=== PATIENT | male | born 1950 | race Caucasian/White ===

== ENCOUNTER 2017-05-24 14:55 | Inpatient (IN) | payer MEDICARE, OTHER ==
[~2017-05-24] VITALS: Ht 188 cm; Wt 100.4 kg
[2017-05-24] VITALS (10 sets, daily range): BP systolic 92–149; BP diastolic 63–99; PULSE 87–103; RESP 17–35; Ht 188 cm; Wt 100.4 kg
[2017-05-24] MEDS ORDERED: ZOLP5TAB7 PO (15:08)
[2017-05-24] MEDS ORDERED: ACET500C5 PO (15:08)
[2017-05-24] MEDS ORDERED: FURO40TA4 IV (15:08)
[2017-05-24] MEDS ORDERED: CARV3.12 PO (15:08)
[2017-05-24] MEDS ORDERED: LEVEM SC (15:08)
[2017-05-24] MEDS ORDERED: ASPI325T32 PO (15:08)
[2017-05-24] MEDS ORDERED: PANT40TA4 PO (15:08)
[2017-05-24] MEDS ORDERED: ENOX40DI12 SQ (15:08)
[2017-05-24] MEDS ORDERED: ATOR10TA65 PO (15:08)
[2017-05-24] MEDS ORDERED: ONDA4AMP IV (15:08)
[2017-05-24] MEDS ORDERED: FUROSEMIDE 40 MG INJ ONE (15:24)
--- NOTE | 2017-05-24 16:30 | RADRPT ---
PROCEDURE: XR Chest. CLINICAL INDICATION: CHF . TECHNIQUE: Single AP portable chest. COMPARISON: No prior Chest x-ray FINDINGS: The cardiac silhouette is mildly enlarged with small bilateral pleural effusions and vascular conges tion. Patchy left lower lobe airspace opacity which may represent pulmonary edema or airspace diseas e. No pneumothorax. The osseous structures and soft tissues are unremarkable. IMPRESSION: 1. Cardiomegaly, vascular congestion, and bilateral pleural effusions suggestive of mild CHF. Increa sed left lower lobe airspace opacity which may reflect pulmonary edema or early pneumonia . RPTAT:AAJJ Ian Palacio Physician Date Time Electronically viewed and signed by Physician Karal on 05/24/2017 16:30 NACHO/
--- NOTE | 2017-05-24 17:06 | CONS ---
Date/Time of Note Date/Time of Note DATE: 05/24/17 TIME: 17:06 Assessment/Plan Assessment/Plan Chief Complaint/Hosp Course Acute respiratory distress: Likely multifactorial including CHF, COPD, obesity hypoventilation. Will need to be able to lay flat for cardiac cath Acute systolic heart failure: EF 25-30%. New diagnosis. Need to rule out ischemia/CAD. Will continue diuresis for now NSTEMI: Trop up to 0.2. Likely type II in setting of CHF. 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 He was initially on BiPAP and diuresed. His trop was only 0.2. Due to cardiomyopathy, the pt was transferred to [facility] for cardiac cath for evaluation. Of note, he was also diagnosed with DM. Upon transfer to the metallurgical lab technician, the pt was noted to have significant orthopnea and was unable to lay flat for more than 2-3 mins. His O2 sat on room air was 88% and responded appropriately to supplemental oxygen. He will be admitted to the ICU for diuresis and management of his respiratory distress after which he will have a cardiac cath for evaluation of his coronaries. per HPI, otherwise negative Past Medical History per HPI Social History Smoking Status: Former smoker Exam/Review of Systems Vital Signs Vitals Vital Signs Date Time Temp Pulse Resp B/P Pulse Ox O2 Delivery O2 Flow Rate FiO2 05/24/17 15:22 Nasal Cannula 2.0 05/24/17 15:17 98.8 102 35 149/99 89 Exam Constitutional: alert, oriented Psych: no complaints Head: atraumatic, normocephalic Neck: jvd (7-8cm) Respiratory: crackles/rales, diminished breath sounds, No clear to auscultation (mild crackles ) Cardiovascular: edema (1+), regular rate and rhythm, No systolic murmur Gastrointestinal: non-tender, soft Neurological: nl mental status, nl speech TAMMI MORENO May 24, 2017 17:06
[2017-05-24] MEDS ORDERED: Discontinue current oral sulfonylureas (glyburide, glipizide, and/or glimepiride) prior to XX ONE (20:30)
[2017-05-24] MEDS ORDERED: HYPOGLYCEMIA PROTOCOL when Glucose is <70 mg/dL or symptomatic <90 mg/dL. XX ONE (20:30)
[2017-05-24] MEDS: INSULIN ASPART [NOVOLOG] 3 ML PEN SC SCH (21:00)
[2017-05-24] MEDS: HYDROCODONE/APAP (5/325) TAB PO PRN (21:16)
[2017-05-24] MEDS: ATORVASTATIN 40 MG TAB PO SCH (21:16)
[2017-05-24] MEDS: ZOLPIDEM 5 MG TAB PO PRN (21:19)
[2017-05-24] MEDS ORDERED: DEXTROSE 50% 50 ML SYRINGE IV PRN ×2 (21:30)
[2017-05-24] MEDS ORDERED: GLUCOSE GEL 15 GRAM TUBE PO PRN ×2 (21:30)
[2017-05-24] MEDS ORDERED: GLUCAGON 1 MG INJ IM PRN (21:30)
[2017-05-24] MEDS ORDERED: GLUCOSE GEL 15 GRAM TUBE BUCCAL PRN (21:30)
[2017-05-25] VITALS (19 sets, daily range): BP systolic 107–135; BP diastolic 64–101; PULSE 84–105; RESP 13–39
[2017-05-25] MEDS: ACCU-CHEK XX SCH ×2 (01:12)
[2017-05-25 07:17] LABS: BASOPHILS % 0.4 % (0.0-2.0); EOSINOPHILS # 0.1 10^3/ul (0.0-0.5); EOSINOPHILS % 0.7 % (0.0-7.0); HEMATOCRIT 35.8 % (42.0-52.0); HEMOGLOBIN 10.7 g/dl (14.0-18.0); LYMPHOCYTES # 1.2 10^3/ul (0.8-2.9); LYMPHOCYTES % 15.4 % (15.0-51.0); MEAN CORPUSCULAR HGB CONC 29.9 g/dl (32.0-37.0); MEAN CORPUSCULAR VOLUME 83.6 fl (82.0-101.0); MEAN PLATELET VOLUME 10.3 fl (7.4-10.4); MONOCYTE # 1.2 10^3/ul (0.3-0.9); MONOCYTES % 15.6 % (0.0-11.0); NEUTROPHILS % 66.7 % (39.0-77.0); PLATELET COUNT 352 10^3/UL (140-415); RED BLOOD COUNT 4.28 10^6/ul (4.70-6.10); RED CELL DISTRIBUTION WIDTH 13.8 % (11.5-14.5); WHITE BLOOD COUNT 7.5 10^3/ul (4.8-10.8)
[2017-05-25 07:26] LABS: ALBUMIN/GLOBULIN RATIO 0.88; BILIRUBIN,INDIRECT 0.2 mg/dl (0-1.1); BILIRUBIN,TOTAL 0.2 mg/dl (0.2-1.3); CALCIUM 9.3 mg/dl (8.4-10.2); CREATININE 0.94 mg/dl (0.61-1.24); MAGNESIUM 2.2 mg/dl (1.7-2.5); PHOSPHORUS 3.5 mg/dl (2.5-4.9); POTASSIUM 4.1 mmol/L (3.5-5.1); TOTAL PROTEIN 6.4 g/dl (6.1-8.1)
[2017-05-25] MEDS ORDERED: ZOLPIDEM 5 MG TAB PO PRN (07:30)
[2017-05-25] MEDS ORDERED: ONDANSETRON 4 MG INJ IV PRN (07:30)
[2017-05-25] MEDS ORDERED: FUROSEMIDE 40 MG INJ IV SCH (07:30)
[2017-05-25] MEDS: INSULIN ASPART [NOVOLOG] 3 ML PEN SC SCH ×4 (08:07→21:56)
[2017-05-25] MEDS: ASPIRIN 81 MG TAB PO SCH (08:21)
--- NOTE | 2017-05-25 08:28 | HP ---
DATE OF ADMISSION: 05/24/2017 CHIEF COMPLAINT: Shortness of breath and CHF. HISTORY OF PRESENT ILLNESS: The patient is a 66-year-old male with a past medical history of obesity, history of tobacco use, who presented to [facility] with shortness of breath. The patient was found to have acute decompensated heart failure with ejection fraction 25 to 30 percent. The patient was initially placed on BiPAP and diuresed. He had an elevated troponin of 0.2. However, due to his cardiomyopathy, the patient is transferred to [facility] for cardiac cath. The patient was also diagnosed with diabetes at [facility]. Upon transferred to do catheterization. The patient had significant orthopnea was unable to lie flat as a result the cardiac cath was not performed. The patient is admitted to the intensive care unit and was given diuretic therapy. Overnight the patient was stable. No other acute events noted. No hemoptysis, hematemesis, hematochezia. PAST MEDICAL HISTORY: 1. Recently diagnosed diabetes. 2. Recently diagnosed CHF, non-STEMI. FAMILY HISTORY: Noncontributory. SOCIAL HISTORY: History of tobacco use. MEDICATIONS: Reviewed. REVIEW OF SYSTEMS: Fourteen review of systems was conducted. Pertinent positives in HPI, otherwise negative. OBJECTIVE DATA: VITAL SIGNS: Blood pressure is 121/101, respirations 18, pulse 101, temperature 98.6. Is and Os L in, 2.2 L out. HEENT: Head is normocephalic. NECK: Supple. HEART: Regular rate. LUNGS: Diminished breath sounds at the base. ABDOMEN: Soft, nontender to palpation. No rebound or guarding. EXTREMITIES: Negative for clubbing, cyanosis. Positive edema. DERMATOLOGIC: No rashes. MUSCULOSKELETAL: No joint effusion. NEUROLOGIC: No change in exam. LABORATORY DATA: The patient's laboratory data is currently pending. ASSESSMENT AND PLAN: 1. Acute hypoxemic respiratory failure. Etiology secondary to congestive heart failure exacerbation. Plan is to continue current medical management. Continue diuretic therapy. Continue supplemental oxygen. Monitor closely. 2. Acute systolic heart failure. Underlying etiology is unclear. The patient is pending cardiac catheterization to rule out ischemic cardiomyopathy. We will continue current medical management. Follow up with Cardiology. 3. Non-STEMI. Continue current medical management. 4. Diabetes newly diagnosed. Will check hemoglobin A1c. Continue Accu-Cheks and insulin sliding scale. We will start the patient on Lantus. 5. Gastrointestinal and deep venous thrombosis prophylaxis. Continue proton pump inhibitor and Lovenox. 6. Dyslipidemia. Continue statin therapy. Please note, I spent 25 minutes face to face time with the patient. The patient is full code. Dictated By: Giuseppe Boyd DO /angi/dakota /Document#: [id number]
--- NOTE | 2017-05-25 10:45 | CONS ---
Date/Time of Note Date/Time of Note DATE: 05/25/17 TIME: 10:42 Assessment/Plan Assessment/Plan Chief Complaint/Hosp Course Acute respiratory distress: Likely multifactorial including CHF, COPD, obesity hypoventilation. Acute systolic heart failure: EF 25-30%. New diagnosis. Need to rule out ischemia/CAD. Close to euvolemic by exam NSTEMI: Trop up to 0.2. Likely type II in setting of CHF. Cardiomyopathy: EF 25 -30% ?COPD: likely based on h/o smoking DM: new diagnosis Prior tobacco use -ASA, lipitor -coreg 3.125mg BID -hold lasix for now (~euvolemic and had 40mgf IV this am) -cath tentatively tomorrow ~1 pm. Problems: Consultation Date/Type/Reason Admit Date/Time May 24, 2017 at 16:00 Initial Consult Date 05/24/17 Type of Consultation: Cardiology Referring Provider: GIOVANNI KRUGER DO 24 HR Interval Summary Free Text/Dictation No o/n events. Diuresing well. Able to lay almost completely flat Exam/Review of Systems Vital Signs Vitals Vital Signs Date Time Temp Pulse Resp B/P Pulse Ox O2 Delivery O2 Flow Rate FiO2 05/25/17 10:00 99 18 135/96 91 Room Air 05/25/17 08:00 98.3 05/25/17 05:00 2.0 Intake and Output 05/24/17 05/24/17 05/25/17 15:00 23:00 07:00 Intake Total 1440 ml Output Total 1700 ml 1600 ml Balance -260 ml -1600 ml Exam Constitutional: alert, oriented Psych: no complaints Head: atraumatic, normocephalic Neck: No jvd Respiratory: crackles/rales (mild), diminished breath sounds, No clear to auscultation Cardiovascular: edema (1+), regular rate and rhythm Gastrointestinal: non-tender, soft Neurological: nl mental status, nl speech Results Result Diagram: 05/25/1743905/25/17439 Results 24 hrs Laboratory Tests Test 05/24/17 21:26 05/25/17 04:40 05/25/17 07:52 Bedside Glucose 203 190 White Blood Count 7.5 Red Blood Count 4.28 L Hemoglobin 10.7 L Hematocrit 35.8 L Mean Corpuscular Volume 83.6 Mean Corpuscular Hemoglobin 25.0 L Mean Corpuscular Hemoglobin Concent 29.9 L Red Cell Distribution Width 13.8 Platelet Count 352 Mean Platelet Volume 10.3 Neutrophils % 66.7 Lymphocytes % 15.4 Monocytes % 15.6 H Eosinophils % 0.7 Basophils % 0.4 Nucleated Red Blood Cells % 0.0 Neutrophils # (Manual) 5.0 Lymphocytes # 1.2 Monocytes # 1.2 H Eosinophils # 0.1 Basophils # 0.0 Nucleated Red Blood Cells # 0.0 Sodium Level 130 L Potassium Level 4.1 Chloride Level 88 L Carbon Dioxide Level 37 H Anion Gap 9 Blood Urea Nitrogen 12 Creatinine 0.94 Glucose Level 169 Hemoglobin A1c 8.8 H Calcium Level 9.3 Phosphorus Level 3.5 Magnesium Level 2.2 Total Bilirubin 0.2 Direct Bilirubin 0.00 Indirect Bilirubin 0.2 Aspartate Amino Transf (AST/SGOT) 39 Alanine Aminotransferase (ALT/SGPT) 33 Alkaline Phosphatase 164 H Total Protein 6.4 Albumin 3.0 L Globulin 3.40 H Albumin/Globulin Ratio 0.88 Medications Medications Current Medications Aspirin (Aspirin) 81 mg DAILY PO Last administered on 05/25/17 08:21; Admin Dose 81 MG; Start 05/25/17 at 09:00 Atorvastatin Calcium (Lipitor) 40 mg HS PO Last administered on 05/24/17 21:16 ; Admin Dose 40 MG; Start 05/24/17 at 21:00 Carvedilol (Coreg) 3.125 mg BID PO Last administered on 05/25/17 08:21; Admin Dose 3.125 MG; Start 05/24/17 at 21:00 Zolpidem Tartrate (Ambien) 5 mg HS PRN PO INSOMNIA Last administered on 21:19; Admin Dose 5 MG; Start 05/24/17 at 20:30 Acetaminophen/ Hydrocodone Bitart ([place] (5/325)) 1 tab Q6H PRN PO PAIN Last administered on 05/24/17 21:16; Admin Dose 1 TAB; Start 05/24/17 at 20:30 Diagnostic Test (Pha) (Accu-Chek) 1 ea 02 XX Last administered on 05/25/17 01: 12; Admin Dose 1 EA; Start 05/25/17 at 02:00 Diagnostic Test (Pha) (Accu-Chek) 1 ea 02 XX Last administered on 05/25/17t 01: 12; Admin Dose 1 EA; Start 05/25/17 at 02:00 Miscellaneous Information 1 ea NOTE XX ; Start 05/24/17 at 21:30 Glucose (Glutose) 15 gm Q15M PRN PO DECREASED GLUCOSE; Start 05/24/17 at 21:30 Glucose (Glutose) 22.5 gm Q15M PRN PO DECREASED GLUCOSE; Start 05/24/17 at 21:30 Dextrose (D50w Syringe) 25 ml Q15M PRN IV DECREASED GLUCOSE; Start 05/24/17 at 21:30 Dextrose (D50w Syringe) 50 ml Q15M PRN IV DECREASED GLUCOSE; Start 05/24/17 at 21:30 Glucagon (Glucagen) 1 mg Q15M PRN IM DECREASED GLUCOSE; Start 05/24/17 at 21:30 Glucose (Glutose) 15 gm Q15M PRN BUCCAL DECREASED GLUCOSE; Start 05/24/17 at 21: 30 Enoxaparin Sodium (Lovenox) 40 mg 2100 SC ; Start 05/25/17 at 21:00 Ondansetron HCl (Zofran Inj) 4 mg Q6 PRN IV N/V; Start 05/25/17 at 07:30 Zolpidem Tartrate (Ambien) 5 mg QHS PRN PO INSOMNIA; Start 05/25/17 at 07:30 TAMMI MORENO May 25, 2017 10:45
[2017-05-25 13:15] LABS: ADD UMIC YES; UR AMORPHOUS CRYSTAL MODERATE /HPF (NONE SEEN); UR ASCORBIC ACID NEGATIVE (NEGATIVE); UR BILIRUBIN (Dip) NEGATIVE (NEGATIVE); UR BLOOD (Dip) NEGATIVE (NEGATIVE); UR CLARITY CLOUDY (CLEAR); UR COLOR YELLOW (YELLOW); UR GLUCOSE (Dip) 1+ mg/dL (NEGATIVE); UR KETONES (Dip) 1+ mg/dL (NEGATIVE); UR LEUKOCYTE ESTERASE (Dip) NEGATIVE Leu/ul (NEGATIVE); UR NITRITE (Dip) NEGATIVE (NEGATIVE); UR RBC 2 /HPF (0-5); UR TOTAL PROTEIN (Dip) NEGATIVE (NEGATIVE); UR UROBILINOGEN (Dip) 2+ mg/dL (NEGATIVE)
--- NOTE | 2017-05-25 13:17 | RADRPT ---
Echocardiogram Report Patient Name: JACKSON AYALA Gender: Male Date: 1950 Study Date: 25-May-2017 Passenger Solicitor: Daniel Alexander [facility] Location: 115 Ref. Physician: TAMMI MORENO Quality: Adequate Procedures: Transthoracic echocardiogram with complete 2D, M-Mode, and doppler examination. Indications: Congestive Heart Failure, cardiomyopathy. 2D/M Mode Doppler Measurement Value Normal Ranges Measurement Value Normal Ranges LVIDd 2D 5.3 3.5 - 5.6 cm AV Peak Aroldo 1.4 m/sec LVIDs 2D 4.2 2.1 - 4.1 cm AV Peak PG 8.0 mmHg FS 2D 21.5 % LVOT Peak Aroldo 1.1 m/sec LVPWd 2D 1.3 0.6 - 1.1 cm LVOT Peak PG 4.0 mmHg IVSd 2D 1.3 0.6 - 1.1 cm MV E Peak Aroldo 1.3 m/sec IVS/LVPW 2D 1.0 AoR Diam 2D 3.6 2.0 - 3.7 cm LA/Ao 2D 1 0 - 1 EDV 2D 153.0 cm3 ESV 2D 74.1 cm3 LA Dimen 2D 4.7 2.3 - 4.0 cm Findings Left Ventricle: Normal left ventricular cavity size. Mild concentric left ventricular hypertrophy. Mild left ventricular systolic dysfunction. Ejection fraction is visually estimated at 4045 %. Tissue Doppler/Mitral Doppler indices are consistent with impaired relaxation (Stage I diastolic dysfunction). Resting Segmental Wall Motion Analysis: Mild global hypokinesis worse in the inferior and inferolateral uriarte. Right Ventricle: Normal right ventricular size. Normal right ventricular systolic function. Left Atrium: There is moderate enlargement of left atrium. Right Atrium: The right atrium is normal in size. Mitral Valve: Mitral valve leaflets appear mildly thickened. Mild mitral annular calcification. Trace mitral regurgitation. Aortic Valve: Normal appearance of the aortic valve. No significant aortic stenosis or insufficiency. Tricuspid Valve: Normal appearance of the tricuspid valve. Unable to obtain RVSP due to minimal presence of tricuspid regurgitation. There is mild tricuspid regurgitation. Pulmonic Valve: Pulmonic valve not well visualized. There is trace pulmonic regurgitation. Pericardium: Normal pericardium with no significant pericardial effusion. Aorta: Normal aortic root. IVC: Normal size and normal respiratory collapse consistent with normal right atrial pressure. Conclusions 1.Normal left ventricular cavity size. Mild concentric left ventricular hypertrophy. Mild left ventricular systolic dysfunction. Ejection fraction is visually estimated at 40-45 %. Tissue Doppler/Mitral Doppler indices are consistent with impaired relaxation (Stage I diastolic dysfunction). 2.Mild global hypokinesis worse in the inferior and inferolateral uriarte. 3.No significant valvular stenosis or regurgitation seen. 4.Unable to obtain RVSP due to minimal presence of tricuspid regurgitation. Normal size and normal respiratory collapse consistent with normal right atrial pressure. Electronically Signed By: Tammi Moreno 25-May-2017 13:16:40 -0700 Patient Name: JACKSON AYALA Study Date: 25-May-2017 [id number]
[2017-05-25] MEDS: HYDROCODONE/APAP (5/325) TAB PO PRN ×2 (17:30→23:07)
--- NOTE | 2017-05-25 19:18 | RADRPT ---
Vent Rate: 88 bpm RR Interval: 0 msec [place] Interval: 164 msec QRS Duration: 116 msec QT Interval: 418 msec QTC Interval: 505 msec P-R-T [place]: 55 - 17 - 88 degrees Normal sinus rhythm Possible Left atrial enlargement ST amp; T wave abnormality, consider anterior ischemia Prolonged QT Abnormal ECG Electronically Signed By: Trevor Martinez [id number]
[2017-05-25] MEDS ORDERED: ENOXAPARIN 40 MG/0.4 ML SYG SC SCH (21:00)
[2017-05-25] MEDS: ZOLPIDEM 5 MG TAB PO PRN (21:28)
[2017-05-25] MEDS: ATORVASTATIN 40 MG TAB PO SCH (21:28)
[2017-05-25] MEDS: INSULIN GLARGINE [LANtus] 3 ML PEN SC SCH (21:31)
[2017-05-26] VITALS (21 sets, daily range): BP systolic 113–155; BP diastolic 67–96; PULSE 89–111; RESP 16–40
[2017-05-26] MEDS: ACCU-CHEK XX SCH ×2 (02:00)
[2017-05-26] MEDS: PANTOPRAZOLE (EC) 40 MG TAB PO SCH (07:30)
[2017-05-26] MEDS ORDERED: ALBUTEROL/IPRATROPIUM (NEB) 3 ML AMP HHN STA (07:52)
--- NOTE | 2017-05-26 08:12 | CONS ---
Date/Time of Note Date/Time of Note DATE: 05/26/17 TIME: 08:07 Assessment/Plan Assessment/Plan Chief Complaint/Hosp Course Acute respiratory distress: Likely multifactorial including CHF, COPD, obesity hypoventilation. Now euvolemic but still with SOB at times. ?PNA or just COPD exacerbation Acute systolic heart failure: Euvolemic by exam NSTEMI: Trop up to 0.2. Likely type II in setting of CHF. Cardiomyopathy: EF 25 -30% initgially, now closer to 40-45% after diuresis ?COPD: likely based on h/o smoking DM: new diagnosis Prior tobacco use -cath today ~11:30am -ASA, lipitor -coreg 3.125mg BID -hold lasix for now -neb treatment -consideration of antibiotics, COPD treatment or pulm consult per primary team Problems: Consultation Date/Type/Reason Admit Date/Time May 24, 2017 at 16:00 Initial Consult Date 05/24/17 Type of Consultation: Cardiology Referring Provider: GIOVANNI KRUGER DO 24 HR Interval Summary Free Text/Dictation Good diuresis. Still with mild SOB but can lay flat per pt. Exam/Review of Systems Vital Signs Vitals Vital Signs Date Time Temp Pulse Resp B/P Pulse Ox O2 Delivery O2 Flow Rate FiO2 05/26/17 07:43 98.0 102 18 140/72 95 05/25/17 14:00 Room Air 05/25/17 10:46 21 05/25/17 05:00 2.0 Intake and Output 05/25/17 05/25/17 05/26/17 15:00 23:00 07:00 Intake Total 880 ml 120 ml 500 ml Output Total 2300 ml 300 ml 1250 ml Balance -1420 ml -180 ml -750 ml Exam Constitutional: alert, oriented Psych: no complaints Head: atraumatic, normocephalic Neck: No jvd Respiratory: clear to auscultation, diminished breath sounds, No crackles/rales Cardiovascular: regular rate and rhythm, No edema, No systolic murmur Gastrointestinal: non-tender, soft, No distended Neurological: nl mental status, nl speech Results Result Diagram: 05/25/17 0440 05/25/17 0440 Results 24 hrs Laboratory Tests Test 05/25/17 09:10 05/25/17 11:48 05/25/17 13:01 05/25/17 17:20 Urine Color YELLOW Urine Clarity CLOUDY A Urine pH 9.0 Urine Specific [place] 1.010 Urine Ketones 1+ H Urine Nitrite NEGATIVE Urine Bilirubin NEGATIVE Urine Urobilinogen 2+ H Urine Leukocyte Esterase NEGATIVE Urine Microscopic RBC 2 Urine Microscopic WBC 5 Urine Amorphous Crystals MODERATE Urine Hemoglobin NEGATIVE Urine Random Creatinine 51.21 Urine Random Sodium 87 Urine Glucose 1+ H Urine Total Protein 25.0 H Bedside Glucose 238 H 212 213 Test 05/25/17 21:14 05/25/17 21:50 05/26/17 02:25 Bedside Glucose 258 H 202 203 Medications Medications Current Medications Aspirin (Aspirin) 81 mg DAILY PO Last administered on 05/25/17 08:21; Admin Dose 81 MG; Start 05/25/17 at 09:00 Atorvastatin Calcium (Lipitor) 40 mg HS PO Last administered on 05/25/17 21:28 ; Admin Dose 40 MG; Start 05/24/17 at 21:00 Carvedilol (Coreg) 3.125 mg BID PO Last administered on 05/25/17 21:28; Admin Dose 3.125 MG; Start 05/24/17 at 21:00 Zolpidem Tartrate (Ambien) 5 mg HS PRN PO INSOMNIA Last administered on 21:28; Admin Dose 5 MG; Start 05/24/17 at 20:30 Acetaminophen/ Hydrocodone Bitart ([place] (5/325)) 1 tab Q6H PRN PO PAIN Last administered on 05/25/17 23:07; Admin Dose 1 TAB; Start 05/24/17 at 20:30 Diagnostic Test (Pha) (Accu-Chek) 1 ea 02 XX Last administered on 05/25/17 01: 12; Admin Dose 1 EA; Start 05/25/17 at 02:00 Diagnostic Test (Pha) (Accu-Chek) 1 ea 02 XX Last administered on 05/25/17 01: 12; Admin Dose 1 EA; Start 05/25/17 at 02:00 Miscellaneous Information 1 ea NOTE XX ; Start 05/24/17 at 21:30 Glucose (Glutose) 15 gm Q15M PRN PO DECREASED GLUCOSE; Start 05/24/17 at 21:30 Glucose (Glutose) 22.5 gm Q15M PRN PO DECREASED GLUCOSE; Start 05/24/17 at 21:30 Dextrose (D50w Syringe) 25 ml Q15M PRN IV DECREASED GLUCOSE; Start 05/24/17 at 21:30 Dextrose (D50w Syringe) 50 ml Q15M PRN IV DECREASED GLUCOSE; Start 05/24/17 at 21:30 Glucagon (Glucagen) 1 mg Q15M PRN IM DECREASED GLUCOSE; Start 05/24/17 at 21:30 Glucose (Glutose) 15 gm Q15M PRN BUCCAL DECREASED GLUCOSE; Start 05/24/17 at 21: 30 Enoxaparin Sodium (Lovenox) 40 mg 2100 SC Last administered on 05/25/17 21:31; Admin Dose 40 MG; Start 05/25/17 at 21:00 Ondansetron HCl (Zofran Inj) 4 mg Q6 PRN IV N/V; Start 05/25/17 at 07:30 Zolpidem Tartrate (Ambien) 5 mg QHS PRN PO INSOMNIA; Start 05/25/17 at 07:30 Insulin Glargine (Lantus) 10 unit QHS SC Last administered on 05/25/17 21:31; Admin Dose 10 UNIT; Start 05/25/17 at 21:00 TAMMI MORENO May 26, 2017 08:12
[2017-05-26] MEDS: ASPIRIN 81 MG TAB PO SCH (08:27)
[2017-05-26] MEDS: INSULIN ASPART [NOVOLOG] 3 ML PEN SC SCH ×5 (08:32→21:40)
[2017-05-26 08:34] LABS: BASOPHILS % 0.4 % (0.0-2.0); EOSINOPHILS % 0.4 % (0.0-7.0); HEMATOCRIT 39.4 % (42.0-52.0); HEMOGLOBIN 11.7 g/dl (14.0-18.0); LYMPHOCYTES # 1.3 10^3/ul (0.8-2.9); LYMPHOCYTES % 15.1 % (15.0-51.0); MEAN CORPUSCULAR HEMOGLOBIN 24.4 pg (29.0-33.0); MEAN CORPUSCULAR HGB CONC 29.7 g/dl (32.0-37.0); MEAN CORPUSCULAR VOLUME 82.1 fl (82.0-101.0); MEAN PLATELET VOLUME 9.6 fl (7.4-10.4); MONOCYTE # 1.2 10^3/ul (0.3-0.9); NEUTROPHILS % 68.9 % (39.0-77.0); PLATELET COUNT 419 10^3/UL (140-415); RED CELL DISTRIBUTION WIDTH 13.6 % (11.5-14.5); WHITE BLOOD COUNT 8.5 10^3/ul (4.8-10.8)
[2017-05-26] MEDS: LEVOFLOXACIN 500 MG TAB PO SCH (08:35)
[2017-05-26 09:02] LABS: CALCIUM 9.7 mg/dl (8.4-10.2); CREATININE 0.81 mg/dl (0.61-1.24); MAGNESIUM 2.2 mg/dl (1.7-2.5)
--- NOTE | 2017-05-26 11:23 | PN ---
DATE: 05/26/2016 SUBJECTIVE DATA: The patient is stable. The patient is noted to still have some shortness of breath. No other acute events noted overnight. No hemoptysis, hematemesis, hematochezia. OBJECTIVE DATA: VITAL SIGNS: Blood pressure 140/72, respirations 18, pulse 102, temperature 98. HEENT: Head is normocephalic. NECK: Supple. HEART: Regular rate. LUNGS: Diminished breath sounds at the base. ABDOMEN: Soft, nontender to palpation. No rebound or guarding. EXTREMITIES: Negative for clubbing, cyanosis. No edema. DERMATOLOGIC: No rashes. MUSCULOSKELETAL: No joint effusion. NEUROLOGIC: Unchanged exam. MEDICATIONS: Reviewed. LABORATORY AND DIAGNOSTIC DATA: Shows sodium 133, potassium 4.5, BUN 12, creatinine 0.81. White count 5, 9.7, hematocrit 39.4, platelet count 119,000. ASSESSMENT AND PLAN: 1. Acute hypoxic respiratory failure. Etiology appears to be multifactorial from congestive heart failure exacerbation and possible undiagnosed chronic obstructive pulmonary disease exacerbation. Plan is to continue intermittent diuretic therapy. Will continue bronchodilators, supplemental oxygen. Will start the patient on Levaquin. Will consider Prednisone. Will place a pulmonary consult for evaluation. 2. Probable chronic obstructive pulmonary disease with mild exacerbation. The patient is currently on nebulizer's, Levaquin. Consider steroids. Will follow up with Pulmonary for recommendations. 3. Acute systolic heart failure. Etiology is unclear. The patient is pending cardiac cath. Continue medical management. 4. . Continue current treatment plan. 5. Diabetes. Continue Accu-Cheks and sliding scale. Continue Lantus. 6. Dyslipidemia. Continue statin therapy. 7. Gastrointestinal and deep venous thrombosis prophylaxis. Continue proton pump inhibitor and Lovenox. 8. Mild anemia. Monitor hemoglobin and hematocrit levels. 9. Hypernatremia, mild. Continue to monitor. Dictated By: Giuseppe Boyd DO /angi/patience /Document#: [id number]
[2017-05-26] MEDS ORDERED: IODIXANOL LOCM 100 ML BTL ONE ×2 (11:34→12:34)
[2017-05-26] MEDS ORDERED: LIDOCAINE 1% (MDV) 20 ML INJ ONE (11:34)
[2017-05-26] MEDS ORDERED: MIDAZOLAM 1 MG/ML 2 ML INJ ONE (11:35)
[2017-05-26] MEDS ORDERED: HEPARIN 1000 UNITS/ML 10 ML INJ ONE (11:35)
[2017-05-26] MEDS ORDERED: NITROGLYCERIN (IC) 100 MCG/ML INJ ONE (11:35)
[2017-05-26] MEDS ORDERED: VERAPAMIL 5 MG INJ ONE (11:35)
[2017-05-26] MEDS ORDERED: FENTAnyl 50 MCG/ML VIAL ONE (11:36)
[2017-05-26] MEDS ORDERED: SOD CHLORIDE 0.9% 500 ML ONE (12:34)
--- NOTE | 2017-05-26 12:46 | CONS ---
Date/Time of Note Date/Time of Note DATE: 05/26/17 TIME: 12:41 Assessment/Plan Assessment/Plan Additional Assessment/Plan Chest x-ray was reviewed which is showing changes consistent with emphysema. Mild vascular congestion is present. Assessment and recommendations; 1. Patient admitted for shortness of breath transferred over from [facility] for coronary angiogram which is scheduled for today. 2. Likely underlying undiagnosed COPD. Continue current treatment. Further recommendations to be made once angiography is done. On outpatient basis patient will need to have a PFT done. Consultation Date/Type/Reason Admit Date/Time May 24, 2017 at 16:00 Date of Consultation: May 26, 2017 Type of Consultation: Pulmonary Reason for Consultation Pulmonary consultation requested for evaluation of shortness of breath. History of presenting any; patient is a pleasant 66-year-old white male who has been transferred over from [facility] for cardiac catheterization. The patient was admitted there for decompensated CHF. Echocardiogram is showing global hypokinesis with preserved ejection fraction. According to the patient he has been getting progressively more short of breath over a span of several months which is mostly on exertion. However a few days ago the patient became more sick with severe shortness of breath. The patient was admitted to [facility] and then subsequently transferred to [facility] for coronary angiogram. She is feeling much better since admission denies any chest pain, shortness of breath is markedly improved. Denies any wheezing, coughing or sputum production. According to him the symptoms have been building up on him over the last several months. And patient denies any shortness of breath prior to that. Past medical history; 1. Patient with no history of any known coronary artery disease or CHF. Medications; reviewed. Allergies; none. History; patient quit smoking 10 years ago. According to him he was smoking about a pack a day. Family history; patient is he has 3 children. 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 Review of systems; denies any headache, visual changes. Any sinus symptoms. Any chest pain or angina. Any coughing or wheezing. Shortness of breath is improved. Denies any abdominal pain, nausea or vomiting. Denies any edema. Complains of mild orthopnea. Denies any weight change. Denies any GI or urinary symptoms. General exam; elderly male, awake and alert. Currently in no distress. Psychological: no complaints Social History Smoking Status: Former smoker Exam/Review of Systems Vital Signs Vitals Vital Signs Date Time Temp Pulse Resp B/P Pulse Ox O2 Delivery O2 Flow Rate FiO2 05/26/17 12:15 102 05/26/17 11:53 97.8 19 128/81 98 05/25/17 14:00 Room Air 05/25/17 10:46 21 05/25/17 05:00 2.0 Intake and Output 05/25/17 05/25/17 05/26/17 15:00 23:00 07:00 Intake Total 880 ml 120 ml 500 ml Output Total 2300 ml 300 ml 1250 ml Balance -1420 ml -180 ml -750 ml Exam HEENT exam; supple neck, no JVD. No lymphadenopathy. Midline trachea. No thyromegaly. Patient has multiple carious teeth. Chest exam; clear to auscultation. S1-S2 audible, no murmurs. Regular rhythm. Abdomen exam; soft, no organomegaly. Bowel sounds audible. Nontender. Extremity exam; no peripheral edema. No clubbing. Pulses 1+ bilaterally. EXPANDER exam; no focal deficit Results Result Diagram: 05/26/17 0810 05/26/17 0810 Results 24 hrs Laboratory Tests Test 05/25/17 13:01 05/25/17 17:20 05/25/17 21:14 05/25/17 21:50 Bedside Glucose 212 213 258 H 202 Test 05/26/17 02:25 05/26/17 08:10 05/26/17 08:23 Bedside Glucose 203 209 White Blood Count 8.5 Red Blood Count 4.80 Hemoglobin 11.7 L Hematocrit 39.4 L Mean Corpuscular Volume 82.1 Mean Corpuscular Hemoglobin 24.4 L Mean Corpuscular Hemoglobin Concent 29.7 L Red Cell Distribution Width 13.6 Platelet Count 419 H Mean Platelet Volume 9.6 Neutrophils % 68.9 Lymphocytes % 15.1 Monocytes % 14.0 H Eosinophils % 0.4 Basophils % 0.4 Nucleated Red Blood Cells % 0.0 Neutrophils # (Manual) 5.8 Lymphocytes # 1.3 Monocytes # 1.2 H Eosinophils # 0.0 Basophils # 0.0 Nucleated Red Blood Cells # 0.0 Sodium Level 133 L Potassium Level 4.0 Chloride Level 91 L Carbon Dioxide Level 34 H Anion Gap 12 Blood Urea Nitrogen 12 Creatinine 0.81 Glucose Level 216 Calcium Level 9.7 Phosphorus Level 3.0 Magnesium Level 2.2 Medications Medications Current Medications Aspirin (Aspirin) 81 mg DAILY PO Last administered on 05/26/17 08:27; Admin Dose 81 MG; Start 05/25/17 at 09:00 Atorvastatin Calcium (Lipitor) 40 mg HS PO Last administered on 05/25/17 21:28 ; Admin Dose 40 MG; Start 05/24/17 at 21:00 Carvedilol (Coreg) 3.125 mg BID PO Last administered on 05/25/17 21:28; Admin Dose 3.125 MG; Start 05/24/17 at 21:00 Zolpidem Tartrate (Ambien) 5 mg HS PRN PO INSOMNIA Last administered on 21:28; Admin Dose 5 MG; Start 05/24/17 at 20:30 Acetaminophen/ Hydrocodone Bitart ([place] (5/325)) 1 tab Q6H PRN PO PAIN Last administered on 05/25/17 23:07; Admin Dose 1 TAB; Start 05/24/17 at 20:30 Diagnostic Test (Pha) (Accu-Chek) 1 ea 02 XX Last administered on 05/25/17 01: 12; Admin Dose 1 EA; Start 05/25/17 at 02:00 Diagnostic Test (Pha) (Accu-Chek) 1 ea 02 XX Last administered on 05/25/17 01: 12; Admin Dose 1 EA; Start 05/25/17 at 02:00 Miscellaneous Information 1 ea NOTE XX ; Start 05/24/17 at 21:30 Glucose (Glutose) 15 gm Q15M PRN PO DECREASED GLUCOSE; Start 05/24/17 at 21:30 Glucose (Glutose) 22.5 gm Q15M PRN PO DECREASED GLUCOSE; Start 05/24/17 at 21:30 Dextrose (D50w Syringe) 25 ml Q15M PRN IV DECREASED GLUCOSE; Start 05/24/17 at 21:30 Dextrose (D50w Syringe) 50 ml Q15M PRN IV DECREASED GLUCOSE; Start 05/24/17 at 21:30 Glucagon (Glucagen) 1 mg Q15M PRN IM DECREASED GLUCOSE; Start 05/24/17 at 21:30 Glucose (Glutose) 15 gm Q15M PRN BUCCAL DECREASED GLUCOSE; Start 05/24/17 at 21: 30 Enoxaparin Sodium (Lovenox) 40 mg 2100 SC Last administered on 05/25/17 21:31; Admin Dose 40 MG; Start 05/25/17 at 21:00 Ondansetron HCl (Zofran Inj) 4 mg Q6 PRN IV N/V; Start 05/25/17 at 07:30 Zolpidem Tartrate (Ambien) 5 mg QHS PRN PO INSOMNIA; Start 05/25/17 at 07:30 Insulin Glargine (Lantus) 10 unit QHS SC Last administered on 05/25/17 21:31; Admin Dose 10 UNIT; Start 05/25/17 at 21:00 Levofloxacin 500 mg 500 mg DAILY@06 PO Last administered on 05/26/17 08:35; Admin Dose 500 MG; Start 05/26/17 at 09:00 Adenosine/Sodium Chloride (Adenoscan/NS) 90 ml @ mls/hr INTRA-PROCEDURE IV ; Start 05/26/17 at 13:00; Stop 05/26/17 at 13:01 ROC AGRAWAL May 26, 2017 12:46
[2017-05-26] MEDS ORDERED: ADENOSINE 90 MG in SOD CHLORIDE 0.9% 90 ML IV SCH (13:00)
[2017-05-26] MEDS ORDERED: FUROSEMIDE 40 MG INJ ONE (13:04)
--- NOTE | 2017-05-26 13:27 | OPR ---
Date/Time of Note Date/Time of Note DATE: 05/26/17 TIME: 13:25 Operative Report Free Text/Dictation Procedure Date: 05/26/2017 Procedures Performed: 1)Left heart catheterization with selective left and right coronary angiography. 2)iFR and FFR of the mid LAD which were both positive Pre-operative Diagnosis:NSTEMI, cardiomyopathy, CHF Post-operative Diagnosis:same plus 3 vessel CAD Indications:66 yo M with a h/o DM, prior tobacco use, who presented with CHF and was found to have new onset cardiomyopathy with EF 25-30%. With diuresis the EF improved to 40-45% with inferior and inferolateral WMA. Cath to evaluate coronaries Description of Procedure: After informed consent, the patient was brought to the cardiac catheterization lab. The procedure site was prepped and draped in usual manner. The patient was premedicated with versed 1mg and fentanyl 25 mcg. 3mL lidocaine was injected into the right wrist. Next using the posterior wall technique, the 6/ 5 kittitian sheath was inserted into the right radial artery. Next using the JL3.5 and JR4, selective angiography of the left and right coronary arteries were obtained. The pigtail was then advanced into the ventricle and hemodynamics obtained. Left ventricle angiography was not obtained. The decision was made to proceed with iFR of the mid LAD as the pt had otherwise multivessel disease and if the LAD was ischemic would benefit from CABG, otherwise PCI would be appropriate. A 6 kittitian JL4 guide was advanced and engaged into the left coronary artery. ACT was checked and was only 175 so 5000 units of heparin was given. The iFR wire was equalized at the left main ostium and advanced past the lesion. iFR was measured at 0.87 which is considered positive. To confirm, adenosine was given at 180 mcg and the FFR was <0.75 (was continuing to drop but was stopped as the pt was very symptomatic. As low as 0.53 but may have been an error). The wire was removed and final angiography revealed RAMONA 3 flow, no complications. Next all equipment was removed and hemostasis was achieved by TR band. 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 Dr. Mooney will consult -continue ASA, statin -coreg TAMMI MORENO May 26, 2017 13:27
[2017-05-26] MEDS ORDERED: ONDANSETRON 4 MG INJ IV PRN (13:30)
[2017-05-26] MEDS ORDERED: CEFAZOLIN 2 GM/50 ML (PMX) 50 ML IVPB ONE (17:00)
--- NOTE | 2017-05-26 17:01 | CONS ---
Date/Time of Note Date/Time of Note DATE: 05/26/17 TIME: 16:55 Assessment/Plan Assessment/Plan Additional Assessment/Plan 66 year old male with 3V CAD, recently diagnosed DM with ischemic cardiomyopathy who will need to have urgent CABG. I explained to the patient and his the benefits, risks, and alternatives of surgery. The risks are but not limited to bleeding, infection, stroke, renal and respiratory and . He understand and agrees to surgery tomorrow. Consultation Date/Type/Reason Admit Date/Time May 24, 2017 at 16:00 Date of Consultation: May 26, 2017 Reason for Consultation evaluate for CABG Hx of Present Illness 66 year old male admitted with SOB and echo at [facility] showed EF of 25-30%. He underwent diuresis and then transferred here for cardiac cath which shows severe 3V CAD. He does report a several week history of VEGA and orthopnea. Constitutional: requiring O2 Eyes: No discharge, No no complaints, No other, No pain, No redness, No visual change ENT: No bleeding, No congestion, No discharge, No dysphagia, No no complaints, No other, No pain, No sore throat Respiratory: cough, shortness of breath Cardiovascular: orthopenea Gastrointestinal: No blood, No constipation, No decreased appetite, No diarrhea , No flatus, No nausea, No no complaints, No other, No pain, No passing stool, No vomiting Genitourinary: No bleeding, No discharge, No dysuria, No flank pain, No hematuria, No no complaints, No other Musculoskeletal: No back pain, No bone/joint pain, No neck pain, No no complaints, No other, No restricted range of motion, No swelling Skin: No bruising, No erythema, No laceration, No no complaints, No other, No pruritis, No rash, No skin lesions Neurologic: No confusion, No dizziness, No focal-weakness, No headache, No no complaints, No other, No seizure, No syncope Endocrine: No dry skin, No no complaints, No other, No polydypsia, No polyuria , No temp intolerance Lymphatic: No adenopathy, No lymphadema, No no complaints, No other, No tender nodes Psychological: no complaints, No anxiety, No confusion, No depression, No nl mood/affect, No other, No suicidal Immunologic: No immunodeficiency, No no complaints, No other, No pruritis, No rhinitis, No urticaria Past Medical History Medical History: congestive heart failure, coronary artery disease Past Surgical History Past Surgical Hx: no surgical history Family History Significant Family History: no pertinent family hx Social History Alcohol Use: none Smoking Status: Former smoker Drug Use: none 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 , 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, 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 Exam/Review of Systems Vital Signs Vitals Vital Signs Date Time Temp Pulse Resp B/P Pulse Ox O2 Delivery O2 Flow Rate FiO2 05/26/17 14:58 102 32 137/80 94 Room Air 05/26/17 13:25 2.0 05/26/17 11:53 97.8 05/25/17 10:46 21 Intake and Output 05/25/17 05/25/17 05/26/17 15:00 23:00 07:00 Intake Total 880 ml 120 ml 500 ml Output Total 2300 ml 300 ml 1250 ml Balance -1420 ml -180 ml -750 ml Exam Constitutional: alert, oriented, well developed Psych: No anxiety, No confusion, No depression, No nl mood/affect, No no complaints, No other, No suicidal Head: No atraumatic, No hematomas, No lacerations, No normocephalic, No other Eyes: No EOMI, No PERRL, No fundi, disc, No icteric, No nl conjunctiva, No nl lids, No nl sclera, No other ENMT: No intubated, No mucosa pink and moist, No nl external ears & nose, No nl lips & teeth, No nl nasal mucosa & septum, No other, No tympanic membranes Neck: No bruits, No jvd, No masses, No non-tender, No nuchal rigidity, No other , No supple, No thyromegaly Respiratory: crackles/rales, intercostal retraction, labored breathing Cardiovascular: No S3, No S4, No bruits, No diastolic murmur, No edema, No gallop, No irregular rhythm, No jugular venous distention (JVD), No murmurs/ extra sounds, No nl pulses, No other, No regular rate and rhythm, No rub, No systolic murmur Gastrointestinal: No ascites, No bowel sounds, No distended, No firm, No hepatomegaly, No mass, No nl liver, spleen, No non-tender, No other, No rebound or guarding, No soft, No splenomegaly, No surgical scars, No tender Genitourinary - Male: No CVA tenderness, No discharge, No nl penis, No nl scrotum, No other Musculoskeletal: No joint tenderness, No muscle tone, No muscle weakness, No nl extremities to inspection, No nl gait and stance, No other, No range of motion, No spine non-tender, No swelling Extremities: No calf tenderness, No clubbing, No cyanosis, No edema, No normal pulses, No other, No palpable cord, No pitting pedal edema, No tenderness Neurological: 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 intact, No DTR's symmetric, No confused, No focal weakness, No lethargic, No nl mental status, No nl speech, No nl strength, No numbness, No other, No reflexes, No unresponsive Skin: No diaphoresis, No ecchymosis, No laceration, No nl turgor, No other, No puncture, No rash or lesions Lymph: No enlarged, No nl lymph nodes, No nontender, No other Results Result Diagram: 05/26/17 0810 05/26/17 0810 Results 24 hrs Laboratory Tests Test 05/25/17 17:20 05/25/17 21:14 05/25/17 21:50 05/26/17 02:25 Bedside Glucose 213 258 H 202 203 Test 05/26/17 08:10 05/26/17 08:23 05/26/17 14:36 White Blood Count 8.5 Red Blood Count 4.80 Hemoglobin 11.7 L Hematocrit 39.4 L Mean Corpuscular Volume 82.1 Mean Corpuscular Hemoglobin 24.4 L Mean Corpuscular Hemoglobin Concent 29.7 L Red Cell Distribution Width 13.6 Platelet Count 419 H Mean Platelet Volume 9.6 Neutrophils % 68.9 Lymphocytes % 15.1 Monocytes % 14.0 H Eosinophils % 0.4 Basophils % 0.4 Nucleated Red Blood Cells % 0.0 Neutrophils # (Manual) 5.8 Lymphocytes # 1.3 Monocytes # 1.2 H Eosinophils # 0.0 Basophils # 0.0 Nucleated Red Blood Cells # 0.0 Sodium Level 133 L Potassium Level 4.0 Chloride Level 91 L Carbon Dioxide Level 34 H Anion Gap 12 Blood Urea Nitrogen 12 Creatinine 0.81 Glucose Level 216 Calcium Level 9.7 Phosphorus Level 3.0 Magnesium Level 2.2 Bedside Glucose 209 187 Medications Medications Current Medications Aspirin (Aspirin) 81 mg DAILY PO Last administered on 05/26/17 08:27; Admin Dose 81 MG; Start 05/25/17 at 09:00 Atorvastatin Calcium (Lipitor) 40 mg HS PO Last administered on 05/25/17 21:28 ; Admin Dose 40 MG; Start 05/24/17 at 21:00 Carvedilol (Coreg) 3.125 mg BID PO Last administered on 05/25/17 21:28; Admin Dose 3.125 MG; Start 05/24/17 at 21:00 Zolpidem Tartrate (Ambien) 5 mg HS PRN PO INSOMNIA Last administered on 21:28; Admin Dose 5 MG; Start 05/24/17 at 20:30 Acetaminophen/ Hydrocodone Bitart ([place] (5/325)) 1 tab Q6H PRN PO PAIN Last administered on 05/25/17 23:07; Admin Dose 1 TAB; Start 05/24/17 at 20:30 Diagnostic Test (Pha) (Accu-Chek) 1 ea 02 XX Last administered on 05/25/17 01: 12; Admin Dose 1 EA; Start 05/25/17 at 02:00 Diagnostic Test (Pha) (Accu-Chek) 1 ea 02 XX Last administered on 05/25/17 01: 12; Admin Dose 1 EA; Start 05/25/17 at 02:00 Miscellaneous Information 1 ea NOTE XX ; Start 05/24/17 at 21:30 Glucose (Glutose) 15 gm Q15M PRN PO DECREASED GLUCOSE; Start 05/24/17 at 21:30 Glucose (Glutose) 22.5 gm Q15M PRN PO DECREASED GLUCOSE; Start 05/24/17 at 21:30 Dextrose (D50w Syringe) 25 ml Q15M PRN IV DECREASED GLUCOSE; Start 05/24/17 at 21:30 Dextrose (D50w Syringe) 50 ml Q15M PRN IV DECREASED GLUCOSE; Start 05/24/17 at 21:30 Glucagon (Glucagen) 1 mg Q15M PRN IM DECREASED GLUCOSE; Start 05/24/17 at 21:30 Glucose (Glutose) 15 gm Q15M PRN BUCCAL DECREASED GLUCOSE; Start 05/24/17 at 21: 30 Enoxaparin Sodium (Lovenox) 40 mg 2100 SC Last administered on 05/25/17 21:31; Admin Dose 40 MG; Start 05/25/17 at 21:00 Zolpidem Tartrate (Ambien) 5 mg QHS PRN PO INSOMNIA; Start 05/25/17 at 07:30 Insulin Glargine (Lantus) 10 unit QHS SC Last administered on 05/25/17 21:31; Admin Dose 10 UNIT; Start 05/25/17 at 21:00 Levofloxacin (Levaquin) 500 mg DAILY@06 PO Last administered on 05/26/17 08:35 ; Admin Dose 500 MG; Start 05/26/17 at 09:00 Morphine Sulfate (morphine) 2 mg Q2H PRN IV FOR NON CARDIAC PAIN (4-10); Start 05/26/17 at 13:30 Ondansetron HCl 4 mg 4 mg Q4H PRN IV NAUSEA AND/OR VOMITING; Start 05/26/17 at 13:30 Cefazolin Sodium/ Dextrose (Ancef 2 Gm/50 ml (Pmx)) 50 ml @ 100 mls/hr PRE-OP ONCE IVPB ; Start 05/26/17 at 17:00; Stop 05/26/17 at 17:29; Status RAISSA KILPATRICK MD May 26, 2017 17:01
--- NOTE | 2017-05-26 17:37 | RADRPT ---
PROCEDURE: US Carotids. CLINICAL INDICATION: Preop CABG TECHNIQUE: Multiple sonographic of the carotid arteries were obtained utilizing yoon scale imaging . Color and Doppler imaging was performed. The images were reviewed on a PACS workstation. COMPARISON: No prior studies are available for comparison. FINDINGS: Location Right Left CCA 82 cm/sec 77 cm/sec Prox ICA 53 cm/sec 54 cm/sec Mid ICA 58 cm/sec 51 cm/sec Dist ICA 69 cm/sec 77 cm/sec ECA 70 cm/sec 57 cm/sec ICA/CCA 0.8 1.0 Antegrade flow is seen within the vertebral arteries bilaterally. Minimal scattered atherosclerotic plaque is seen within the carotid system bilaterally. No hemodynamically significant stenosis or oc clusion is identified. IMPRESSION: 1. Minimal scattered atherosclerotic plaque without evidence for hemodynamically significant stenosi s - validated velocity measurements with angiographic measurements, velocity criteria are extrapolat ed from diameter data as defined by the Society of Radiologists in Ultrasound Consensus Conference R adiology 2003; 229;340-346. This study does indirectly reference the measurement of the distal ICA diameter as the denominator for stenosis measurement. 2. Antegrade flow seen within the vertebral arteries bilaterally. SRU Consensus Conference Criteria for the Diagnosis of Carotid Artery Stenosis Degree of Stenosis, % ICA PSV, cm/sec Plaque Estimate, % ICA/CCA PSV Ratio Normal <125 None <2.0 <50 <125 <50 <2.0 50 69 125-230 >50 2.0-4.0 >70 but less than near occlusion >230 >50 <4.0 Near occlusion High, low, or undetectable Visible Variable Total occlusion Undetectable Visible, no detectable lumen Not applicable *Cartoid artery stenosis: yoon-scale and Doppler US diagnosis. Society of Radiologists in Ultrasound Consensus Conference. Radiology 2003; 229: 340-346 RPTAT: JJ .Geoffrey Walters MD, MD Date Time Electronically viewed and signed by .Geoffrey Walters MD, MD on 05/26/2017 17:36 .A/
[2017-05-26] MEDS: HYDROCODONE/APAP (5/325) TAB PO PRN (18:39)
[2017-05-26] MEDS: morphine 2 MG INJ IV PRN (20:17)
[2017-05-26] MEDS: ATORVASTATIN 40 MG TAB PO SCH (21:33)
[2017-05-26] MEDS: INSULIN GLARGINE [LANtus] 3 ML PEN SC SCH (21:40)
[2017-05-27] VITALS (43 sets, daily range): BP systolic 75–144; BP diastolic 41–85; PULSE 95–117; RESP 14–30; TEMP 98.8–99.2
[2017-05-27] MEDS: morphine 2 MG INJ IV PRN ×2 (01:53→06:11)
[2017-05-27] MEDS: ACCU-CHEK XX SCH ×11 (02:00→23:30)
[2017-05-27] MEDS ORDERED: CEFAZOLIN 2 GM/50 ML (PMX) 50 ML IVPB SCH (06:00)
[2017-05-27] MEDS: LEVOFLOXACIN 500 MG TAB PO SCH (06:00)
[2017-05-27] MEDS ORDERED: INSULIN REGULAR, HUMAN 100 UNIT/1 ML 3ML VIAL ONE (07:00)
[2017-05-27] MEDS ORDERED: DOPamine-D5W 1.6 MG/ML 250 ML ONE (07:00)
[2017-05-27] MEDS ORDERED: NITROGLYCERIN 50 MG/D5W 250 ML BTL ONE (07:00)
[2017-05-27] MEDS ORDERED: HEPARIN 1000 UNITS/ML 10 ML INJ ONE ×5 (07:12→10:08)
[2017-05-27] MEDS ORDERED: VANCOMYCIN 1 GM INJ ONE (07:12)
[2017-05-27] MEDS ORDERED: INSULIN REGULAR, HUMAN 100 UNIT/1 ML 3ML VIAL SC ONE (07:30)
[2017-05-27] MEDS: PANTOPRAZOLE (EC) 40 MG TAB PO SCH (07:30)
[2017-05-27] MEDS ORDERED: MIDAZOLAM 5 ML ONE ×2 (07:45→09:41)
[2017-05-27] MEDS ORDERED: POTASSIUM CHLORIDE 40 MEQ INJ ONE ×2 (07:46→12:59)
[2017-05-27] MEDS ORDERED: LIDOCAINE 100 MG SYRINGE ONE (07:46)
[2017-05-27] MEDS ORDERED: MAGNESIUM SULFATE (MG) 50% 10 ML INJ ONE ×2 (07:48→13:00)
[2017-05-27] MEDS ORDERED: AMINOCAPROIC ACID 5 GM INJ ONE ×4 (07:48→12:14)
[2017-05-27] MEDS ORDERED: PHENYLephrine 10 MG INJ ONE ×4 (07:49)
[2017-05-27] MEDS ORDERED: PHENYLephrine (100 MCG/ML) 5ML SYG ONE ×4 (07:49→12:34)
[2017-05-27] MEDS ORDERED: NA BICARBONATE 8.4% 50 ML SYG ONE (07:50)
[2017-05-27] MEDS ORDERED: CA CHLORIDE 10% 10 ML SYRINGE ONE (07:51)
[2017-05-27] MEDS ORDERED: MANNITOL 25% 50 ML ONE (07:51)
[2017-05-27] MEDS ORDERED: ASPIRIN 600 MG SUPP PR ONE (08:00)
[2017-05-27] MEDS ORDERED: NORepinephrine 8MG/250 ML (PMX 250 ML IV ONE (08:00)
[2017-05-27] MEDS ORDERED: EPINEPHrine 4 MG in DEXTROSE 5% 246 ML IV ONE (08:00)
[2017-05-27] MEDS ORDERED: HEPARIN (10000 UNITS/ML) 10,000 UNIT, MILRINONE LACTATE 10 MG in SOD CHLORIDE 0.9% 1,00... SC ONE (08:00)
[2017-05-27] MEDS ORDERED: PHENYLephrine 20MG IN 250 ML 250 ML IV ONE (08:00)
[2017-05-27] MEDS ORDERED: INSULIN HUMAN REGULAR 100 UNIT in SOD CHLORIDE 0.9% 99 ML IVPB ONE (08:00)
[2017-05-27] MEDS ORDERED: MILRINONE LACTATE 2 MG in SOD CHLORIDE 0.9% 50 ML IV ONE (08:00)
[2017-05-27 08:02] LABS: BASOPHILS % 0.3 % (0.0-2.0); EOSINOPHILS % 0.2 % (0.0-7.0); HEMATOCRIT 35.4 % (42.0-52.0); HEMOGLOBIN 10.7 g/dl (14.0-18.0); LYMPHOCYTES # 1.2 10^3/ul (0.8-2.9); MEAN CORPUSCULAR HEMOGLOBIN 24.8 pg (29.0-33.0); MEAN CORPUSCULAR HGB CONC 30.2 g/dl (32.0-37.0); MEAN CORPUSCULAR VOLUME 82.1 fl (82.0-101.0); MEAN PLATELET VOLUME 9.7 fl (7.4-10.4); MONOCYTE # 1.4 10^3/ul (0.3-0.9); MONOCYTES % 15.7 % (0.0-11.0); NEUTROPHILS % 69.9 % (39.0-77.0); PLATELET COUNT 369 10^3/UL (140-415); RED BLOOD COUNT 4.31 10^6/ul (4.70-6.10); RED CELL DISTRIBUTION WIDTH 13.7 % (11.5-14.5); WHITE BLOOD COUNT 8.9 10^3/ul (4.8-10.8)
[2017-05-27] MEDS ORDERED: SODIUM CL BACTERIOSTATIC 30 ML INJ ONE (08:04)
[2017-05-27] MEDS ORDERED: PAPAVERINE 60 MG INJ ONE (08:04)
[2017-05-27 08:29] LABS: CALCIUM 9.4 mg/dl (8.4-10.2); CREATININE 0.83 mg/dl (0.61-1.24); MAGNESIUM 2.1 mg/dl (1.7-2.5); PHOSPHORUS 2.8 mg/dl (2.5-4.9); POTASSIUM 4.4 mmol/L (3.5-5.1)
[2017-05-27] MEDS ORDERED: ALBUMIN HUMAN 25% 300 ML ONE (09:17)
[2017-05-27] MEDS ORDERED: HEPARIN 10,000 UNITS/ML 1 ML INJ ONE ×6 (10:15→12:53)
--- NOTE | 2017-05-27 11:04 | PN ---
DATE: 05/27/2017 SUBJECTIVE DATA: The patient yesterday had a cardiac cath which showed multivessel disease. The patient has been seen by CT surgeon, Dr. Mooney and is being taken today for CABG. No other events noted. OBJECTIVE DATA: VITAL SIGNS: Blood pressure 130/70, pulse 95, temperature 98.3. HEENT: Head is normocephalic. NECK: Supple. HEART: Regular rate. LUNGS: Diminished breath sounds at the base. ABDOMEN: Soft, nontender to palpation. No rebound or guarding. EXTREMITIES: Negative for clubbing or cyanosis. Positive edema. DERMATOLOGIC: No rashes. MUSCULOSKELETAL: No joint effusion. NEUROLOGIC: No change in exam. MEDICATIONS: Reviewed. LABORATORY AND DIAGNOSTIC DATA: Shows sodium 131, BUN 11, creatinine 0.83, glucose 241. White count 8.9, hemoglobin 10.7, hematocrit 25.1, platelet count 369,000. ASSESSMENT AND PLAN: 1. Ischemic cardiomyopathy. The patient has 3 vessel disease. The patient is pending cardiac coronary artery bypass graft by Dr. Mooney. Will follow Cardiology and CT surgery recommendations. Continue medical management. 2. Acute hypoxemic respiratory failure. Etiology multifactorial secondary to congestive heart failure, with possible on diagnosis chronic obstructive pulmonary disease. The patient is pending coronary artery bypass graft. Will follow up with Pulmonary for further recommendations. 3. Possible chronic obstructive pulmonary disease. Continue current nebulizer. Continue antibiotics. Consider steroids, per pulmonary. 4. Diabetes. Continue Lantus, Accu-Cheks, insulin sliding scale. We will adjust as necessary. 5. Dyslipidemia. Continue statin therapy. 6. Gastrointestinal and deep venous thrombosis prophylaxis. Continue proton pump inhibitors and Lovenox. 7. Anemia. Monitor hemoglobin and hematocrit levels. 8. Hyponatremia. Continue to monitor. Dictated By: Giuseppe Boyd DO /angi/patience /Document#: [id number]
[2017-05-27] MEDS ORDERED: ROCURONIUM 50 MG INJ ONE (12:13)
[2017-05-27] MEDS ORDERED: LIDOCAINE 2% (SDV) 5 ML INJ ONE ×3 (12:13)
[2017-05-27] MEDS ORDERED: ETOMIDATE 20 MG INJ ONE (12:13)
[2017-05-27] MEDS ORDERED: CEFAZOLIN 1 GM INJ ONE (12:14)
[2017-05-27] MEDS ORDERED: PROTAMINE 250 MG INJ ONE (12:19)
[2017-05-27 14:12] LABS: MICROALBUMIN 0.3 mg/dL
[2017-05-27] MEDS ORDERED: PROPOFOL 100 ML ONE (14:14)
--- NOTE | 2017-05-27 14:27 | RADRPT ---
PROCEDURE: CHEST RADIOGRAPH CLINICAL INDICATION: Status post CABG. TECHNIQUE: Single frontal view of the chest were obtained. COMPARISON: 05/24/2017. FINDINGS: The ET tube is 5 cm above the james. The tip of the Snelling-Shahid catheter is in the region of the briseyda n pulmonary artery. Left-sided chest tube is in place. Post CABG changes are noted. There is interval development of widened mediastinum post-CABG with silhouetting of the descending a elizabeth. There is a an ill-defined nodule in the left lower lobe. There is no pneumothorax. Trace bilateral pleural effusions are present. IMPRESSION: 1. Post CABG mediastinal widening. 2. ET tube in satisfactory position. 3. Snelling Shahid catheter tip in the region of the main pulmonary artery. 4. Ill-defined nodule in the left lower lobe. Findings were discussed with Dr. Mooney at 2:25 PM on 05/27/2017 RPTAT: HMZ .Herrera Quinonez MD, MD Date Time Electronically viewed and signed by .Herrera Quinonez MD, on 05/27/2017 14:26 .Balta/
[2017-05-27] MEDS ORDERED: NITROGLYCERIN 50 MG/D5W (PMX) 250 ML IV SCH (14:30)
[2017-05-27] MEDS ORDERED: HYDROmorphONE 1 MG/ML SYG IV PRN (14:30)
[2017-05-27] MEDS ORDERED: INSULIN HUMAN REGULAR 100 UNIT in SOD CHLORIDE 0.9% 99 ML IV SCH (14:30)
[2017-05-27] MEDS ORDERED: DEXTROSE 50% 50 ML SYRINGE IV PRN ×2 (14:30)
[2017-05-27] MEDS ORDERED: ACETAMINOPHEN 325 MG TAB PO PRN (14:30)
[2017-05-27] MEDS ORDERED: MAGNESIUM SULFATE 1 GM/D5W 100 ML IVPB PRN (14:30)
[2017-05-27] MEDS ORDERED: ONDANSETRON 4 MG INJ IV PRN (14:30)
--- NOTE | 2017-05-27 14:36 | SIPON ---
Date/Time of Note Date/Time of Note DATE: 05/27/17 TIME: 14:27 Operative Report Preoperative Diagnosis CAD, CHF Postoperative Diagnosis same, metastatic lung cancer Operation/Procedure Performed CABGx4 PORTER to LAD, SVG to OM2, SVG to PDA sequenced to LVE Surgeon: RAISSA SILVA MD Co-Surgeon: JACKSON NOEL MD assistant controller: SUSANNAH TURNER Anesthesia Type: general Estimated Blood Loss: other Transfusion Required: no Specimen: none Grafts/Implants: none Complications: no RAISSA SILVA MD May 27, 2017 14:36
[2017-05-27] MEDS ORDERED: MILRINONE LACTATE 100 ML IV SCH (14:45)
[2017-05-27 14:56] LABS: ABNORMAL IP MESSAGE 1; BASOPHILS % 0.3 % (0.0-2.0); EOSINOPHILS % 0.3 % (0.0-7.0); HEMOGLOBIN 8.5 g/dl (14.0-18.0); LYMPHOCYTES # 2.3 10^3/ul (0.8-2.9); LYMPHOCYTES % 14.9 % (15.0-51.0); MEAN CORPUSCULAR HEMOGLOBIN 24.4 pg (29.0-33.0); MEAN CORPUSCULAR HGB CONC 29.3 g/dl (32.0-37.0); MEAN CORPUSCULAR VOLUME 83.1 fl (82.0-101.0); MEAN PLATELET VOLUME 9.6 fl (7.4-10.4); MONOCYTE # 2.6 10^3/ul (0.3-0.9); MONOCYTES % 16.3 % (0.0-11.0); NEUTROPHILS % 66.5 % (39.0-77.0); PLATELET COUNT 363 10^3/UL (140-415); POSITIVE DIFF @See below; RED BLOOD COUNT 3.49 10^6/ul (4.70-6.10); RED CELL DISTRIBUTION WIDTH 14.2 % (11.5-14.5); WHITE BLOOD COUNT 15.7 10^3/ul (4.8-10.8)
[2017-05-27] MEDS: CEFAZOLIN 1 GM/50 ML (PMX) 50 ML IVPB SCH ×2 (15:00→22:35)
[2017-05-27 15:15] LABS: INR 1.42; PARTIAL THROMBOPLASTIN TIME 37.5 Sec (25.0-35.0); PROTIME 17.4 Sec (12.2-14.2); PT RATIO 1.4
[2017-05-27] MEDS ORDERED: PROPOFOL 100 ML IV SCH (15:15)
[2017-05-27 15:20] LABS: CALCIUM 8.9 mg/dl (8.4-10.2); CREATININE 0.81 mg/dl (0.61-1.24); MAGNESIUM 2.6 mg/dl (1.7-2.5); POTASSIUM 3.6 mmol/L (3.5-5.1)
[2017-05-27 15:25] LABS: Arterial Base Excess 3.3 mmol/L (-3.0-3); Arterial COHb 0 % (0.0-3.0); Arterial Fraction of Oxyhgb 98.1 % (93.0-99.0); Arterial HCO3 29.2 mmol/L (22.0-26.0); Arterial MetHb 0.2 % (0.0-1.5); Arterial Total Hemglobin 9.5 g/dl (12.0-18.0); MODE VENT - AC
[2017-05-27 15:29] LABS: MODE VENT - AC; MetHgb Mixed Venous 0.1 %; Mixed Venous COHb 0.3 %; Mixed Venous Fraction OxyHgb 59.8 %; Mixed Venous Total Hemglobin 10.2 g/dl; Sample Type BLMV
[2017-05-27] MEDS: POTASSIUM CHLORIDE 40 MEQ, CALCIUM CHLORIDE 10% 1 GM in DEXTROSE 5%-0.225% NACL 1,000 ML IV SCH (15:48)
[2017-05-27] MEDS ORDERED: ALBUMIN HUMAN 5% 250 ML IV ONE (16:00)
[2017-05-27] MEDS: PHENYLephrine 20MG IN 250 ML 250 ML IV SCH ×2 (16:16→18:05)
--- NOTE | 2017-05-27 16:36 | CONS ---
Date/Time of Note Date/Time of Note DATE: 05/27/17 TIME: 16:33 Consult Date/Type/Reason Admit Date/Time May 24, 2017 at 16:00 Initial Consult Date 05/26/17 Type of Consultation: Pulmonary Ordering Provider: GIOVANNI KRUGER Patient taken to the OR today. Found to have multiple pulmonary nodules biopsy was consistent with adenocarcinoma. Discuss with thoracic surgery. Findings are consistent with metastatic lung cancer. Patient underwent coronary artery bypass graft surgery transferred to intensive care unit where he continues mechanical ventilation. Objective Vital Signs Date Time Temp Pulse Resp B/P Pulse Ox O2 Delivery O2 Flow Rate FiO2 05/27/17 15:00 110 19 94/72 100 05/27/17 14:45 98.8 05/27/17 06:00 Room Air 05/26/17 20:22 2.0 05/25/17 10:46 21 Intake and Output 05/26/17 05/26/17 05/27/17 14:59 22:59 06:59 Intake Total 400 ml Output Total 1100 ml Balance -700 ml Exam PHYSICAL EXAMINATION GENERAL: Elderly gentleman, intubated on mechanical ventilation, opens eyes and appears somewhat agitated. Orally intubated. Agitated. VITAL SIGNS: see below. HEENT: Pupils equal, round, and reactive to light. CARDIAC: S1, S2, 1/6 systolic ejection murmur CHEST: Diminished air entry bilaterally. ABDOMEN: Mildly distended. Bowel sounds present no guarding or rebound EXTREMITIES: No cyanosis, clubbing edema +1 NEUROLOGIC: Generalized weakness Results/Medications Result Diagram: 05/27/17 1435 05/27/17 1435 Results 24 hrs Laboratory Tests Test 05/26/17 17:57 05/26/17 21:37 05/27/17 01:59 05/27/17 06:50 Bedside Glucose 232 H 282 H 240 H 239 H Test 05/27/17 07:37 05/27/17 07:52 05/27/17 14:12 05/27/17 14:18 White Blood Count 8.9 Red Blood Count 4.31 L Hemoglobin 10.7 L Hematocrit 35.4 L Mean Corpuscular Volume 82.1 Mean Corpuscular Hemoglobin 24.8 L Mean Corpuscular Hemoglobin Concent 30.2 L Red Cell Distribution Width 13.7 Platelet Count 369 Mean Platelet Volume 9.7 Neutrophils % 69.9 Lymphocytes % 13.0 L Monocytes % 15.7 H Eosinophils % 0.2 Basophils % 0.3 Nucleated Red Blood Cells % 0.0 Neutrophils # (Manual) 6.2 Lymphocytes # 1.2 Monocytes # 1.4 H Eosinophils # 0.0 Basophils # 0.0 Nucleated Red Blood Cells # 0.0 Sodium Level 131 L Potassium Level 4.4 Chloride Level 92 L Carbon Dioxide Level 35 H Anion Gap 8 Blood Urea Nitrogen 11 Creatinine 0.83 Glucose Level 241 H Calcium Level 9.4 Phosphorus Level 2.8 Magnesium Level 2.1 Bedside Glucose 233 H 84 Blood Gas Specimen Source Blood arterial Arterial Blood Date Drawn 05/27/2017 3:10:01 PM Arterial Blood pH (Temp corrected) 7.372 Arterial Blood pCO2 (Temp correct) 51.5 H Arterial Blood pO2 (Temp corrected) 131.7 H Arterial Blood HCO3 29.2 H Arterial Blood Base Excess 3.3 H Arterial Blood Oxygen Saturation 98.3 H Gerardo Test N/A Arterial Blood Gas Puncture Site A-Line Arterial Blood Carboxyhemoglobin 0 Arterial Blood Methemoglobin 0.2 Blood Gas A-a O2 Differential 312.0 H Oxyhemoglobin Percent 98.1 Total Hemoglobin 9.5 L Blood Gas Temperature 37.0 Blood Gas Respiration Rate 14.0 Blood Gas Actual Respiration Rate 14 Blood Gas Modality VENT - AC FiO2 70.0 Blood Gas Tidal Volume 600.0 Blood Gas Low PEEP Setting 5.0 Blood Gas Notified Whom JLD Blood Gas Notified Time 05/27/2017 3:25:17 PM Test 05/27/17 14:35 05/27/17 15:15 05/27/17 15:32 05/27/17 15:54 White Blood Count 15.7 #H Red Blood Count 3.49 L Hemoglobin 8.5 #L Hematocrit 29.0 L Mean Corpuscular Volume 83.1 Mean Corpuscular Hemoglobin 24.4 L Mean Corpuscular Hemoglobin Concent 29.3 L Red Cell Distribution Width 14.2 Platelet Count 363 Mean Platelet Volume 9.6 Neutrophils % 66.5 Lymphocytes % 14.9 L Monocytes % 16.3 H Eosinophils % 0.3 Basophils % 0.3 Nucleated Red Blood Cells % 0.0 Neutrophils # (Manual) 10.4 H Lymphocytes # 2.3 Monocytes # 2.6 H Eosinophils # 0.0 Basophils # 0.0 Nucleated Red Blood Cells # 0.0 Prothrombin Time 17.4 H Prothrombin Time Ratio 1.4 INR International Normalized Ratio 1.42 Activated Partial Thromboplast Time 37.5 H Sodium Level 138 Potassium Level 3.6 Chloride Level 102 # Carbon Dioxide Level 31 Anion Gap 9 Blood Urea Nitrogen 12 Creatinine 0.81 Glucose Level 43 #*L Calcium Level 8.9 Magnesium Level 2.6 H Blood Gas Specimen Source BLMV Arterial Blood Date Drawn 05/27/2017 3:20:22 PM Arterial Blood Gas Puncture Site PUL ART LINE Gerardo Test N/A Mixed Venous Blood PO2 31.3 Mixed Venous Blood O2 Saturation 60.0 L Mixed Venous Blood Total Hemoglobin 10.2 Mixed Venous Blood Oxyhemoglobin 59.8 Mixed Venous Bld Carboxyhemoglobin 0.3 Mixed Venous Blood Methemoglobin 0.1 Blood Gas Temperature 37.0 Blood Gas Respiration Rate 14.0 Blood Gas Actual Respiration Rate 14 Blood Gas Modality VENT - AC FiO2 70.0 Blood Gas Tidal Volume 600.0 Blood Gas Low PEEP Setting 5.0 Blood Gas Notified Whom JLD Blood Gas Notified Time 05/27/2017 3:29:07 PM Bedside Glucose 45 *L 104 Medications Current Medications Potassium Chloride 40 meq/ Calcium Chloride 1 gm/Dextrose/ Sodium Chloride 1, 030 ml @ 60 mls/hr [id number] IV Last administered on 05/27/17t 15:48; Admin Dose 60 MLS/HR; Start 05/27/17 at 14:18 Cefazolin Sodium (Ancef 1 Gm/50 ml (Pmx)) 50 ml @ 100 mls/hr Q8H IVPB ; Start 05/27/17 at 14:30; Stop 05/28/17 at 06:59 Hydromorphone HCl (Dilaudid) 0.2 mg Q15M PRN IV PAIN LEVEL 1-5; Start 05/27/17 at 14:30 Hydromorphone HCl (Dilaudid) 0.4 mg Q15M PRN IV PAIN LEVEL 6-10; Start 05/27/17 at 14:30 Oxycodone/ Acetaminophen (Percocet (5/ 325)) 1 tab Q3H PRN PO PAIN LEVEL 1-5; Start 05/27/17 at 14:30 Oxycodone/ Acetaminophen (Percocet (5/ 325)) 2 tab Q3H PRN PO PAIN LEVEL 6-10; Start 05/27/17 at 14:30 Ondansetron HCl (Zofran Inj) 4 mg Q6H PRN IV NAUSEA AND/OR VOMITING; Start 05/27 at 14:30 Famotidine (Pepcid Iv) 20 mg BID@08,20 IV ; Start 05/27/17 at 20:00 Famotidine (Pepcid) 20 mg BID PO ; Start 05/27/17 at 21:00; Status Future Hold Insulin Aspart (Novolog Insulin Pen) NOVOLOG *MILD* ALGORI... Q4 SC ; Start 05/27 at 17:00; Status Future Hold Insulin Aspart (Novolog Insulin Pen) NOVOLOG *MODERATE* ALGORI... Q4 SC ; Start 05/27/17 at 17:00; Status Future Hold Acetaminophen 650 mg 650 mg Q3H PRN PO ELEVATED TEMPERATURE; Start 05/27/17 at 14:30 Magnesium Sulfate/ Dextrose (Magnesium Sulfate 1 Gm/D5W) 100 ml @ 100 mls/hr PRN PRN IVPB PENDING LAB VALUE; Start 05/27/17 at 14:30 Diagnostic Test (Pha) (Accu-Chek) 1 ea Q1H XX Last administered on 05/27/17 14: 12; Admin Dose 1 EA; Start 05/27/17 at 14:30 Dextrose (D50w Syringe) 25 ml Q15M PRN IV Till BS 80 mg/dL or above x2; Start 05/27/17 at 14:30 Dextrose 50 ml 50 ml Q15M PRN IV Till BS 80 mg/dL or above x2 Last administered on 05/27/17 15:36; Admin Dose 50 ML; Start 05/27/17 at 14:30 Albumin Human 250 ml @ 250 mls/hr ONCE ONCE IV Last administered on 05/27/17 16:00; Admin Dose 250 MLS/HR; Start 05/27/17 at 16:00; Stop 05/27/17 at 16:59 Phenylephrine HCl ([place]-Syneph) 250 ml @ 75 mls/hr TITRATE IV Last administered on 05/27/17 16:16; Admin Dose 112.5 MLS/HR; Start 05/27/17 at 16:30 Assessment/Plan Chief Complaint/Hosp Course Assessment 1. Multivessel coronary artery disease status post coronary artery bypass postsurgery Postop day 1 2. New finding of metastatic lung cancer. 3. Diabetes mellitus 4. Extensive tobacco history Plan 1. Continue mechanical ventilation. CPAP trial this afternoon however patient has significant agitation and continues vasopressor support. 2. Continue postop vasopressor support. 3. Continue chest tube drainage. 4. Extubation followed by incentive spirometry and bronchodilator therapy. 5. Hematology oncology evaluation and discussion when stable. Case is discussed with family at bedside. Problems: SONJA GIRALDO MD, [facility] May 27, 2017 16:36
[2017-05-27] MEDS ORDERED: INSULIN ASPART [NOVOLOG] 3 ML PEN SC SCH ×2 (17:00)
[2017-05-27] MEDS: POTASSIUM CHLORIDE 50 ML IVPB PRN ×2 (17:27→19:12)
--- NOTE | 2017-05-27 17:53 | OPR ---
DATE OF OPERATION: 05/27/2017 PREOPERATIVE DIAGNOSIS: Congestive heart failure, 3-vessel coronary artery disease. POSTOPERATIVE DIAGNOSIS: 1. Congestive heart failure, 3-vessel coronary artery disease. 2. Metastatic cancer in the left lung. OPERATION PERFORMED: Coronary artery bypass graft x4, left internal mammary artery to left anterior descending coronary artery, saphenous vein graft to PDA sequence to LV extension branch, saphenous vein graft to obtuse marginal artery number 2, left upper lobe lung wedge resection. SURGEON: Collin Mooney MD CORPORATE EXECUTIVE CHEF: 1. Herrera Bansal MD 2. TWAN Underwood ANESTHESIOLOGIST: Guanako Banks MD ANESTHESIA: General endotracheal. COMPLICATIONS: None. OPERATIVE FINDINGS AT SURGERY: LV function improved after revascularization. No atheromas or plaques were noted in the ascending aorta. The flow in the PORTER to LAD was 80 mL/min and the flow in the jump graft in the RCA was 134 mL/min and the flow in the OM was 36 mL/min. The LAD was a 2.25 mm vessel. OM2 was 1.75 mm vessel. The LV extension branch was 1.75 mm vessel and the PDA was 2 mm vessel. Upon taking down the PORTER, the pleural space was entered. I felt a mass in the left upper lobe. This was wedged out and came back adenocarcinoma. Upon further inspection, he had another lesion in the left upper lobe as well as drop metastasis to the lower lobe and also a 2 cm AP window mass consistent with his metastatic lung cancer. He also had nodes along the mammary which were sent for permanent section. CARDIOPULMONARY BYPASS TIME: 78 minutes CROSS CLAMP TIME: 58 minutes. INDICATIONS: Patient is a 66-year-old male who was admitted to [facility] with shortness of breath and CHF. He had an echo done which showed LV function of 30 percent. He was transferred to [facility] where he underwent a coronary angiogram which showed severe 3-vessel coronary artery disease. He was referred for urgent CABG. Benefits, risks, and alternatives were explained. He understood and consented. OPERATIVE PROCEDURE: Patient was brought to the operating room. He was placed in supine position. He was induced, underwent general endotracheal intubation without complication. Lines were placed, antibiotics were given. He was prepped and draped in usual sterile fashion. Median sternotomy was made and simultaneous endoscopic vein harvesting of the greater saphenous vein from right lower extremity. PORTER was taken down using clips and cautery. Pericardial was established. Heparin was given. The ascending aorta was scanned. There was no atheromas or plaques. Upon preparing the PORTER, I felt the left upper lobe and there was a mass in the left upper lobe. We did a wedge resection using Endo-GELA staplers which came back positive for carcinoma. Upon further inspection of the left chest, there are masses in the lower lobe and upper lobe and large AP window node consistent with metastatic cancer. We proceeded with the surgery. We placed a pursestring in the ascending aorta followed by the right atrium. We cannulated the ascending aorta followed by 2 stage venous cannula in the right atrium. We placed an ascending aortic vent. Once our lines were in place and the ACT was adequate, we commenced cardiopulmonary bypass. We arrested the heart used antegrade cardioplegia and topical ice. Once the heart was arrested, we identified the left ventricular extension branch, made arteriotomy, extended with Romero scissors and anastomosed our main graft using 7-0 Prolene in running fashion in end-to-side manner. We then identified the PDA, made arteriotomy and venotomy and performed [id number] anastomosis using 7-0 Prolene in running fashion in end-to-side manner. Cardioplegia was given. The vein graft was cut to length. We then identified the OM2, made arteriotomy, extended with Romero scissors, anastomosed our vein graft using 7-0 Prolene in running fashion in end-to-side manner. Once this was done, we identified the mid LAD, made arteriotomy, extended with Romero scissors, anastomosed our PORTER using 7-0 Prolene in running fashion in end- to-side manner. At this point, we rewarmed the patient, gave warm blood and removed the cross clamp, cardioverted to normal sinus rhythm. We placed a ventricular pacing wire. We placed a partial clamp on the ascending aorta. Made 2 aortotomies and anastomosed our right vein graft to the proximal aortotomy using 5-0 Prolene in running fashion in end-to-side manner. The same was done for the other vein graft. Partial clamp was removed. Vein grafts were de-aired. Distal hemostasis was achieved. We began ventilating the patient and weaned him off cardiopulmonary bypass without difficulty. Once he was off bypass, we gave Protamine. We de-lined the patient. We placed a left pleural tube, an anterior mediastinal tube and an angled pericardial tube. We then closed the chest using interrupted cables, followed by closure of the fascia using 0 Vicryl, followed by closure of the skin using 4-0 Monocryl in subcuticular fashion. Lower extremity incisions were closed using 3-0 Vicryl for the deep layer and 4-0 Monocryl for the skin. Dressing were applied. Patient was taken to the ICU in critical but stable condition. Dictated By: Collin Mooney MD /angi/stephenie /Document#: [id number] CC: Greg Ledezma MD
[2017-05-27] MEDS: HYDROmorphONE 1 MG/ML SYG IV PRN ×3 (18:47→20:03)
[2017-05-27] MEDS ORDERED: FAMOTIDINE 20 MG TAB PO SCH (21:00)
[2017-05-27] MEDS: FAMOTIDINE 20 MG INJ IV SCH (22:35)
[2017-05-27 23:12] LABS: ABNORMAL IP MESSAGE 1; BASOPHILS % 0.2 % (0.0-2.0); EOSINOPHILS % 0.1 % (0.0-7.0); HEMATOCRIT 26.1 % (42.0-52.0); HEMOGLOBIN 7.9 g/dl (14.0-18.0); LYMPHOCYTES # 1.4 10^3/ul (0.8-2.9); LYMPHOCYTES % 12.3 % (15.0-51.0); MEAN CORPUSCULAR HEMOGLOBIN 25.5 pg (29.0-33.0); MEAN CORPUSCULAR HGB CONC 30.3 g/dl (32.0-37.0); MEAN CORPUSCULAR VOLUME 84.2 fl (82.0-101.0); MEAN PLATELET VOLUME 9.9 fl (7.4-10.4); MONOCYTE # 1.7 10^3/ul (0.3-0.9); MONOCYTES % 15.3 % (0.0-11.0); NEUTROPHILS % 70.9 % (39.0-77.0); PLATELET COUNT 275 10^3/UL (140-415); POSITIVE DIFF @See below; RED CELL DISTRIBUTION WIDTH 14.2 % (11.5-14.5); WHITE BLOOD COUNT 11.1 10^3/ul (4.8-10.8)
[2017-05-27 23:13] LABS: AADO2 Arterial 130.1 mmHg (7.0-24.0); Arterial Base Excess -2.9 mmol/L (-3.0-3); Arterial COHb 0.3 % (0.0-3.0); Arterial Fraction of Oxyhgb 94.1 % (93.0-99.0); Arterial HCO3 22.2 mmol/L (22.0-26.0); Arterial MetHb 0 % (0.0-1.5); Arterial Total Hemglobin 9.1 g/dl (12.0-18.0); Blood Gas PS 10; MODE VENT - CPAP
[2017-05-27 23:36] LABS: CALCIUM 9.1 mg/dl (8.4-10.2); CREATININE 0.83 mg/dl (0.61-1.24); POTASSIUM 4.6 mmol/L (3.5-5.1)
[2017-05-28] VITALS (33 sets, daily range): BP systolic 91–140; BP diastolic 51–82; PULSE 96–127; RESP 20–37; TEMP 99–99.9
[2017-05-28] MEDS: ACCU-CHEK XX SCH ×17 (00:30→17:30)
[2017-05-28] MEDS: HYDROmorphONE 1 MG/ML SYG IV PRN ×3 (02:02→08:07)
[2017-05-28 05:05] LABS: INR 1.16; PROTIME 14.9 Sec (12.2-14.2); PT RATIO 1.2
[2017-05-28 05:06] LABS: PARTIAL THROMBOPLASTIN TIME 35.4 Sec (25.0-35.0)
[2017-05-28 05:09] LABS: BASOPHILS % 0.2 % (0.0-2.0); HEMATOCRIT 25.9 % (42.0-52.0); HEMOGLOBIN 7.5 g/dl (14.0-18.0); LYMPHOCYTES # 1.1 10^3/ul (0.8-2.9); LYMPHOCYTES % 11.9 % (15.0-51.0); MEAN PLATELET VOLUME 10.4 fl (7.4-10.4); MONOCYTE # 1.3 10^3/ul (0.3-0.9); MONOCYTES % 14.1 % (0.0-11.0); NEUTROPHILS % 73.3 % (39.0-77.0); PLATELET COUNT 235 10^3/UL (140-415); RED BLOOD COUNT 3.12 10^6/ul (4.70-6.10); RED CELL DISTRIBUTION WIDTH 14.5 % (11.5-14.5); WHITE BLOOD COUNT 9.3 10^3/ul (4.8-10.8)
[2017-05-28 05:13] LABS: CALCIUM 9.2 mg/dl (8.4-10.2); CREATININE 0.8 mg/dl (0.61-1.24); MAGNESIUM 2.2 mg/dl (1.7-2.5); PHOSPHORUS 3.8 mg/dl (2.5-4.9); POTASSIUM 4.7 mmol/L (3.5-5.1)
[2017-05-28 05:45] LABS: AADO2 Arterial 158.3 mmHg (7.0-24.0); Arterial Base Excess 0.8 mmol/L (-3.0-3); Arterial COHb 0.2 % (0.0-3.0); Arterial Fraction of Oxyhgb 95.2 % (93.0-99.0); Arterial MetHb 0.1 % (0.0-1.5); Arterial Total Hemglobin 9.2 g/dl (12.0-18.0); Blood Gas IEPAP 15/5; MODE MASK - BIPAP
[2017-05-28] MEDS ORDERED: ALBUTEROL/IPRATROPIUM (NEB) 3 ML AMP ONE (06:44)
[2017-05-28] MEDS: CEFAZOLIN 1 GM/50 ML (PMX) 50 ML IVPB SCH (07:01)
--- NOTE | 2017-05-28 07:44 | RADRPT ---
PROCEDURE: XR Chest. CLINICAL INDICATION: Shortness of breath. TECHNIQUE: Single frontal view. COMPARISON: 05/27/2017. FINDINGS: The right internal jugular vein [place]-Shahid catheter and left chest tubes remain in satisfactory posit ion. The endotracheal tube has been removed. There is mild left basilar atelectasis. The lungs are o therwise clear. The heart is enlarged. There are sternal wires and mediastinal clips from previous CABG. There is no pleural effusion. There is no pneumothorax. IMPRESSION: 1. Endotracheal tube removed. 2. No other change from 05/27/2017. RPTAT: QQ .Russell Guzman MD, MD Date Time Electronically viewed and signed by .Russell Guzman MD, MD on 05/28/2017 07:44 .R/
[2017-05-28] MEDS: FAMOTIDINE 20 MG INJ IV SCH ×2 (08:07→20:44)
[2017-05-28] MEDS: POTASSIUM CHLORIDE 40 MEQ, CALCIUM CHLORIDE 10% 1 GM in DEXTROSE 5%-0.225% NACL 1,000 ML IV SCH (08:53)
[2017-05-28 08:56] LABS: AADO2 Arterial 97.7 mmHg (7.0-24.0); Allen Test ACCEPTAB; Arterial Base Excess 1.3 mmol/L (-3.0-3); Arterial COHb 0.5 % (0.0-3.0); Arterial Fraction of Oxyhgb 93.5 % (93.0-99.0); Arterial HCO3 25.9 mmol/L (22.0-26.0); Arterial MetHb 0.1 % (0.0-1.5); Arterial Total Hemglobin 9.1 g/dl (12.0-18.0); MODE NASAL CANNULA
[2017-05-28] MEDS: OXYCODONE/ACETAMINOPHEN (5/325) TAB PO PRN ×3 (09:41→20:50)
--- NOTE | 2017-05-28 09:43 | CONS ---
Date/Time of Note Date/Time of Note DATE: 05/28/17 TIME: 09:41 Consult Date/Type/Reason Admit Date/Time May 24, 2017 at 16:00 Initial Consult Date 05/26/17 Type of Consultation: Pulmonary Ordering Provider: GIOVANNI KRUGER DO Subjective Patient extubated overnight. Awake alert and oriented this morning. Hemodynamically stable. Objective Vital Signs Date Time Temp Pulse Resp B/P Pulse Ox O2 Delivery O2 Flow Rate FiO2 05/28/17 07:30 99.7 116 30 129/69 100 05/28/17 05:10 40 05/28/17 00:05 5.0 05/27/17 06:00 Room Air Intake and Output 05/27/17 05/27/17 05/28/17 14:59 22:59 06:59 Intake Total 2980 ml 1515.367 ml 605 ml Output Total 1915 ml 817 ml 565 ml Balance 1065 ml 698.367 ml 40 ml Exam PHYSICAL EXAMINATION GENERAL: Elderly gentleman awake alert and oriented on nasal cannula oxygen.. VITAL SIGNS: see below. HEENT: Pupils equal, round, and reactive to light. CARDIAC: S1, S2, 1/6 systolic ejection murmur CHEST: Diminished air entry bilaterally. ABDOMEN: Mildly distended. Bowel sounds present no guarding or rebound EXTREMITIES: No cyanosis, clubbing edema +1 NEUROLOGIC: Generalized weakness Results/Medications Result Diagram: 05/28/17 0400 05/28/17 0400 Results 24 hrs Laboratory Tests Test 05/27/17 14:12 05/27/17 14:18 05/27/17 14:35 05/27/17 15:15 Bedside Glucose 84 Blood Gas Specimen Source Blood arterial BLMV Arterial Blood Date Drawn 05/27/2017 3:10:01 PM 05/27/2017 3:20:22 PM Arterial Blood pH (Temp corrected) 7.372 Arterial Blood pCO2 (Temp correct) 51.5 H Arterial Blood pO2 (Temp corrected) 131.7 H Arterial Blood HCO3 29.2 H Arterial Blood Base Excess 3.3 H Arterial Blood Oxygen Saturation 98.3 H Gerardo Test N/A N/A Arterial Blood Gas Puncture Site A-Line PUL ART LINE Arterial Blood Carboxyhemoglobin 0 Arterial Blood Methemoglobin 0.2 Blood Gas A-a O2 Differential 312.0 H Oxyhemoglobin Percent 98.1 Total Hemoglobin 9.5 L Blood Gas Temperature 37.0 37.0 Blood Gas Respiration Rate 14.0 14.0 Blood Gas Actual Respiration Rate 14 14 Blood Gas Modality VENT - AC VENT - AC FiO2 70.0 70.0 Blood Gas Tidal Volume 600.0 600.0 Blood Gas Low PEEP Setting 5.0 5.0 Blood Gas Notified Whom RUTH ANND JOE Blood Gas Notified Time 05/27/2017 3:25:17 PM 05/27/2017 3:29:07 PM White Blood Count 15.7 #H Red Blood Count 3.49 L Hemoglobin 8.5 #L Hematocrit 29.0 L Mean Corpuscular Volume 83.1 Mean Corpuscular Hemoglobin 24.4 L Mean Corpuscular Hemoglobin Concent 29.3 L Red Cell Distribution Width 14.2 Platelet Count 363 Mean Platelet Volume 9.6 Neutrophils % 66.5 Lymphocytes % 14.9 L Monocytes % 16.3 H Eosinophils % 0.3 Basophils % 0.3 Nucleated Red Blood Cells % 0.0 Neutrophils # (Manual) 10.4 H Lymphocytes # 2.3 Monocytes # 2.6 H Eosinophils # 0.0 Basophils # 0.0 Nucleated Red Blood Cells # 0.0 Prothrombin Time 17.4 H Prothrombin Time Ratio 1.4 INR International Normalized Ratio 1.42 Activated Partial Thromboplast Time 37.5 H Sodium Level 138 Potassium Level 3.6 Chloride Level 102 # Carbon Dioxide Level 31 Anion Gap 9 Blood Urea Nitrogen 12 Creatinine 0.81 Glucose Level 43 #*L Calcium Level 8.9 Magnesium Level 2.6 H Mixed Venous Blood PO2 31.3 Mixed Venous Blood O2 Saturation 60.0 L Mixed Venous Blood Total Hemoglobin 10.2 Mixed Venous Blood Oxyhemoglobin 59.8 Mixed Venous Bld Carboxyhemoglobin 0.3 Mixed Venous Blood Methemoglobin 0.1 Test 05/27/17 15:32 05/27/17 15:54 05/27/17 16:58 05/27/17 17:44 Bedside Glucose 45 *L 104 93 101 Test 05/27/17 18:31 05/27/17 19:50 05/27/17 22:01 05/27/17 23:00 Bedside Glucose 111 135 170 White Blood Count 11.1 #H Red Blood Count 3.10 L Hemoglobin 7.9 L Hematocrit 26.1 L Mean Corpuscular Volume 84.2 Mean Corpuscular Hemoglobin 25.5 L Mean Corpuscular Hemoglobin Concent 30.3 L Red Cell Distribution Width 14.2 Platelet Count 275 # Mean Platelet Volume 9.9 Neutrophils % 70.9 Lymphocytes % 12.3 L Monocytes % 15.3 H Eosinophils % 0.1 Basophils % 0.2 Nucleated Red Blood Cells % 0.0 Neutrophils # (Manual) 7.9 H Lymphocytes # 1.4 Monocytes # 1.7 H Eosinophils # 0.0 Basophils # 0.0 Nucleated Red Blood Cells # 0.0 Sodium Level 135 Potassium Level 4.6 Chloride Level 104 Carbon Dioxide Level 23 Anion Gap 13 Blood Urea Nitrogen 13 Creatinine 0.83 Glucose Level 172 # Calcium Level 9.1 Magnesium Level 2.3 Test 05/27/17 23:05 05/27/17 23:51 05/28/17 01:25 05/28/17 02:33 Blood Gas Specimen Source Blood arterial Arterial Blood Date Drawn 05/27/2017 11:07:56 PM Arterial Blood pH (Temp corrected) 7.365 Arterial Blood pCO2 (Temp correct) 39.8 Arterial Blood pO2 (Temp corrected) 73.2 L Arterial Blood HCO3 22.2 Arterial Blood Base Excess -2.9 Arterial Blood Oxygen Saturation 94.4 L Gerardo Test N/A Arterial Blood Gas Puncture Site A-Line Arterial Blood Carboxyhemoglobin 0.3 Arterial Blood Methemoglobin 0 Blood Gas A-a O2 Differential 130.1 H Oxyhemoglobin Percent 94.1 Total Hemoglobin 9.1 L Blood Gas Temperature 37.0 Blood Gas Actual Respiration Rate 26 Blood Gas Modality VENT - CPAP FiO2 35.0 Blood Gas Tidal Volume 425.0 Blood Gas Low PEEP Setting 5.0 Blood Gas Inspiratory Pressure 15.0 Blood Gas Pressure Support 10 Blood Gas Notified Whom BR Blood Gas Notified Time 05/27/2017 11:13:36 PM Bedside Glucose 181 178 189 Test 05/28/17 04:00 05/28/17 04:17 05/28/17 05:00 05/28/17 05:35 White Blood Count 9.3 Red Blood Count 3.12 L Hemoglobin 7.5 L Hematocrit 25.9 L Mean Corpuscular Volume 83.0 Mean Corpuscular Hemoglobin 24.0 L Mean Corpuscular Hemoglobin Concent 29.0 L Red Cell Distribution Width 14.5 Platelet Count 235 Mean Platelet Volume 10.4 Neutrophils % 73.3 Lymphocytes % 11.9 L Monocytes % 14.1 H Eosinophils % 0.0 Basophils % 0.2 Nucleated Red Blood Cells % 0.0 Neutrophils # (Manual) 6.8 Lymphocytes # 1.1 Monocytes # 1.3 H Eosinophils # 0.0 Basophils # 0.0 Nucleated Red Blood Cells # 0.0 Prothrombin Time 14.9 H Prothrombin Time Ratio 1.2 INR International Normalized Ratio 1.16 Activated Partial Thromboplast Time 35.4 H Sodium Level 139 Potassium Level 4.7 Chloride Level 105 Carbon Dioxide Level 28 Anion Gap 11 Blood Urea Nitrogen 13 Creatinine 0.80 Glucose Level 180 Calcium Level 9.2 Phosphorus Level 3.8 Magnesium Level 2.2 Bedside Glucose 196 167 Blood Gas Specimen Source Blood arterial Arterial Blood Date Drawn 05/28/2017 5:01:13 AM Arterial Blood pH (Temp corrected) 7.388 Arterial Blood pCO2 (Temp correct) 44.1 Arterial Blood pO2 (Temp corrected) 76.2 L Arterial Blood HCO3 26.0 Arterial Blood Base Excess 0.8 Arterial Blood Oxygen Saturation 95.5 Gerardo Test N/A Arterial Blood Gas Puncture Site A-Line Arterial Blood Carboxyhemoglobin 0.2 Arterial Blood Methemoglobin 0.1 Blood Gas A-a O2 Differential 158.3 H Oxyhemoglobin Percent 95.2 Total Hemoglobin 9.2 L Blood Gas Temperature 37.0 Blood Gas Respiration Rate 15.0 Blood Gas Actual Respiration Rate 27 Blood Gas Modality MASK - BIPAP FiO2 40.0 Blood Gas IPAP/EPAP Ratio 15/5 Blood Gas Notified Whom Av [facility] Blood Gas Notified Time 05/28/2017 5:12:03 AM Test 05/28/17 06:58 05/28/17 07:00 05/28/17 07:30 05/28/17 08:33 Bedside Glucose 120 98 99 Blood Gas Specimen Source Blood arterial Arterial Blood Date Drawn 05/28/2017 8:35:33 AM Arterial Blood pH (Temp corrected) 7.417 Arterial Blood pCO2 (Temp correct) 41.2 Arterial Blood pO2 (Temp corrected) 67.8 L Arterial Blood HCO3 25.9 Arterial Blood Base Excess 1.3 Arterial Blood Oxygen Saturation 94.1 L Gerardo Test ACCEPTAB Arterial Blood Gas Puncture Site A-Line Arterial Blood Carboxyhemoglobin 0.5 Arterial Blood Methemoglobin 0.1 Blood Gas A-a O2 Differential 97.7 H Oxyhemoglobin Percent 93.5 Total Hemoglobin 9.1 L Blood Gas Temperature 37.0 Blood Gas Modality NASAL CANNULA FiO2 30.0 Blood Gas Notified Whom DT Blood Gas Notified Time 05/28/2017 8:55:34 AM Medications Current Medications Potassium Chloride/Calcium Chloride/Dextrose/ Sodium Chloride (KCl/Ca Chloride/ D5-1/4ns) 1,030 ml @ 60 mls/hr [id number] IV Last administered on 05/28/17 08:53 ; Admin Dose 60 MLS/HR; Start 05/27/17 at 14:18 Hydromorphone HCl (Dilaudid) 0.2 mg Q15M PRN IV PAIN LEVEL 1-5 Last administered on 05/27/17 17:20; Admin Dose 0.2 MG; Start 05/27/17 at 14:30 Hydromorphone HCl (Dilaudid) 0.4 mg Q15M PRN IV PAIN LEVEL 6-10 Last administered on 05/28/17 08:07; Admin Dose 0.4 MG; Start 05/27/17 at 14:30 Oxycodone/ Acetaminophen (Percocet (5/ 325)) 1 tab Q3H PRN PO PAIN LEVEL 1-5; Start 05/27/17 at 14:30 Oxycodone/ Acetaminophen (Percocet (5/ 325)) 2 tab Q3H PRN PO PAIN LEVEL 6-10; Start 05/27/17 at 14:30 Ondansetron HCl (Zofran Inj) 4 mg Q6H PRN IV NAUSEA AND/OR VOMITING; Start 05/27 at 14:30 Famotidine (Pepcid Iv) 20 mg BID@08,20 IV Last administered on 05/28/17 08:07; Admin Dose 20 MG; Start 05/27/17 at 20:00 Famotidine (Pepcid) 20 mg BID PO ; Start 05/27/17 at 21:00; Status Future Hold Insulin Aspart (Novolog Insulin Pen) NOVOLOG *MILD* ALGORI... Q4 SC ; Start 05/27 at 17:00; Status Future Hold Insulin Aspart (Novolog Insulin Pen) NOVOLOG *MODERATE* ALGORI... Q4 SC ; Start 05/27/17 at 17:00; Status Future Hold Acetaminophen 650 mg 650 mg Q3H PRN PO ELEVATED TEMPERATURE; Start 05/27/17 at 14:30 Magnesium Sulfate/ Dextrose (Magnesium Sulfate 1 Gm/D5W) 100 ml @ 100 mls/hr PRN PRN IVPB PENDING LAB VALUE; Start 05/27/17 at 14:30 Diagnostic Test (Pha) (Accu-Chek) 1 ea Q1H XX Last administered on 05/28/17 08: 33; Admin Dose 1 EA; Start 05/27/17 at 14:30 Dextrose (D50w Syringe) 25 ml Q15M PRN IV Till BS 80 mg/dL or above x2; Start 05/27/17 at 14:30 Dextrose 50 ml 50 ml Q15M PRN IV Till BS 80 mg/dL or above x2 Last administered on 05/27/17 15:36; Admin Dose 50 ML; Start 05/27/17 at 14:30 Phenylephrine HCl 250 ml @ 75 mls/hr TITRATE IV Last administered on 05/27/17 18:05; Admin Dose 142.5 MLS/HR; Start 05/27/17 at 16:30 Milrinone Lactate 100 ml @ 11.295 mls/ hr TITRATE IV Last administered on 14:45; Admin Dose 11.295 MLS/HR; Start 05/27/17 at 14:45 Propofol (Diprivan) 100 ml @ 3.012 mls/ hr Q12H IV Last administered on 15:15; Admin Dose 3.012 MLS/HR; Start 05/27/17 at 15:15 Assessment/Plan Chief Complaint/Hosp Course Assessment 1. Multivessel coronary artery disease status post coronary artery bypass postsurgery Postop day 2 2. New finding of metastatic lung cancer. 3. Diabetes mellitus 4. Extensive tobacco history 5. Postop anemia Plan 1. Continue incentive spirometry and bronchodilators 2. Continue insulin drip 3. Continue chest tube drainage. 4. Encourage out of bed possible DC [place]-Shahid catheter today 5. Hematology oncology evaluation and discussion when stable. Problems: SONJA GIRALDO MD, [facility] May 28, 2017 09:43
--- NOTE | 2017-05-28 09:59 | CONS ---
Date/Time of Note Date/Time of Note DATE: 05/28/17 TIME: 09:41 Assessment/Plan Assessment/Plan Chief Complaint/Hosp Course CAD: Three vessel disease by cath. s/p CABG with PORTER -LAD, SVG-OM, SVG jump graft PDA and PL. Doing well, extubated and off pressor support NSTEMI: s/p cath and now CABG as above Cardiomyopathy: Initial EF 25-30%, now 40-45% by echo. Acute systolic heart failure: Likely mild fluid overload based on CVP and PA diastolic pressures as well as CXR. If CVP continues to increase, will need some diuresis Lung cancer: noted during surgery and confirmed adenocarcinoma on pathology. Unclear if primary lung or mets from elsewhere. COPD: likely based on h/o smoking DM: new diagnosis Prior tobacco use -ASA, lipitor -restart coreg 3.125mg BID -hold lasix for now, may need some later today -if plan for CT with contrast for cancer staging, consider doing it today to also evaluate for PE Problems: Consultation Date/Type/Reason Admit Date/Time May 24, 2017 at 16:00 Initial Consult Date 05/24/17 Type of Consultation: Cardiology Referring Provider: GIOVANNI KRUGER DO 24 HR Interval Summary Free Text/Dictation S/p CABG. Extubated overnight. Off pressor support. Some incisional pain, otherwise no complaints Exam/Review of Systems Vital Signs Vitals Vital Signs Date Time Temp Pulse Resp B/P Pulse Ox O2 Delivery O2 Flow Rate FiO2 05/28/17 07:30 99.7 116 30 129/69 100 05/28/17 05:10 40 05/28/17 00:05 5.0 05/27/17 06:00 Room Air Intake and Output 05/27/17 05/27/17 05/28/17 15:00 23:00 07:00 Intake Total 2980 ml 1678.367 ml 502 ml Output Total 2098 ml 674 ml 540 ml Balance 882 ml 1004.367 ml -38 ml Exam Constitutional: alert, oriented, No distress Head: atraumatic, normocephalic Neck: No jvd (difficult to examine ) Respiratory: diminished breath sounds, No clear to auscultation Cardiovascular: No edema, No regular rate and rhythm (tachycardic, sinus ), No systolic murmur Gastrointestinal: non-tender, soft Neurological: nl mental status, nl speech Skin: No rash or lesions Results Result Diagram: 05/28/17 0400 05/28/17 0400 Results 24 hrs Laboratory Tests Test 05/27/17 14:12 05/27/17 14:18 05/27/17 14:35 05/27/17 15:15 Bedside Glucose 84 Blood Gas Specimen Source Blood arterial BLMV Arterial Blood Date Drawn 05/27/2017 3:10:01 PM 05/27/2017 3:20:22 PM Arterial Blood pH (Temp corrected) 7.372 Arterial Blood pCO2 (Temp correct) 51.5 H Arterial Blood pO2 (Temp corrected) 131.7 H Arterial Blood HCO3 29.2 H Arterial Blood Base Excess 3.3 H Arterial Blood Oxygen Saturation 98.3 H Gerardo Test N/A N/A Arterial Blood Gas Puncture Site A-Line PUL ART LINE Arterial Blood Carboxyhemoglobin 0 Arterial Blood Methemoglobin 0.2 Blood Gas A-a O2 Differential 312.0 H Oxyhemoglobin Percent 98.1 Total Hemoglobin 9.5 L Blood Gas Temperature 37.0 37.0 Blood Gas Respiration Rate 14.0 14.0 Blood Gas Actual Respiration Rate 14 14 Blood Gas Modality VENT - AC VENT - AC FiO2 70.0 70.0 Blood Gas Tidal Volume 600.0 600.0 Blood Gas Low PEEP Setting 5.0 5.0 Blood Gas Notified Whom JOE DIAZ Blood Gas Notified Time 05/27/2017 3:25:17 PM 05/27/2017 3:29:07 PM White Blood Count 15.7 #H Red Blood Count 3.49 L Hemoglobin 8.5 #L Hematocrit 29.0 L Mean Corpuscular Volume 83.1 Mean Corpuscular Hemoglobin 24.4 L Mean Corpuscular Hemoglobin Concent 29.3 L Red Cell Distribution Width 14.2 Platelet Count 363 Mean Platelet Volume 9.6 Neutrophils % 66.5 Lymphocytes % 14.9 L Monocytes % 16.3 H Eosinophils % 0.3 Basophils % 0.3 Nucleated Red Blood Cells % 0.0 Neutrophils # (Manual) 10.4 H Lymphocytes # 2.3 Monocytes # 2.6 H Eosinophils # 0.0 Basophils # 0.0 Nucleated Red Blood Cells # 0.0 Prothrombin Time 17.4 H Prothrombin Time Ratio 1.4 INR International Normalized Ratio 1.42 Activated Partial Thromboplast Time 37.5 H Sodium Level 138 Potassium Level 3.6 Chloride Level 102 # Carbon Dioxide Level 31 Anion Gap 9 Blood Urea Nitrogen 12 Creatinine 0.81 Glucose Level 43 #*L Calcium Level 8.9 Magnesium Level 2.6 H Mixed Venous Blood PO2 31.3 Mixed Venous Blood O2 Saturation 60.0 L Mixed Venous Blood Total Hemoglobin 10.2 Mixed Venous Blood Oxyhemoglobin 59.8 Mixed Venous Bld Carboxyhemoglobin 0.3 Mixed Venous Blood Methemoglobin 0.1 Test 05/27/17 15:32 05/27/17 15:54 05/27/17 16:58 05/27/17 17:44 Bedside Glucose 45 *L 104 93 101 Test 05/27/17 18:31 05/27/17 19:50 05/27/17 22:01 05/27/17 23:00 Bedside Glucose 111 135 170 White Blood Count 11.1 #H Red Blood Count 3.10 L Hemoglobin 7.9 L Hematocrit 26.1 L Mean Corpuscular Volume 84.2 Mean Corpuscular Hemoglobin 25.5 L Mean Corpuscular Hemoglobin Concent 30.3 L Red Cell Distribution Width 14.2 Platelet Count 275 # Mean Platelet Volume 9.9 Neutrophils % 70.9 Lymphocytes % 12.3 L Monocytes % 15.3 H Eosinophils % 0.1 Basophils % 0.2 Nucleated Red Blood Cells % 0.0 Neutrophils # (Manual) 7.9 H Lymphocytes # 1.4 Monocytes # 1.7 H Eosinophils # 0.0 Basophils # 0.0 Nucleated Red Blood Cells # 0.0 Sodium Level 135 Potassium Level 4.6 Chloride Level 104 Carbon Dioxide Level 23 Anion Gap 13 Blood Urea Nitrogen 13 Creatinine 0.83 Glucose Level 172 # Calcium Level 9.1 Magnesium Level 2.3 Test 05/27/17 23:05 05/27/17 23:51 05/28/17 01:25 05/28/17 02:33 Blood Gas Specimen Source Blood arterial Arterial Blood Date Drawn 05/27/2017 11:07:56 PM Arterial Blood pH (Temp corrected) 7.365 Arterial Blood pCO2 (Temp correct) 39.8 Arterial Blood pO2 (Temp corrected) 73.2 L Arterial Blood HCO3 22.2 Arterial Blood Base Excess -2.9 Arterial Blood Oxygen Saturation 94.4 L Gerardo Test N/A Arterial Blood Gas Puncture Site A-Line Arterial Blood Carboxyhemoglobin 0.3 Arterial Blood Methemoglobin 0 Blood Gas A-a O2 Differential 130.1 H Oxyhemoglobin Percent 94.1 Total Hemoglobin 9.1 L Blood Gas Temperature 37.0 Blood Gas Actual Respiration Rate 26 Blood Gas Modality VENT - CPAP FiO2 35.0 Blood Gas Tidal Volume 425.0 Blood Gas Low PEEP Setting 5.0 Blood Gas Inspiratory Pressure 15.0 Blood Gas Pressure Support 10 Blood Gas Notified Whom BR Blood Gas Notified Time 05/27/2017 11:13:36 PM Bedside Glucose 181 178 189 Test 05/28/17 04:00 05/28/17 04:17 05/28/17 05:00 05/28/17 05:35 White Blood Count 9.3 Red Blood Count 3.12 L Hemoglobin 7.5 L Hematocrit 25.9 L Mean Corpuscular Volume 83.0 Mean Corpuscular Hemoglobin 24.0 L Mean Corpuscular Hemoglobin Concent 29.0 L Red Cell Distribution Width 14.5 Platelet Count 235 Mean Platelet Volume 10.4 Neutrophils % 73.3 Lymphocytes % 11.9 L Monocytes % 14.1 H Eosinophils % 0.0 Basophils % 0.2 Nucleated Red Blood Cells % 0.0 Neutrophils # (Manual) 6.8 Lymphocytes # 1.1 Monocytes # 1.3 H Eosinophils # 0.0 Basophils # 0.0 Nucleated Red Blood Cells # 0.0 Prothrombin Time 14.9 H Prothrombin Time Ratio 1.2 INR International Normalized Ratio 1.16 Activated Partial Thromboplast Time 35.4 H Sodium Level 139 Potassium Level 4.7 Chloride Level 105 Carbon Dioxide Level 28 Anion Gap 11 Blood Urea Nitrogen 13 Creatinine 0.80 Glucose Level 180 Calcium Level 9.2 Phosphorus Level 3.8 Magnesium Level 2.2 Bedside Glucose 196 167 Blood Gas Specimen Source Blood arterial Arterial Blood Date Drawn 05/28/2017 5:01:13 AM Arterial Blood pH (Temp corrected) 7.388 Arterial Blood pCO2 (Temp correct) 44.1 Arterial Blood pO2 (Temp corrected) 76.2 L Arterial Blood HCO3 26.0 Arterial Blood Base Excess 0.8 Arterial Blood Oxygen Saturation 95.5 Gerardo Test N/A Arterial Blood Gas Puncture Site A-Line Arterial Blood Carboxyhemoglobin 0.2 Arterial Blood Methemoglobin 0.1 Blood Gas A-a O2 Differential 158.3 H Oxyhemoglobin Percent 95.2 Total Hemoglobin 9.2 L Blood Gas Temperature 37.0 Blood Gas Respiration Rate 15.0 Blood Gas Actual Respiration Rate 27 Blood Gas Modality MASK - BIPAP FiO2 40.0 Blood Gas IPAP/EPAP Ratio 15/5 Blood Gas Notified Whom D [employer] Blood Gas Notified Time 05/28/2017 5:12:03 AM Test 05/28/17 06:58 05/28/17 07:00 05/28/17 07:30 05/28/17 08:33 Bedside Glucose 120 98 99 Blood Gas Specimen Source Blood arterial Arterial Blood Date Drawn 05/28/2017 8:35:33 AM Arterial Blood pH (Temp corrected) 7.417 Arterial Blood pCO2 (Temp correct) 41.2 Arterial Blood pO2 (Temp corrected) 67.8 L Arterial Blood HCO3 25.9 Arterial Blood Base Excess 1.3 Arterial Blood Oxygen Saturation 94.1 L Gerardo Test ACCEPTAB Arterial Blood Gas Puncture Site A-Line Arterial Blood Carboxyhemoglobin 0.5 Arterial Blood Methemoglobin 0.1 Blood Gas A-a O2 Differential 97.7 H Oxyhemoglobin Percent 93.5 Total Hemoglobin 9.1 L Blood Gas Temperature 37.0 Blood Gas Modality NASAL CANNULA FiO2 30.0 Blood Gas Notified Whom DT Blood Gas Notified Time 05/28/2017 8:55:34 AM Medications Medications Current Medications Potassium Chloride/Calcium Chloride/Dextrose/ Sodium Chloride (KCl/Ca Chloride/ D5-1/4ns) 1,030 ml @ 60 mls/hr [id number] IV Last administered on 05/28/17 08:53 ; Admin Dose 60 MLS/HR; Start 05/27/17 at 14:18 Hydromorphone HCl (Dilaudid) 0.2 mg Q15M PRN IV PAIN LEVEL 1-5 Last administered on 05/27/17 17:20; Admin Dose 0.2 MG; Start 05/27/17 at 14:30 Hydromorphone HCl (Dilaudid) 0.4 mg Q15M PRN IV PAIN LEVEL 6-10 Last administered on 05/28/17 08:07; Admin Dose 0.4 MG; Start 05/27/17 at 14:30 Oxycodone/ Acetaminophen (Percocet (5/ 325)) 1 tab Q3H PRN PO PAIN LEVEL 1-5; Start 05/27/17 at 14:30 Oxycodone/ Acetaminophen (Percocet (5/ 325)) 2 tab Q3H PRN PO PAIN LEVEL 6-10; Start 05/27/17 at 14:30 Ondansetron HCl (Zofran Inj) 4 mg Q6H PRN IV NAUSEA AND/OR VOMITING; Start 05/27 at 14:30 Famotidine (Pepcid Iv) 20 mg BID@08,20 IV Last administered on 05/28/17 08:07; Admin Dose 20 MG; Start 05/27/17 at 20:00 Famotidine (Pepcid) 20 mg BID PO ; Start 05/27/17 at 21:00; Status Future Hold Insulin Aspart (Novolog Insulin Pen) NOVOLOG *MILD* ALGORI... Q4 SC ; Start 05/27 at 17:00; Status Future Hold Insulin Aspart (Novolog Insulin Pen) NOVOLOG *MODERATE* ALGORI... Q4 SC ; Start 05/27/17 at 17:00; Status Future Hold Acetaminophen 650 mg 650 mg Q3H PRN PO ELEVATED TEMPERATURE; Start 05/27/17 at 14:30 Magnesium Sulfate/ Dextrose (Magnesium Sulfate 1 Gm/D5W) 100 ml @ 100 mls/hr PRN PRN IVPB PENDING LAB VALUE; Start 05/27/17 at 14:30 Diagnostic Test (Pha) (Accu-Chek) 1 ea Q1H XX Last administered on 05/28/17 08: 33; Admin Dose 1 EA; Start 05/27/17 at 14:30 Dextrose (D50w Syringe) 25 ml Q15M PRN IV Till BS 80 mg/dL or above x2; Start 05/27/17 at 14:30 Dextrose 50 ml 50 ml Q15M PRN IV Till BS 80 mg/dL or above x2 Last administered on 05/27/17 15:36; Admin Dose 50 ML; Start 05/27/17 at 14:30 Phenylephrine HCl 250 ml @ 75 mls/hr TITRATE IV Last administered on 05/27/17 18:05; Admin Dose 142.5 MLS/HR; Start 05/27/17 at 16:30 Milrinone Lactate 100 ml @ 11.295 mls/ hr TITRATE IV Last administered on 14:45; Admin Dose 11.295 MLS/HR; Start 05/27/17 at 14:45 Propofol (Diprivan) 100 ml @ 3.012 mls/ hr Q12H IV Last administered on t 15:15; Admin Dose 3.012 MLS/HR; Start 05/27/17 at 15:15 TAMMI MORENO May 28, 2017 09:51
[2017-05-28] MEDS: ASPIRIN 325 MG TAB PO SCH (10:00)
--- NOTE | 2017-05-28 11:47 | PN ---
DATE: 05/28/2017 SUBJECTIVE DATA: Yesterday, the patient underwent cardiac CABG, per Dr. Mooney. The patient had 3 vessel bypass. Currently the patient is on BiPAP, alert, and oriented. No other events noted overnight. No hemoptysis, hematemesis or hematochezia. OBJECTIVE DATA: VITAL SIGNS: Blood pressure is 140/74, respirations 37, pulse 126, and temperature 99.9. HEENT: Head is normocephalic. Pupils are reactive to light. NECK: Supple. Chest showed mediastinotomy drains and tubes, noted chest tube. CARDIAC: Heart is tachycardic. LUNGS: Diminished breath sounds at the base. ABDOMEN: Soft, nontender to palpation. No guarding. EXTREMITIES: Negative for clubbing, cyanosis. Trace edema. DERMATOLOGIC: No rashes. MUSCULOSKELETAL: No joint effusion. NEUROLOGIC: No obvious focal deficits. LABORATORY AND DIAGNOSTIC DATA: White count 9.3, hemoglobin 7.5, hematocrit 25.9, platelet count is 235,000. The patient's BMP within normal limits. ASSESSMENT AND PLAN: 1. Status post-3 vessel coronary artery bypass graft. Would continue current medical management. Follow up with CT surgeon, Dr. Mooney. 2. Acute hypoxemic respiratory failure. Etiology secondary to congestive heart failure congestive heart failure. Likely chronic obstructive pulmonary disease. Will continue current medical management. Continue BiPAP. Continue nebulizer therapy. Will follow up with Pulmonary. 3. Tachycardia etiology is multifactorial. Continue to monitor. 4. Diabetes. The patient is on insulin drip, will titrate off. Will continue Lantus and Accu-Chek. 5. Dyslipidemia. Continue statin therapy. 6. Anemia. The patient had a drop in hemoglobin and hematocrit levels. Likely possibly from postoperative blood loss. Will repeat hemoglobin and hematocrit levels, and if it remains low, we will transfuse 2 units of packed red blood cells. 7. Possible metastatic lung cancer. The patient had a mass noted in left upper lobe. This was resected and came back, noted to be adenocarcinoma. Will place an Oncology consult for evaluation. Will discuss with family. 8. Gastrointestinal and deep venous thrombosis prophylaxis. Dictated By: Giuseppe Boyd DO /angi/patience /Document#: [id number]
--- NOTE | 2017-05-28 11:59 | PN ---
Date/Time of Note Date/Time of Note DATE: 05/28/17 TIME: 11:57 Assessment/Plan Lines/Catheters IV Catheter Type (from Nrs): Peripheral IV Sharma in Place (from Nrs): Yes Assessment/Plan Chief Complaint/Hosp Course doing well, HD stable hct 26, hold on transfusion, start IV iron d/c lines and sharma leave in ICU overnight d/c iv insulin and transition. OOB to Chair Discussed with patient and Problems: Exam/Review of Systems Vital Signs Vitals Vital Signs Date Time Temp Pulse Resp B/P Pulse Ox O2 Delivery O2 Flow Rate FiO2 05/28/17 08:00 Nasal Cannula 3.0 05/28/17 08:00 117 05/28/17 07:30 99.7 30 129/69 100 05/28/17 05:10 40 Intake and Output 05/27/17 05/27/17 05/28/17 15:00 23:00 07:00 Intake Total 2980 ml 1678.367 ml 502 ml Output Total 2098 ml 674 ml 540 ml Balance 882 ml 1004.367 ml -38 ml Results Result Diagram: 05/28/17 0400 05/28/17 0400 RAISSA SILVA MD May 28, 2017 11:58
[2017-05-28] MEDS ORDERED: FUROSEMIDE 20 MG INJ IV ONE (12:30)
[2017-05-28] MEDS: SOD FERRIC GLUC COMPLX 125 MG in SOD CHLORIDE 0.9% 100 ML IVPB SCH (12:38)
[2017-05-28] MEDS ORDERED: INSULIN GLARGINE [LANtus] 3 ML PEN SC ONE (14:30)
[2017-05-28] MEDS ORDERED: PHENYLephrine 40 MG in DEXTROSE 5% 496 ML IV SCH (16:30)
[2017-05-28] MEDS: ALBUTEROL/IPRATROPIUM (NEB) 3 ML AMP HHN SCH ×2 (16:30→20:27)
[2017-05-28] MEDS: INSULIN ASPART [NOVOLOG] 3 ML PEN SC SCH ×2 (17:35→21:00)
[2017-05-28] MEDS: ATORVASTATIN 40 MG TAB PO SCH (21:05)
[2017-05-28] MEDS: ZOLPIDEM 5 MG TAB PO PRN (23:33)
[2017-05-29] VITALS (21 sets, daily range): BP systolic 90–127; BP diastolic 59–96; PULSE 85–113; RESP 19–29
[2017-05-29] MEDS: ALBUTEROL/IPRATROPIUM (NEB) 3 ML AMP HHN PRN (01:46)
[2017-05-29] MEDS: OXYCODONE/ACETAMINOPHEN (5/325) TAB PO PRN ×4 (02:07→19:48)
[2017-05-29 04:35] LABS: ABNORMAL IP MESSAGE 1; BASOPHILS % 0.2 % (0.0-2.0); EOSINOPHILS # 0.1 10^3/ul (0.0-0.5); EOSINOPHILS % 0.4 % (0.0-7.0); HEMOGLOBIN 7.4 g/dl (14.0-18.0); LYMPHOCYTES # 1.5 10^3/ul (0.8-2.9); LYMPHOCYTES % 11.5 % (15.0-51.0); MEAN CORPUSCULAR HEMOGLOBIN 24.7 pg (29.0-33.0); MEAN CORPUSCULAR HGB CONC 29.6 g/dl (32.0-37.0); MEAN CORPUSCULAR VOLUME 83.6 fl (82.0-101.0); MEAN PLATELET VOLUME 10.5 fl (7.4-10.4); MONOCYTE # 1.7 10^3/ul (0.3-0.9); MONOCYTES % 12.6 % (0.0-11.0); NEUTROPHILS % 74.5 % (39.0-77.0); PLATELET COUNT 287 10^3/UL (140-415); POSITIVE DIFF @See below; RED BLOOD COUNT 2.99 10^6/ul (4.70-6.10); RED CELL DISTRIBUTION WIDTH 14.3 % (11.5-14.5); WHITE BLOOD COUNT 13.4 10^3/ul (4.8-10.8)
[2017-05-29 05:04] LABS: CALCIUM 9.4 mg/dl (8.4-10.2); CREATININE 1.05 mg/dl (0.61-1.24); POTASSIUM 4.9 mmol/L (3.5-5.1)
[2017-05-29 05:05] LABS: PHOSPHORUS 4.5 mg/dl (2.5-4.9)
--- NOTE | 2017-05-29 08:17 | PN ---
DATE: 05/29/2017 SUBJECTIVE DATA: The patient is currently stable. No acute events overnight. No hemoptysis, hematemesis, hematochezia. The patient is on nasal cannula. The patient's pain is adequately controlled. OBJECTIVE DATA: VITAL SIGNS: Blood pressure 101/59, respirations 25, pulse 100, temperature 99.0. HEENT: Head is normocephalic. NECK: Supple. CHEST: There is noted mediastinotomy tubes. HEART: Regular rate. LUNGS: Show diminished breath sounds at the base. ABDOMEN: Soft, nontender to palpation. No rebound or guarding. EXTREMITIES: Negative for clubbing, cyanosis. Trace edema. DERMATOLOGIC: Clean. No rashes. MUSCULOSKELETAL: No joint effusion. NEUROLOGIC: No change in exam. MEDICATIONS: Reviewed. LABORATORY AND DIAGNOSTIC DATA: Shows sodium 129, potassium 4.9, chloride 97. BUN 20, creatinine 1.0, white count 13.4, hemoglobin 7.4, hematocrit 25.0. Platelet count is 287. The patient's ABG was reviewed. Chest x-ray was reviewed. ASSESSMENT AND PLAN: 1. Status post 3 vessel coronary artery disease coronary artery bypass graft. The patient is clinically improving. Continue medical management. Follow up with CT surgery. 2. Acute hypoxemic respiratory failure. Etiology secondary to congestive heart failure, possible chronic obstructive pulmonary disease, continue intermittent diuretic therapy, being managed by Cardiology. Continue nebulizers. 3. Sinus tachycardia, improved. 4. Diabetes. Continue current insulin regimen. The patient is off insulin drip. 5. Continue statin therapy. 6. Anemia. Continue to monitor H and H levels closely, possibly due to postoperative blood loss. Transfuse as needed. 7. Hyponatremia, likely from a transient syndrome of inappropriate antidiuretic hormone secretion. Will check urine electrolytes. Will check urine osmolarity. 8. Adenocarcinoma of the lungs. Unclear if this is primary or metastatic. We will have oncology hematology evaluation once the patient is clinically stable. 9. Gastrointestinal and deep venous thrombosis prophylaxis. Dictated By: Giuseppe Boyd DO /angi/dakota /Document#: [id number]
[2017-05-29] MEDS: FAMOTIDINE 20 MG INJ IV SCH ×2 (08:30→19:47)
[2017-05-29] MEDS: INSULIN GLARGINE [LANtus] 3 ML PEN SC SCH (08:30)
[2017-05-29] MEDS: INSULIN ASPART [NOVOLOG] 3 ML PEN SC SCH ×7 (08:30→21:00)
[2017-05-29] MEDS: ALBUTEROL/IPRATROPIUM (NEB) 3 ML AMP HHN SCH ×3 (08:43→20:26)
--- NOTE | 2017-05-29 08:44 | PN ---
Date/Time of Note Date/Time of Note DATE: 05/29/17 TIME: 08:38 Assessment/Plan Lines/Catheters IV [facility] Type (from [facility]): Peripheral IV Vizcarra in Place (from Nrs): No Assessment/Plan Assessment/Plan s/p cabg lung cancer d/c mediastinal tube ct chest am dr lyman to see patient in am Exam/Review of Systems Vital Signs Vitals Vital Signs Date Time Temp Pulse Resp B/P Pulse Ox O2 Delivery O2 Flow Rate FiO2 05/29/17 05:00 99.0 100 25 101/59 99 Nasal Cannula 05/29/17 01:43 2.0 05/28/17 05:10 40 Intake and Output 05/28/17 05/28/17 05/29/17 15:00 23:00 07:00 Intake Total 1326.0 ml 308 ml 200 ml Output Total 520 ml 45 ml 415 ml Balance 806.0 ml 263 ml -215 ml Exam Constitutional: alert Head: normocephalic Neck: supple Respiratory: other (pleural 455/24 mediastinal 140 cc/24) Cardiovascular: regular rate and rhythm Gastrointestinal: soft Results Result Diagram: 05/29/17 0400 05/29/170 NIELS DESAI MD May 29, 2017 08:44
[2017-05-29 08:58] LABS: AADO2 Arterial 63.7 mmHg (7.0-24.0); Allen Test ACCEPTAB; Arterial Base Excess -0.2 mmol/L (-3.0-3); Arterial COHb 0.8 % (0.0-3.0); Arterial Fraction of Oxyhgb 95.3 % (93.0-99.0); Arterial HCO3 24.6 mmol/L (22.0-26.0); Arterial MetHb 0.2 % (0.0-1.5); Arterial Total Hemglobin 7.7 g/dl (12.0-18.0); MODE NASAL CANNULA
[2017-05-29] MEDS ORDERED: morphine 2 MG INJ IV ONE (09:00)
[2017-05-29] MEDS: ASPIRIN 325 MG TAB PO SCH (09:44)
--- NOTE | 2017-05-29 11:55 | CONS ---
Date/Time of Note Date/Time of Note DATE: 05/29/17 TIME: 11:53 Assessment/Plan Assessment/Plan Chief Complaint/Hosp Course CAD: Three vessel disease by cath. s/p CABG with PORTER -LAD, SVG-OM, SVG jump graft PDA and PL. Doing well post-op NSTEMI: s/p cath and now CABG as above Cardiomyopathy: Initial EF 25-30%, now 40-45% by echo. Acute systolic heart failure: Still with mild CHF by exam Lung cancer: noted during surgery and confirmed adenocarcinoma on pathology. Unclear if primary lung or mets from elsewhere. COPD: likely based on h/o smoking DM: new diagnosis Prior tobacco use -ASA, lipitor -coreg 3.125mg BID -lasix 20mg IV x 1, assess need daily -possible chest CTA tomorrow Problems: Consultation Date/Type/Reason Admit Date/Time May 24, 2017 at 16:00 Initial Consult Date 05/24/17 Type of Consultation: Cardiology Referring Provider: GIOVANNI KRUGER DO 24 HR Interval Summary Free Text/Dictation gerry Vizcarra removed. Sitting in chair. HR 90s now. Feels weak but otherwise no complaints. Very appreciate of care. Exam/Review of Systems Vital Signs Vitals Vital Signs Date Time Temp Pulse Resp B/P Pulse Ox O2 Delivery O2 Flow Rate FiO2 05/29/17 08:43 103 24 95 Nasal Cannula 2.0 05/29/17 05:00 99.0 101/59 05/28/17 05:10 40 Intake and Output 05/28/17 05/28/17 05/29/17 15:00 23:00 07:00 Intake Total 1326.0 ml 308 ml 200 ml Output Total 520 ml 45 ml 415 ml Balance 806.0 ml 263 ml -215 ml Exam Constitutional: alert, oriented, well developed Psych: nl mood/affect, no complaints Head: atraumatic, normocephalic Neck: jvd (8cm) Respiratory: crackles/rales, diminished breath sounds, No clear to auscultation Cardiovascular: edema (1+), regular rate and rhythm, systolic murmur (2/6 NICO) Gastrointestinal: non-tender, soft Neurological: nl mental status, nl speech Results Result Diagram: 05/29/17 0400 05/29/17 0400 Results 24 hrs Laboratory Tests Test 05/28/17 12:19 05/28/17 12:50 05/28/17 13:54 05/28/17 14:55 Bedside Glucose 161 158 127 Hematocrit 23.7 L Test 05/28/17 15:03 05/28/17 15:53 05/28/17 17:33 05/28/17 21:09 Bedside Glucose 126 130 147 146 Test 05/29/17 04:00 05/29/17 07:00 05/29/17 08:28 White Blood Count 13.4 #H Red Blood Count 2.99 L Hemoglobin 7.4 L Hematocrit 25.0 L Mean Corpuscular Volume 83.6 Mean Corpuscular Hemoglobin 24.7 L Mean Corpuscular Hemoglobin Concent 29.6 L Red Cell Distribution Width 14.3 Platelet Count 287 # Mean Platelet Volume 10.5 H Neutrophils % 74.5 Lymphocytes % 11.5 L Monocytes % 12.6 H Eosinophils % 0.4 Basophils % 0.2 Nucleated Red Blood Cells % 0.0 Neutrophils # (Manual) 9.9 H Lymphocytes # 1.5 Monocytes # 1.7 H Eosinophils # 0.1 Basophils # 0.0 Nucleated Red Blood Cells # 0.0 Sodium Level 129 L Potassium Level 4.9 Chloride Level 97 Carbon Dioxide Level 29 Anion Gap 8 Blood Urea Nitrogen 20 Creatinine 1.05 Glucose Level 154 Calcium Level 9.4 Phosphorus Level 4.5 Magnesium Level 2.0 Blood Gas Specimen Source Blood arterial Arterial Blood Date Drawn 05/29/2017 8:20:28 AM Arterial Blood pH (Temp corrected) 7.402 Arterial Blood pCO2 (Temp correct) 40.4 Arterial Blood pO2 (Temp corrected) 81.0 Arterial Blood HCO3 24.6 Arterial Blood Base Excess -0.2 Arterial Blood Oxygen Saturation 96.3 Gerardo Test ACCEPTAB Arterial Blood Gas Puncture Site Left Radial Arterial Blood Carboxyhemoglobin 0.8 Arterial Blood Methemoglobin 0.2 Blood Gas A-a O2 Differential 63.7 H Oxyhemoglobin Percent 95.3 Total Hemoglobin 7.7 L Blood Gas Temperature 37.0 Blood Gas Modality NASAL CANNULA FiO2 27.0 Blood Gas Notified Whom DT Blood Gas Notified Time 05/29/2017 8:47:00 AM Bedside Glucose 165 Medications Medications Current Medications Oxycodone/ Acetaminophen (Percocet (5/ 325)) 1 tab Q3H PRN PO PAIN LEVEL 1-5; Start 05/27/17 at 14:30 Oxycodone/ Acetaminophen (Percocet (5/ 325)) 2 tab Q3H PRN PO PAIN LEVEL 6-10 Last administered on 05/29/17 06:58; Admin Dose 2 TAB; Start 05/27/17 at 14:30 Ondansetron HCl (Zofran Inj) 4 mg Q6H PRN IV NAUSEA AND/OR VOMITING; Start 05/27 at 14:30 Famotidine (Pepcid Iv) 20 mg BID@08,20 IV Last administered on 05/29/17 08:30 ; Admin Dose 20 MG; Start 05/27/17 at 20:00 Famotidine (Pepcid) 20 mg BID PO ; Start 05/27/17 at 21:00; Status Future Hold Acetaminophen 650 mg 650 mg Q3H PRN PO ELEVATED TEMPERATURE; Start 05/27/17 at 14:30 Magnesium Sulfate/ Dextrose (Magnesium Sulfate 1 Gm/D5W) 100 ml @ 100 mls/hr PRN PRN IVPB PENDING LAB VALUE; Start 05/27/17 at 14:30 Dextrose (D50w Syringe) 25 ml Q15M PRN IV Till BS 80 mg/dL or above x2; Start 05/27/17 at 14:30 Dextrose 50 ml 50 ml Q15M PRN IV Till BS 80 mg/dL or above x2 Last administered on 05/27/17 15:36; Admin Dose 50 ML; Start 05/27/17 at 14:30 Milrinone Lactate (Primacor) 100 ml @ 11.295 mls/ hr TITRATE IV Last administered on 05/27/17 14:45; Admin Dose 11.295 MLS/HR; Start 05/27/17 at 14:45 Carvedilol (Coreg) 3.125 mg BID PO Last administered on 05/29/17 09:44; Admin Dose 3.125 MG; Start 05/28/17 at 10:00 Aspirin (Aspirin) 325 mg DAILY PO Last administered on 05/29/17 09:44; Admin Dose 325 MG; Start 05/28/17 at 10:00 Atorvastatin Calcium 40 mg 40 mg HS PO Last administered on 05/28/17 21:05; Admin Dose 40 MG; Start 05/28/17 at 21:00 Ferric Sodium Gluconate Complex/ Sodium Chloride (Ferrlecit/NS) 110 ml @ 100 mls/hr Q24H IVPB Last administered on 05/28/17 12:38; Admin Dose 100 MLS/HR; Start 05/28/17 at 12:00; Stop 05/30/17 at 13:05 Insulin Glargine 10 unit 10 unit DAILY@08 SC Last administered on 05/29/17 08: 30; Admin Dose 10 UNIT; Start 05/29/17 at 08:00 Phenylephrine HCl/ Dextrose ([place]-Syneph/D5W) 500 ml @ 75 mls/hr TITRATE IV ; Start 05/28/17 at 16:30 TAMMI MORENO May 29, 2017 11:55
[2017-05-29] MEDS ORDERED: FUROSEMIDE 20 MG INJ IV ONE (12:00)
[2017-05-29] MEDS: SOD FERRIC GLUC COMPLX 125 MG in SOD CHLORIDE 0.9% 100 ML IVPB SCH (12:45)
--- NOTE | 2017-05-29 13:04 | CONS ---
Date/Time of Note Date/Time of Note DATE: 05/29/17 TIME: 13:03 Consult Date/Type/Reason Admit Date/Time May 24, 2017 at 16:00 Initial Consult Date 05/26/17 Type of Consultation: Pulmonary Ordering Provider: GIOVANNI KRUGER DO Subjective Patient comfortable this morning. Awake alert oriented on nasal cannula O2. Objective Vital Signs Date Time Temp Pulse Resp B/P Pulse Ox O2 Delivery O2 Flow Rate FiO2 05/29/17 08:43 103 24 95 Nasal Cannula 2.0 05/29/17 05:00 99.0 101/59 05/28/17 05:10 40 Intake and Output 05/28/17 05/28/17 05/29/17 15:00 23:00 07:00 Intake Total 1326.0 ml 308 ml 200 ml Output Total 520 ml 45 ml 415 ml Balance 806.0 ml 263 ml -215 ml Exam PHYSICAL EXAMINATION GENERAL: Elderly gentleman awake alert and oriented on nasal cannula oxygen.. VITAL SIGNS: see below. HEENT: Pupils equal, round, and reactive to light. CARDIAC: S1, S2, 1/6 systolic ejection murmur CHEST: Diminished air entry bilaterally. ABDOMEN: Mildly distended. Bowel sounds present no guarding or rebound EXTREMITIES: No cyanosis, clubbing edema +1 NEUROLOGIC: Generalized weakness Results/Medications Result Diagram: 05/29/17 0400 05/29/17 0400 Results 24 hrs Laboratory Tests Test 05/28/17 13:54 05/28/17 14:55 05/28/17 15:03 05/28/17 15:53 Bedside Glucose 127 126 130 Hematocrit 23.7 L Test 05/28/17 17:33 05/28/17 21:09 05/29/17 04:00 05/29/17 07:00 Bedside Glucose 147 146 White Blood Count 13.4 #H Red Blood Count 2.99 L Hemoglobin 7.4 L Hematocrit 25.0 L Mean Corpuscular Volume 83.6 Mean Corpuscular Hemoglobin 24.7 L Mean Corpuscular Hemoglobin Concent 29.6 L Red Cell Distribution Width 14.3 Platelet Count 287 # Mean Platelet Volume 10.5 H Neutrophils % 74.5 Lymphocytes % 11.5 L Monocytes % 12.6 H Eosinophils % 0.4 Basophils % 0.2 Nucleated Red Blood Cells % 0.0 Neutrophils # (Manual) 9.9 H Lymphocytes # 1.5 Monocytes # 1.7 H Eosinophils # 0.1 Basophils # 0.0 Nucleated Red Blood Cells # 0.0 Sodium Level 129 L Potassium Level 4.9 Chloride Level 97 Carbon Dioxide Level 29 Anion Gap 8 Blood Urea Nitrogen 20 Creatinine 1.05 Glucose Level 154 Calcium Level 9.4 Phosphorus Level 4.5 Magnesium Level 2.0 Blood Gas Specimen Source Blood arterial Arterial Blood Date Drawn 05/29/2017 8:20:28 AM Arterial Blood pH (Temp corrected) 7.402 Arterial Blood pCO2 (Temp correct) 40.4 Arterial Blood pO2 (Temp corrected) 81.0 Arterial Blood HCO3 24.6 Arterial Blood Base Excess -0.2 Arterial Blood Oxygen Saturation 96.3 Gerardo Test ACCEPTAB Arterial Blood Gas Puncture Site Left Radial Arterial Blood Carboxyhemoglobin 0.8 Arterial Blood Methemoglobin 0.2 Blood Gas A-a O2 Differential 63.7 H Oxyhemoglobin Percent 95.3 Total Hemoglobin 7.7 L Blood Gas Temperature 37.0 Blood Gas Modality NASAL CANNULA FiO2 27.0 Blood Gas Notified Whom DT Blood Gas Notified Time 05/29/2017 8:47:00 AM Test 05/29/17 08:28 05/29/17 12:11 Bedside Glucose 165 176 Medications Current Medications Oxycodone/ Acetaminophen (Percocet (5/ 325)) 1 tab Q3H PRN PO PAIN LEVEL 1-5; Start 05/27/17 at 14:30 Oxycodone/ Acetaminophen (Percocet (5/ 325)) 2 tab Q3H PRN PO PAIN LEVEL 6-10 Last administered on 05/29/17 06:58; Admin Dose 2 TAB; Start 05/27/17 at 14:30 Ondansetron HCl (Zofran Inj) 4 mg Q6H PRN IV NAUSEA AND/OR VOMITING; Start 05/27 at 14:30 Famotidine (Pepcid Iv) 20 mg BID@08,20 IV Last administered on 05/29/17 08:30 ; Admin Dose 20 MG; Start 05/27/17 at 20:00 Famotidine (Pepcid) 20 mg BID PO ; Start 05/27/17 at 21:00; Status Future Hold Acetaminophen 650 mg 650 mg Q3H PRN PO ELEVATED TEMPERATURE; Start 05/27/17 at 14:30 Magnesium Sulfate/ Dextrose (Magnesium Sulfate 1 Gm/D5W) 100 ml @ 100 mls/hr PRN PRN IVPB PENDING LAB VALUE; Start 05/27/17 at 14:30 Dextrose (D50w Syringe) 25 ml Q15M PRN IV Till BS 80 mg/dL or above x2; Start 05/27/17 at 14:30 Dextrose 50 ml 50 ml Q15M PRN IV Till BS 80 mg/dL or above x2 Last administered on 05/27/17 15:36; Admin Dose 50 ML; Start 05/27/17 at 14:30 Milrinone Lactate (Primacor) 100 ml @ 11.295 mls/ hr TITRATE IV Last administered on 05/27/17 14:45; Admin Dose 11.295 MLS/HR; Start 05/27/17 at 14:45 Carvedilol (Coreg) 3.125 mg BID PO Last administered on 05/29/17 09:44; Admin Dose 3.125 MG; Start 05/28/17 at 10:00 Aspirin (Aspirin) 325 mg DAILY PO Last administered on 05/29/17 09:44; Admin Dose 325 MG; Start 05/28/17 at 10:00 Atorvastatin Calcium 40 mg 40 mg HS PO Last administered on 05/28/17 21:05; Admin Dose 40 MG; Start 05/28/17 at 21:00 Ferric Sodium Gluconate Complex/ Sodium Chloride (Ferrlecit/NS) 110 ml @ 100 mls/hr Q24H IVPB Last administered on 05/28/17 12:38; Admin Dose 100 MLS/HR; Start 05/28/17 at 12:00; Stop 05/30/17 at 13:05 Insulin Glargine 10 unit 10 unit DAILY@08 SC Last administered on 05/29/17 08: 30; Admin Dose 10 UNIT; Start 05/29/17 at 08:00 Phenylephrine HCl/ Dextrose ([place]mar-Syneph/D5W) 500 ml @ 75 mls/hr TITRATE IV ; Start 05/28/17 at 16:30 Neomycin/ Polymyxin/ Bacitracin (Neosporin Topical Oint) 1 applic TID PRN TOP as needed for hand wound ; Start 05/29/17 at 12:00 Assessment/Plan Chief Complaint/Hosp Course Assessment 1. Multivessel coronary artery disease status post coronary artery bypass postsurgery Postop day 3 2. New finding of metastatic lung cancer. 3. Diabetes mellitus 4. Extensive tobacco history 5. Postop anemia Plan 1. Continue incentive spirometry and bronchodilators 2. Continue glycemic management. 3. Continue chest tube drainage. 4. Encourage out of bed possible DC [place]-Shahid catheter today 5. Hematology oncology evaluation and discussion when stable. Problems: SONJA GIRALDO MD, [facility] May 29, 2017 13:04
--- NOTE | 2017-05-29 20:47 | RADRPT ---
PROCEDURE: XR Chest. CLINICAL INDICATION: Dyspnea, cough TECHNIQUE: Anterior chest x-ray. COMPARISON: 05/29/2017 1150 hours FINDINGS: Exam is limited by rotated positioning. Right-sided internal jugular approach vascular sheath demonstrates stable and satisfactory position. Chest tube in left lung base demonstrates stable and satisfactory position. Median sternotomy wires are again noted. Patchy airspace opacity in the left lung base is unchanged from previous exam. Blunting of costophrenic angles suggest small bilateral pleural effusions, unchanged. The heart size is large. Mediastinal contour is widened. The soft tissues are normal. Osseous structures are unremarkable. IMPRESSION: 1. Recent CABG with widened mediastinal contour which may represent hematoma, inflammatory change o r heart failure. 2. Stable and satisfactory position of left-sided chest tube without evidence pneumothorax. 3. Patchy infiltrate in left lung base, unchanged. 4. Blunting of costophrenic angles suggesting small pleural effusions, unchanged. RPTAT: HLDM .Pérez Woods MD, MD Date Time Electronically viewed and signed by .Pérez Woods MD, on 05/29/2017 20:47 .M/
[2017-05-29] MEDS: ATORVASTATIN 40 MG TAB PO SCH (21:00)
[2017-05-29] MEDS: ZOLPIDEM 5 MG TAB PO PRN (21:00)
[2017-05-30] VITALS (24 sets, daily range): BP systolic 88–160; BP diastolic 55–89; PULSE 91–110; RESP 16–31
[2017-05-30] MEDS: ALBUTEROL/IPRATROPIUM (NEB) 3 ML AMP HHN PRN (01:19)
[2017-05-30] MEDS: OXYCODONE/ACETAMINOPHEN (5/325) TAB PO PRN ×4 (03:48→22:15)
[2017-05-30 04:46] LABS: ABNORMAL IP MESSAGE 1; BASOPHILS % 0.3 % (0.0-2.0); EOSINOPHILS # 0.1 10^3/ul (0.0-0.5); EOSINOPHILS % 0.5 % (0.0-7.0); HEMATOCRIT 26.4 % (42.0-52.0); HEMOGLOBIN 7.6 g/dl (14.0-18.0); LYMPHOCYTES # 1.1 10^3/ul (0.8-2.9); LYMPHOCYTES % 9.4 % (15.0-51.0); MEAN CORPUSCULAR HGB CONC 28.8 g/dl (32.0-37.0); MEAN CORPUSCULAR VOLUME 83.3 fl (82.0-101.0); MEAN PLATELET VOLUME 10.8 fl (7.4-10.4); MONOCYTE # 1.4 10^3/ul (0.3-0.9); MONOCYTES % 11.9 % (0.0-11.0); NEUTROPHILS % 76.1 % (39.0-77.0); NUCLEATED RED BLOOD CELLS% 0.2 /100WBC (0.0-0.0); PLATELET COUNT 289 10^3/UL (140-415); POSITIVE DIFF @See below; RED BLOOD COUNT 3.17 10^6/ul (4.70-6.10); RED CELL DISTRIBUTION WIDTH 14.6 % (11.5-14.5); WHITE BLOOD COUNT 11.8 10^3/ul (4.8-10.8)
[2017-05-30 05:05] LABS: CALCIUM 9.3 mg/dl (8.4-10.2); CREATININE 1.1 mg/dl (0.61-1.24); MAGNESIUM 2.2 mg/dl (1.7-2.5); PHOSPHORUS 3.9 mg/dl (2.5-4.9); POTASSIUM 5.1 mmol/L (3.5-5.1)
--- NOTE | 2017-05-30 07:58 | PN ---
Date/Time of Note Date/Time of Note DATE: 05/30/17 TIME: 07:57 Assessment/Plan Lines/Catheters IV Catheter Type (from [facility]): Peripheral IV Vizcarra in Place (from [facility]): No Assessment/Plan Chief Complaint/Hosp Course doing well, sitting in chair NSR remove chest tube and wires CTA today to rule out PE and assess extent of lung cancer MRI brain tomorrow to rule out mets add lovenox for DVT prophylaxis transfer to tele Problems: Exam/Review of Systems Vital Signs Vitals Vital Signs Date Time Temp Pulse Resp B/P Pulse Ox O2 Delivery O2 Flow Rate FiO2 05/30/17 07:00 97 21 115/71 100 Nasal Cannula 05/30/17 04:00 98.5 05/30/17 01:19 3.0 05/29/17 20:26 21 Intake and Output 05/29/17 05/29/17 05/30/17 15:00 23:00 07:00 Intake Total 220 ml 250 ml Output Total 360 ml 750 ml Balance -140 ml -500 ml Results Result Diagram: 05/30/17 0415 05/30/17 0415 RAISSA SILVA MD May 30, 2017 07:58
[2017-05-30] MEDS: ALBUTEROL/IPRATROPIUM (NEB) 3 ML AMP HHN SCH ×3 (08:05→20:12)
[2017-05-30] MEDS: ASPIRIN 325 MG TAB PO SCH (08:41)
[2017-05-30] MEDS: INSULIN ASPART [NOVOLOG] 3 ML PEN SC SCH ×7 (08:47→21:00)
[2017-05-30] MEDS: ENOXAPARIN 40 MG/0.4 ML SYG SC SCH (08:49)
[2017-05-30] MEDS: INSULIN GLARGINE [LANtus] 3 ML PEN SC SCH (08:49)
[2017-05-30] MEDS ORDERED: IODIXANOL LOCM 50 ML BTL ONE (09:16)
[2017-05-30] MEDS ORDERED: SOD CHLORIDE 0.9% 100 ML ONE (09:16)
[2017-05-30] MEDS ORDERED: IODIXANOL LOCM 100 ML BTL ONE (09:16)
--- NOTE | 2017-05-30 10:06 | CONS ---
Date/Time of Note Date/Time of Note DATE: 05/30/17 TIME: 10:05 Consult Date/Type/Reason Admit Date/Time May 24, 2017 at 16:00 Initial Consult Date 05/26/17 Type of Consultation: Pulmonary Ordering Provider: GIOVANNI KRUGER DO Subjective Patient comfortable this morning. Central lines removed. Awake alert and oriented no respiratory distress. Objective Vital Signs Date Time Temp Pulse Resp B/P Pulse Ox O2 Delivery O2 Flow Rate FiO2 05/30/17 08:07 95 28 98 Nasal Cannula 3.0 05/30/17 07:00 115/71 05/30/17 04:00 98.5 05/29/17 20:26 21 Intake and Output 05/29/17 05/29/17 05/30/17 15:00 23:00 07:00 Intake Total 220 ml 250 ml Output Total 360 ml 750 ml Balance -140 ml -500 ml Exam PHYSICAL EXAMINATION GENERAL: Elderly gentleman awake alert and oriented on nasal cannula oxygen.. VITAL SIGNS: see below. HEENT: Pupils equal, round, and reactive to light. CARDIAC: S1, S2, 1/6 systolic ejection murmur CHEST: Diminished air entry bilaterally. ABDOMEN: Mildly distended. Bowel sounds present no guarding or rebound EXTREMITIES: No cyanosis, clubbing edema +1 NEUROLOGIC: Generalized weakness Results/Medications Result Diagram: 05/30/17 0415 05/30/17 0415 Results 24 hrs Laboratory Tests Test 05/29/17 12:11 05/29/17 18:11 05/29/17 21:02 05/30/17 01:00 Bedside Glucose 176 160 175 Urine Random Creatinine 108.67 Urine Random Sodium < 5 L Urine Total Protein 16.0 H Test 05/30/17 04:15 05/30/17 08:31 White Blood Count 11.8 H Red Blood Count 3.17 L Hemoglobin 7.6 L Hematocrit 26.4 L Mean Corpuscular Volume 83.3 Mean Corpuscular Hemoglobin 24.0 L Mean Corpuscular Hemoglobin Concent 28.8 L Red Cell Distribution Width 14.6 H Platelet Count 289 Mean Platelet Volume 10.8 H Neutrophils % 76.1 Lymphocytes % 9.4 L Monocytes % 11.9 H Eosinophils % 0.5 Basophils % 0.3 Nucleated Red Blood Cells % 0.2 H Neutrophils # (Manual) 9.0 H Lymphocytes # 1.1 Monocytes # 1.4 H Eosinophils # 0.1 Basophils # 0.0 Nucleated Red Blood Cells # 0.0 Sodium Level 128 L Potassium Level 5.1 Chloride Level 93 L Carbon Dioxide Level 28 Anion Gap 12 Blood Urea Nitrogen 24 H Creatinine 1.10 Glucose Level 152 Calcium Level 9.3 Phosphorus Level 3.9 Magnesium Level 2.2 Bedside Glucose 153 Medications Current Medications Oxycodone/ Acetaminophen (Percocet (5/ 325)) 1 tab Q3H PRN PO PAIN LEVEL 1-5; Start 05/27/17 at 14:30 Oxycodone/ Acetaminophen (Percocet (5/ 325)) 2 tab Q3H PRN PO PAIN LEVEL 6-10 Last administered on 05/30/17 09:51; Admin Dose 2 TAB; Start 05/27/17 at 14:30 Ondansetron HCl (Zofran Inj) 4 mg Q6H PRN IV NAUSEA AND/OR VOMITING; Start 05/27 at 14:30 Famotidine (Pepcid) 20 mg BID PO ; Start 05/27/17 at 21:00; Status Future Hold Acetaminophen (Tylenol Tab) 650 mg Q3H PRN PO ELEVATED TEMPERATURE; Start at 14:30 Carvedilol (Coreg) 3.125 mg BID PO Last administered on 05/30/17 08:42; Admin Dose 3.125 MG; Start 05/28/17 at 10:00 Aspirin (Aspirin) 325 mg DAILY PO Last administered on 05/30/17 08:41; Admin Dose 325 MG; Start 05/28/17 at 10:00 Atorvastatin Calcium 40 mg 40 mg HS PO Last administered on 05/29/17 21:00; Admin Dose 40 MG; Start 05/28/17 at 21:00 Ferric Sodium Gluconate Complex/ Sodium Chloride (Ferrlecit/NS) 110 ml @ 100 mls/hr Q24H IVPB Last administered on 05/29/17 12:45; Admin Dose 100 MLS/HR; Start 05/28/17 at 12:00; Stop 05/30/17 at 13:05 Insulin Glargine (Lantus) 10 unit DAILY@08 SC Last administered on 05/30/17 08 :49; Admin Dose 10 UNIT; Start 05/29/17 at 08:00 Neomycin/ Polymyxin/ Bacitracin (Neosporin Topical Oint) 1 applic TID PRN TOP as needed for hand wound ; Start 05/29/17 at 12:00 Enoxaparin Sodium (Lovenox) 40 mg DAILY SC Last administered on 05/30/17t 08:49 ; Admin Dose 40 MG; Start 05/30/17 at 09:00 Assessment/Plan Chief Complaint/Hosp Course Assessment 1. Multivessel coronary artery disease status post coronary artery bypass postsurgery Postop day 4 2. New finding of metastatic lung cancer. 3. Diabetes mellitus 4. Extensive tobacco history 5. Postop anemia Plan 1. Continue incentive spirometry and bronchodilators 2. Continue glycemic management. 3. Continue chest tube drainage. 4. Encourage out of bed 5. Hematology oncology evaluation and discussion when stable. stable for transfer to telemetry from pulmonary standpoint. Problems: SONJA GIRALDO MD, [facility] May 30, 2017 10:06
--- NOTE | 2017-05-30 10:17 | RADRPT ---
PROCEDURE: Chest 1 views. CLINICAL INDICATION: Shortness of breath TECHNIQUE: AP views of the chest was obtained. COMPARISON: Yesterday FINDINGS: The heart is large. Median sternotomy wires overlie the heart. Right-sided vascular access sheath hoffmann s been removed. Central pulmonary vascular congestion and interstitial prominence in both lungs is u nchanged. Left-sided chest tube is stable. No pneumothorax as visualized. Elevated right hemidiaphra gm with associated right middle and lower lobe infiltrates, combined small pleural effusion are stab le. Scattered atelectasis versus minimal infiltrates in the left lower lobe are stable. Osseous str uctures are unchanged. IMPRESSION: Cardiomegaly . Stable left chest tube. No visualized pneumothorax. Stable central pulmonary vascular congestion and mild interstitial prominence in both lungs. Elevated right hemidiaphragm with stable associated atelectasis/consolidation of the right middle an d lower lobes and small right pleural effusion. Stable patchy atelectasis versus infiltrates in the left mid and lower lung. RPTAT: AA .Efrain Fox MD, MD Date Time Electronically viewed and signed by .Efrain Fox MD, on 05/30/2017 10:16 .P/
--- NOTE | 2017-05-30 11:17 | CONS ---
Date/Time of Note Date/Time of Note DATE: 05/30/17 TIME: 11:14 Assessment/Plan Assessment/Plan Chief Complaint/Hosp Course CAD: Three vessel disease by cath. s/p CABG with PORTER -LAD, SVG-OM, SVG jump graft PDA and PL. Doing well post-op NSTEMI: s/p cath and now CABG as above Cardiomyopathy: Initial EF 25-30%, now 40-45% by echo. Acute systolic heart failure: Euvolemic to mild fluid overload by exam. Lung cancer: noted during surgery and confirmed lung adenocarcinoma on pathology. COPD: likely based on h/o smoking DM: new diagnosis Prior tobacco use -ASA, lipitor -coreg 3.125mg BID -hold lasix today, assess need daily -f/u chest CTA Problems: Consultation Date/Type/Reason Admit Date/Time May 24, 2017 at 16:00 Initial Consult Date 05/24/17 Type of Consultation: Cardiology Referring Provider: GIOVANNI KRUGER DO 24 HR Interval Summary Free Text/Dictation S/p CTA today to evaluate for PE and lung masses. Sitting in chair. Overall doing well. Chest tube removed. Exam/Review of Systems Vital Signs Vitals Vital Signs Date Time Temp Pulse Resp B/P Pulse Ox O2 Delivery O2 Flow Rate FiO2 05/30/17 08:07 95 28 98 Nasal Cannula 3.0 05/30/17 07:00 115/71 05/30/17 04:00 98.5 05/29/17 20:26 21 Intake and Output 05/29/17 05/29/17 05/30/17 15:00 23:00 07:00 Intake Total 220 ml 250 ml Output Total 360 ml 750 ml Balance -140 ml -500 ml Exam Constitutional: alert, oriented Psych: no complaints Head: atraumatic, normocephalic Neck: No jvd Respiratory: No clear to auscultation (mild crackles ) Cardiovascular: edema (1+), regular rate and rhythm, No systolic murmur Gastrointestinal: non-tender, soft Neurological: nl mental status, nl speech Results Result Diagram: 05/30/17 0415 05/30/17 0415 Results 24 hrs Laboratory Tests Test 05/29/17 12:11 05/29/17 18:11 05/29/17 21:02 05/30/17 01:00 Bedside Glucose 176 160 175 Urine Random Creatinine 108.67 Urine Random Sodium < 5 L Urine Total Protein 16.0 H Test 05/30/17 04:15 05/30/17 08:31 White Blood Count 11.8 H Red Blood Count 3.17 L Hemoglobin 7.6 L Hematocrit 26.4 L Mean Corpuscular Volume 83.3 Mean Corpuscular Hemoglobin 24.0 L Mean Corpuscular Hemoglobin Concent 28.8 L Red Cell Distribution Width 14.6 H Platelet Count 289 Mean Platelet Volume 10.8 H Neutrophils % 76.1 Lymphocytes % 9.4 L Monocytes % 11.9 H Eosinophils % 0.5 Basophils % 0.3 Nucleated Red Blood Cells % 0.2 H Neutrophils # (Manual) 9.0 H Lymphocytes # 1.1 Monocytes # 1.4 H Eosinophils # 0.1 Basophils # 0.0 Nucleated Red Blood Cells # 0.0 Sodium Level 128 L Potassium Level 5.1 Chloride Level 93 L Carbon Dioxide Level 28 Anion Gap 12 Blood Urea Nitrogen 24 H Creatinine 1.10 Glucose Level 152 Calcium Level 9.3 Phosphorus Level 3.9 Magnesium Level 2.2 Bedside Glucose 153 Medications Medications Current Medications Oxycodone/ Acetaminophen (Percocet (5/ 325)) 1 tab Q3H PRN PO PAIN LEVEL 1-5; Start 05/27/17 at 14:30 Oxycodone/ Acetaminophen (Percocet (5/ 325)) 2 tab Q3H PRN PO PAIN LEVEL 6-10 Last administered on 05/30/17 09:51; Admin Dose 2 TAB; Start 05/27/17 at 14:30 Ondansetron HCl (Zofran Inj) 4 mg Q6H PRN IV NAUSEA AND/OR VOMITING; Start 05/27 at 14:30 Famotidine (Pepcid) 20 mg BID PO ; Start 05/27/17 at 21:00; Status Future Hold Acetaminophen (Tylenol Tab) 650 mg Q3H PRN PO ELEVATED TEMPERATURE; Start at 14:30 Carvedilol (Coreg) 3.125 mg BID PO Last administered on 05/30/17 08:42; Admin Dose 3.125 MG; Start 05/28/17 at 10:00 Aspirin (Aspirin) 325 mg DAILY PO Last administered on 05/30/17 08:41; Admin Dose 325 MG; Start 05/28/17 at 10:00 Atorvastatin Calcium 40 mg 40 mg HS PO Last administered on 05/29/17 21:00; Admin Dose 40 MG; Start 05/28/17 at 21:00 Ferric Sodium Gluconate Complex/ Sodium Chloride (Ferrlecit/NS) 110 ml @ 100 mls/hr Q24H IVPB Last administered on 05/29/17 12:45; Admin Dose 100 MLS/HR; Start 05/28/17 at 12:00; Stop 05/30/17 at 13:05 Insulin Glargine (Lantus) 10 unit DAILY@08 SC Last administered on 05/30/17 08 :49; Admin Dose 10 UNIT; Start 05/29/17 at 08:00 Neomycin/ Polymyxin/ Bacitracin (Neosporin Topical Oint) 1 applic TID PRN TOP as needed for hand wound ; Start 05/29/17 at 12:00 Enoxaparin Sodium (Lovenox) 40 mg DAILY SC Last administered on 05/30/17 08:49 ; Admin Dose 40 MG; Start 05/30/17 at 09:00 TAMMI MORENO May 30, 2017 11:17
[2017-05-30] MEDS: SOD FERRIC GLUC COMPLX 125 MG in SOD CHLORIDE 0.9% 100 ML IVPB SCH (12:14)
--- NOTE | 2017-05-30 15:20 | RADRPT ---
PROCEDURE: CT Pulmonary Angiogram. CLINICAL INDICATION: Chest pain and shortness of breath. History of lung cancer. TECHNIQUE: CT pulmonary angiogram and a CT scan of the chest with contrast was performed. The pat ient was scanned following the uncomplicated intravenous administration of 110 ml of Visipaque 320 i ntravenous contrast. 2-D coronal reformatted images were obtained from the axial source images. In addition, 3-D post processing was performed. Total exam DLP is 918.50 mGy-cm. CTDIvol is 91.55 mG y. One or more of the following dose reduction techniques were used: Automated exposure control, ad justment of the mA and/or kV according to patient size, use of iterative reconstruction technique. COMPARISON: Chest x-ray done earlier the same day. FINDINGS: The pulmonary arteries are normal with no filling defect or lack of enhancement to suggest pulmonary artery embolism. There is mild atelectasis at both lung bases posteriorly. There is no other pulmonary airspace or in terstitial disease. There are bilateral pulmonary nodules with a 0.9 cm nodule in the left lung apex, a 0.8 cm nodule in the lingula, a 1.3 cm nodule in the lingula, a 1.3 cm nodule in the left lower lobe, a 1.2 cm nodul e in the lingula, a 1.0 cm nodule in the left lower lobe, a 0.7 cm nodule in the right upper lobe, a 1.0 cm nodule in the right lower lobe, a 1.6 cm nodule in the right lower lobe, and several other s maller nodules bilaterally. There is no pneumothorax. There are multiple right paratracheal enlarged lymph nodes with the largest measuring 2.4 cm. An aor tic old pulmonary window lymph node measures 2.0 cm. There is extensive right hilar lymphadenopathy measuring up to 3.5 cm and left hilar lymphadenopathy measuring up to 2.4 cm. Subcarinal lymphadenop athy measures up to 2.2 cm. There are small bilateral pleural effusions with right larger than left. There is a small to moderat e pericardial effusion. There has been recent CABG with sternal wires and mediastinal clips. A small amount of gas is present adjacent to the sternum related to the recent surgery. The heart is mildly enlarged. There is calcification in the aorta consistent with atherosclerosis. The thoracic aorta is otherwise normal with no aneurysm or dissection. Images through the upper abdomen demonstrate normal visualized portions of the spleen and adrenals. Imaging of the liver is suboptimal due to overlying upper extremities. There is a possible mass in t he caudate lobe.. There are benign bilateral renal cysts. There are mild degenerative changes of the spine. There is no fracture or lytic lesion. Median hare otomy is noted. IMPRESSION: 1. Normal CT pulmonary angiogram with no evidence of pulmonary artery embolism. 2. Mild atelectasis at the lung bases posteriorly. 3. Multiple bilateral pulmonary nodules consistent with neoplasm. 4. Extensive mediastinal and hilar lymphadenopathy consistent with neoplasm. 5. Small bilateral pleural effusions with right larger than left. 6. Small to moderate pericardial effusion. 7. Recent CABG. 8. Mild cardiomegaly. 9. Atherosclerosis. 10. Possible mass in the liver. Follow-up imaging advised. 11. Benign bilateral renal cysts. 12. Mild degenerative changes of the spine. RPTAT: QQ .Russell Guzman MD, MD Date Time Electronically viewed and signed by .Russell Guzman MD, on 05/30/2017 15:20 .R/
--- NOTE | 2017-05-30 15:20 | PN ---
Date/Time of Note Date/Time of Note DATE: 05/30/17 TIME: 15:18 Assessment/Plan Lines/Catheters IV C[facility]ter Type (from [facility] Peripheral IV Vizcarra in Place (from [facility]): No Assessment/Plan Chief Complaint/Hosp Course ct chest reviewed, he has extensive mediastinal and hilar adenopathy with multiple nodules bilaterally consistent with metastatic cancer. Discussed with patient and his family. Problems: Exam/Review of Systems Vital Signs Vitals Vital Signs Date Time Temp Pulse Resp B/P Pulse Ox O2 Delivery O2 Flow Rate FiO2 05/30/17 12:00 91 05/30/17 08:07 28 98 Nasal Cannula 3.0 05/30/17 07:00 115/71 05/30/17 04:00 98.5 05/29/17 20:26 21 Intake and Output 05/29/17 05/29/17 05/30/17 15:00 23:00 07:00 Intake Total 220 ml 250 ml Output Total 360 ml 750 ml Balance -140 ml -500 ml Results Result Diagram: 05/30/17 0415 05/30/17 0415 RAISSA SILVA MD May 30, 2017 15:20
--- NOTE | 2017-05-30 16:47 | PN ---
DATE: 05/30/2017 SUBJECTIVE DATA: Patient yesterday had an apparent reaction to Ambien, and he became altered, confused, aggressive. Symptoms eventually resolved. Overnight no other events noted. No hemoptysis, hematemesis, hematochezia. OBJECTIVE DATA: VITAL SIGNS: Blood pressure is 115/71, pulse 95, respirations 28. HEENT: Head is normocephalic. NECK: Supple. HEART: Regular rate. RESPIRATORY: Show diminished breath sounds at the base. ABDOMEN: Soft, nontender to palpation. No rebound or guarding. EXTREMITIES: Negative for clubbing, cyanosis. No edema. DERMATOLOGIC: No rashes. MUSCULOSKELETAL: No joint effusion. NEUROLOGIC: No change in exam. MEDICATIONS: Reviewed. LABORATORY AND DIAGNOSTIC DATA: White count 9.8, hemoglobin 7.6, hematocrit 26.4, platelet count 289. Sodium 128, potassium 5.1, chloride 93, BUN 24, creatinine 1.10. Patient's urine sodium level is 86. Urine osmolality is pending. ASSESSMENT AND PLAN: 1. Status post 3-vessel coronary artery bypass graft. Patient is clinically improving. Continue medical management. Follow up with CT surgery. 2. Acute hypoxemic respiratory failure secondary to congestive heart failure, chronic obstructive pulmonary disease. Continue intermittent diuretic therapy, being managed by Cardiology. Continue nebulizers. 3. Diabetes. Continue current insulin regimen. 4. Newly-diagnosed adenocarcinoma of the lung. Patient will require full evaluations. A CT angio and imaging studies are pending. Will continue to monitor. Patient will require Oncology evaluation. 5. Hyponatremia, likely secondary to transient syndrome of inappropriate antidiuretic hormone secretion. We will place the patient on free water restriction and monitor. Urine osmolality is pending. 6. Anemia. Monitor H and H levels. Transfuse as needed. 7. Dyslipidemia. Continue statin therapy. 8. Gastrointestinal and deep venous thrombosis prophylaxis. Dictated By: Giuseppe Boyd DO /angi/huma /Document#: [id number]
[2017-05-30] MEDS: ATORVASTATIN 40 MG TAB PO SCH (22:10)
[2017-05-31] VITALS (21 sets, daily range): BP systolic 91–141; BP diastolic 60–95; PULSE 86–98; RESP 18–29
[2017-05-31] MEDS: ALBUTEROL/IPRATROPIUM (NEB) 3 ML AMP HHN PRN (03:18)
[2017-05-31] MEDS: OXYCODONE/ACETAMINOPHEN (5/325) TAB PO PRN ×3 (03:37→19:43)
[2017-05-31 06:56] LABS: ABNORMAL IP MESSAGE 1; BASOPHILS % 0.3 % (0.0-2.0); EOSINOPHILS # 0.1 10^3/ul (0.0-0.5); EOSINOPHILS % 1.1 % (0.0-7.0); HEMATOCRIT 27.8 % (42.0-52.0); HEMOGLOBIN 8.3 g/dl (14.0-18.0); LYMPHOCYTES % 15.5 % (15.0-51.0); MEAN CORPUSCULAR HEMOGLOBIN 25.1 pg (29.0-33.0); MEAN CORPUSCULAR HGB CONC 29.9 g/dl (32.0-37.0); MONOCYTE # 1.8 10^3/ul (0.3-0.9); MONOCYTES % 13.9 % (0.0-11.0); NEUTROPHILS % 67.1 % (39.0-77.0); NUCLEATED RED BLOOD CELLS% 0.2 /100WBC (0.0-0.0); PLATELET COUNT 371 10^3/UL (140-415); POSITIVE DIFF @See below; RED BLOOD COUNT 3.31 10^6/ul (4.70-6.10); RED CELL DISTRIBUTION WIDTH 14.6 % (11.5-14.5); WHITE BLOOD COUNT 12.9 10^3/ul (4.8-10.8)
[2017-05-31] MEDS: INSULIN ASPART [NOVOLOG] 3 ML PEN SC SCH ×7 (07:35→21:00)
[2017-05-31] MEDS: ALBUTEROL/IPRATROPIUM (NEB) 3 ML AMP HHN SCH ×3 (08:15→20:36)
[2017-05-31] MEDS: ASPIRIN 325 MG TAB PO SCH (08:29)
[2017-05-31] MEDS: INSULIN GLARGINE [LANtus] 3 ML PEN SC SCH (08:37)
[2017-05-31] MEDS: ENOXAPARIN 40 MG/0.4 ML SYG SC SCH (08:38)
[2017-05-31 08:54] LABS: CALCIUM 9.2 mg/dl (8.4-10.2); CREATININE 0.87 mg/dl (0.61-1.24); MAGNESIUM 2.2 mg/dl (1.7-2.5); PHOSPHORUS 3.8 mg/dl (2.5-4.9); POTASSIUM 5.4 mmol/L (3.5-5.1)
--- NOTE | 2017-05-31 09:39 | PN ---
DATE: 05/31/2017 SUBJECTIVE: The patient yesterday was informed that he had adenocarcinoma of lung pathology with metastasis. I spoke with the patient's yesterday and I spoke with the patient with his daughter present this morning. The patient wishes to have evaluation at [facility] and Oncology consult will be placed. Overnight, the patient otherwise was stable. There is no hemoptysis, hematemesis, hematochezia. OBJECTIVE DATA: VITAL SIGNS: Blood pressure 119/72, respirations 20, pulse 88, temperature 97.8. HEENT: Head is normocephalic. NECK: Supple. HEART: Regular rate. CHEST: Diminished breath sounds at the bases. Chest shows a dressing over sternotomy wound clean, dry, intact. Chest tubes removed. ABDOMEN: Soft, nontender to palpation. No rebound or guarding. EXTREMITIES: Negative for clubbing, cyanosis. Trace edema. DERMATOLOGIC: Clean. No rashes. MUSCULOSKELETAL: No joint effusion. NEUROLOGIC: No focal deficits. LABORATORY AND DIAGNOSTIC DATA: Data from 05/31/2017 is pending. The patient's urinalysis shows a urine osmolarity 400, urine sodium less than 5. ASSESSMENT AND PLAN: 1. Status post 3-vessel coronary artery bypass graft. The patient is clinically improving. Continue to monitor. Follow up recommendations from cardiothoracic surgery. 2. Newly diagnosed adenocarcinoma of the lung. The patient's CT angio shows no evidence of pulmonary embolism, but there was metastasis and questionable liver mass. Will place an Oncology consult Dr. Simmons for further evaluation. 3. Acute hypoxemic respiratory failure secondary to congestive heart failure and chronic obstructive pulmonary disease. Patient clinically improving. Continue to monitor. 4. Hyponatremia. Etiology may be secondary to volume depletion. The patient's urine studies did show urine sodium less than 5, consistent with volume depleted state. The patient was encouraged to increase p.o. intake. Limit free water intake and monitor. Would differ diuretic therapy at this time. 5. Diabetes. Continue current insulin regimen. 6. Anemia. Monitor hemoglobin and hematocrit levels. 7. Dyslipidemia. Continue statin therapy. 8. Gastrointestinal and deep venous thrombosis prophylaxis. Dictated By: Giuseppe Boyd DO /angi/arnie /Document#: [id number]
--- NOTE | 2017-05-31 09:56 | CONS ---
Date/Time of Note Date/Time of Note DATE: 05/31/17 TIME: 09:55 Consult Date/Type/Reason Admit Date/Time May 24, 2017 at 16:00 Initial Consult Date 05/26/17 Type of Consultation: Pulmonary Ordering Provider: GIOVANNI KRUGER DO Subjective Patient awake alert oriented comfortable at rest sitting up in chair. Objective Vital Signs Date Time Temp Pulse Resp B/P Pulse Ox O2 Delivery O2 Flow Rate FiO2 05/31/17 08:16 92 22 98 21 05/31/17 06:00 119/72 Room Air 05/31/17 04:00 97.8 05/31/17 00:35 2.0 Intake and Output 05/30/17 05/30/17 05/31/17 15:00 23:00 07:00 Intake Total 200 ml 150 ml Output Total 350 ml 900 ml Balance -150 ml -750 ml Exam GENERAL: Elderly gentleman awake alert and oriented on room air. VITAL SIGNS: see below. HEENT: Pupils equal, round, and reactive to light. CARDIAC: S1, S2, 1/6 systolic ejection murmur CHEST: Diminished air entry bilaterally. ABDOMEN: Mildly distended. Bowel sounds present no guarding or rebound EXTREMITIES: No cyanosis, clubbing edema +1 NEUROLOGIC: Generalized weakness Results/Medications Result Diagram: 05/31/17 0630 05/31/17 0829 Results 24 hrs Laboratory Tests Test 05/30/17 12:14 05/30/17 17:34 05/30/17 22:08 05/31/17 06:30 Bedside Glucose 154 112 159 White Blood Count 12.9 H Red Blood Count 3.31 L Hemoglobin 8.3 L Hematocrit 27.8 L Mean Corpuscular Volume 84.0 Mean Corpuscular Hemoglobin 25.1 L Mean Corpuscular Hemoglobin Concent 29.9 L Red Cell Distribution Width 14.6 H Platelet Count 371 # Mean Platelet Volume 11.0 H Neutrophils % 67.1 Lymphocytes % 15.5 Monocytes % 13.9 H Eosinophils % 1.1 Basophils % 0.3 Nucleated Red Blood Cells % 0.2 H Neutrophils # (Manual) 8.7 H Lymphocytes # 2.0 Monocytes # 1.8 H Eosinophils # 0.1 Basophils # 0.0 Nucleated Red Blood Cells # 0.0 Test 05/31/17 08:10 05/31/17 08:29 Bedside Glucose 128 Sodium Level 127 L Potassium Level 5.4 H Chloride Level 93 L Carbon Dioxide Level 29 Anion Gap 10 Blood Urea Nitrogen 19 Creatinine 0.87 Glucose Level 137 Calcium Level 9.2 Phosphorus Level 3.8 Magnesium Level 2.2 Medications Current Medications Oxycodone/ Acetaminophen (Percocet (5/ 325)) 1 tab Q3H PRN PO PAIN LEVEL 1-5; Start 05/27/17 at 14:30 Oxycodone/ Acetaminophen (Percocet (5/ 325)) 2 tab Q3H PRN PO PAIN LEVEL 6-10 Last administered on 05/31/17 03:37; Admin Dose 2 TAB; Start 05/27/17 at 14:30 Ondansetron HCl (Zofran Inj) 4 mg Q6H PRN IV NAUSEA AND/OR VOMITING; Start 05/27 at 14:30 Famotidine (Pepcid) 20 mg BID PO ; Start 05/27/17 at 21:00; Status Future Hold Acetaminophen (Tylenol Tab) 650 mg Q3H PRN PO ELEVATED TEMPERATURE; Start at 14:30 Carvedilol (Coreg) 3.125 mg BID PO Last administered on 05/31/17 09:44; Admin Dose 3.125 MG; Start 05/28/17 at 10:00 Aspirin (Aspirin) 325 mg DAILY PO Last administered on 05/31/17 08:29; Admin Dose 325 MG; Start 05/28/17 at 10:00 Atorvastatin Calcium (Lipitor) 40 mg HS PO Last administered on 05/30/17 22:10 ; Admin Dose 40 MG; Start 05/28/17 at 21:00 Insulin Glargine (Lantus) 10 unit DAILY@08 SC Last administered on 05/31/17 08 :37; Admin Dose 10 UNIT; Start 05/29/17 at 08:00 Neomycin/ Polymyxin/ Bacitracin (Neosporin Topical Oint) 1 applic TID PRN TOP as needed for hand wound ; Start 05/29/17 at 12:00 Enoxaparin Sodium (Lovenox) 40 mg DAILY SC Last administered on 05/31/17 08:38 ; Admin Dose 40 MG; Start 05/30/17 at 09:00 Assessment/Plan Chief Complaint/Hosp Course Assessment 1. Multivessel coronary artery disease status post coronary artery bypass postsurgery Postop day 4 2. New finding of metastatic lung cancer. 3. Diabetes mellitus 4. Extensive tobacco history 5. Postop anemia Plan 1. Continue incentive spirometry and bronchodilators 2. Continue glycemic management. 3. Hematology oncology recommendations. Patient aware of his diagnosis. CT chest noted. 4. Encourage out of bed stable for transfer to telemetry from pulmonary standpoint. Problems: SONJA GIRALDO MD, [facility] May 31, 2017 09:56
--- NOTE | 2017-05-31 13:40 | RADRPT ---
PROCEDURE: MRI Brain without and with contrast. CLINICAL INDICATION: Lung cancer, metastatic evaluation TECHNIQUE: Multiplanar MRI of the brain without and with contrast was performed on a 3.0 T scanner with the following sequences obtained: T1-weighted, T2-weighted/FLAIR, diffusion weighted (with ADC map), GRE, postcontrast T1-weighted. 10 ml Magnevist intravenous contrast was administered. COMPARISON: None available FINDINGS: There are patient motion related artifacts on some of the sequences, including the post contrast seq uences somewhat limiting evaluation. There are a few punctate foci of restricted diffusion , most co mpatible with acute/recent infarcts involving the left cerebellar hemisphere, left occipital lobe, a nd left centrum semiovale at the posterior frontal region. No intracranial hemorrhage - blood degrad ation products are identified. No intracranial mass lesion is identified. There is no mass effect. No midline shift is identified. The ventricles and sulci are mildly enlarged, compatible with generalized volume loss. No abnormal parenchymal, leptomeningeal or dural enhancement is identified. Flow voids are identified in the proximal intracranial arteries and dural sinuses suggesting patency . The mastoid air cells and paranasal sinuses are grossly clear. IMPRESSION: 1. Somewhat suboptimal evaluation due to patient motion, without intracranial metastatic disease id entified. 2. Punctate acute/recent left cerebellar, left occipital, and left centrum semiovale infarcts. 3. Mild generalized volume loss. RPTAT: VV .Claudio Tejeda MD, MD Date Time Electronically viewed and signed by .Claudio Tejeda MD, MD on 05/31/2017 13:40 .O/
[2017-05-31 14:32] LABS: MICROALBUMIN 1.7 mg/dL
--- NOTE | 2017-05-31 16:30 | PN ---
Date/Time of Note Date/Time of Note DATE: 05/31/17 TIME: 16:29 Assessment/Plan Lines/Catheters IV Catheter Type (from [facility]): Peripheral IV Vizcarra in Place (from [facility]): No Assessment/Plan Chief Complaint/Hosp Course mri head reviewed. no metastatic lesions, very small punctate infarcts in posterior circulation, of no consequence clinically. Discussed with patients and no need for neurology consult. Continue ASA to be transferred to tele soon. increase activity Problems: Exam/Review of Systems Vital Signs Vitals Vital Signs Date Time Temp Pulse Resp B/P Pulse Ox O2 Delivery O2 Flow Rate FiO2 05/31/17 16:00 98.3 91 22 119/72 98 Room Air 05/31/17 14:30 21 05/31/17 00:35 2.0 Intake and Output 05/30/17 05/30/17 05/31/17 15:00 23:00 07:00 Intake Total 200 ml 150 ml Output Total 350 ml 900 ml Balance -150 ml -750 ml Results Result Diagram: 05/31/17 0630 05/31/17 0829 RAISSA SILVA MD May 31, 2017 16:30
[2017-05-31] MEDS ORDERED: DEXTROSE 50% 50 ML SYRINGE IV PRN ×2 (18:30)
[2017-05-31] MEDS ORDERED: GLUCOSE GEL 15 GRAM TUBE BUCCAL PRN (18:30)
[2017-05-31] MEDS ORDERED: GLUCOSE GEL 15 GRAM TUBE PO PRN ×2 (18:30)
[2017-05-31] MEDS ORDERED: GLUCAGON 1 MG INJ IM PRN (18:30)
[2017-05-31] MEDS: ATORVASTATIN 40 MG TAB PO SCH (21:30)
--- NOTE | 2017-05-31 21:31 | CONS ---
Date/Time of Note Date/Time of Note DATE: 05/31/17 TIME: 21:29 Assessment/Plan Assessment/Plan Chief Complaint/Hosp Course CAD: Three vessel disease by cath. s/p CABG with PORTER -LAD, SVG-OM, SVG jump graft PDA and PL. Doing well post-op NSTEMI: s/p cath and now CABG as above Cardiomyopathy: Initial EF 25-30%, now 40-45% by echo. Acute systolic heart failure: Improved Metastatic lung cancer: new diagnosis, per oncology and pulmonology COPD: likely based on h/o smoking DM: new diagnosis Prior tobacco use -ASA, lipitor -coreg 3.125mg BID Problems: Consultation Date/Type/Reason Admit Date/Time May 24, 2017 at 16:00 Initial Consult Date 05/26/17 Type of Consultation: Cardiology 24 HR Interval Summary Free Text/Dictation No acute events. Has been working with physical therapy. Detailed Summary Additional Comments 14 point review of systems without changes. Exam/Review of Systems Vital Signs Vitals Vital Signs Date Time Temp Pulse Resp B/P Pulse Ox O2 Delivery O2 Flow Rate FiO2 05/31/17 20:36 90 20 97 21 05/31/17 20:30 3.0 05/31/17 20:00 97.8 128/79 05/31/17 17:00 Room Air Intake and Output 05/30/17 05/30/17 05/31/17 15:00 23:00 07:00 Intake Total 200 ml 150 ml Output Total 350 ml 900 ml Balance -150 ml -750 ml Exam Constitutional: alert, oriented Psych: no complaints Head: atraumatic, normocephalic Neck: No jvd Respiratory: No clear to auscultation (mild crackles ) Cardiovascular: edema (1+), regular rate and rhythm, No systolic murmur Gastrointestinal: non-tender, soft Neurological: nl mental status, nl speech Results Result Diagram: 05/31/17 0630 05/31/17 0829 Results 24 hrs Laboratory Tests Test 05/30/17 22:08 05/31/17 06:30 05/31/17 08:10 05/31/17 08:29 Bedside Glucose 159 128 White Blood Count 12.9 H Red Blood Count 3.31 L Hemoglobin 8.3 L Hematocrit 27.8 L Mean Corpuscular Volume 84.0 Mean Corpuscular Hemoglobin 25.1 L Mean Corpuscular Hemoglobin Concent 29.9 L Red Cell Distribution Width 14.6 H Platelet Count 371 # Mean Platelet Volume 11.0 H Neutrophils % 67.1 Lymphocytes % 15.5 Monocytes % 13.9 H Eosinophils % 1.1 Basophils % 0.3 Nucleated Red Blood Cells % 0.2 H Neutrophils # (Manual) 8.7 H Lymphocytes # 2.0 Monocytes # 1.8 H Eosinophils # 0.1 Basophils # 0.0 Nucleated Red Blood Cells # 0.0 Sodium Level 127 L Potassium Level 5.4 H Chloride Level 93 L Carbon Dioxide Level 29 Anion Gap 10 Blood Urea Nitrogen 19 Creatinine 0.87 Glucose Level 137 Calcium Level 9.2 Phosphorus Level 3.8 Magnesium Level 2.2 Test 05/31/17 13:32 05/31/17 17:30 Bedside Glucose 144 130 Medications Medications Current Medications Oxycodone/ Acetaminophen (Percocet (5/ 325)) 1 tab Q3H PRN PO PAIN LEVEL 1-5; Start 05/27/17 at 14:30 Oxycodone/ Acetaminophen (Percocet (5/ 325)) 2 tab Q3H PRN PO PAIN LEVEL 6-10 Last administered on 05/31/17 19:43; Admin Dose 2 TAB; Start 05/27/17 at 14:30 Ondansetron HCl (Zofran Inj) 4 mg Q6H PRN IV NAUSEA AND/OR VOMITING; Start 05/27 at 14:30 Famotidine (Pepcid) 20 mg BID PO ; Start 05/27/17 at 21:00; Status Future Hold Acetaminophen (Tylenol Tab) 650 mg Q3H PRN PO ELEVATED TEMPERATURE; Start at 14:30 Carvedilol (Coreg) 3.125 mg BID PO Last administered on 05/31/17 09:44; Admin Dose 3.125 MG; Start 05/28/17 at 10:00 Aspirin (Aspirin) 325 mg DAILY PO Last administered on 05/31/17 08:29; Admin Dose 325 MG; Start 05/28/17 at 10:00 Atorvastatin Calcium (Lipitor) 40 mg HS PO Last administered on 05/30/17 22:10 ; Admin Dose 40 MG; Start 05/28/17 at 21:00 Insulin Glargine (Lantus) 10 unit DAILY@08 SC Last administered on 05/31/17 08 :37; Admin Dose 10 UNIT; Start 05/29/17 at 08:00 Neomycin/ Polymyxin/ Bacitracin (Neosporin Topical Oint) 1 applic TID PRN TOP as needed for hand wound ; Start 05/29/17 at 12:00 Enoxaparin Sodium (Lovenox) 40 mg DAILY SC Last administered on 05/31/17 08:38 ; Admin Dose 40 MG; Start 05/30/17 at 09:00 Miscellaneous Information 1 ea NOTE XX ; Start 05/31/17 at 18:30 Glucose (Glutose) 15 gm Q15M PRN PO DECREASED GLUCOSE; Start 05/31/17 at 18:30 Glucose (Glutose) 22.5 gm Q15M PRN PO DECREASED GLUCOSE; Start 05/31/17 at 18: 30 Dextrose (D50w Syringe) 25 ml Q15M PRN IV DECREASED GLUCOSE; Start 05/31/17 at 18:30 Dextrose (D50w Syringe) 50 ml Q15M PRN IV DECREASED GLUCOSE; Start 05/31/17 at 18:30 Glucagon (Glucagen) 1 mg Q15M PRN IM DECREASED GLUCOSE; Start 05/31/17 at 18:30 Glucose (Glutose) 15 gm Q15M PRN BUCCAL DECREASED GLUCOSE; Start 05/31/17 at 18 :30 LILA DE OLIVEIRA MD May 31, 2017 21:31
--- NOTE | 2017-05-31 23:54 | CONS ---
Date/Time of Note Date/Time of Note DATE: 05/31/17 TIME: 23:29 Assessment/Plan Assessment/Plan Chief Complaint/Hosp Course 66 yo with #Metastatic Adenocarcinoma of the lung. -CT Chest reveals multiple bilateral pulmonary nodules, extensive mediastinal and hilar lymphadenopathy, small bilateral pleural effusions with right larger than left, as well as a probably liver lesion -pt will need an out patient PET CT -BRAIN MRI negative for disease -send pathology for EGFR, ALK, ROS-1 and PDL-1 mutation analysis to see if patient will be a candidate for targeted therapy or immunotherapy -spoke with Dr. Mooney and will plan to start chemotherapy 4- 6 post op to give patient time to heal from the surgery #CAD s/p 3 vessel CABG -continue management per cardiothoracic surgery -continue ASA, lipitor and coreg #COPD - 2/2 to years of smoking -pt currently breathing better -continue inhaled spirometry and inhalers per pulmonary #Anemia -this is likely post op also with a component of anemia of chronic disease from underlying malignancy -will check iron studies, vit b12, folate, epo level, haptoglobin and ldh #DM -Blood sugars are currently controlled, continue current insulin regimen Approximately 1 hour was spent at patient's bedside and in coordination of his care Problems: Consultation Date/Type/Reason Admit Date/Time May 24, 2017 at 16:00 Date of Consultation: May 31, 2017 Type of Consultation: Oncology Reason for Consultation metastatic lung cancer Referring Provider: GIOVANNI KRUGER DO Hx of Present Illness 66-year-old white male who first presented to [facility] with acute on chronic shortness of breath and swollen lower extremities. Patient has been short of breath for the last several months but acutely worsened prior to presentation to [facility]. Pt was initially treated for decompensated CHF with an EF of 25-30%. Pt underwent coronary angiogram on which revealed 3 vessel CAD. On 05/27 pt underwent CABG x 4. Intraoperatively pt was noted to have metastatic disease with bilateral lung nodules and mediastinal lymphadenopathy. Pt thus underwent a left upper lobe wedge resection which frozen section revealed adenocarcinoma. We have been consulted for further workup. Pt currently c/o post surgical pain and fatigue. MRI brain was done which did not reveal evidence of metastatic disease Constitutional: requiring O2 Eyes: No discharge, No no complaints, No other, No pain, No redness, No visual change ENT: No bleeding, No congestion, No discharge, No dysphagia, No no complaints, No other, No pain, No sore throat Respiratory: cough, shortness of breath Cardiovascular: orthopenea Gastrointestinal: No blood, No constipation, No decreased appetite, No diarrhea , No flatus, No nausea, No no complaints, No other, No pain, No passing stool, No vomiting Genitourinary: No bleeding, No discharge, No dysuria, No flank pain, No hematuria, No no complaints, No other Musculoskeletal: No back pain, No bone/joint pain, No neck pain, No no complaints, No other, No restricted range of motion, No swelling Skin: No bruising, No erythema, No laceration, No no complaints, No other, No pruritis, No rash, No skin lesions Neurologic: No confusion, No dizziness, No focal-weakness, No headache, No no complaints, No other, No seizure, No syncope Endocrine: No dry skin, No no complaints, No other, No polydypsia, No polyuria , No temp intolerance Lymphatic: No adenopathy, No lymphadema, No no complaints, No other, No tender nodes Psychological: no complaints Immunologic: No immunodeficiency, No no complaints, No other, No pruritis, No rhinitis, No urticaria Past Medical History 1. Recently diagnosed diabetes. 2. Recently diagnosed CHF, non-STEMI. Medical History: congestive heart failure, coronary artery disease Past Surgical History Past Surgical Hx: no surgical history Family History Significant Family History: no pertinent family hx, other (mother and brother had cancer, unkown types) Social History Alcohol Use: none Smoking Status: Former smoker (40 pack year smoking history, quit 15 years ago) Drug Use: none Exam/Review of Systems Vital Signs Vitals Vital Signs Date Time Temp Pulse Resp B/P Pulse Ox O2 Delivery O2 Flow Rate FiO2 05/31/17 20:36 90 20 97 21 05/31/17 20:30 3.0 05/31/17 20:00 97.8 128/79 05/31/17 17:00 Room Air Intake and Output 05/30/17 05/30/17 05/31/17 15:00 23:00 07:00 Intake Total 200 ml 150 ml Output Total 350 ml 900 ml Balance -150 ml -750 ml Exam Constitutional: alert, frail, oriented Psych: no complaints Head: normocephalic Eyes: nl conjunctiva ENMT: nl external ears & nose Neck: non-tender, supple Respiratory: clear to auscultation, other (pain over surgical site) Cardiovascular: regular rate and rhythm Gastrointestinal: soft Musculoskeletal: nl extremities to inspection Results Result Diagram: 05/31/17 0630 05/31/17 0829 Results 24 hrs Laboratory Tests Test 05/31/17 06:30 05/31/17 08:10 05/31/17 08:29 05/31/17 13:32 White Blood Count 12.9 H Red Blood Count 3.31 L Hemoglobin 8.3 L Hematocrit 27.8 L Mean Corpuscular Volume 84.0 Mean Corpuscular Hemoglobin 25.1 L Mean Corpuscular Hemoglobin Concent 29.9 L Red Cell Distribution Width 14.6 H Platelet Count 371 # Mean Platelet Volume 11.0 H Neutrophils % 67.1 Lymphocytes % 15.5 Monocytes % 13.9 H Eosinophils % 1.1 Basophils % 0.3 Nucleated Red Blood Cells % 0.2 H Neutrophils # (Manual) 8.7 H Lymphocytes # 2.0 Monocytes # 1.8 H Eosinophils # 0.1 Basophils # 0.0 Nucleated Red Blood Cells # 0.0 Bedside Glucose 128 144 Sodium Level 127 L Potassium Level 5.4 H Chloride Level 93 L Carbon Dioxide Level 29 Anion Gap 10 Blood Urea Nitrogen 19 Creatinine 0.87 Glucose Level 137 Calcium Level 9.2 Phosphorus Level 3.8 Magnesium Level 2.2 Test 05/31/17 17:30 05/31/17 21:27 Bedside Glucose 130 172 Medications Medications Current Medications Oxycodone/ Acetaminophen (Percocet (5/ 325)) 1 tab Q3H PRN PO PAIN LEVEL 1-5; Start 05/27/17 at 14:30 Oxycodone/ Acetaminophen (Percocet (5/ 325)) 2 tab Q3H PRN PO PAIN LEVEL 6-10 Last administered on 05/31/17t 19:43; Admin Dose 2 TAB; Start 05/27/17 at 14:30 Ondansetron HCl (Zofran Inj) 4 mg Q6H PRN IV NAUSEA AND/OR VOMITING; Start 05/27 at 14:30 Famotidine (Pepcid) 20 mg BID PO ; Start 05/27/17 at 21:00; Status Future Hold Acetaminophen (Tylenol Tab) 650 mg Q3H PRN PO ELEVATED TEMPERATURE; Start at 14:30 Carvedilol (Coreg) 3.125 mg BID PO Last administered on 05/31/17 21:31; Admin Dose 3.125 MG; Start 05/28/17 at 10:00 Aspirin (Aspirin) 325 mg DAILY PO Last administered on 05/31/17 08:29; Admin Dose 325 MG; Start 05/28/17 at 10:00 Atorvastatin Calcium (Lipitor) 40 mg HS PO Last administered on 05/31/17 21:30 ; Admin Dose 40 MG; Start 05/28/17 at 21:00 Insulin Glargine (Lantus) 10 unit DAILY@08 SC Last administered on 05/31/17 08 :37; Admin Dose 10 UNIT; Start 05/29/17 at 08:00 Neomycin/ Polymyxin/ Bacitracin (Neosporin Topical Oint) 1 applic TID PRN TOP as needed for hand wound ; Start 05/29/17 at 12:00 Enoxaparin Sodium (Lovenox) 40 mg DAILY SC Last administered on 05/31/17 08:38 ; Admin Dose 40 MG; Start 05/30/17 at 09:00 Miscellaneous Information 1 ea NOTE XX ; Start 05/31/17 at 18:30 Glucose (Glutose) 15 gm Q15M PRN PO DECREASED GLUCOSE; Start 05/31/17 at 18:30 Glucose (Glutose) 22.5 gm Q15M PRN PO DECREASED GLUCOSE; Start 05/31/17 at 18: 30 Dextrose (D50w Syringe) 25 ml Q15M PRN IV DECREASED GLUCOSE; Start 05/31/17 at 18:30 Dextrose (D50w Syringe) 50 ml Q15M PRN IV DECREASED GLUCOSE; Start 05/31/17 at 18:30 Glucagon (Glucagen) 1 mg Q15M PRN IM DECREASED GLUCOSE; Start 05/31/17 at 18:30 Glucose (Glutose) 15 gm Q15M PRN BUCCAL DECREASED GLUCOSE; Start 05/31/17 at 18 :30 BETSY FINN M.D. May 31, 2017 23:41
[2017-06-01] VITALS (12 sets, daily range): BP systolic 104–119; BP diastolic 60–71; PULSE 84–92; RESP 19–20
[2017-06-01] MEDS: OXYCODONE/ACETAMINOPHEN (5/325) TAB PO PRN ×5 (01:37→23:46)
[2017-06-01 07:36] LABS: ABNORMAL IP MESSAGE 1; BASOPHILS % 0.3 % (0.0-2.0); EOSINOPHILS # 0.1 10^3/ul (0.0-0.5); HEMATOCRIT 27.9 % (42.0-52.0); LYMPHOCYTES # 1.6 10^3/ul (0.8-2.9); LYMPHOCYTES % 14.2 % (15.0-51.0); MEAN CORPUSCULAR HEMOGLOBIN 24.2 pg (29.0-33.0); MEAN CORPUSCULAR HGB CONC 28.7 g/dl (32.0-37.0); MEAN CORPUSCULAR VOLUME 84.5 fl (82.0-101.0); MEAN PLATELET VOLUME 10.1 fl (7.4-10.4); MONOCYTE # 1.6 10^3/ul (0.3-0.9); MONOCYTES % 14.4 % (0.0-11.0); NEUTROPHILS % 65.7 % (39.0-77.0); NUCLEATED RED BLOOD CELLS% 0.2 /100WBC (0.0-0.0); PLATELET COUNT 401 10^3/UL (140-415); POSITIVE DIFF @See below; RED CELL DISTRIBUTION WIDTH 15.3 % (11.5-14.5); WHITE BLOOD COUNT 11.3 10^3/ul (4.8-10.8)
[2017-06-01 07:56] LABS: IRON 22 ug/dl (35-150)
[2017-06-01 08:01] LABS: CALCIUM 9.2 mg/dl (8.4-10.2); CREATININE 0.9 mg/dl (0.61-1.24); MAGNESIUM 2.3 mg/dl (1.7-2.5); PHOSPHORUS 3.8 mg/dl (2.5-4.9); POTASSIUM 5.3 mmol/L (3.5-5.1)
[2017-06-01 08:05] LABS: TOTAL IRON BINDING CAPACITY 198 ug/dl (241-421)
[2017-06-01] MEDS: ALBUTEROL/IPRATROPIUM (NEB) 3 ML AMP HHN SCH ×3 (08:37→21:18)
[2017-06-01] MEDS: ASPIRIN 325 MG TAB PO SCH (08:38)
[2017-06-01] MEDS: ENOXAPARIN 40 MG/0.4 ML SYG SC SCH (08:41)
[2017-06-01] MEDS: INSULIN ASPART [NOVOLOG] 3 ML PEN SC SCH ×7 (10:06→21:00)
[2017-06-01] MEDS: INSULIN GLARGINE [LANtus] 3 ML PEN SC SCH (10:09)
--- NOTE | 2017-06-01 10:25 | PN ---
DATE: 06/01/2017 SUBJECTIVE DATA: The patient is stable. No events overnight. No fevers, chills, nausea, vomiting. The patient is complaining about generalized pain, but improving. No other events noted. OBJECTIVE DATA: VITAL SIGNS: Blood pressure 119/71, respirations 20, pulse 87, temperature 97.9. HEENT: Head is normocephalic. NECK: Supple. HEART: Regular rate. LUNGS: Showed diminished breath sounds at the base. ABDOMEN: Soft, nontender to palpation. No rebound or guarding. EXTREMITIES: Negative for clubbing, cyanosis. No edema. DERMATOLOGIC: Clean. No rashes. MUSCULOSKELETAL: No joint effusion. NEUROLOGIC: No change in exam. MEDICATIONS: Reviewed. LABORATORY AND DIAGNOSTIC DATA: Shows white count 11.3, hemoglobin 8.0, crit of 27.9, platelet count is 401. Sodium 129, potassium 5.3, chloride 94, BUN 14, creatinine 0.90. ASSESSMENT AND PLAN: 1. Status post 3-vessel coronary artery bypass graft. Patient is clinically improving. Continue current medical management. Follow up with Cardiothoracic Surgery. 2. Metastatic adenocarcinoma of the lung. The patient is being seen by Dr. Simmons. Greatly appreciate help. The patient will eventually have a PET scan in outpatient setting. Tumor markers have been sent. No plans for chemotherapy for 4-6 weeks due to recent CT surgery. We will follow up recommendations of Dr. Simmons. 3. Hypoxemic respiratory failure secondary to congestive heart failure, chronic obstructive pulmonary disease. The patient is clinically improving. Continue nebulizers. Continue current treatment plan. 4. Hyponatremia. Etiology may be secondary to volume depletion. The patient's urine sodium levels were low, FENa less than 1 percent. We will continue to hold diuretic therapy. Sodium levels have improved. We will continue to increase oral intake. 5. Mild hyperkalemia. Continue to monitor. 6. Diabetes. Continue current insulin regimen. 7. Anemia. Monitor H and H levels. 8. Dyslipidemia. Continue statin therapy. 9. Gastrointestinal and deep venous thrombosis prophylaxis. Dictated By: Giuseppe Boyd DO /angi/leif /Document#: [id number]
--- NOTE | 2017-06-01 11:20 | CONS ---
Date/Time of Note Date/Time of Note DATE: 06/01/17 TIME: 11:19 Assessment/Plan Assessment/Plan Additional Assessment/Plan Assessment recommendations; 1. Patient status post CABG surgery doing very well. 2. History of diabetes. 3. Anemia. 4. Mild hyponatremia. Continue current treatment. Consider discharge planning. Consultation Date/Type/Reason Admit Date/Time May 24, 2017 at 16:00 Initial Consult Date 05/31/17 Type of Consultation: Pulmonary Referring Provider: GIOVANNI KRUGER DO 24 HR Interval Summary Free Text/Dictation Patient condition stable. Denies any chest pain, some breath, cough. Patient has been ambulating. General exam; elderly male, awake and alert. Currently in no distress. Exam/Review of Systems Vital Signs Vitals Vital Signs Date Time Temp Pulse Resp B/P Pulse Ox O2 Delivery O2 Flow Rate FiO2 06/01/17 08:21 86 06/01/17 08:00 97.9 20 119/71 94 05/31/17 20:36 21 05/31/17 20:30 3.0 05/31/17 17:00 Room Air Intake and Output 05/31/17 05/31/17 06/01/17 15:00 23:00 07:00 Intake Total 300 ml Output Total 350 ml 350 ml 1900 ml Balance -350 ml -350 ml -1600 ml Exam HEENT exam; supple neck, no JVD. No lymphadenopathy. Midline trachea. No thyromegaly. Patient has fair dentition. Chest exam; clear to auscultation. S1-S2 audible, no murmurs. Regular rhythm. There is a dressing applied over the sternum. Abdomen exam; soft, nontender. No organomegaly. Bowel sounds audible. Extremity exam; no peripheral edema. Pulses 1+ bilaterally. CAKE WINDER exam; no focal deficit. Results Result Diagram: 06/01/17 0655 06/01/17 0655 Results 24 hrs Laboratory Tests Test 05/31/17 13:32 05/31/17 17:30 05/31/17 21:27 06/01/17 06:55 Bedside Glucose 144 130 172 White Blood Count 11.3 H Red Blood Count 3.30 L Hemoglobin 8.0 L Hematocrit 27.9 L Mean Corpuscular Volume 84.5 Mean Corpuscular Hemoglobin 24.2 L Mean Corpuscular Hemoglobin Concent 28.7 L Red Cell Distribution Width 15.3 H Platelet Count 401 Mean Platelet Volume 10.1 Neutrophils % 65.7 Lymphocytes % 14.2 L Monocytes % 14.4 H Eosinophils % 1.0 Basophils % 0.3 Nucleated Red Blood Cells % 0.2 H Neutrophils # (Manual) 7.5 Lymphocytes # 1.6 Monocytes # 1.6 H Eosinophils # 0.1 Basophils # 0.0 Nucleated Red Blood Cells # 0.0 Sodium Level 129 L Potassium Level 5.3 H Chloride Level 94 L Carbon Dioxide Level 31 Anion Gap 9 Blood Urea Nitrogen 14 Creatinine 0.90 Glucose Level 137 Calcium Level 9.2 Phosphorus Level 3.8 Magnesium Level 2.3 Iron Level 22 L Total Iron Binding Capacity 198 L Percent Iron Saturation 11 L Ferritin 917.0 H Lactate Dehydrogenase 1775 H Vitamin B12 Level 924 Folate Pending Test 06/01/17 08:25 Bedside Glucose 158 Medications Medications Current Medications Oxycodone/ Acetaminophen (Percocet (5/ 325)) 1 tab Q3H PRN PO PAIN LEVEL 1-5; Start 05/27/17 at 14:30 Oxycodone/ Acetaminophen (Percocet (5/ 325)) 2 tab Q3H PRN PO PAIN LEVEL 6-10 Last administered on 06/01/17 05:41; Admin Dose 2 TAB; Start 05/27/17 at 14:30 Ondansetron HCl (Zofran Inj) 4 mg Q6H PRN IV NAUSEA AND/OR VOMITING; Start 05/27 at 14:30 Famotidine (Pepcid) 20 mg BID PO ; Start 05/27/17 at 21:00; Status Future Hold Acetaminophen (Tylenol Tab) 650 mg Q3H PRN PO ELEVATED TEMPERATURE; Start at 14:30 Carvedilol (Coreg) 3.125 mg BID PO Last administered on 06/01/17 08:35; Admin Dose 3.125 MG; Start 05/28/17 at 10:00 Aspirin (Aspirin) 325 mg DAILY PO Last administered on 06/01/17 08:38; Admin Dose 325 MG; Start 05/28/17 at 10:00 Atorvastatin Calcium (Lipitor) 40 mg HS PO Last administered on 05/31/17 21:30 ; Admin Dose 40 MG; Start 05/28/17 at 21:00 Insulin Glargine (Lantus) 10 unit DAILY@08 SC Last administered on 06/01/17 10 :09; Admin Dose 10 UNIT; Start 05/29/17 at 08:00 Neomycin/ Polymyxin/ Bacitracin (Neosporin Topical Oint) 1 applic TID PRN TOP as needed for hand wound ; Start 05/29/17 at 12:00 Enoxaparin Sodium (Lovenox) 40 mg DAILY SC Last administered on 06/01/17 08:41 ; Admin Dose 40 MG; Start 05/30/17 at 09:00 Miscellaneous Information 1 ea NOTE XX ; Start 05/31/17 at 18:30 Glucose (Glutose) 15 gm Q15M PRN PO DECREASED GLUCOSE; Start 05/31/17 at 18:30 Glucose (Glutose) 22.5 gm Q15M PRN PO DECREASED GLUCOSE; Start 05/31/17 at 18: 30 Dextrose (D50w Syringe) 25 ml Q15M PRN IV DECREASED GLUCOSE; Start 05/31/17 at 18:30 Dextrose (D50w Syringe) 50 ml Q15M PRN IV DECREASED GLUCOSE; Start 05/31/17 at 18:30 Glucagon (Glucagen) 1 mg Q15M PRN IM DECREASED GLUCOSE; Start 05/31/17 at 18:30 Glucose (Glutose) 15 gm Q15M PRN BUCCAL DECREASED GLUCOSE; Start 05/31/17 at 18 :30 ROC AGRAWAL Jun 01, 2017 11:20
--- NOTE | 2017-06-01 14:43 | CONS ---
Date/Time of Note Date/Time of Note DATE: 06/01/17 TIME: 14:41 Assessment/Plan Assessment/Plan Chief Complaint/Hosp Course CAD: Three vessel disease by cath. s/p CABG with PORTER -LAD, SVG-OM, SVG jump graft PDA and PL. Doing well post-op NSTEMI: s/p cath and now CABG as above Cardiomyopathy: Initial EF 25-30%, now 40-45% by echo. Acute systolic heart failure: Improved Metastatic lung cancer: new diagnosis, per oncology and pulmonology COPD: likely based on h/o smoking DM: new diagnosis Prior tobacco use -ASA, lipitor -coreg 3.125mg BID Problems: Consultation Date/Type/Reason Admit Date/Time May 24, 2017 at 16:00 Initial Consult Date 05/26/17 Type of Consultation: Cardiology 24 HR Interval Summary Free Text/Dictation No acute events. No chest pain. Detailed Summary Additional Comments 14 point review of systems without changes. Exam/Review of Systems Vital Signs Vitals Vital Signs Date Time Temp Pulse Resp B/P Pulse Ox O2 Delivery O2 Flow Rate FiO2 06/01/17 14:13 98 22 97 21 06/01/17 11:55 98.2 115/71 05/31/17 20:30 3.0 05/31/17 17:00 Room Air Intake and Output 05/31/17 05/31/17 06/01/17 15:00 23:00 07:00 Intake Total 300 ml Output Total 350 ml 350 ml 1900 ml Balance -350 ml -350 ml -1600 ml Results Result Diagram: 06/01/17 0655 06/01/17 0655 Results 24 hrs Laboratory Tests Test 05/31/17 17:30 05/31/17 21:27 06/01/17 06:55 06/01/17 08:25 Bedside Glucose 130 172 158 White Blood Count 11.3 H Red Blood Count 3.30 L Hemoglobin 8.0 L Hematocrit 27.9 L Mean Corpuscular Volume 84.5 Mean Corpuscular Hemoglobin 24.2 L Mean Corpuscular Hemoglobin Concent 28.7 L Red Cell Distribution Width 15.3 H Platelet Count 401 Mean Platelet Volume 10.1 Neutrophils % 65.7 Lymphocytes % 14.2 L Monocytes % 14.4 H Eosinophils % 1.0 Basophils % 0.3 Nucleated Red Blood Cells % 0.2 H Neutrophils # (Manual) 7.5 Lymphocytes # 1.6 Monocytes # 1.6 H Eosinophils # 0.1 Basophils # 0.0 Nucleated Red Blood Cells # 0.0 Sodium Level 129 L Potassium Level 5.3 H Chloride Level 94 L Carbon Dioxide Level 31 Anion Gap 9 Blood Urea Nitrogen 14 Creatinine 0.90 Glucose Level 137 Calcium Level 9.2 Phosphorus Level 3.8 Magnesium Level 2.3 Iron Level 22 L Total Iron Binding Capacity 198 L Percent Iron Saturation 11 L Ferritin 917.0 H Lactate Dehydrogenase 1775 H Vitamin B12 Level 924 Folate Pending Test 06/01/17 12:10 Bedside Glucose 157 Medications Medications Current Medications Oxycodone/ Acetaminophen (Percocet (5/ 325)) 1 tab Q3H PRN PO PAIN LEVEL 1-5; Start 05/27/17 at 14:30 Oxycodone/ Acetaminophen (Percocet (5/ 325)) 2 tab Q3H PRN PO PAIN LEVEL 6-10 Last administered on 06/01/17 05:41; Admin Dose 2 TAB; Start 05/27/17 at 14:30 Ondansetron HCl (Zofran Inj) 4 mg Q6H PRN IV NAUSEA AND/OR VOMITING; Start 05/27 at 14:30 Famotidine (Pepcid) 20 mg BID PO ; Start 05/27/17 at 21:00; Status Future Hold Acetaminophen (Tylenol Tab) 650 mg Q3H PRN PO ELEVATED TEMPERATURE; Start at 14:30 Carvedilol (Coreg) 3.125 mg BID PO Last administered on 06/01/17 08:35; Admin Dose 3.125 MG; Start 05/28/17 at 10:00 Aspirin (Aspirin) 325 mg DAILY PO Last administered on 06/01/17 08:38; Admin Dose 325 MG; Start 05/28/17 at 10:00 Atorvastatin Calcium (Lipitor) 40 mg HS PO Last administered on 05/31/17 21:30 ; Admin Dose 40 MG; Start 05/28/17 at 21:00 Insulin Glargine (Lantus) 10 unit DAILY@08 SC Last administered on 06/01/17 10 :09; Admin Dose 10 UNIT; Start 05/29/17 at 08:00 Neomycin/ Polymyxin/ Bacitracin (Neosporin Topical Oint) 1 applic TID PRN TOP as needed for hand wound ; Start 05/29/17 at 12:00 Enoxaparin Sodium (Lovenox) 40 mg DAILY SC Last administered on 06/01/17t 08:41 ; Admin Dose 40 MG; Start 05/30/17 at 09:00 Miscellaneous Information 1 ea NOTE XX ; Start 05/31/17 at 18:30 Glucose (Glutose) 15 gm Q15M PRN PO DECREASED GLUCOSE; Start 05/31/17 at 18:30 Glucose (Glutose) 22.5 gm Q15M PRN PO DECREASED GLUCOSE; Start 05/31/17 at 18: 30 Dextrose (D50w Syringe) 25 ml Q15M PRN IV DECREASED GLUCOSE; Start 05/31/17 at 18:30 Dextrose (D50w Syringe) 50 ml Q15M PRN IV DECREASED GLUCOSE; Start 05/31/17 at 18:30 Glucagon (Glucagen) 1 mg Q15M PRN IM DECREASED GLUCOSE; Start 05/31/17 at 18:30 Glucose (Glutose) 15 gm Q15M PRN BUCCAL DECREASED GLUCOSE; Start 05/31/17 at 18 :30 LILA DE OLIVEIRA MD Jun 01, 2017 14:43
--- NOTE | 2017-06-01 15:14 | PN ---
Date/Time of Note Date/Time of Note DATE: 06/01/17 TIME: 15:13 Assessment/Plan Lines/Catheters IV Catheter Type (from Nrs): Peripheral IV Vizcarra in Place (from Nrs): No Assessment/Plan Chief Complaint/Hosp Course doing better 2+ LE edema K 5.3 and Na 129 give dose of lasix 40mg po may need fluid restriction if Na keeps dropping ok to discharge and follow up with me in office Problems: Exam/Review of Systems Vital Signs Vitals Vital Signs Date Time Temp Pulse Resp B/P Pulse Ox O2 Delivery O2 Flow Rate FiO2 06/01/17 14:13 98 22 97 21 06/01/17 11:55 98.2 115/71 05/31/17 20:30 3.0 05/31/17 17:00 Room Air Intake and Output 05/31/17 05/31/17 06/01/17 15:00 23:00 07:00 Intake Total 300 ml Output Total 350 ml 350 ml 1900 ml Balance -350 ml -350 ml -1600 ml Results Result Diagram: 06/01/17 0655 06/01/17 0655 RAISSA SILVA MD Jun 01, 2017 15:14
[2017-06-01] MEDS ORDERED: FUROSEMIDE 20 MG TAB PO ONE (15:30)
[2017-06-01] MEDS: ATORVASTATIN 40 MG TAB PO SCH (21:34)
--- NOTE | 2017-06-01 22:45 | CONS ---
Date/Time of Note Date/Time of Note DATE: 06/01/17 TIME: 22:43 Assessment/Plan Assessment/Plan Chief Complaint/Hosp Course 66 yo with #Metastatic Adenocarcinoma of the lung. -CT Chest reveals multiple bilateral pulmonary nodules, extensive mediastinal and hilar lymphadenopathy, small bilateral pleural effusions with right larger than left, as well as a probably liver lesion -pt will need an out patient PET CT -BRAIN MRI negative for disease -send pathology for EGFR, ALK, ROS-1 and PDL-1 mutation analysis to see if patient will be a candidate for targeted therapy or immunotherapy -spoke with Dr. Mooney and will plan to start chemotherapy 4- 6 post op to give patient time to heal from the surgery #CAD s/p 3 vessel CABG -continue management per cardiothoracic surgery -continue ASA, lipitor and coreg #COPD - 2/2 to years of smoking -pt currently breathing better -continue inhaled spirometry and inhalers per pulmonary #Anemia -this is likely post op also with a component of anemia of chronic disease from underlying malignancy -will check iron studies, vit b12, folate, epo level, haptoglobin and ldh #DM -Blood sugars are currently controlled, continue current insulin regimen Approximately 1 hour was spent at patient's bedside and in coordination of his care Problems: Consultation Date/Type/Reason Admit Date/Time May 24, 2017 at 16:00 Initial Consult Date 05/31/17 Type of Consultation: Hematology Reason for Consultation adenocarcinoma of the lung Referring Provider: GIOVANNI KRUGER DO 24 HR Interval Summary Free Text/Dictation no acute overnight events. pt is recovering well from surgery Exam/Review of Systems Vital Signs Vitals Vital Signs Date Time Temp Pulse Resp B/P Pulse Ox O2 Delivery O2 Flow Rate FiO2 06/01/17 20:36 91 06/01/17 20:00 98.2 19 104/63 93 06/01/17 14:13 21 05/31/17 20:30 3.0 05/31/17 17:00 Room Air Intake and Output 05/31/17 05/31/17 06/01/17 15:00 23:00 07:00 Intake Total 300 ml Output Total 350 ml 350 ml 1900 ml Balance -350 ml -350 ml -1600 ml Exam Constitutional: alert, oriented Psych: no complaints Head: normocephalic Eyes: nl conjunctiva ENMT: nl external ears & nose, nl lips & teeth Neck: non-tender, supple Respiratory: clear to auscultation Cardiovascular: regular rate and rhythm Gastrointestinal: soft Musculoskeletal: nl extremities to inspection Extremities: normal pulses Results Result Diagram: 06/01/17 0655 06/01/17 0655 Results 24 hrs Laboratory Tests Test 06/01/17 06:55 06/01/17 08:25 06/01/17 12:10 06/01/17 18:03 White Blood Count 11.3 H Red Blood Count 3.30 L Hemoglobin 8.0 L Hematocrit 27.9 L Mean Corpuscular Volume 84.5 Mean Corpuscular Hemoglobin 24.2 L Mean Corpuscular Hemoglobin Concent 28.7 L Red Cell Distribution Width 15.3 H Platelet Count 401 Mean Platelet Volume 10.1 Neutrophils % 65.7 Lymphocytes % 14.2 L Monocytes % 14.4 H Eosinophils % 1.0 Basophils % 0.3 Nucleated Red Blood Cells % 0.2 H Neutrophils # (Manual) 7.5 Lymphocytes # 1.6 Monocytes # 1.6 H Eosinophils # 0.1 Basophils # 0.0 Nucleated Red Blood Cells # 0.0 Sodium Level 129 L Potassium Level 5.3 H Chloride Level 94 L Carbon Dioxide Level 31 Anion Gap 9 Blood Urea Nitrogen 14 Creatinine 0.90 Glucose Level 137 Calcium Level 9.2 Phosphorus Level 3.8 Magnesium Level 2.3 Iron Level 22 L Total Iron Binding Capacity 198 L Percent Iron Saturation 11 L Ferritin 917.0 H Lactate Dehydrogenase 1775 H Vitamin B12 Level 924 Folate Pending Bedside Glucose 158 157 151 Medications Medications Current Medications Oxycodone/ Acetaminophen (Percocet (5/ 325)) 1 tab Q3H PRN PO PAIN LEVEL 1-5; Start 05/27/17 at 14:30 Oxycodone/ Acetaminophen (Percocet (5/ 325)) 2 tab Q3H PRN PO PAIN LEVEL 6-10 Last administered on 06/01/17t 20:41; Admin Dose 2 TAB; Start 05/27/17 at 14:30 Ondansetron HCl (Zofran Inj) 4 mg Q6H PRN IV NAUSEA AND/OR VOMITING; Start 05/27 at 14:30 Famotidine (Pepcid) 20 mg BID PO ; Start 05/27/17 at 21:00; Status Future Hold Acetaminophen (Tylenol Tab) 650 mg Q3H PRN PO ELEVATED TEMPERATURE; Start at 14:30 Carvedilol (Coreg) 3.125 mg BID PO Last administered on 06/01/17 21:34; Admin Dose 3.125 MG; Start 05/28/17 at 10:00 Aspirin (Aspirin) 325 mg DAILY PO Last administered on 06/01/17 08:38; Admin Dose 325 MG; Start 05/28/17 at 10:00 Atorvastatin Calcium (Lipitor) 40 mg HS PO Last administered on 06/01/17 21:34 ; Admin Dose 40 MG; Start 05/28/17 at 21:00 Insulin Glargine (Lantus) 10 unit DAILY@08 SC Last administered on 06/01/17 10 :09; Admin Dose 10 UNIT; Start 05/29/17 at 08:00 Neomycin/ Polymyxin/ Bacitracin (Neosporin Topical Oint) 1 applic TID PRN TOP as needed for hand wound ; Start 05/29/17 at 12:00 Enoxaparin Sodium (Lovenox) 40 mg DAILY SC Last administered on 06/01/17 08:41 ; Admin Dose 40 MG; Start 05/30/17 at 09:00 Miscellaneous Information 1 ea NOTE XX ; Start 05/31/17 at 18:30 Glucose (Glutose) 15 gm Q15M PRN PO DECREASED GLUCOSE; Start 05/31/17 at 18:30 Glucose (Glutose) 22.5 gm Q15M PRN PO DECREASED GLUCOSE; Start 05/31/17 at 18: 30 Dextrose (D50w Syringe) 25 ml Q15M PRN IV DECREASED GLUCOSE; Start 05/31/17 at 18:30 Dextrose (D50w Syringe) 50 ml Q15M PRN IV DECREASED GLUCOSE; Start 05/31/17 at 18:30 Glucagon (Glucagen) 1 mg Q15M PRN IM DECREASED GLUCOSE; Start 05/31/17 at 18:30 Glucose (Glutose) 15 gm Q15M PRN BUCCAL DECREASED GLUCOSE; Start 05/31/17 at 18 :30 BETSY FINN M.D. Jun 01, 2017 22:45
[2017-06-02] VITALS (11 sets, daily range): BP systolic 115–128; BP diastolic 67–74; PULSE 83–95; RESP 18–20
[2017-06-02] MEDS: OXYCODONE/ACETAMINOPHEN (5/325) TAB PO PRN ×4 (04:46→21:21)
[2017-06-02 07:25] LABS: ABNORMAL IP MESSAGE 1; HEMATOCRIT 26.7 % (42.0-52.0); HEMOGLOBIN 7.7 g/dl (14.0-18.0); MEAN CORPUSCULAR HEMOGLOBIN 24.6 pg (29.0-33.0); MEAN CORPUSCULAR HGB CONC 28.8 g/dl (32.0-37.0); MEAN CORPUSCULAR VOLUME 85.3 fl (82.0-101.0); MEAN PLATELET VOLUME 10.2 fl (7.4-10.4); NUCLEATED RED BLOOD CELLS% 0.3 /100WBC (0.0-0.0); PLATELET COUNT 394 10^3/UL (140-415); POSITIVE DIFF @See below; RED BLOOD COUNT 3.13 10^6/ul (4.70-6.10); RED CELL DISTRIBUTION WIDTH 15.9 % (11.5-14.5); WHITE BLOOD COUNT 12.1 10^3/ul (4.8-10.8)
[2017-06-02] MEDS: ALBUTEROL/IPRATROPIUM (NEB) 3 ML AMP HHN SCH ×3 (07:35→19:37)
[2017-06-02 07:52] LABS: CALCIUM 8.8 mg/dl (8.4-10.2); CREATININE 0.87 mg/dl (0.61-1.24); MAGNESIUM 2.2 mg/dl (1.7-2.5); PHOSPHORUS 3.6 mg/dl (2.5-4.9)
[2017-06-02] MEDS: INSULIN ASPART [NOVOLOG] 3 ML PEN SC SCH ×7 (07:55→20:57)
[2017-06-02 08:17] LABS: ANISOCYTOSIS 2+ (0-0); EOSINOPHILS % (M) 1 % (0-7); HYPOCHROMASIA 2+ (0-0); METAMYELOCYTES %M 2 % (0-0); MICROCYTOSIS 2+ (0-0); MONOCYTES % (M) 9 % (0-11); PLATELET ESTIMATE INCREASED; POLYCHROMASIA 1+ (0-0)
[2017-06-02] MEDS: INSULIN GLARGINE [LANtus] 3 ML PEN SC SCH (08:20)
[2017-06-02] MEDS: ASPIRIN 325 MG TAB PO SCH (08:59)
[2017-06-02] MEDS: ENOXAPARIN 40 MG/0.4 ML SYG SC SCH (09:00)
--- NOTE | 2017-06-02 09:25 | PN ---
DATE: 06/02/2017 SUBJECTIVE DATA: The patient is stable. Working with physical therapy. Discussed the possible DC planning next 24 hours with the patient. He would like to go home. No other events noted. OBJECTIVE DATA: VITAL SIGNS: Blood pressure is 120/74, respirations 18, pulse 83, temperature 98.0 HEENT: Head is normocephalic. NECK: Supple. Chest shows dressing over sternotomy wires. ABDOMEN: Soft, nontender to palpation. EXTREMITIES: Negative for clubbing, cyanosis. Trace edema. DERMATOLOGIC: Clean. No rashes. MUSCULOSKELETAL: No joint effusion. NEUROLOGIC: No change in exam. MEDICATIONS: Reviewed. LABORATORY AND DIAGNOSTIC DATA: White count 12.1, hemoglobin 10.7, hematocrit 26.7, platelet count 394. Sodium 136, potassium 5.0, chloride 93, BUN 11, creatinine 0.87. ASSESSMENT AND PLAN: 1. Status post 3-vessel coronary artery bypass grafting. The patient is clinically improving. Continue current treatment plan. Follow up with CT surgery. 2. Metastatic adenocarcinoma of the lung. The patient is pending PET scan outpatient setting. Tumor markers have been sent. No plans for chemotherapy for four to six weeks due to recent CT surgery. Follow up with Dr. Simmons. 3. Hypoxemic respiratory failure secondary to congestive heart failure, chronic obstructive pulmonary disease, clinically improving. Continue nebulizers. Intermittent diuretic therapy. 4. Hyponatremia. Etiology is unclear. Possibly due to syndrome of inappropriate antidiuretic hormone. However urinary lytes suggest a pre- renal state. The patient will continue free water restriction. Would hold diuretic therapy at this time. 5. Hypokalemia, resolved. 6. Diabetes. Continue Accu-Cheks. Continue current insulin regimen. 7. Anemia. Monitor hemoglobin and hematocrit levels. 8. Continue statin therapy. 9. Gastrointestinal and deep venous thrombosis prophylaxis. Dictated By: Giuseppe Boyd DO /anig/flavia /Document#: [id number]
--- NOTE | 2017-06-02 11:06 | RADRPT ---
Vent Rate: 105 bpm RR Interval: 0 msec [place] Interval: 150 msec QRS Duration: 96 msec QT Interval: 320 msec QTC Interval: 422 msec P-R-T [place]: 56 - 9 - 64 degrees Sinus tachycardia Cannot rule out Inferior infarct , age undetermined T wave abnormality, consider anterior ischemia Abnormal ECG Electronically Signed By: Parth Garcia [id number]
--- NOTE | 2017-06-02 11:08 | RADRPT ---
Vent Rate: 118 bpm RR Interval: 0 msec [place] Interval: 152 msec QRS Duration: 96 msec QT Interval: 318 msec QTC Interval: 445 msec P-R-T [place]: 45 - -7 - 89 degrees Sinus tachycardia Possible Inferior infarct , age undetermined T wave abnormality, consider lateral ischemia Abnormal ECG Electronically Signed By: Parth Garcia [id number]
--- NOTE | 2017-06-02 11:08 | RADRPT ---
Vent Rate: 104 bpm RR Interval: 0 msec [place] Interval: 158 msec QRS Duration: 98 msec QT Interval: 340 msec QTC Interval: 447 msec P-R-T [place]: 58 - 12 - 101 degrees Sinus tachycardia Cannot rule out Inferior infarct , age undetermined T wave abnormality, consider lateral ischemia Abnormal ECG Electronically Signed By: Parth Garcia [id number]
--- NOTE | 2017-06-02 11:09 | RADRPT ---
Vent Rate: 102 bpm RR Interval: [address] Interval: 154 msec QRS Duration: 100 msec QT Interval: 364 msec QTC Interval: 474 msec P-R-T [place]: 47 - -9 - 46 degrees Sinus tachycardia Nonspecific ST and T wave abnormality Abnormal ECG Electronically Signed By: Parth Garcia [id number]
[2017-06-02] MEDS: BACITRACIN/POLYMYXIN 28.35 GM OINT TOP SCH ×2 (11:15→20:57)
--- NOTE | 2017-06-02 16:04 | CONS ---
Date/Time of Note Date/Time of Note DATE: 06/02/17 TIME: 16:01 Assessment/Plan Assessment/Plan Chief Complaint/Hosp Course CAD: Three vessel disease by cath. s/p CABG with PORTER -LAD, SVG-OM, SVG jump graft PDA and PL. Doing well post-op NSTEMI: s/p cath and now CABG as above Cardiomyopathy: Initial EF 25-30%, now 40-45% by echo. Acute systolic heart failure: Improved Metastatic lung cancer: new diagnosis, per oncology and pulmonology COPD: likely based on h/o smoking DM: new diagnosis Prior tobacco use -continue aspirin 325mg daily -continue atorvastatin 40mg daily -continue carvedilol 3.125mg BID -add lisinopril 2.5mg daily Problems: Consultation Date/Type/Reason Admit Date/Time May 24, 2017 at 16:00 Initial Consult Date 05/26/17 Type of Consultation: Cardiology 24 HR Interval Summary Free Text/Dictation No acute events. Detailed Summary Additional Comments 14 point review of systems without changes. Exam/Review of Systems Vital Signs Vitals Vital Signs Date Time Temp Pulse Resp B/P Pulse Ox O2 Delivery O2 Flow Rate FiO2 06/02/17 15:54 98.0 98 18 119/67 98 06/02/17 13:44 21 05/31/17 20:30 3.0 05/31/17 17:00 Room Air Exam Constitutional: alert, oriented Psych: no complaints Head: atraumatic, normocephalic Neck: No jvd Respiratory: No clear to auscultation (mild crackles ) Cardiovascular: edema (1+), regular rate and rhythm, No systolic murmur Gastrointestinal: non-tender, soft Neurological: nl mental status, nl speech Results Result Diagram: 06/02/17 0551 06/02/17 0551 Results 24 hrs Laboratory Tests Test 06/01/17 18:03 06/01/17 21:32 06/02/17 05:51 06/02/17 08:11 Bedside Glucose 151 153 130 White Blood Count 12.1 H Red Blood Count 3.13 L Hemoglobin 7.7 L Hematocrit 26.7 L Mean Corpuscular Volume 85.3 Mean Corpuscular Hemoglobin 24.6 L Mean Corpuscular Hemoglobin Concent 28.8 L Red Cell Distribution Width 15.9 H Platelet Count 394 Mean Platelet Volume 10.2 Neutrophils % Segmented Neutrophils % (Manual) 75 Lymphocytes % Lymphocytes % (Manual) 13 L Monocytes % Monocytes % (Manual) 9 Eosinophils % Eosinophils % (Manual) 1 Basophils % Metamyelocytes % (manual) 2 H Nucleated Red Blood Cells % 0.3 H Neutrophils # Absolute Lymphocytes (Manual) 1.5 Lymphocytes # Monocytes # Absolute Monocytes (Manual) 1.0 H Eosinophils # Basophils # Metamyelocytes # 0.2 H Nucleated Red Blood Cells # Platelet Estimate INCREASED Polychromasia 1+ Hypochromasia 2+ Anisocytosis 2+ Microcytosis 2+ Sodium Level 126 L Potassium Level 5.0 Chloride Level 93 L Carbon Dioxide Level 30 Anion Gap 8 Blood Urea Nitrogen 11 Creatinine 0.87 Glucose Level 125 Calcium Level 8.8 Phosphorus Level 3.6 Magnesium Level 2.2 Test 06/02/17 12:48 Bedside Glucose 148 Medications Medications Current Medications Oxycodone/ Acetaminophen (Percocet (5/ 325)) 1 tab Q3H PRN PO PAIN LEVEL 1-5 Last administered on 06/02/17 04:46; Admin Dose 1 TAB; Start 05/27/17 at 14:30 Oxycodone/ Acetaminophen (Percocet (5/ 325)) 2 tab Q3H PRN PO PAIN LEVEL 6-10 Last administered on 06/02/17 15:58; Admin Dose 2 TAB; Start 05/27/17 at 14:30 Ondansetron HCl (Zofran Inj) 4 mg Q6H PRN IV NAUSEA AND/OR VOMITING; Start 05/27 at 14:30 Famotidine (Pepcid) 20 mg BID PO ; Start 05/27/17 at 21:00; Status Future Hold Acetaminophen (Tylenol Tab) 650 mg Q3H PRN PO ELEVATED TEMPERATURE; Start at 14:30 Carvedilol (Coreg) 3.125 mg BID PO Last administered on 06/02/17 08:57; Admin Dose 3.125 MG; Start 05/28/17 at 10:00 Aspirin (Aspirin) 325 mg DAILY PO Last administered on 06/02/17 08:59; Admin Dose 325 MG; Start 05/28/17 at 10:00 Atorvastatin Calcium (Lipitor) 40 mg HS PO Last administered on 06/01/17 21:34 ; Admin Dose 40 MG; Start 05/28/17 at 21:00 Insulin Glargine (Lantus) 10 unit DAILY@08 SC Last administered on 06/02/17 08 :20; Admin Dose 10 UNIT; Start 05/29/17 at 08:00 Neomycin/ Polymyxin/ Bacitracin (Neosporin Topical Oint) 1 applic TID PRN TOP as needed for hand wound ; Start 05/29/17 at 12:00 Enoxaparin Sodium (Lovenox) 40 mg DAILY SC Last administered on 06/02/17 09:00 ; Admin Dose 40 MG; Start 05/30/17 at 09:00 Miscellaneous Information 1 ea NOTE XX ; Start 05/31/17 at 18:30 Glucose (Glutose) 15 gm Q15M PRN PO DECREASED GLUCOSE; Start 05/31/17 at 18:30 Glucose (Glutose) 22.5 gm Q15M PRN PO DECREASED GLUCOSE; Start 05/31/17 at 18: 30 Dextrose (D50w Syringe) 25 ml Q15M PRN IV DECREASED GLUCOSE; Start 05/31/17 at 18:30 Dextrose (D50w Syringe) 50 ml Q15M PRN IV DECREASED GLUCOSE; Start 05/31/17 at 18:30 Glucagon (Glucagen) 1 mg Q15M PRN IM DECREASED GLUCOSE; Start 05/31/17 at 18:30 Glucose (Glutose) 15 gm Q15M PRN BUCCAL DECREASED GLUCOSE; Start 05/31/17 at 18 :30 Bacitracin/ Polymyxin B Sulfate (Polysporin Oint) 1 applic BID TOP Last administered on 06/02/17 11:15; Admin Dose 1 APPLIC; Start 06/02/17 at 11:00 LILA DE OLIVEIRA MD Jun 02, 2017 16:04
[2017-06-02] MEDS: LISINOPRIL 5 MG TAB PO SCH (16:36)
[2017-06-02 19:31] LABS: FOLATE 3.9 ng/ml (2.8-20.0)
[2017-06-02] MEDS: ATORVASTATIN 40 MG TAB PO SCH (20:56)
[2017-06-03] VITALS (13 sets, daily range): BP systolic 105–121; BP diastolic 55–72; PULSE 82–100; RESP 17–22
[2017-06-03] MEDS: OXYCODONE/ACETAMINOPHEN (5/325) TAB PO PRN ×2 (01:31→19:39)
[2017-06-03] MEDS: ALBUTEROL/IPRATROPIUM (NEB) 3 ML AMP HHN SCH ×3 (07:45→20:40)
[2017-06-03 07:53] LABS: ABNORMAL IP MESSAGE 1; BASOPHIL # 0.1 10^3/ul (0.0-0.1); BASOPHILS % 0.5 % (0.0-2.0); EOSINOPHILS # 0.2 10^3/ul (0.0-0.5); EOSINOPHILS % 1.4 % (0.0-7.0); HEMATOCRIT 28.4 % (42.0-52.0); HEMOGLOBIN 8.4 g/dl (14.0-18.0); LYMPHOCYTES # 2.1 10^3/ul (0.8-2.9); LYMPHOCYTES % 15.5 % (15.0-51.0); MEAN CORPUSCULAR HEMOGLOBIN 25.4 pg (29.0-33.0); MEAN CORPUSCULAR HGB CONC 29.6 g/dl (32.0-37.0); MEAN CORPUSCULAR VOLUME 85.8 fl (82.0-101.0); MONOCYTE # 1.9 10^3/ul (0.3-0.9); MONOCYTES % 14.2 % (0.0-11.0); NEUTROPHIL # 8.2 10^3/ul (1.6-7.5); NUCLEATED RED BLOOD CELLS% 0.2 /100WBC (0.0-0.0); PLATELET COUNT 442 10^3/UL (140-415); POSITIVE DIFF @See below; RED BLOOD COUNT 3.31 10^6/ul (4.70-6.10); RED CELL DISTRIBUTION WIDTH 15.7 % (11.5-14.5); WHITE BLOOD COUNT 13.2 10^3/ul (4.8-10.8)
[2017-06-03] MEDS: INSULIN ASPART [NOVOLOG] 3 ML PEN SC SCH ×7 (07:55→19:39)
[2017-06-03 08:22] LABS: CALCIUM 9.2 mg/dl (8.4-10.2); CREATININE 0.81 mg/dl (0.61-1.24); MAGNESIUM 2.3 mg/dl (1.7-2.5); PHOSPHORUS 3.7 mg/dl (2.5-4.9); POTASSIUM 5.2 mmol/L (3.5-5.1)
[2017-06-03] MEDS: LISINOPRIL 5 MG TAB PO SCH (09:15)
[2017-06-03] MEDS: BACITRACIN/POLYMYXIN 28.35 GM OINT TOP SCH ×2 (09:16→19:40)
[2017-06-03] MEDS: ASPIRIN 325 MG TAB PO SCH (09:16)
[2017-06-03] MEDS: INSULIN GLARGINE [LANtus] 3 ML PEN SC SCH (09:22)
[2017-06-03] MEDS: ENOXAPARIN 40 MG/0.4 ML SYG SC SCH (09:22)
[2017-06-03] MEDS ORDERED: BARIUM SULF 2% 450 ML BTL (BERRY SMOOTHIE) PO ONE (12:00)
[2017-06-03] MEDS: metFORMIN 500 MG TAB PO SCH (17:31)
[2017-06-03] MEDS: ATORVASTATIN 40 MG TAB PO SCH (19:36)
--- NOTE | 2017-06-03 20:17 | CONS ---
Date/Time of Note Date/Time of Note DATE: 06/03/17 TIME: 20:16 Assessment/Plan Assessment/Plan Chief Complaint/Hosp Course CAD: Three vessel disease by cath. s/p CABG with PORTER -LAD, SVG-OM, SVG jump graft PDA and PL. Doing well post-op NSTEMI: s/p cath and now CABG as above Cardiomyopathy: Initial EF 25-30%, now 40-45% by echo. Acute systolic heart failure: Improved Metastatic lung cancer: new diagnosis, per oncology and pulmonology COPD: likely based on h/o smoking DM: new diagnosis Prior tobacco use -continue aspirin 325mg daily -continue atorvastatin 40mg daily -continue carvedilol 3.125mg BID and lisinopril 2.5mg daily, up titrate as tolerated Problems: Consultation Date/Type/Reason Admit Date/Time May 24, 2017 at 16:00 Initial Consult Date 05/26/17 Type of Consultation: Cardiology 24 HR Interval Summary Free Text/Dictation No acute events. Detailed Summary Additional Comments 14 point review of systems without changes. Exam/Review of Systems Vital Signs Vitals Vital Signs Date Time Temp Pulse Resp B/P Pulse Ox O2 Delivery O2 Flow Rate FiO2 06/03/17 19:50 98.9 99 18 121/69 93 06/03/17 14:56 21 05/31/17 20:30 3.0 05/31/17 17:00 Room Air Intake and Output 06/02/17 06/02/17 06/03/17 15:00 23:00 07:00 Intake Total 800 ml Output Total 1500 ml Balance -700 ml Exam Constitutional: alert, oriented Psych: no complaints Head: atraumatic, normocephalic Neck: No jvd Respiratory: Clear to auscultation Cardiovascular: edema (1+), regular rate and rhythm, No systolic murmur Gastrointestinal: non-tender, soft Neurological: nl mental status, nl speech Results Result Diagram: 06/03/17 0641 06/03/17 0641 Results 24 hrs Laboratory Tests Test 06/02/17 20:22 06/03/17 06:41 06/03/17 08:09 06/03/17 11:47 Bedside Glucose 156 126 143 White Blood Count 13.2 H Red Blood Count 3.31 L Hemoglobin 8.4 L Hematocrit 28.4 L Mean Corpuscular Volume 85.8 Mean Corpuscular Hemoglobin 25.4 L Mean Corpuscular Hemoglobin Concent 29.6 L Red Cell Distribution Width 15.7 H Platelet Count 442 H Mean Platelet Volume 10.0 Neutrophils % 62.0 Lymphocytes % 15.5 Monocytes % 14.2 H Eosinophils % 1.4 Basophils % 0.5 Nucleated Red Blood Cells % 0.2 H Neutrophils # 8.2 H Lymphocytes # 2.1 Monocytes # 1.9 H Eosinophils # 0.2 Basophils # 0.1 Nucleated Red Blood Cells # 0.0 Sodium Level 131 L Potassium Level 5.2 H Chloride Level 93 L Carbon Dioxide Level 32 H Anion Gap 11 Blood Urea Nitrogen 8 Creatinine 0.81 Glucose Level 133 Calcium Level 9.2 Phosphorus Level 3.7 Magnesium Level 2.3 Test 06/03/17 17:13 06/03/17 19:35 Bedside Glucose 109 118 Medications Medications Current Medications Oxycodone/ Acetaminophen (Percocet (5/ 325)) 1 tab Q3H PRN PO PAIN LEVEL 1-5 Last administered on 06/02/17 04:46; Admin Dose 1 TAB; Start 05/27/17 at 14:30 Oxycodone/ Acetaminophen (Percocet (5/ 325)) 2 tab Q3H PRN PO PAIN LEVEL 6-10 Last administered on 06/03/17 19:39; Admin Dose 2 TAB; Start 05/27/17 at 14:30 Ondansetron HCl (Zofran Inj) 4 mg Q6H PRN IV NAUSEA AND/OR VOMITING; Start 05/27 at 14:30 Famotidine (Pepcid) 20 mg BID PO ; Start 05/27/17 at 21:00; Status Future Hold Acetaminophen (Tylenol Tab) 650 mg Q3H PRN PO ELEVATED TEMPERATURE; Start at 14:30 Carvedilol (Coreg) 3.125 mg BID PO Last administered on 06/03/17 19:38; Admin Dose 3.125 MG; Start 05/28/17 at 10:00 Aspirin (Aspirin) 325 mg DAILY PO Last administered on 06/03/17 09:16; Admin Dose 325 MG; Start 05/28/17 at 10:00 Atorvastatin Calcium (Lipitor) 40 mg HS PO Last administered on 06/03/17 19:36 ; Admin Dose 40 MG; Start 05/28/17 at 21:00 Insulin Glargine (Lantus) 10 unit DAILY@08 SC Last administered on 06/03/17 09 :22; Admin Dose 10 UNIT; Start 05/29/17 at 08:00 Neomycin/ Polymyxin/ Bacitracin (Neosporin Topical Oint) 1 applic TID PRN TOP as needed for hand wound ; Start 05/29/17 at 12:00 Enoxaparin Sodium (Lovenox) 40 mg DAILY SC Last administered on 06/03/17 09:22 ; Admin Dose 40 MG; Start 05/30/17 at 09:00 Miscellaneous Information 1 ea NOTE XX ; Start 05/31/17 at 18:30 Glucose (Glutose) 15 gm Q15M PRN PO DECREASED GLUCOSE; Start 05/31/17 at 18:30 Glucose (Glutose) 22.5 gm Q15M PRN PO DECREASED GLUCOSE; Start 05/31/17 at 18: 30 Dextrose (D50w Syringe) 25 ml Q15M PRN IV DECREASED GLUCOSE; Start 05/31/17 at 18:30 Dextrose (D50w Syringe) 50 ml Q15M PRN IV DECREASED GLUCOSE; Start 05/31/17 at 18:30 Glucagon (Glucagen) 1 mg Q15M PRN IM DECREASED GLUCOSE; Start 05/31/17 at 18:30 Glucose (Glutose) 15 gm Q15M PRN BUCCAL DECREASED GLUCOSE; Start 05/31/17 at 18 :30 Bacitracin/ Polymyxin B Sulfate (Polysporin Oint) 1 applic BID TOP Last administered on 06/03/17 19:40; Admin Dose 1 APPLIC; Start 06/02/17 at 11:00 Lisinopril (Zestril) 2.5 mg DAILY PO Last administered on 06/03/17 09:15; Admin Dose 2.5 MG; Start 06/02/17 at 16:30 LILA DE OLIVEIRA MD Jun 03, 2017 20:17
--- NOTE | 2017-06-03 20:32 | CONS ---
Date/Time of Note Date/Time of Note DATE: 06/03/17 TIME: 20:24 Assessment/Plan Assessment/Plan Chief Complaint/Hosp Course 66 yo with #Metastatic carcinoma that appears to be of renal origin -CT Chest reveals multiple bilateral pulmonary nodules, extensive mediastinal and hilar lymphadenopathy, small bilateral pleural effusions with right larger than left, as well as a probably liver lesion -pt will need an out patient PET CT -BRAIN MRI negative for disease -send CT A/P to evaluate for kidney masses -if no kidney masses and we are still unsure of the primary will send pathology for second opinion -if confirmed kidney cancer, pt will need to start TKI, , Sutent. will need to clear cardiac function however prior to starting this therapy #CAD s/p 3 vessel CABG -continue management per cardiothoracic surgery -continue ASA, lipitor and coreg #COPD - 2/2 to years of smoking -pt currently breathing better -continue inhaled spirometry and inhalers per pulmonary #Anemia -this is likely post op also with a component of anemia of chronic disease from underlying malignancy -will check iron studies, vit b12, folate, epo level, haptoglobin and ldh #DM -Blood sugars are currently controlled, continue current insulin regimen Approximately 1 hour was spent at patient's bedside and in coordination of his care Problems: Consultation Date/Type/Reason Admit Date/Time May 24, 2017 at 16:00 Initial Consult Date 05/31/17 Type of Consultation: Hematology Reason for Consultation metastatic cancer Referring Provider: GIOVANNI KRUGER DO 24 HR Interval Summary Free Text/Dictation final path returned and is more consistent with renal cell carcinoma Exam/Review of Systems Vital Signs Vitals Vital Signs Date Time Temp Pulse Resp B/P Pulse Ox O2 Delivery O2 Flow Rate FiO2 06/03/17 19:50 98.9 99 18 121/69 93 06/03/17 14:56 21 05/31/17 20:30 3.0 05/31/17 17:00 Room Air Intake and Output 06/02/17 06/02/17 06/03/17 15:00 23:00 07:00 Intake Total 800 ml Output Total 1500 ml Balance -700 ml Exam Constitutional: alert, frail, oriented Psych: no complaints Head: normocephalic Eyes: nl conjunctiva ENMT: nl external ears & nose Neck: non-tender, supple Respiratory: clear to auscultation Cardiovascular: regular rate and rhythm Gastrointestinal: soft Musculoskeletal: nl extremities to inspection Results Result Diagram: 06/03/17 0641 06/03/17 0641 Results 24 hrs Laboratory Tests Test 06/03/17 06:41 06/03/17 08:09 06/03/17 11:47 06/03/17 17:13 White Blood Count 13.2 H Red Blood Count 3.31 L Hemoglobin 8.4 L Hematocrit 28.4 L Mean Corpuscular Volume 85.8 Mean Corpuscular Hemoglobin 25.4 L Mean Corpuscular Hemoglobin Concent 29.6 L Red Cell Distribution Width 15.7 H Platelet Count 442 H Mean Platelet Volume 10.0 Neutrophils % 62.0 Lymphocytes % 15.5 Monocytes % 14.2 H Eosinophils % 1.4 Basophils % 0.5 Nucleated Red Blood Cells % 0.2 H Neutrophils # 8.2 H Lymphocytes # 2.1 Monocytes # 1.9 H Eosinophils # 0.2 Basophils # 0.1 Nucleated Red Blood Cells # 0.0 Sodium Level 131 L Potassium Level 5.2 H Chloride Level 93 L Carbon Dioxide Level 32 H Anion Gap 11 Blood Urea Nitrogen 8 Creatinine 0.81 Glucose Level 133 Calcium Level 9.2 Phosphorus Level 3.7 Magnesium Level 2.3 Bedside Glucose 126 143 109 Test 06/03/17 19:35 Bedside Glucose 118 Medications Medications Current Medications Oxycodone/ Acetaminophen (Percocet (5/ 325)) 1 tab Q3H PRN PO PAIN LEVEL 1-5 Last administered on 06/02/17 04:46; Admin Dose 1 TAB; Start 05/27/17 at 14:30 Oxycodone/ Acetaminophen (Percocet (5/ 325)) 2 tab Q3H PRN PO PAIN LEVEL 6-10 Last administered on 06/03/17 19:39; Admin Dose 2 TAB; Start 05/27/17 at 14:30 Ondansetron HCl (Zofran Inj) 4 mg Q6H PRN IV NAUSEA AND/OR VOMITING; Start 05/27 at 14:30 Famotidine (Pepcid) 20 mg BID PO ; Start 05/27/17 at 21:00; Status Future Hold Acetaminophen (Tylenol Tab) 650 mg Q3H PRN PO ELEVATED TEMPERATURE; Start at 14:30 Carvedilol (Coreg) 3.125 mg BID PO Last administered on 06/03/17 19:38; Admin Dose 3.125 MG; Start 05/28/17 at 10:00 Aspirin (Aspirin) 325 mg DAILY PO Last administered on 06/03/17 09:16; Admin Dose 325 MG; Start 05/28/17 at 10:00 Atorvastatin Calcium (Lipitor) 40 mg HS PO Last administered on 06/03/17 19:36 ; Admin Dose 40 MG; Start 05/28/17 at 21:00 Insulin Glargine (Lantus) 10 unit DAILY@08 SC Last administered on 06/03/17 09 :22; Admin Dose 10 UNIT; Start 05/29/17 at 08:00 Neomycin/ Polymyxin/ Bacitracin (Neosporin Topical Oint) 1 applic TID PRN TOP as needed for hand wound ; Start 05/29/17 at 12:00 Enoxaparin Sodium (Lovenox) 40 mg DAILY SC Last administered on 06/03/17 09:22 ; Admin Dose 40 MG; Start 05/30/17 at 09:00 Miscellaneous Information 1 ea NOTE XX ; Start 05/31/17 at 18:30 Glucose (Glutose) 15 gm Q15M PRN PO DECREASED GLUCOSE; Start 05/31/17 at 18:30 Glucose (Glutose) 22.5 gm Q15M PRN PO DECREASED GLUCOSE; Start 05/31/17 at 18: 30 Dextrose (D50w Syringe) 25 ml Q15M PRN IV DECREASED GLUCOSE; Start 05/31/17 at 18:30 Dextrose (D50w Syringe) 50 ml Q15M PRN IV DECREASED GLUCOSE; Start 05/31/17 at 18:30 Glucagon (Glucagen) 1 mg Q15M PRN IM DECREASED GLUCOSE; Start 05/31/17 at 18:30 Glucose (Glutose) 15 gm Q15M PRN BUCCAL DECREASED GLUCOSE; Start 05/31/17 at 18 :30 Bacitracin/ Polymyxin B Sulfate (Polysporin Oint) 1 applic BID TOP Last administered on 06/03/17 19:40; Admin Dose 1 APPLIC; Start 06/02/17 at 11:00 Lisinopril (Zestril) 2.5 mg DAILY PO Last administered on 06/03/17 09:15; Admin Dose 2.5 MG; Start 06/02/17 at 16:30 BETSY FINN M.D. Jun 03, 2017 20:31
[2017-06-04] VITALS (11 sets, daily range): BP systolic 103–122; BP diastolic 58–72; PULSE 80–93; RESP 18–20
--- NOTE | 2017-06-04 03:29 | PN ---
DATE: 06/03/2017 SUBJECTIVE DATA: The patient was stable overnight. No acute events. Please note, I spoke with oncologist, Dr. Simmons, who had spoken with pathology whose preliminary reports showed the patient's adenocarcinoma of the lung appears to be metastatic in origin, possibly renal. After speaking with Dr. Simmons, a CT of the abdomen pelvis with IV and p.o. contrast was ordered. No other events were noted. OBJECTIVE DATA: VITAL SIGNS: Blood pressure 111/58, respirations 19, pulse 79, temperature 98.0 HEENT: Head is normocephalic. NECK: Supple. HEART: Regular rate. LUNGS: Diminished breath sounds at the bases. ABDOMEN: Soft and nontender to palpation. No rebound or guarding. Chest exam shows dressing over mediastinotomy scar that is clean, dry, and intact. ABDOMEN: Soft and nontender to palpation. EXTREMITIES: Negative for clubbing and cyanosis. No edema. DERMATOLOGIC: Clean. No rashes. MUSCULOSKELETAL: No joint effusion. NEUROLOGIC: No focal deficits. MEDICATIONS: Reviewed. LABORATORY AND DIAGNOSTIC DATA: Shows sodium 131, potassium 5.2, chloride 93, bicarb 32. White count 13.2, hemoglobin 8.4, hematocrit 28.4, platelet count 442. The patient's pathology of malignancy shows adenocarcinoma, possibly of renal origin. ASSESSMENT AND PLAN: 1. Status post coronary artery bypass graft, 3 vessels. The patient is currently stable. 2. Metastatic adenocarcinoma, possibly of renal origin. A CT scan of the abdomen and pelvis with p.o. and IV contrast was ordered. The patient is likely to have a PET scan in outpatient setting. I discussed the case with Dr. Simmons. No plans for chemotherapy for 4-6 weeks [address] to recent CT surgery. 3. Hypoxemic respiratory failure secondary to congestive heart failure and chronic obstructive pulmonary disease, clinically improving. Continue nebulizers. 4. Hyponatremia. Etiology is likely secondary to an underlying syndrome of inappropriate antidiuretic hormone secretion given patient's underlying malignancy and recent surgery. The patient's initial urine studies, however, were suggestive more of a prerenal state. The patient's sodium levels have been improving with free water restriction. At this point, continue current treatment plan and monitor. 5. Hyperkalemia. Continue to monitor. 6. Diabetes. Continue Accu-Cheks and sliding scale. 7. Anemia. Monitor hemoglobin and hematocrit levels. 8. Dyslipidemia. Continue statin therapy. 9. Gastrointestinal and deep venous thrombosis prophylaxis. DISPOSITION: The patient is okay to be discharged home after CT abdomen and pelvis is obtained. The patient is to follow up with myself in [address] Simmons, as well as Dr. Noel in 1 week's time. Dictated By: Giuseppe Boyd DO /angi/jud /Document#: [id number]
[2017-06-04] MEDS: OXYCODONE/ACETAMINOPHEN (5/325) TAB PO PRN ×3 (04:50→21:33)
[2017-06-04] MEDS: INSULIN ASPART [NOVOLOG] 3 ML PEN SC SCH ×7 (07:55→21:00)
[2017-06-04] MEDS ORDERED: BARIUM SULF 2% 450 ML BTL (BERRY SMOOTHIE) PO SCH (08:00)
[2017-06-04] MEDS: ASPIRIN 325 MG TAB PO SCH (08:35)
[2017-06-04] MEDS: metFORMIN 500 MG TAB PO SCH ×2 (08:36→18:21)
[2017-06-04] MEDS: LISINOPRIL 5 MG TAB PO SCH (08:37)
[2017-06-04 08:38] LABS: ABNORMAL IP MESSAGE 1; BASOPHIL # 0.1 10^3/ul (0.0-0.1); BASOPHILS % 0.4 % (0.0-2.0); EOSINOPHILS # 0.1 10^3/ul (0.0-0.5); EOSINOPHILS % 0.8 % (0.0-7.0); HEMOGLOBIN 8.3 g/dl (14.0-18.0); LYMPHOCYTES % 14.5 % (15.0-51.0); MEAN CORPUSCULAR HEMOGLOBIN 25.2 pg (29.0-33.0); MEAN CORPUSCULAR HGB CONC 29.6 g/dl (32.0-37.0); MEAN CORPUSCULAR VOLUME 85.1 fl (82.0-101.0); MEAN PLATELET VOLUME 9.6 fl (7.4-10.4); MONOCYTE # 1.7 10^3/ul (0.3-0.9); MONOCYTES % 12.6 % (0.0-11.0); NEUTROPHILS % 66.3 % (39.0-77.0); PLATELET COUNT 413 10^3/UL (140-415); POSITIVE DIFF @See below; RED BLOOD COUNT 3.29 10^6/ul (4.70-6.10); RED CELL DISTRIBUTION WIDTH 16.3 % (11.5-14.5); WHITE BLOOD COUNT 13.6 10^3/ul (4.8-10.8)
[2017-06-04] MEDS: INSULIN GLARGINE [LANtus] 3 ML PEN SC SCH (08:41)
[2017-06-04] MEDS: ENOXAPARIN 40 MG/0.4 ML SYG SC SCH (08:42)
[2017-06-04] MEDS: BACITRACIN/POLYMYXIN 28.35 GM OINT TOP SCH ×2 (08:42→21:34)
[2017-06-04 09:04] LABS: CALCIUM 8.9 mg/dl (8.4-10.2); CREATININE 0.8 mg/dl (0.61-1.24); MAGNESIUM 2.2 mg/dl (1.7-2.5); PHOSPHORUS 3.9 mg/dl (2.5-4.9); POTASSIUM 4.8 mmol/L (3.5-5.1)
[2017-06-04] MEDS: ALBUTEROL/IPRATROPIUM (NEB) 3 ML AMP HHN SCH ×3 (09:49→20:52)
--- NOTE | 2017-06-04 10:30 | PN ---
Date/Time of Note Date/Time of Note DATE: 06/04/17 TIME: 10:28 Assessment/Plan VTE Prophylaxis VTE Prophylaxis Intervention: other Lines/Catheters IV C[facility]ter Type (from [facility]): Peripheral IV Urinary Cath still in place: No Assessment/Plan Chief Complaint/Hosp Course SUBJECTIVE DATA: The patient is stable. Working with physical therapy. awaiting ct of abdomen and pelvis. d/w Dr Boyd. No other events noted. no nausea, vomiting, new rash, hematuria, melena, fever, chills OBJECTIVE DATA: HEENT: Head is normocephalic. NECK: Supple. Chest shows dressing over sternotomy wires. ABDOMEN: Soft, nontender to palpation. EXTREMITIES: Negative for clubbing, cyanosis. Trace edema. DERMATOLOGIC: Clean. No rashes. MUSCULOSKELETAL: No joint effusion. NEUROLOGIC: No change in exam. MEDICATIONS: Reviewed. ASSESSMENT AND PLAN: 1. Status post 3-vessel coronary artery bypass grafting. The patient is clinically improving. Continue current treatment plan. Follow up with CT surgery. 2. Metastatic adenocarcinoma of the lung. The patient is pending PET scan outpatient setting. Tumor markers have been sent. No plans for chemotherapy for four to six weeks due to recent CT surgery. Follow up with Dr. Simmons. 3. Hypoxemic respiratory failure secondary to congestive heart failure, chronic obstructive pulmonary disease, clinically improving. Continue nebulizers. Intermittent diuretic therapy. 4. Hyponatremia. Possibly due to syndrome of inappropriate antidiuretic hormone. However urinary lytes suggest a pre- renal state. The patient will continue free water restriction. Would hold diuretic therapy at this time. 5. Hypokalemia, resolved. 6. Diabetes. Continue Accu-Cheks. Continue current insulin regimen. 7. Anemia. Monitor hemoglobin and hematocrit levels. 8. Continue statin therapy. 9. Gastrointestinal and deep venous thrombosis prophylaxis. Problems: Exam/Review of Systems Vital Signs Vitals Vital Signs Date Time Temp Pulse Resp B/P Pulse Ox O2 Delivery O2 Flow Rate FiO2 06/04/17 09:49 91 20 94 21 06/04/17 07:16 98.0 119/72 05/31/17 20:30 3.0 05/31/17 17:00 Room Air Intake and Output 06/03/17 06/03/17 06/04/17 15:00 23:00 07:00 Intake Total 250 ml 600 ml 240 ml Output Total 550 ml Balance -300 ml 600 ml 240 ml Results Result Diagram: 06/04/17 0804 06/04/17 0804 Results 24 hrs Laboratory Tests Test 06/03/17 11:47 06/03/17 17:13 06/03/17 19:35 06/04/17 08:04 Bedside Glucose 143 109 118 White Blood Count 13.6 H Red Blood Count 3.29 L Hemoglobin 8.3 L Hematocrit 28.0 L Mean Corpuscular Volume 85.1 Mean Corpuscular Hemoglobin 25.2 L Mean Corpuscular Hemoglobin Concent 29.6 L Red Cell Distribution Width 16.3 H Platelet Count 413 Mean Platelet Volume 9.6 Neutrophils % 66.3 Lymphocytes % 14.5 L Monocytes % 12.6 H Eosinophils % 0.8 Basophils % 0.4 Nucleated Red Blood Cells % 0.0 Neutrophils # 9.0 H Lymphocytes # 2.0 Monocytes # 1.7 H Eosinophils # 0.1 Basophils # 0.1 Nucleated Red Blood Cells # 0.0 Sodium Level 130 L Potassium Level 4.8 Chloride Level 93 L Carbon Dioxide Level 32 H Anion Gap 10 Blood Urea Nitrogen 8 Creatinine 0.80 Glucose Level 128 Calcium Level 8.9 Phosphorus Level 3.9 Magnesium Level 2.2 Test 06/04/17 08:33 Bedside Glucose 119 Medications Medications Current Medications Oxycodone/ Acetaminophen (Percocet (5/ 325)) 1 tab Q3H PRN PO PAIN LEVEL 1-5 Last administered on 06/02/17 04:46; Admin Dose 1 TAB; Start 05/27/17 at 14:30 Oxycodone/ Acetaminophen (Percocet (5/ 325)) 2 tab Q3H PRN PO PAIN LEVEL 6-10 Last administered on 06/04/17 04:50; Admin Dose 2 TAB; Start 05/27/17 at 14:30 Ondansetron HCl (Zofran Inj) 4 mg Q6H PRN IV NAUSEA AND/OR VOMITING; Start 05/27 at 14:30 Famotidine (Pepcid) 20 mg BID PO ; Start 05/27/17 at 21:00; Status Future Hold Acetaminophen (Tylenol Tab) 650 mg Q3H PRN PO ELEVATED TEMPERATURE; Start at 14:30 Carvedilol (Coreg) 3.125 mg BID PO Last administered on 06/04/17 08:37; Admin Dose 3.125 MG; Start 05/28/17 at 10:00 Aspirin (Aspirin) 325 mg DAILY PO Last administered on 06/04/17 08:35; Admin Dose 325 MG; Start 05/28/17 at 10:00 Atorvastatin Calcium (Lipitor) 40 mg HS PO Last administered on 06/03/17 19:36 ; Admin Dose 40 MG; Start 05/28/17 at 21:00 Insulin Glargine (Lantus) 10 unit DAILY@08 SC Last administered on 06/04/17 08 :41; Admin Dose 10 UNIT; Start 05/29/17 at 08:00 Neomycin/ Polymyxin/ Bacitracin (Neosporin Topical Oint) 1 applic TID PRN TOP as needed for hand wound ; Start 05/29/17 at 12:00 Enoxaparin Sodium (Lovenox) 40 mg DAILY SC Last administered on 06/04/17 08:42 ; Admin Dose 40 MG; Start 05/30/17 at 09:00 Miscellaneous Information 1 ea NOTE XX ; Start 05/31/17 at 18:30 Glucose (Glutose) 15 gm Q15M PRN PO DECREASED GLUCOSE; Start 05/31/17 at 18:30 Glucose (Glutose) 22.5 gm Q15M PRN PO DECREASED GLUCOSE; Start 05/31/17 at 18: 30 Dextrose (D50w Syringe) 25 ml Q15M PRN IV DECREASED GLUCOSE; Start 05/31/17 at 18:30 Dextrose (D50w Syringe) 50 ml Q15M PRN IV DECREASED GLUCOSE; Start 05/31/17 at 18:30 Glucagon (Glucagen) 1 mg Q15M PRN IM DECREASED GLUCOSE; Start 05/31/17 at 18:30 Glucose (Glutose) 15 gm Q15M PRN BUCCAL DECREASED GLUCOSE; Start 05/31/17 at 18 :30 Bacitracin/ Polymyxin B Sulfate (Polysporin Oint) 1 applic BID TOP Last administered on 06/04/17 08:42; Admin Dose 1 APPLIC; Start 06/02/17 at 11:00 Lisinopril (Zestril) 2.5 mg DAILY PO Last administered on 06/04/17 08:37; Admin Dose 2.5 MG; Start 06/02/17 at 16:30 SANDRA PYLE DO Jun 04, 2017 10:30
[2017-06-04] MEDS: ATORVASTATIN 40 MG TAB PO SCH (21:30)
[2017-06-05] VITALS (11 sets, daily range): BP systolic 97–124; BP diastolic 55–67; PULSE 81–94; RESP 17–20
[2017-06-05] MEDS: OXYCODONE/ACETAMINOPHEN (5/325) TAB PO PRN ×6 (00:43→23:53)
[2017-06-05] MEDS: INSULIN ASPART [NOVOLOG] 3 ML PEN SC SCH ×7 (07:55→21:00)
[2017-06-05] MEDS: ALBUTEROL/IPRATROPIUM (NEB) 3 ML AMP HHN SCH ×3 (08:00→19:40)
[2017-06-05] MEDS: INSULIN GLARGINE [LANtus] 3 ML PEN SC SCH (08:10)
[2017-06-05] MEDS: ASPIRIN 325 MG TAB PO SCH (08:16)
[2017-06-05] MEDS: metFORMIN 500 MG TAB PO SCH ×2 (08:17→17:50)
[2017-06-05] MEDS: LISINOPRIL 5 MG TAB PO SCH (08:17)
[2017-06-05] MEDS: BACITRACIN/POLYMYXIN 28.35 GM OINT TOP SCH ×2 (08:17→21:00)
[2017-06-05] MEDS: ENOXAPARIN 40 MG/0.4 ML SYG SC SCH (08:24)
--- NOTE | 2017-06-05 09:42 | PN ---
Date/Time of Note Date/Time of Note DATE: 06/05/17 TIME: 09:34 Assessment/Plan VTE Prophylaxis VTE Prophylaxis Intervention: other Lines/Catheters [facility] Type [facility] [place] Urinary Cath still in place: No Assessment/Plan Chief Complaint/Hosp Course SUBJECTIVE DATA: The patient is stable. Working with physical therapy. ct of abdomen and pelvis are pending. d/w Dr Boyd. No other events noted. no nausea, vomiting, new rash, hematuria, melena, fever, chills OBJECTIVE DATA: HEENT: Head is normocephalic. NECK: Supple. Chest shows dressing over sternotomy wires. ABDOMEN: Soft, nontender to palpation. EXTREMITIES: Negative for clubbing, cyanosis. Trace edema. DERMATOLOGIC: Clean. No rashes. MUSCULOSKELETAL: No joint effusion. NEUROLOGIC: No change in exam. MEDICATIONS: Reviewed. ASSESSMENT AND PLAN: 1. Status post 3-vessel coronary artery bypass grafting. The patient is clinically improving. Continue current treatment plan. Follow up with CT surgery. 2. Metastatic adenocarcinoma of the lung. The patient is pending PET scan outpatient setting. Tumor markers have been sent. No plans for chemotherapy for four to six weeks due to recent CT surgery. Follow up with Dr. Simmons. 3. Hypoxemic respiratory failure secondary to congestive heart failure, chronic obstructive pulmonary disease, clinically improving. Continue nebulizers. Intermittent diuretic therapy. 4. Hyponatremia. Possibly due to syndrome of inappropriate antidiuretic hormone. However urinary lytes suggest a pre- renal state. The patient will continue free water restriction. Would hold diuretic therapy at this time. 5. Hypokalemia, resolved. 6. Diabetes. Continue Accu-Cheks. Continue current insulin regimen. 7. Anemia. Monitor hemoglobin and hematocrit levels. 8. Continue statin therapy. 9. Gastrointestinal and deep venous thrombosis prophylaxis. Problems: Exam/Review of Systems Vital Signs Vitals Vital Signs Date Time Temp Pulse Resp B/P Pulse Ox O2 Delivery O2 Flow Rate FiO2 06/05/17 08:29 93 06/05/17 07:55 97.9 18 124/67 94 06/04/17 20:52 21 Results Result Diagram: 06/04/17 0804 06/04/17 0804 Results 24 hrs Laboratory Tests Test 06/04/17 12:26 06/04/17 18:03 06/04/17 20:18 06/05/17 08:03 Bedside Glucose 162 136 180 120 Medications Medications Current Medications Oxycodone/ Acetaminophen (Percocet (5/ 325)) 1 tab Q3H PRN PO PAIN LEVEL 1-5 Last administered on 06/02/17 04:46; Admin Dose 1 TAB; Start 05/27/17 at 14:30 Oxycodone/ Acetaminophen (Percocet (5/ 325)) 2 tab Q3H PRN PO PAIN LEVEL 6-10 Last administered on 06/05/17 06:48; Admin Dose 2 TAB; Start 05/27/17 at 14:30 Ondansetron HCl (Zofran Inj) 4 mg Q6H PRN IV NAUSEA AND/OR VOMITING; Start 05/27 at 14:30 Famotidine (Pepcid) 20 mg BID PO ; Start 05/27/17 at 21:00; Status Future Hold Acetaminophen (Tylenol Tab) 650 mg Q3H PRN PO ELEVATED TEMPERATURE; Start at 14:30 Carvedilol (Coreg) 3.125 mg BID PO Last administered on 06/05/17 08:16; Admin Dose 3.125 MG; Start 05/28/17 at 10:00 Aspirin (Aspirin) 325 mg DAILY PO Last administered on 06/05/17 08:16; Admin Dose 325 MG; Start 05/28/17 at 10:00 Atorvastatin Calcium (Lipitor) 40 mg HS PO Last administered on 06/04/17 21:30 ; Admin Dose 40 MG; Start 05/28/17 at 21:00 Insulin Glargine (Lantus) 10 unit DAILY@08 SC Last administered on 06/05/17 08 :10; Admin Dose 10 UNIT; Start 05/29/17 at 08:00 Neomycin/ Polymyxin/ Bacitracin (Neosporin Topical Oint) 1 applic TID PRN TOP as needed for hand wound ; Start 05/29/17 at 12:00 Enoxaparin Sodium (Lovenox) 40 mg DAILY SC Last administered on 06/05/17 08:24 ; Admin Dose 40 MG; Start 05/30/17 at 09:00 Miscellaneous Information 1 ea NOTE XX ; Start 05/31/17 at 18:30 Glucose (Glutose) 15 gm Q15M PRN PO DECREASED GLUCOSE; Start 05/31/17 at 18:30 Glucose (Glutose) 22.5 gm Q15M PRN PO DECREASED GLUCOSE; Start 05/31/17 at 18: 30 Dextrose (D50w Syringe) 25 ml Q15M PRN IV DECREASED GLUCOSE; Start 05/31/17 at 18:30 Dextrose (D50w Syringe) 50 ml Q15M PRN IV DECREASED GLUCOSE; Start 05/31/17 at 18:30 Glucagon (Glucagen) 1 mg Q15M PRN IM DECREASED GLUCOSE; Start 05/31/17 at 18:30 Glucose (Glutose) 15 gm Q15M PRN BUCCAL DECREASED GLUCOSE; Start 05/31/17 at 18 :30 Bacitracin/ Polymyxin B Sulfate (Polysporin Oint) 1 applic BID TOP Last administered on 06/05/17 08:17; Admin Dose 1 APPLIC; Start 06/02/17 at 11:00 Lisinopril (Zestril) 2.5 mg DAILY PO Last administered on 06/05/17 08:17; Admin Dose 2.5 MG; Start 06/02/17 at 16:30 SANDRA PYLE DO Jun 05, 2017 09:42
--- NOTE | 2017-06-05 15:11 | RADRPT ---
PROCEDURE: CT Abdomen and Pelvis without contrast. CLINICAL INDICATION: Abdominal and pelvic pain. History of neoplasm. Renal mass. TECHNIQUE: CT scan of the abdomen and pelvis without contrast was performed. Coronal and sagittal reformatted images were obtained from the axial source images. Images were reviewed on a [employer] PACS workstation. Total exam DLP is 1573.15 mGy-cm. CTDIvol is 26.55 mGy. One or more of the following dose reduction techniques were used: Automated exposure control, adjustment of the mA and/ or kV according to patient size, use of iterative reconstruction technique. COMPARISON: CT scan of the chest dated 05/30/2017. FINDINGS: Multiple nodules are present at both lung bases consistent with neoplasm as seen on the prior CT sca n of the chest. There are small bilateral pleural effusions with right larger than left. There is a small pericardial effusion. There are sternal wires and mediastinal clips from recent CABG. There is coronary artery calcification. The heart is mildly enlarged. The liver is normal in size and attenuation. There is no focal hepatic lesion. However, this is a l imited study due to lack of intravenous contrast. The gallbladder and bile ducts are normal. The spleen is normal in size. There is no focal splenic lesion. Both adrenals are normal with no enlargement or mass. The pancreas is unremarkable with no mass or evidence of pancreatitis. There are benign bilateral renal cysts measuring up to 3.5 cm on the right and 5.2 cm on the left. T here is no solid renal mass or hydronephrosis. There is a 0.1 cm calculus in the mid to upper right kidney. There is no other renal calculus or ureteral calculus on either side. The abdominal aorta is not dilated. There is calcification in the aorta consistent with atherosclero sis. There is no retroperitoneal lymphadenopathy or mass. There is no pelvic lymphadenopathy or mass. The bladder and distal ureters are normal. The periappendiceal region is unremarkable with no evidence of appendicitis. The bowel and mesentery are normal. There is no free fluid or free gas. There are mild degenerative changes of the spine. There is a recent compression fracture of superior endplate of L4. There is no other fracture or lytic lesion. IMPRESSION: 1. Multiple nodules at the lung bases consistent with neoplasm as seen previously. 2. Small bilateral pleural effusions with right larger than left. 3. Small pericardial effusion. 4. Previous median sternotomy. 5. Coronary artery calcification. 6. Mild cardiomegaly. 7. No focal hepatic lesion. However this is a limited study due to lack of intravenous contrast. 8. Benign bilateral renal cysts. 9. Nonobstructing 0.1 cm calculus in the mid to upper right kidney. 10. Atherosclerosis. 11. Mild degenerative changes of the spine. 12. Recent compression fracture of the superior endplate of L4. RPTAT: QQ .Russell Guzman MD, MD Date Time Electronically viewed and signed by .Russell Guzman MD, MD on 06/05/2017 15:11 .R/
--- NOTE | 2017-06-05 18:15 | CONS ---
Date/Time of Note Date/Time of Note DATE: 06/05/17 TIME: 18:14 Assessment/Plan Assessment/Plan Chief Complaint/Hosp Course CAD: Three vessel disease by cath. s/p CABG with PORTER -LAD, SVG-OM, SVG jump graft PDA and PL. Doing well post-op NSTEMI: s/p cath and now CABG as above Cardiomyopathy: Initial EF 25-30%, now 40-45% by echo. Acute systolic heart failure: Improved Metastatic lung cancer: new diagnosis, per oncology and pulmonology COPD: likely based on h/o smoking DM: new diagnosis Prior tobacco use -continue aspirin 325mg daily -continue atorvastatin 40mg daily -continue carvedilol 3.125mg BID and lisinopril 2.5mg daily, up titrate as tolerated Problems: Consultation Date/Type/Reason Admit Date/Time May 24, 2017 at 16:00 Initial Consult Date 05/26/17 Type of Consultation: Cardiology 24 HR Interval Summary Free Text/Dictation No acute events. Detailed Summary Additional Comments 14 point review of systems without changes. Exam/Review of Systems Vital Signs Vitals Vital Signs Date Time Temp Pulse Resp B/P Pulse Ox O2 Delivery O2 Flow Rate FiO2 06/05/17 16:50 82 06/05/17 15:38 97.7 17 107/62 97 06/05/17 12:52 21 Exam Constitutional: alert, oriented Psych: no complaints Head: atraumatic, normocephalic Neck: No jvd Respiratory: Clear to auscultation Cardiovascular: edema (1+), regular rate and rhythm, No systolic murmur Gastrointestinal: non-tender, soft Neurological: nl mental status, nl speech Results Result Diagram: 06/04/17 0804 06/04/17 0804 Results 24 hrs Laboratory Tests Test 06/04/17 20:18 06/05/17 08:03 06/05/17 11:51 06/05/17 17:49 Bedside Glucose 180 120 156 97 Medications Medications Current Medications Oxycodone/ Acetaminophen (Percocet (5/ 325)) 1 tab Q3H PRN PO PAIN LEVEL 1-5 Last administered on 06/02/17t 04:46; Admin Dose 1 TAB; Start 05/27/17 at 14:30 Oxycodone/ Acetaminophen (Percocet (5/ 325)) 2 tab Q3H PRN PO PAIN LEVEL 6-10 Last administered on 06/05/17 13:52; Admin Dose 2 TAB; Start 05/27/17 at 14:30 Ondansetron HCl (Zofran Inj) 4 mg Q6H PRN IV NAUSEA AND/OR VOMITING; Start 05/27 at 14:30 Famotidine (Pepcid) 20 mg BID PO ; Start 05/27/17 at 21:00; Status Future Hold Acetaminophen (Tylenol Tab) 650 mg Q3H PRN PO ELEVATED TEMPERATURE; Start at 14:30 Carvedilol (Coreg) 3.125 mg BID PO Last administered on 06/05/17 08:16; Admin Dose 3.125 MG; Start 05/28/17 at 10:00 Aspirin (Aspirin) 325 mg DAILY PO Last administered on 06/05/17 08:16; Admin Dose 325 MG; Start 05/28/17 at 10:00 Atorvastatin Calcium (Lipitor) 40 mg HS PO Last administered on 06/04/17 21:30 ; Admin Dose 40 MG; Start 05/28/17 at 21:00 Insulin Glargine (Lantus) 10 unit DAILY@08 SC Last administered on 06/05/17 08 :10; Admin Dose 10 UNIT; Start 05/29/17 at 08:00 Neomycin/ Polymyxin/ Bacitracin (Neosporin Topical Oint) 1 applic TID PRN TOP as needed for hand wound ; Start 05/29/17 at 12:00 Enoxaparin Sodium (Lovenox) 40 mg DAILY SC Last administered on 06/05/17 08:24 ; Admin Dose 40 MG; Start 05/30/17 at 09:00 Miscellaneous Information 1 ea NOTE XX ; Start 05/31/17 at 18:30 Glucose (Glutose) 15 gm Q15M PRN PO DECREASED GLUCOSE; Start 05/31/17 at 18:30 Glucose (Glutose) 22.5 gm Q15M PRN PO DECREASED GLUCOSE; Start 05/31/17 at 18: 30 Dextrose (D50w Syringe) 25 ml Q15M PRN IV DECREASED GLUCOSE; Start 05/31/17 at 18:30 Dextrose (D50w Syringe) 50 ml Q15M PRN IV DECREASED GLUCOSE; Start 05/31/17 at 18:30 Glucagon (Glucagen) 1 mg Q15M PRN IM DECREASED GLUCOSE; Start 05/31/17 at 18:30 Glucose (Glutose) 15 gm Q15M PRN BUCCAL DECREASED GLUCOSE; Start 05/31/17 at 18 :30 Bacitracin/ Polymyxin B Sulfate (Polysporin Oint) 1 applic BID TOP Last administered on 06/05/17 08:17; Admin Dose 1 APPLIC; Start 06/02/17 at 11:00 Lisinopril (Zestril) 2.5 mg DAILY PO Last administered on 06/05/17 08:17; Admin Dose 2.5 MG; Start 06/02/17 at 16:30 LILA DE OLIVEIRA MD Jun 05, 2017 18:15
[2017-06-05] MEDS: ATORVASTATIN 40 MG TAB PO SCH (20:42)
[2017-06-06] VITALS (12 sets, daily range): BP systolic 103–128; BP diastolic 56–73; PULSE 83–97; RESP 18–19
[2017-06-06] MEDS: OXYCODONE/ACETAMINOPHEN (5/325) TAB PO PRN ×4 (03:15→23:19)
[2017-06-06] MEDS: ALBUTEROL/IPRATROPIUM (NEB) 3 ML AMP HHN SCH ×3 (07:52→22:45)
[2017-06-06] MEDS: INSULIN ASPART [NOVOLOG] 3 ML PEN SC SCH ×7 (07:55→21:00)
[2017-06-06] MEDS: metFORMIN 500 MG TAB PO SCH ×2 (08:32→17:20)
[2017-06-06] MEDS: ASPIRIN 325 MG TAB PO SCH (08:32)
[2017-06-06] MEDS: LISINOPRIL 5 MG TAB PO SCH (08:32)
[2017-06-06] MEDS: BACITRACIN/POLYMYXIN 28.35 GM OINT TOP SCH ×2 (08:33→21:38)
[2017-06-06] MEDS: INSULIN GLARGINE [LANtus] 3 ML PEN SC SCH (08:42)
[2017-06-06] MEDS: ENOXAPARIN 40 MG/0.4 ML SYG SC SCH (08:43)
[2017-06-06] MEDS: NEOMYC/POLYMYX/BACIT 30 GM OINT TOP SCH ×2 (13:30→21:38)
--- NOTE | 2017-06-06 14:44 | PN ---
DATE: 06/06/2017 SUBJECTIVE DATA: The patient is stable. No acute events overnight. No fevers, chills, nausea, or vomiting. No other events noted. OBJECTIVE DATA: VITAL SIGNS: Blood pressure is 125/63, respirations 18, pulse 96, and temperature 98.9. HEENT: Head is normocephalic. NECK: Supple. HEART: Regular rate. LUNGS: Diminished breath sounds at the base. ABDOMEN: Soft, nontender to palpation. No guarding. CHEST: The patient has a well-healing sternotomy scar. DERMATOLOGIC: No rashes. MUSCULOSKELETAL: No joint effusion. NEUROLOGIC: No change in exam. MEDICATIONS: Reviewed. LABORATORY AND DIAGNOSTIC DATA: Shows a white count 13.6, hemoglobin 8.3, hematocrit 28.0, and platelet count 413. ASSESSMENT AND PLAN: 1. Status post coronary artery bypass graft (CABG), 3 vessel bypass. The patient is currently stable. Continue current medical management. Continue current treatment plan. Follow up with Cardiology Surgery. 2. Metastatic adenocarcinoma of lung. Patient pathology suggestive possible renal origin. A CT scan of the abdomen and pelvis was performed, which showed no definitive renal mass. Nonobstructing 0.1 cm calculus in the mid right kidney. Multiple nodules at the lung base consistent with neoplasm. At this point will follow up with Dr. Simmons for further recommendations. 3. Hypoxemic respiratory failure. 4. Congestive heart failure (CHF). 5. Chronic obstructive pulmonary disease (COPD), clinically improving. Continue to monitor. 6. Hyponatremia. Etiology is likely secondary to underlying syndrome of inappropriate antidiuretic hormone secretion (SIADH) given malignancy and recent surgery, however, urine studies are not consistent and suggestive possible prerenal etiology. We will continue to monitor sodium levels. The patient has been on free water restriction. Monitor closely. 7. Hypokalemia, improved. 8. Diabetes. Continue current insulin regimen of Lantus and metformin. 9. Anemia. Monitor hemoglobin and hematocrit levels. 10. Continue statin therapy. 11. Gastrointestinal (GI) and deep venous thrombosis (DVT) prophylaxis. Dictated By: Giuseppe Boyd DO /angi/arvin /Document#: [id number]
--- NOTE | 2017-06-06 20:20 | CONS ---
Date/Time of Note Date/Time of Note DATE: 06/06/17 TIME: 20:14 Assessment/Plan Assessment/Plan Chief Complaint/Hosp Course 66 yo with #Metastatic carcinoma that appears to be of renal origin -CT Chest reveals multiple bilateral pulmonary nodules, extensive mediastinal and hilar lymphadenopathy, small bilateral pleural effusions with right larger than left, as well as a probably liver lesion -CT A/P demonstrates benign kidney cysts but no obvious primary kidney lesion -pt will need an out patient PET CT -BRAIN MRI negative for disease -given the unclear origin of disease, will send for cancer type ID -if confirmed kidney cancer, pt will need to start TKI, , Sutent. will need to clear cardiac function however prior to starting this therapy #CAD s/p 3 vessel CABG -continue management per cardiothoracic surgery -continue ASA, lipitor and coreg #COPD - 2/2 to years of smoking -pt currently breathing better -continue inhaled spirometry and inhalers per pulmonary #Anemia -this is likely post op also with a component of anemia of chronic disease from underlying malignancy -will check iron studies, vit b12, folate, epo level, haptoglobin and ldh #DM -Blood sugars are currently controlled, continue current insulin regimen Approximately 1 hour was spent at patient's bedside and in coordination of his care Problems: Consultation Date/Type/Reason Admit Date/Time May 24, 2017 at 16:00 Initial Consult Date 05/31/17 Type of Consultation: Oncology Reason for Consultation renal cell carcinoma Referring Provider: GIOVANNI KRUGER DO 24 HR Interval Summary Free Text/Dictation pt continues to heal from his surgery Exam/Review of Systems Vital Signs Vitals Vital Signs Date Time Temp Pulse Resp B/P Pulse Ox O2 Delivery O2 Flow Rate FiO2 06/06/17 20:03 97.7 93 19 111/66 91 06/06/17 14:25 21 06/06/17 07:56 Nasal Cannula Intake and Output 06/05/17 06/05/17 06/06/17 15:00 23:00 07:00 Intake Total 350 ml Output Total 700 ml Balance -350 ml Exam Constitutional: alert, oriented Psych: no complaints Eyes: nl conjunctiva ENMT: nl external ears & nose Neck: supple Respiratory: clear to auscultation, normal air movement Cardiovascular: other (healing chest wall incision from CABG), regular rate and rhythm Gastrointestinal: soft Musculoskeletal: nl extremities to inspection Results Result Diagram: 06/04/17 0804 06/04/17 0804 Results 24 hrs Laboratory Tests Test 06/05/17 20:37 06/06/17 08:12 06/06/17 12:01 06/06/17 17:15 Bedside Glucose 161 124 149 106 Medications Medications Current Medications Oxycodone/ Acetaminophen (Percocet (5/ 325)) 1 tab Q3H PRN PO PAIN LEVEL 1-5 Last administered on 06/02/17 04:46; Admin Dose 1 TAB; Start 05/27/17 at 14:30 Oxycodone/ Acetaminophen (Percocet (5/ 325)) 2 tab Q3H PRN PO PAIN LEVEL 6-10 Last administered on 06/06/17 18:41; Admin Dose 2 TAB; Start 05/27/17 at 14:30 Ondansetron HCl (Zofran Inj) 4 mg Q6H PRN IV NAUSEA AND/OR VOMITING; Start 05/27 at 14:30 Famotidine (Pepcid) 20 mg BID PO ; Start 05/27/17 at 21:00; Status Future Hold Acetaminophen (Tylenol Tab) 650 mg Q3H PRN PO ELEVATED TEMPERATURE; Start at 14:30 Carvedilol (Coreg) 3.125 mg BID PO Last administered on 06/06/17 08:33; Admin Dose 3.125 MG; Start 05/28/17 at 10:00 Aspirin (Aspirin) 325 mg DAILY PO Last administered on 06/06/17 08:32; Admin Dose 325 MG; Start 05/28/17 at 10:00 Atorvastatin Calcium (Lipitor) 40 mg HS PO Last administered on 06/05/17 20:42 ; Admin Dose 40 MG; Start 05/28/17 at 21:00 Insulin Glargine (Lantus) 10 unit DAILY@08 SC Last administered on 06/06/17 08 :42; Admin Dose 10 UNIT; Start 05/29/17 at 08:00 Neomycin/ Polymyxin/ Bacitracin (Neosporin Topical Oint) 1 applic TID PRN TOP as needed for hand wound ; Start 05/29/17 at 12:00 Enoxaparin Sodium (Lovenox) 40 mg DAILY SC Last administered on 06/06/17 08:43 ; Admin Dose 40 MG; Start 05/30/17 at 09:00 Miscellaneous Information 1 ea NOTE XX ; Start 05/31/17 at 18:30 Glucose (Glutose) 15 gm Q15M PRN PO DECREASED GLUCOSE; Start 05/31/17 at 18:30 Glucose (Glutose) 22.5 gm Q15M PRN PO DECREASED GLUCOSE; Start 05/31/17 at 18: 30 Dextrose (D50w Syringe) 25 ml Q15M PRN IV DECREASED GLUCOSE; Start 05/31/17 at 18:30 Dextrose (D50w Syringe) 50 ml Q15M PRN IV DECREASED GLUCOSE; Start 05/31/17 at 18:30 Glucagon (Glucagen) 1 mg Q15M PRN IM DECREASED GLUCOSE; Start 05/31/17 at 18:30 Glucose (Glutose) 15 gm Q15M PRN BUCCAL DECREASED GLUCOSE; Start 05/31/17 at 18 :30 Bacitracin/ Polymyxin B Sulfate (Polysporin Oint) 1 applic BID TOP Last administered on 06/06/17 08:33; Admin Dose 1 APPLIC; Start 06/02/17 at 11:00 Lisinopril (Zestril) 2.5 mg DAILY PO Last administered on 06/06/17 08:32; Admin Dose 2.5 MG; Start 06/02/17 at 16:30 Neomycin/ Polymyxin/ Bacitracin (Neosporin Topical Oint) 1 applic BID TOP Last administered on 06/06/17 13:30; Admin Dose 1 APPLIC; Start 06/06/17 at 13:30 BETSY FINN M.D. Jun 06, 2017 20:20
[2017-06-06] MEDS: ATORVASTATIN 40 MG TAB PO SCH (21:28)
[2017-06-06] MEDS: NEOMYC/POLYMYX/BACIT 30 GM OINT TOP PRN (21:37)
[2017-06-07] VITALS: BP 118/77; RESP 19
[2017-06-07 00:04] VITALS: PULSE 87
[2017-06-07] MEDS: OXYCODONE/ACETAMINOPHEN (5/325) TAB PO PRN (03:36)
[2017-06-07 03:57] VITALS: BP 109/69; RESP 18
[2017-06-07 04:04] VITALS: PULSE 82
[2017-06-07 07:31] VITALS: BP 111/70; RESP 18
[2017-06-07] MEDS: ALBUTEROL/IPRATROPIUM (NEB) 3 ML AMP HHN SCH (07:54)
[2017-06-07 08:00] VITALS: PULSE 92
[2017-06-07] MEDS: BACITRACIN/POLYMYXIN 28.35 GM OINT TOP SCH (08:20)
[2017-06-07] MEDS: NEOMYC/POLYMYX/BACIT 30 GM OINT TOP PRN (08:20)
[2017-06-07] MEDS: metFORMIN 500 MG TAB PO SCH (08:21)
[2017-06-07] MEDS: NEOMYC/POLYMYX/BACIT 30 GM OINT TOP SCH (08:21)
[2017-06-07] MEDS: LISINOPRIL 5 MG TAB PO SCH (08:21)
[2017-06-07] MEDS: INSULIN ASPART [NOVOLOG] 3 ML PEN SC SCH ×2 (08:24→08:25)
[2017-06-07] MEDS: ASPIRIN 325 MG TAB PO SCH (08:25)
[2017-06-07] MEDS: INSULIN GLARGINE [LANtus] 3 ML PEN SC SCH (08:25)
[2017-06-07] MEDS: ENOXAPARIN 40 MG/0.4 ML SYG SC SCH (08:26)
--- NOTE | 2017-06-07 19:15 | DS ---
DATE OF ADMISSION: 05/24/2017 DATE OF DISCHARGE: 06/07/2017 HOSPITAL COURSE: This is a 66-year-old male with a past medical history of tobacco abuse who presented to [facility] with shortness of breath. The patient that time was found to have decompensated heart failure with ejection fraction 25 to 30 percent. The patient was initially placed on BiPAP, diuresed, had and elevated troponin and was transferred to [facility] to undergo cardiac catheterization. At [facility], the patient underwent cardiac catheterization, which showed evidence of 3 vessel disease. He underwent an evaluation by Dr. Mooney, cardiothoracic surgeon and patient was underwent three-vessel CABG. Unfortunately intraoperatively, noted the patient had a malignancy in his lungs. A resection of the mass was performed, but initial pathology showed adenocarcinoma. Following the procedure and the surgery, the patient was initially in the intensive care unit before he was transferred to telemetry. On telemetry the patient has been clinically improving and stable. His CHF symptoms have improved as patient on repeat echo shows an ejection fraction 45 percent. The patient also noted to have episodes of hyponatremia which was felt to be secondary to a transient SIADH. Sodium levels; however, have been improving during the hospital course. The patient was also a newly diagnosed diabetic and has been stable on a course of metformin and Lantus. The patient was also seen by Dr. Zelda Simmons, oncologist for evaluation of the adenocarcinoma. Pathology however came back suggesting possible renal origin. A CT scan of the abdomen and pelvis was performed, which showed evidence of renal cyst, but no definitive renal mass. Per Dr. Simmons, she is going to have the pathology be reviewed by a 2nd pathologist for another opinion. The patient will also be scheduled for an outpatient PET scan, which to be able to determine if there is a renal origin on PET CT. The patient otherwise is stable and at this point, will be discharged home. He will follow up with myself in 1 week's time as well as Dr. Zelda Simmons, , ob gyn and to follow up with Dr. Mooney CT surgeon. Please note, during the hospital course a brain MRI was also performed, which showed no evidence of metastasis. A CT angio was also performed which showed no evidence of PE. Currently at the time of discharge, the patient is stable. No acute distress. FINAL DIAGNOSES: 1. Coronary artery disease status post coronary artery bypass graft. 2. Metastatic adenocarcinoma. Underlying etiology is unclear. Possible lung versus renal origin. Further workup including a secondary opinion with pathology as well as a PET scan will be performed. The patient also to be followed by Dr. Simmons in the outpatient setting. No chemotherapy can be formed at this time until 4-[address] surgery. 3. Hypoxemic respiratory, improved. 4. Congestive heart failure, clinically improving. 5. Chronic obstructive pulmonary disease. 6. Hyponatremia, likely due to syndrome of inappropriate antidiuretic hormone secretion. We will continue to monitor sodium levels. The patient has been placed on a free water restriction. 7. Diabetes. We will continue current insulin regimen with Lantus and metformin. The patient will have an outpatient endocrinology follow up. 8. Anemia. 9. Dyslipidemia. FINAL MEDICATIONS: Please note that the patient will be discharged on: 1. Lantus 10 units subcu daily,. 2. Metformin 500 mg p.o. b.i.d. 3. DuoNeb. 4. Aspirin 325 mg daily. 5. Lipitor 40 mg p.o. at bedtime. 6. Coreg 3.125 p.o. b.i.d. 7. Lisinopril 2.5 mg p.o. daily. 8. Percocet 5/325 q.6 hours p.r.n. The patient will also be given a glucometer, lancets and test strips. Please note, I spent over 40 minutes time preparing patient's discharge. The patient will be discharged with home health. Dictated By: Giuseppe Boyd DO /angi/dakota /Document#: [id number]
== END 2017-06-07 12:20 | disposition home or self-care (01) | DRG 233 ==
LOC: CCL 14:55 → ICU 16:00 → CCL 16:05 → MS4 05-25 16:00 → ICU 05-27 10:21 → TEL 05-31 18:15
PROVIDERS: ADMIT Internal Medicine Interventional Cardiology; ATTEND Internal Medicine Interventional Cardiology
PROC: 4A023N7 Measurement of Cardiac Sampling and Pressure, Left Heart, Percutaneous Approach (ICD-10-PCS; 2017-05-26)
PROC: B211YZZ Fluoroscopy of Multiple Coronary Arteries using Other Contrast (ICD-10-PCS; 2017-05-26)
PROC: 4A033BC Measurement of Arterial Pressure, Coronary, Percutaneous Approach (ICD-10-PCS; 2017-05-26)
PROC: 02100Z9 Bypass Coronary Artery, One Artery from Left Internal Mammary, Open Approach (ICD-10-PCS; 2017-05-27)
PROC: 06BP4ZZ Excision of Right Saphenous Vein, Percutaneous Endoscopic Approach (ICD-10-PCS; 2017-05-27)
PROC: 0BBG0ZX Excision of Left Upper Lung Lobe, Open Approach, Diagnostic (ICD-10-PCS; 2017-05-27)
PROC: 5A1221Z Performance of Cardiac Output, Continuous (ICD-10-PCS; 2017-05-27)
PROC: 021209W Bypass Coronary Artery, Three Arteries from Aorta with Autologous Venous Tissue, Open Approach (ICD-10-PCS; principal; 2017-05-27 08:00)
DX: I11.0 Hypertensive heart disease with heart failure (principal); J96.01 Acute respiratory failure with hypoxia; I21.4 Non-ST elevation (NSTEMI) myocardial infarction; E87.0 Hyperosmolality and hypernatremia; J44.9 Chronic obstructive pulmonary disease, unspecified; C79.9 Secondary malignant neoplasm of unspecified site; C80.1 Malignant (primary) neoplasm, unspecified; D62 Acute posthemorrhagic anemia; E22.2 Syndrome of inappropriate secretion of antidiuretic hormone; I50.23 Acute on chronic systolic (congestive) heart failure; R06.89 Other abnormalities of breathing; E66.9 Obesity, unspecified; Z68.28 Body mass index [BMI] 28.0-28.9, adult; E11.9 Type 2 diabetes mellitus without complications; Z87.891 Personal history of nicotine dependence; E78.5 Hyperlipidemia, unspecified; I25.5 Ischemic cardiomyopathy; I25.10 Atherosclerotic heart disease of native coronary artery without angina pectoris; R59.1 Generalized enlarged lymph nodes
CPT/HCPCS: 36592; 36600; 70553; 71010; 71275; 74176; 80048; 80053; 81001; 81003; 82043; 82607; 82668; 82728; 82746; 82803; 82962; 83010; 83036; 83540; 83615; 83735; 83935; 84100; 84155; 84300; 85014; 85025; 85610; 85730; 86850; 86900; 86901; 86920; 87081; 88307; 88331; 93005; 93306; 93312; 93325; 93458; 93880; 94002; 94640; 94660; 94664; 97116; 97162; 97530; J1940; C1887; J0153; J0171; J0690; J1170; J1265; J1644; J1650; J1815; J2001; J2150; J2250; J2260; J2270; J2370; J2440; J2720; J2916; J3010; J3370; J3475; J3480; J7030; J7040; J7070; P9045; P9047; Q9967

== ENCOUNTER 2017-06-21 15:03 | Inpatient (IN) | payer MEDICARE, OTHER ==
[~2017-06-21] VITALS: Ht 185.4 cm; Wt 102.6 kg
[~2017-06-21 15:03] MED LIST: ACET500C5 PO; ASPI325T32 PO; ATOR10TA65 PO; CARV3.12 PO; LEVEM SC
[2017-06-21 15:32] VITALS: PULSE 107
[2017-06-21 15:55] VITALS: Ht 185.4 cm; Wt 102.6 kg
[2017-06-21 16:00] VITALS: PULSE 105
[2017-06-21] MEDS ORDERED: INSU100I33 SC (16:44)
[2017-06-21] MEDS ORDERED: ALBU18HF INHALATION (16:44)
[2017-06-21] MEDS ORDERED: BUME1TAB18 PO (16:44)
[2017-06-21] MEDS ORDERED: IPRA3AMP INHALATION (16:44)
[2017-06-21] MEDS ORDERED: POTA10TA97 PO (16:44)
[2017-06-21] MEDS ORDERED: OXYC-438 PO (16:44)
[2017-06-21] MEDS ORDERED: METF500T PO (16:44)
[2017-06-21] MEDS ORDERED: LISI2.5T59 PO (16:44)
[2017-06-21] MEDS ORDERED: ATOR40TA68 PO (16:45)
[2017-06-21] MEDS ORDERED: HYPOGLYCEMIA PROTOCOL when Glucose is <70 mg/dL or symptomatic <90 mg/dL. XX ONE (17:30)
[2017-06-21] MEDS ORDERED: Discontinue current oral sulfonylureas (glyburide, glipizide, and/or glimepiride) prior to XX ONE (17:30)
[2017-06-21] MEDS ORDERED: ALBUTEROL/IPRATROPIUM (NEB) 3 ML AMP INH PRN (18:00)
[2017-06-21] MEDS ORDERED: OXYCODONE/ACETAMINOPHEN (5/325) TAB PO PRN (18:00)
[2017-06-21] MEDS: INSULIN ASPART [NOVOLOG] 3 ML PEN SC SCH ×2 (18:05→21:00)
[2017-06-21 18:17] LABS: ABNORMAL IP MESSAGE 1; BASOPHILS % 0.5 % (0.0-2.0); EOSINOPHILS # 0.2 10^3/ul (0.0-0.5); EOSINOPHILS % 1.8 % (0.0-7.0); HEMATOCRIT 30.3 % (42.0-52.0); HEMOGLOBIN 8.5 g/dl (14.0-18.0); LYMPHOCYTES # 1.6 10^3/ul (0.8-2.9); LYMPHOCYTES % 19.3 % (15.0-51.0); MEAN CORPUSCULAR HEMOGLOBIN 23.8 pg (29.0-33.0); MEAN CORPUSCULAR HGB CONC 28.1 g/dl (32.0-37.0); MEAN CORPUSCULAR VOLUME 84.9 fl (82.0-101.0); MEAN PLATELET VOLUME 9.4 fl (7.4-10.4); MONOCYTE # 1.3 10^3/ul (0.3-0.9); MONOCYTES % 15.4 % (0.0-11.0); NEUTROPHIL # 5.2 10^3/ul (1.6-7.5); NEUTROPHILS % 62.2 % (39.0-77.0); PLATELET COUNT 395 10^3/UL (140-415); POSITIVE DIFF @See below; RED BLOOD COUNT 3.57 10^6/ul (4.70-6.10); RED CELL DISTRIBUTION WIDTH 16.3 % (11.5-14.5); WHITE BLOOD COUNT 8.3 10^3/ul (4.8-10.8)
[2017-06-21] MEDS ORDERED: GLUCOSE GEL 15 GRAM TUBE PO PRN ×2 (18:30)
[2017-06-21] MEDS ORDERED: GLUCOSE GEL 15 GRAM TUBE BUCCAL PRN (18:30)
[2017-06-21] MEDS ORDERED: GLUCAGON 1 MG INJ IM PRN (18:30)
[2017-06-21] MEDS ORDERED: DEXTROSE 50% 50 ML SYRINGE IV PRN ×2 (18:30)
[2017-06-21] MEDS: metFORMIN 500 MG TAB PO SCH (18:42)
[2017-06-21 18:43] LABS: ALBUMIN 3.1 g/dl (3.3-4.9); BILIRUBIN,INDIRECT 0.2 mg/dl (0-1.1); BILIRUBIN,TOTAL 0.2 mg/dl (0.2-1.3); CALCIUM 8.8 mg/dl (8.4-10.2); CREATININE 0.64 mg/dl (0.61-1.24); MAGNESIUM 1.9 mg/dl (1.7-2.5); PHOSPHORUS 3.6 mg/dl (2.5-4.9); POTASSIUM 4.1 mmol/L (3.5-5.1); TOTAL PROTEIN 6.7 g/dl (6.1-8.1)
[2017-06-21 18:44] LABS: ALBUMIN/GLOBULIN RATIO 0.86
[2017-06-21] MEDS ORDERED: OXYC-279 PO (18:44)
[2017-06-21] MEDS ORDERED: OXYCODONE/ACETAMINOPHEN (5/325) TAB PO ONE (19:30)
--- NOTE | 2017-06-21 19:55 | RADRPT ---
PROCEDURE: Portable chest x-ray. CLINICAL INDICATION: CHF. TECHNIQUE: Portable AP view of the chest. COMPARISON: 05/30/2017 FINDINGS: There is vascular congestion and minimal interstitial edema, not significantly changed. The patient is status post median sternotomy. The cardiac silhouette is enlarged. Small bilateral pleural effus ions are unchanged. There is no pneumothorax. IMPRESSION: 1. Vascular congestion and minimal interstitial edema, not significantly changed. 2. Enlarged cardiac silhouette. 3. Small bilateral pleural effusions, unchanged. 4. Median sternotomy. RPTAT: HTAR .Los Causey MD, MD Date Time Electronically viewed and signed by .Los Causey MD, MD on 06/21/2017 19:54 .R/
[2017-06-21 19:59] VITALS: BP 150/81; RESP 20
[2017-06-21 20:11] VITALS: PULSE 113
[2017-06-21] MEDS ORDERED: ALBUTEROL 18 GM INHALER INH SCH (21:00)
[2017-06-21] MEDS: BUMETANIDE 2 MG in DEXTROSE 5% 17 ML IVPB SCH (21:16)
[2017-06-21] MEDS: ATORVASTATIN 40 MG TAB PO SCH (21:17)
[2017-06-21 22:15] VITALS: PULSE 100
[2017-06-21 23:56] LABS: ADD UMIC NO; UR ASCORBIC ACID NEGATIVE (NEGATIVE); UR BILIRUBIN (Dip) NEGATIVE (NEGATIVE); UR BLOOD (Dip) NEGATIVE (NEGATIVE); UR CLARITY CLEAR (CLEAR); UR COLOR STRAW (YELLOW); UR GLUCOSE (Dip) NEGATIVE (NEGATIVE); UR KETONES (Dip) NEGATIVE (NEGATIVE); UR LEUKOCYTE ESTERASE (Dip) NEGATIVE Leu/ul (NEGATIVE); UR NITRITE (Dip) NEGATIVE (NEGATIVE); UR SPECIFIC GRAVITY (Dip) 1.004 (1.003-1.030); UR TOTAL PROTEIN (Dip) NEGATIVE (NEGATIVE); UR UROBILINOGEN (Dip) NEGATIVE (NEGATIVE)
[2017-06-22] VITALS (13 sets, daily range): BP systolic 109–141; BP diastolic 65–87; PULSE 91–116; RESP 17–20
[2017-06-22] MEDS: OXYCODONE/ACETAMINOPHEN (5/325) TAB PO PRN ×5 (00:49→21:27)
[2017-06-22] MEDS: ACCU-CHEK XX SCH ×2 (01:37)
[2017-06-22] MEDS: BUMETANIDE 2 MG in DEXTROSE 5% 17 ML IVPB SCH ×2 (06:02→18:04)
[2017-06-22] MEDS ORDERED: OXYCODONE/ACETAMINOPHEN (5/325) TAB PO PRN (07:00)
[2017-06-22 07:23] LABS: ABNORMAL IP MESSAGE 1; BASOPHILS % 0.5 % (0.0-2.0); EOSINOPHILS # 0.2 10^3/ul (0.0-0.5); EOSINOPHILS % 2.2 % (0.0-7.0); HEMATOCRIT 30.3 % (42.0-52.0); HEMOGLOBIN 8.5 g/dl (14.0-18.0); LYMPHOCYTES # 1.7 10^3/ul (0.8-2.9); MEAN CORPUSCULAR HEMOGLOBIN 24.4 pg (29.0-33.0); MEAN CORPUSCULAR HGB CONC 28.1 g/dl (32.0-37.0); MEAN CORPUSCULAR VOLUME 86.8 fl (82.0-101.0); MEAN PLATELET VOLUME 9.2 fl (7.4-10.4); MONOCYTE # 1.3 10^3/ul (0.3-0.9); MONOCYTES % 15.8 % (0.0-11.0); NEUTROPHIL # 4.9 10^3/ul (1.6-7.5); NEUTROPHILS % 59.1 % (39.0-77.0); PLATELET COUNT 407 10^3/UL (140-415); POSITIVE DIFF @See below; RED BLOOD COUNT 3.49 10^6/ul (4.70-6.10); RED CELL DISTRIBUTION WIDTH 16.1 % (11.5-14.5); WHITE BLOOD COUNT 8.3 10^3/ul (4.8-10.8)
[2017-06-22 08:00] LABS: CALCIUM 8.8 mg/dl (8.4-10.2); CREATININE 0.81 mg/dl (0.61-1.24); MAGNESIUM 1.9 mg/dl (1.7-2.5); PHOSPHORUS 3.8 mg/dl (2.5-4.9); POTASSIUM 4.3 mmol/L (3.5-5.1)
[2017-06-22] MEDS: ALBUTEROL 0.083% (NEB) 2.5 MG/3 ML AMP HHN SCH (08:27)
[2017-06-22] MEDS: metFORMIN 500 MG TAB PO SCH ×2 (08:40→18:04)
[2017-06-22] MEDS: INSULIN ASPART [NOVOLOG] 3 ML PEN SC SCH ×4 (09:36→20:40)
[2017-06-22] MEDS: POTASSIUM CHLORIDE (SR) 10 MEQ TAB PO SCH (09:57)
[2017-06-22] MEDS: ASPIRIN (EC) 325 MG TAB PO SCH (09:58)
[2017-06-22] MEDS: LISINOPRIL 5 MG TAB PO SCH (09:58)
--- NOTE | 2017-06-22 10:48 | HP ---
DATE OF ADMISSION: 06/21/2017 CHIEF COMPLAINT: Shortness of breath, CHF exacerbation. HISTORY OF PRESENT ILLNESS: A 66-year-old male with a past medical history of coronary artery disea se status post CABG, history of CHF, a recently diagnosed history of renal cell carcinoma stage IV, who presents to [facility] for worsening shortness of breath and lower extremity e arnie. The patient was seen in my clinic yesterday where the patient was noted to be tachypneic, yamilet rt of breath, with increased lower extremity edema and weight gain. The patient was on Bumex, but h ad no significant improvement. The decision was made to bring the patient into [facility] to undergo IV diuretic therapy. The patient also describes symptoms of PND, dyspnea on exe rtion. In terms of the patient's lower extremity edema, the patient had a recent 2D echo by electro plater, Av Ledezma, which had apparent ejection fraction of 45% and a collapsible IVC, which is suggestiv e of normal intravascular volume. However, the patient continues to have worsening lower extremity edema. There have been no reports of hemoptysis, hematemesis or hematochezia. Currently, at this time, the patient is stable, in no acute distress. The patient has ongoing pain control. No other events noted. PAST MEDICAL HISTORY: History of diabetes, CHF, coronary artery disease, renal cell carcinoma stage IV, lower extremity edema. PAST SURGICAL HISTORY: Status post CABG. FAMILY HISTORY: Noncontributory. SOCIAL HISTORY: Distant history of tobacco use. MEDICATIONS: The patient's medications have been reviewed. REVIEW OF SYSTEMS: A 14-point review of systems was conducted. Pertinent positives as stated in HP I, otherwise negative. PHYSICAL EXAMINATION: VITAL SIGNS: Blood pressure is 131/81, temperature 97.4, pulse 100, respirations 20. HEENT: Head is normocephalic. His pupils are reactive to light. NECK: Supple. CHEST: Shows healing sternotomy scar. LUNGS: Show diminished breath sounds at base. ABDOMEN: Soft, nontender to palpation. No rebound, guarding. EXTREMITIES: Show +4 edema. DERMATOLOGIC: No rashes. MUSCULOSKELETAL: No joint effusions. NEUROLOGIC: No focal deficits. LABORATORY DATA: Shows a white count 8.3, hemoglobin is 8.5, platelet count is 407. Sodium 133, BU N 12, creatinine 0.81. IMAGING STUDIES: Chest x-ray shows vascular congestion and minimal interstitial edema with large ca rdiac silhouette. ASSESSMENT AND PLAN: This is a 66-year-old male who presents with: 1. Volume overload with possible acute congestive heart failure exacerbation. The patient is clini archana volume overloaded with a +4 lower extremity edema. However, per 2D echo, the patient's IVC hoffmann d normal collapsibility, which is not consistent with a congestive heart failure exacerbation. The other possibilities including a possible DVT or lower extremity obstruction would be considered. Pl an at this point is to continue aggressive diuretic therapy. We will follow up with Cardiology for recommendations and monitor strict I's and O's. We will also consider a lower extremity venogram to rule out any possible deep venous thrombosis. 2. Acute respiratory failure. Etiology is likely multifactorial secondary to possible congestive h eart failure, history of chronic obstructive pulmonary disease. Will continue nebulizer therapy. W ill consider pulmonary evaluation. Otherwise, continue current treatment plan. 3. Coronary artery disease, status post coronary artery bypass graft. Continue medical management. 4. Renal cell carcinoma stage IV. Patient pending possible chemotherapy in 4 to 6 weeks, once clin ically stable. 5. Hyponatremia, likely multifactorial secondary to possible underlying malignancy causing transien t SIADH. possible congestive heart failure. Plan is to check urine electrolytes. We will monitor c losely. 6. Diabetes. Continue current insulin regimen. 7. Dyslipidemia. Continue statin therapy. 8. Gastrointestinal and deep venous thrombosis prophylaxis. Continue sequential leg squeezers and proton pump inhibitors and heparin. 9. Deb[address] physical therapy consult. 10. Chronic pain syndrome. Continue current pain regimen. Dictated By: GIOVANNI WINTER/GUERO Conf#: [id number] DID#: [id number]
--- NOTE | 2017-06-22 14:21 | CONS ---
Date/Time of Note Date/Time of Note DATE: 06/22/17 TIME: 14:11 Assessment/Plan Assessment/Plan Chief Complaint/Hosp Course Leg edema: Possibly just from CHF but unclear exact etiology as JVP is normal by exam and lungs are not very remarkable (though some edema by CXR). No DVT by outpt ultrasound but with RCC concern for obstruction higher up. May need CT venogram to evaluate for thrombus higher up in IVC. Dyspnea: Likely multifactorial as well including heart failure but also from lung mets Acute on chronic systolic heart failure: EF 45% most recently Pericardial thrombus: Post-op echos have shown a layer of thrombus in the anterior portion of the pericardium. Appears to be compressing the RV but IVC normal in size and collapse so unlikely to be causing a hemodynamic consequence. 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 DM HTN -agree with bumex 2mg IV BID -consider CT venogram -ASA, lipitor -coreg 3.125mg BID -lisinopril 2.5mg, uptitrate as tolerated Problems: Consultation Date/Type/Reason Admit Date/Time Jun 21, 2017 at 15:03 Date of Consultation: Jun 22, 2017 Type of Consultation: Cardiology Reason for Consultation CHF Referring Provider: BARBRA BOYD Hx of Present Illness 66 yo M well known to me from recent admission, with a h/o CAD s/p CABG (PORTER- LAD, SVG-RCA 05/20/2017), ischemic cardiomyopathy with chronic heart failure (EF 45%), newly diagnosed stage 4 RCC with mets to lungs, DM, HTN, who was admitted for management of heart failure. The pt was seen by myself and Dr. Boyd separately in the clinic yesterday for similar complaints. He has been having worsening leg edema (4+) with orthopnea. No chest pain. He feels slightly better after diuresis overnight. per HPI Past Medical History per HPI Past Surgical History Past Surgical Hx: no surgical history Social History Smoking Status: Former smoker Exam/Review of Systems Vital Signs Vitals Vital Signs Date Time Temp Pulse Resp B/P Pulse Ox O2 Delivery O2 Flow Rate FiO2 06/22/17 12:00 101 06/22/17 11:03 97.9 18 141/70 97 06/22/17 08:27 22 06/22/17 08:00 Nasal Cannula 4.0 Intake and Output 06/21/17 06/21/17 06/22/17 15:00 23:00 07:00 Intake Total 275 ml 350 ml Output Total 1200 ml Balance 275 ml -850 ml Exam Constitutional: alert, distress (mild respiratory ), oriented Psych: no complaints Head: atraumatic, normocephalic Neck: No jvd Respiratory: diminished breath sounds, No clear to auscultation (faint crackles ) Cardiovascular: edema (4+), regular rate and rhythm, No systolic murmur Gastrointestinal: non-tender, soft Musculoskeletal: No nl extremities to inspection Neurological: nl mental status, nl speech Results Result Diagram: 06/22/1712 06/22/17 0612 Results 24 hrs Laboratory Tests Test 06/21/17 17:43 06/21/17 17:55 06/21/17 20:53 06/21/17 23:00 Bedside Glucose 97 131 White Blood Count 8.3 # Red Blood Count 3.57 L Hemoglobin 8.5 L Hematocrit 30.3 L Mean Corpuscular Volume 84.9 Mean Corpuscular Hemoglobin 23.8 L Mean Corpuscular Hemoglobin Concent 28.1 L Red Cell Distribution Width 16.3 H Platelet Count 395 Mean Platelet Volume 9.4 Neutrophils % 62.2 Lymphocytes % 19.3 Monocytes % 15.4 H Eosinophils % 1.8 Basophils % 0.5 Nucleated Red Blood Cells % 0.0 Neutrophils # 5.2 Lymphocytes # 1.6 Monocytes # 1.3 H Eosinophils # 0.2 Basophils # 0.0 Nucleated Red Blood Cells # 0.0 Sodium Level 132 L Potassium Level 4.1 Chloride Level 93 L Carbon Dioxide Level 35 H Anion Gap 8 Blood Urea Nitrogen 8 Creatinine 0.64 Glucose Level 95 Calcium Level 8.8 Phosphorus Level 3.6 Magnesium Level 1.9 Total Bilirubin 0.2 Direct Bilirubin 0.00 Indirect Bilirubin 0.2 Aspartate Amino Transf (AST/SGOT) 30 Alanine Aminotransferase (ALT/SGPT) 28 Alkaline Phosphatase 214 H B-Type Natriuretic Peptide 4300 H Total Protein 6.7 Albumin 3.1 L Globulin 3.60 H Albumin/Globulin Ratio 0.86 Urine Color STRAW Urine Clarity CLEAR Urine pH 8.0 Urine Specific Dudley 1.004 Urine Ketones NEGATIVE Urine Nitrite NEGATIVE Urine Bilirubin NEGATIVE Urine Urobilinogen NEGATIVE Urine Leukocyte Esterase NEGATIVE Urine Hemoglobin NEGATIVE Urine Glucose NEGATIVE Urine Total Protein NEGATIVE Test 06/22/17 06:12 06/22/17 08:41 06/22/17 12:22 White Blood Count 8.3 Red Blood Count 3.49 L Hemoglobin 8.5 L Hematocrit 30.3 L Mean Corpuscular Volume 86.8 Mean Corpuscular Hemoglobin 24.4 L Mean Corpuscular Hemoglobin Concent 28.1 L Red Cell Distribution Width 16.1 H Platelet Count 407 Mean Platelet Volume 9.2 Neutrophils % 59.1 Lymphocytes % 21.0 Monocytes % 15.8 H Eosinophils % 2.2 Basophils % 0.5 Nucleated Red Blood Cells % 0.0 Neutrophils # 4.9 Lymphocytes # 1.7 Monocytes # 1.3 H Eosinophils # 0.2 Basophils # 0.0 Nucleated Red Blood Cells # 0.0 Sodium Level 133 L Potassium Level 4.3 Chloride Level 93 L Carbon Dioxide Level 33 H Anion Gap 11 Blood Urea Nitrogen 12 Creatinine 0.81 Glucose Level 141 # Calcium Level 8.8 Phosphorus Level 3.8 Magnesium Level 1.9 Bedside Glucose 149 158 Medications Medications Current Medications Diagnostic Test (Pha) (Accu-Chek) 1 ea 02 XX ; Start 06/22/17 at 02:00 Diagnostic Test (Pha) (Accu-Chek) 1 ea 02 XX ; Start 06/22/17 at 02:00 Aspirin (Ecotrin) 325 mg DAILY PO Last administered on 06/22/17 09:58; Admin Dose 325 MG; Start 06/22/17 at 09:00 Atorvastatin Calcium (Lipitor) 40 mg QHS PO Last administered on 06/21/17 21: 17; Admin Dose 40 MG; Start 06/21/17 at 21:00 Carvedilol (Coreg) 3.125 mg BID PO Last administered on 06/22/17 09:57; Admin Dose 3.125 MG; Start 06/21/17 at 21:00 Lisinopril (Zestril) 2.5 mg DAILY PO Last administered on 06/22/17 09:58; Admin Dose 2.5 MG; Start 06/22/17 at 09:00 Potassium Chloride (Klor-Con 10) 10 meq DAILY PO Last administered on 09:57; Admin Dose 10 MEQ; Start 06/22/17 at 09:00 Miscellaneous Information 1 ea NOTE XX ; Start 06/21/17 at 18:30 Glucose (Glutose) 15 gm Q15M PRN PO DECREASED GLUCOSE; Start 06/21/17 at 18:30 Glucose (Glutose) 22.5 gm Q15M PRN PO DECREASED GLUCOSE; Start 06/21/17 at 18: 30 Dextrose (D50w Syringe) 25 ml Q15M PRN IV DECREASED GLUCOSE; Start 06/21/17 at 18:30 Dextrose (D50w Syringe) 50 ml Q15M PRN IV DECREASED GLUCOSE; Start 06/21/17 at 18:30 Glucagon (Glucagen) 1 mg Q15M PRN IM DECREASED GLUCOSE; Start 06/21/17 at 18:30 Glucose (Glutose) 15 gm Q15M PRN BUCCAL DECREASED GLUCOSE; Start 06/21/17 at 18 :30 Oxycodone/ Acetaminophen (Percocet (5/ 325)) 1 tab Q4H PRN PO PAIN; Start 06/22 at 07:00 Oxycodone/ Acetaminophen (Percocet (5/ 325)) 2 tab Q4H PRN PO PAIN LEVEL 7-10 Last administered on 06/22/17 10:29; Admin Dose 2 TAB; Start 06/22/17 at 07:00 Enoxaparin Sodium (Lovenox) 40 mg DAILY SC ; Start 06/23/17 at 09:00 TAMMI MORENO Jun 22, 2017 14:21
--- NOTE | 2017-06-22 16:38 | RADRPT ---
PROCEDURE: US bilateral lower extremity veins. CLINICAL INDICATION: Shortness of breath. TECHNIQUE: Multiple longitudinal and transverse images of the bilateral lower extremity veins were obtained with yoon scale and color Doppler imaging. The common femoral vein, femoral vein, and popl iteal vein were evaluated. 2D grayscale measurements with compression sonography, color Doppler, and pulsed Doppler with augmentation. COMPARISON: No prior studies are available for comparison. FINDINGS: The bilateral common femoral, femoral and popliteal veins are normally compressible throughout. Col or flow demonstrates normal filling of the vessels. Normal waveforms are visualized and there is no rmal response to augmentation. IMPRESSION: 1. No evidence of deep vein thrombosis involving either lower extremity. RPTAT: QQ .Russell Guzman MD, MD Date Time Electronically viewed and signed by .Russell Guzman MD, MD on 06/22/2017 16:38 .R/
[2017-06-22] MEDS: ATORVASTATIN 40 MG TAB PO SCH (20:20)
[2017-06-22] MEDS: ALBUTEROL 0.083% (NEB) 2.5 MG/3 ML AMP HHN PRN (20:28)
[2017-06-23] VITALS (12 sets, daily range): BP systolic 114–135; BP diastolic 67–78; PULSE 96–108; RESP 18–22
[2017-06-23] MEDS: ALBUTEROL 0.083% (NEB) 2.5 MG/3 ML AMP HHN PRN (01:53)
[2017-06-23] MEDS: ACCU-CHEK XX SCH ×2 (02:00→02:24)
[2017-06-23] MEDS: OXYCODONE/ACETAMINOPHEN (5/325) TAB PO PRN ×5 (02:16→21:19)
[2017-06-23] MEDS: BUMETANIDE 2 MG in DEXTROSE 5% 17 ML IVPB SCH ×2 (06:37→18:19)
--- NOTE | 2017-06-23 07:56 | CONS ---
Date/Time of Note Date/Time of Note DATE: 06/23/17 TIME: 07:54 Assessment/Plan Assessment/Plan Chief Complaint/Hosp Course Leg edema: Possibly just from CHF but unclear exact etiology as JVP is normal by exam and lungs are not very remarkable (though some edema by CXR). No DVT by outpt ultrasound but with RCC concern for obstruction higher up. May need CT/ MRI venogram to evaluate for thrombus higher up in IVC. Dyspnea: Likely multifactorial as well including heart failure but also from lung mets Acute on chronic systolic heart failure: EF 45% most recently Pericardial thrombus: Post-op echos have shown a layer of thrombus in the anterior portion of the pericardium. Appears to be compressing the RV but IVC normal in size and collapse so unlikely to be causing a hemodynamic consequence. 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 Urinating in toilet at times so I/O inaccurate Exam/Review of Systems Vital Signs Vitals Vital Signs Date Time Temp Pulse Resp B/P Pulse Ox O2 Delivery O2 Flow Rate FiO2 06/23/17 07:43 97.2 98 20 135/78 95 06/23/17 01:56 21 06/22/17 08:00 Nasal Cannula 4.0 Intake and Output 06/22/17 06/22/17 06/23/17 15:00 23:00 07:00 Intake Total 1300 ml 385 ml Output Total 1025 ml Balance 1300 ml -640 ml Exam Constitutional: alert, oriented, No distress Neck: jvd (7-8cm) Respiratory: clear to auscultation, No crackles/rales Cardiovascular: edema (3+), regular rate and rhythm Gastrointestinal: non-tender, soft Neurological: nl mental status, nl speech Skin: No rash or lesions Results Result Diagram: 06/22/17 0612 06/22/17 0612 Results 24 hrs Laboratory Tests Test 06/22/17 08:41 06/22/17 12:22 06/22/17 17:58 06/22/17 20:25 Bedside Glucose 149 158 146 214 Test 06/23/17 02:22 Bedside Glucose 124 Medications Medications Current Medications Diagnostic Test (Pha) (Accu-Chek) 1 ea 02 XX Last administered on 06/23/17 02: 24; Admin Dose 1 EA; Start 06/22/17 at 02:00 Diagnostic Test (Pha) (Accu-Chek) 1 ea 02 XX ; Start 06/22/17 at 02:00 Aspirin (Ecotrin) 325 mg DAILY PO Last administered on 06/22/17 09:58; Admin Dose 325 MG; Start 06/22/17 at 09:00 Atorvastatin Calcium (Lipitor) 40 mg QHS PO Last administered on 06/22/17 20: 20; Admin Dose 40 MG; Start 06/21/17 at 21:00 Carvedilol (Coreg) 3.125 mg BID PO Last administered on 06/22/17 20:21; Admin Dose 3.125 MG; Start 06/21/17 at 21:00 Lisinopril (Zestril) 2.5 mg DAILY PO Last administered on 06/22/17 09:58; Admin Dose 2.5 MG; Start 06/22/17 at 09:00 Potassium Chloride (Klor-Con 10) 10 meq DAILY PO Last administered on 09:57; Admin Dose 10 MEQ; Start 06/22/17 at 09:00 Miscellaneous Information 1 ea NOTE XX ; Start 06/21/17 at 18:30 Glucose (Glutose) 15 gm Q15M PRN PO DECREASED GLUCOSE; Start 06/21/17 at 18:30 Glucose (Glutose) 22.5 gm Q15M PRN PO DECREASED GLUCOSE; Start 06/21/17 at 18: 30 Dextrose (D50w Syringe) 25 ml Q15M PRN IV DECREASED GLUCOSE; Start 06/21/17 at 18:30 Dextrose (D50w Syringe) 50 ml Q15M PRN IV DECREASED GLUCOSE; Start 06/21/17 at 18:30 Glucagon (Glucagen) 1 mg Q15M PRN IM DECREASED GLUCOSE; Start 06/21/17 at 18:30 Glucose (Glutose) 15 gm Q15M PRN BUCCAL DECREASED GLUCOSE; Start 06/21/17 at 18 :30 Oxycodone/ Acetaminophen (Percocet (5/ 325)) 1 tab Q4H PRN PO PAIN; Start 06/22 at 07:00 Oxycodone/ Acetaminophen (Percocet (5/ 325)) 2 tab Q4H PRN PO PAIN LEVEL 7-10 Last administered on 06/23/17 06:53; Admin Dose 2 TAB; Start 06/22/17 at 07:00 Enoxaparin Sodium (Lovenox) 40 mg DAILY SC ; Start 06/23/17 at 09:00 TAMMI MORENO Jun 23, 2017 07:56
[2017-06-23] MEDS: metFORMIN 500 MG TAB PO SCH ×2 (08:09→18:19)
[2017-06-23] MEDS: INSULIN ASPART [NOVOLOG] 3 ML PEN SC SCH ×4 (08:18→21:00)
[2017-06-23 09:03] LABS: ABNORMAL IP MESSAGE 1; BASOPHILS % 0.4 % (0.0-2.0); EOSINOPHILS # 0.2 10^3/ul (0.0-0.5); HEMATOCRIT 30.1 % (42.0-52.0); HEMOGLOBIN 8.4 g/dl (14.0-18.0); LYMPHOCYTES # 1.2 10^3/ul (0.8-2.9); MEAN CORPUSCULAR HEMOGLOBIN 23.9 pg (29.0-33.0); MEAN CORPUSCULAR HGB CONC 27.9 g/dl (32.0-37.0); MEAN CORPUSCULAR VOLUME 85.5 fl (82.0-101.0); MEAN PLATELET VOLUME 9.1 fl (7.4-10.4); MONOCYTE # 1.2 10^3/ul (0.3-0.9); MONOCYTES % 14.4 % (0.0-11.0); NEUTROPHIL # 5.4 10^3/ul (1.6-7.5); NEUTROPHILS % 66.6 % (39.0-77.0); PLATELET COUNT 380 10^3/UL (140-415); POSITIVE DIFF @See below; RED BLOOD COUNT 3.52 10^6/ul (4.70-6.10); RED CELL DISTRIBUTION WIDTH 16.1 % (11.5-14.5); WHITE BLOOD COUNT 8.1 10^3/ul (4.8-10.8)
[2017-06-23 09:32] LABS: CALCIUM 9.2 mg/dl (8.4-10.2); CREATININE 0.74 mg/dl (0.61-1.24); MAGNESIUM 1.8 mg/dl (1.7-2.5); PHOSPHORUS 4.1 mg/dl (2.5-4.9); POTASSIUM 4.5 mmol/L (3.5-5.1)
[2017-06-23] MEDS: LISINOPRIL 5 MG TAB PO SCH (09:53)
[2017-06-23] MEDS: ASPIRIN (EC) 325 MG TAB PO SCH (09:53)
[2017-06-23] MEDS: POTASSIUM CHLORIDE (SR) 10 MEQ TAB PO SCH (09:54)
[2017-06-23] MEDS: ALBUTEROL 0.083% (NEB) 2.5 MG/3 ML AMP HHN SCH ×2 (09:59→19:25)
[2017-06-23] MEDS ORDERED: METOLAZONE 5 MG TAB PO ONE (10:00)
[2017-06-23] MEDS: ENOXAPARIN 40 MG/0.4 ML SYG SC SCH (10:39)
--- NOTE | 2017-06-23 13:39 | PN ---
DATE: 06/23/2017 SUBJECTIVE: The patient states he is clinically feeling better, less short of breath; however, the patient still has dyspnea on exertion and PND. No other events noted. OBJECTIVE: VITAL SIGNS: Blood pressure 135/78, respirations 20, pulse 98, temperature 97.2. I's and O's: Not adequately recorded as the patient had multiple voids in the toilet. HEENT: Head is normocephalic. Pupils are reactive to light. NECK: Supple. HEART: Regular rate. LUNGS: Show diminished breath sounds at base. ABDOMEN: Soft, nontender to palpation. No rebound or guarding. EXTREMITIES: Negative for clubbing, cyanosis. Positive edema, +4 lower extremity. DERMATOLOGIC: No rashes. MUSCULOSKELETAL: No joint effusions. NEUROLOGIC: No change in exam. MEDICATIONS: The patient's medications have been reviewed. LABORATORY DATA: From 06/23/2017, currently pending. IMAGING STUDIES: Lower extremity Doppler was negative for DVT. ASSESSMENT AND PLAN: 1. Volume overload, lower extremity edema. Etiology may be multifactorial. The patient appears to have appropriate intravascular volume as he has no significant JVP, and recent 2D echo showed appro priate collapse of IVC, consistent with normal intravascular pressures and/or euvolemia. The possib ility of excluding DVT is a consideration. A lower extremity Doppler ultrasound was negative for DV T. I will discuss the case with radiology to consider an MR or CT venogram to rule out a possible D VT, IVC. Would otherwise continue current treatment plan with diuretic, Bumex. Will add metolazone to augment diuresis. Case was discussed with pathology tech. 2. Congestive heart failure exacerbation. As stated above, we will continue workup. Continue diur etic therapy. We will add metolazone. 3. Acute respiratory failure, etiology is multifactorial secondary to congestive heart failure, pos sible metastatic renal cell carcinoma and chronic obstructive pulmonary disease. Will continue curr ent medical management. Patient was ruled out for PE previously. Will consider a pulmonary evaluat ion. 4. Coronary artery disease, status post coronary artery bypass graft. Continue medical management. 5. Renal cell carcinoma stage IV. The patient chemotherapy 4 to 6 weeks. Will follow up francis Simmons. 6. Hyponatremia, possibly due to underlying SIADH. Continue to monitor. Will follow up electrolyt es. Limit free water intake. 7. Diabetes. Continue current insulin regimen. 8. Dyslipidemia. Continue statin therapy. 9. Debility. Continue physical therapy. 10. Chronic pain syndrome. Continue current pain regimen. 11. Gastrointestinal and deep venous thrombosis prophylaxis. Continue proton pump inhibitor and Lo venox. Dictated By: GIOVANNI WINTER/GUERO Conf#: [id number] DID#: [id number]
[2017-06-23] MEDS: ATORVASTATIN 40 MG TAB PO SCH (21:18)
--- NOTE | 2017-06-23 22:33 | CONS ---
Date/Time of Note Date/Time of Note DATE: 06/23/17 TIME: 22:33 Assessment/Plan Assessment/Plan Chief Complaint/Hosp Course 66 yo with #Metastatic Adenocarcinoma of the Kidney -despite the abdominal CT that did not reveal a discrete kidney mass, this has now been confirmed with cancer type ID -CT Chest reveals multiple bilateral pulmonary nodules, extensive mediastinal and hilar lymphadenopathy, small bilateral pleural effusions with right larger than left, as well as a probably liver lesion -BRAIN MRI negative for disease -once patient is stable from a cardiofascular standpoint we would begin first line therapy with Sutent , Tyrosine Kinase inhibitor. Sutent is known to cause cardiovascular compromise and LE edema. therefore if we are not able to optimize him from a cardiology standpoint I may have to start with immunotherapy which is approved 2nd line for RCC -spoke with Dr. Mooney and will plan to start chemotherapy 4- 6 post op to give patient time to heal from the surgery #CAD s/p 3 vessel CABG -continue management per cardiothoracic surgery -continue ASA, lipitor and coreg #CHF exacerbation -diuresis per cardiology and nephrology Problems: Consultation Date/Type/Reason Admit Date/Time Jun 21, 2017 at 15:03 Date of Consultation: Jun 23, 2017 Type of Consultation: Oncology Reason for Consultation renal cell ca Referring Provider: GIOVANNI KRUGER DO Hx of Present Illness 66-year-old white male who first presented to [facility] with acute on chronic shortness of breath and swollen lower extremities. Patient has been short of breath for the last several months but acutely worsened prior to presentation to [facility]. Pt was initially treated for decompensated CHF with an EF of 25-30%. Pt underwent coronary angiogram on which revealed 3 vessel CAD. On 05/27 pt underwent CABG x 4. Intraoperatively pt was noted to have metastatic disease with bilateral lung nodules and mediastinal lymphadenopathy. Pt thus underwent a left upper lobe wedge resection which frozen section revealed adenocarcinoma. We have been consulted for further workup. Pt currently c/o post surgical pain and fatigue. MRI brain was done which did not reveal evidence of metastatic disease Pt now re-presents to [facility] with LE edema and shortness of breath . HE is currently being treated for CHR exacerbation. Constitutional: other (weakness and fatigue) Eyes: no complaints ENT: no complaints Respiratory: shortness of breath Cardiovascular: chest pain, lightheadedness, orthopenea Gastrointestinal: no complaints Genitourinary: no complaints Musculoskeletal: back pain, bone/joint pain Skin: no complaints Psychological: no complaints Past Medical History 1. Recently diagnosed diabetes. 2. Recently diagnosed CHF, non-STEMI. Past Surgical History Past Surgical Hx: no surgical history Social History Smoking Status: Former smoker Exam/Review of Systems Vital Signs Vitals Vital Signs Date Time Temp Pulse Resp B/P Pulse Ox O2 Delivery O2 Flow Rate FiO2 06/23/17 20:03 107 06/23/17 19:50 98.0 19 116/70 96 06/23/17 19:26 21 06/22/17 08:00 Nasal Cannula 4.0 Intake and Output 06/22/17 06/22/17 06/23/17 15:00 23:00 07:00 Intake Total 1300 ml 385 ml Output Total 1025 ml Balance 1300 ml -640 ml Exam Constitutional: alert, oriented Psych: no complaints Head: atraumatic, normocephalic Eyes: nl conjunctiva ENMT: nl external ears & nose Neck: non-tender, supple Respiratory: diminished breath sounds Cardiovascular: other (sternotomy scar), regular rate and rhythm Gastrointestinal: soft Extremities: pitting pedal edema Results Result Diagram: 06/23/17 0626 06/23/17 0826 Results 24 hrs Laboratory Tests Test 06/23/17 02:22 06/23/17 06:26 06/23/17 08:09 06/23/17 08:26 Bedside Glucose 124 153 White Blood Count 8.1 Red Blood Count 3.52 L Hemoglobin 8.4 L Hematocrit 30.1 L Mean Corpuscular Volume 85.5 Mean Corpuscular Hemoglobin 23.9 L Mean Corpuscular Hemoglobin Concent 27.9 L Red Cell Distribution Width 16.1 H Platelet Count 380 Mean Platelet Volume 9.1 Neutrophils % 66.6 Lymphocytes % 15.0 Monocytes % 14.4 H Eosinophils % 2.0 Basophils % 0.4 Nucleated Red Blood Cells % 0.0 Neutrophils # 5.4 Lymphocytes # 1.2 Monocytes # 1.2 H Eosinophils # 0.2 Basophils # 0.0 Nucleated Red Blood Cells # 0.0 Sodium Level 130 L Potassium Level 4.5 Chloride Level 90 L Carbon Dioxide Level 36 H Anion Gap 9 Blood Urea Nitrogen 10 Creatinine 0.74 Glucose Level 152 Calcium Level 9.2 Phosphorus Level 4.1 Magnesium Level 1.8 Test 06/23/17 12:09 06/23/17 17:34 06/23/17 21:21 Bedside Glucose 170 140 160 Medications Medications Current Medications Diagnostic Test (Pha) (Accu-Chek) 1 ea 02 XX Last administered on 06/23/17 02: 24; Admin Dose 1 EA; Start 06/22/17 at 02:00 Diagnostic Test (Pha) (Accu-Chek) 1 ea XX ; Start 06/22/17 at 02:00 Aspirin (Ecotrin) 325 mg DAILY PO Last administered on 06/23/17 09:53; Admin Dose 325 MG; Start 06/22/17 at 09:00 Atorvastatin Calcium (Lipitor) 40 mg QHS PO Last administered on 06/23/17 21: 18; Admin Dose 40 MG; Start 06/21/17 at 21:00 Carvedilol (Coreg) 3.125 mg BID PO Last administered on 06/23/17 21:18; Admin Dose 3.125 MG; Start 06/21/17 at 21:00 Lisinopril (Zestril) 2.5 mg DAILY PO Last administered on 06/23/17 09:53; Admin Dose 2.5 MG; Start 06/22/17 at 09:00 Potassium Chloride (Klor-Con 10) 10 meq DAILY PO Last administered on 09:54; Admin Dose 10 MEQ; Start 06/22/17 at 09:00 Miscellaneous Information 1 ea NOTE XX ; Start 06/21/17 at 18:30 Glucose (Glutose) 15 gm Q15M PRN PO DECREASED GLUCOSE; Start 06/21/17 at 18:30 Glucose (Glutose) 22.5 gm Q15M PRN PO DECREASED GLUCOSE; Start 06/21/17 at 18: 30 Dextrose (D50w Syringe) 25 ml Q15M PRN IV DECREASED GLUCOSE; Start 06/21/17 at 18:30 Dextrose (D50w Syringe) 50 ml Q15M PRN IV DECREASED GLUCOSE; Start 06/21/17 at 18:30 Glucagon (Glucagen) 1 mg Q15M PRN IM DECREASED GLUCOSE; Start 06/21/17 at 18:30 Glucose (Glutose) 15 gm Q15M PRN BUCCAL DECREASED GLUCOSE; Start 06/21/17 at 18 :30 Oxycodone/ Acetaminophen (Percocet (5/ 325)) 1 tab Q4H PRN PO PAIN; Start 06/22 at 07:00 Oxycodone/ Acetaminophen (Percocet (5/ 325)) 2 tab Q4H PRN PO PAIN LEVEL 7-10 Last administered on 06/23/17 21:19; Admin Dose 2 TAB; Start 06/22/17 at 07:00 Enoxaparin Sodium (Lovenox) 40 mg DAILY SC Last administered on 06/23/17 10:39 ; Admin Dose 40 MG; Start 06/23/17 at 09:00 BETSY FINN M.D. Jun 23, 2017 22:33
[2017-06-24] VITALS (11 sets, daily range): BP systolic 111–135; BP diastolic 63–78; PULSE 91–109; RESP 18–20
[2017-06-24] MEDS: ACCU-CHEK XX SCH ×2 (02:00)
[2017-06-24] MEDS: OXYCODONE/ACETAMINOPHEN (5/325) TAB PO PRN ×5 (03:49→23:01)
[2017-06-24] MEDS: ALBUTEROL 0.083% (NEB) 2.5 MG/3 ML AMP HHN PRN (04:26)
[2017-06-24] MEDS: BUMETANIDE 2 MG in DEXTROSE 5% 17 ML IVPB SCH ×2 (06:23→18:01)
[2017-06-24] MEDS: metFORMIN 500 MG TAB PO SCH ×2 (08:10→17:56)
[2017-06-24] MEDS: POTASSIUM CHLORIDE (SR) 10 MEQ TAB PO SCH (08:11)
[2017-06-24] MEDS: LISINOPRIL 5 MG TAB PO SCH (08:12)
[2017-06-24] MEDS: ASPIRIN (EC) 325 MG TAB PO SCH (08:12)
[2017-06-24] MEDS: ENOXAPARIN 40 MG/0.4 ML SYG SC SCH (08:16)
[2017-06-24] MEDS: INSULIN ASPART [NOVOLOG] 3 ML PEN SC SCH ×4 (08:17→20:51)
[2017-06-24 08:27] LABS: ABNORMAL IP MESSAGE 1; BASOPHILS % 0.4 % (0.0-2.0); EOSINOPHILS # 0.1 10^3/ul (0.0-0.5); EOSINOPHILS % 1.3 % (0.0-7.0); HEMATOCRIT 31.2 % (42.0-52.0); HEMOGLOBIN 8.8 g/dl (14.0-18.0); LYMPHOCYTES # 1.6 10^3/ul (0.8-2.9); MEAN CORPUSCULAR HEMOGLOBIN 23.8 pg (29.0-33.0); MEAN CORPUSCULAR HGB CONC 28.2 g/dl (32.0-37.0); MEAN CORPUSCULAR VOLUME 84.6 fl (82.0-101.0); MEAN PLATELET VOLUME 9.4 fl (7.4-10.4); MONOCYTE # 1.2 10^3/ul (0.3-0.9); MONOCYTES % 14.1 % (0.0-11.0); NEUTROPHIL # 5.2 10^3/ul (1.6-7.5); NEUTROPHILS % 63.7 % (39.0-77.0); PLATELET COUNT 428 10^3/UL (140-415); POSITIVE DIFF @See below; RED BLOOD COUNT 3.69 10^6/ul (4.70-6.10); WHITE BLOOD COUNT 8.2 10^3/ul (4.8-10.8)
[2017-06-24 08:58] LABS: CALCIUM 9.7 mg/dl (8.4-10.2); CREATININE 0.78 mg/dl (0.61-1.24); MAGNESIUM 1.8 mg/dl (1.7-2.5); PHOSPHORUS 4.1 mg/dl (2.5-4.9); POTASSIUM 4.5 mmol/L (3.5-5.1)
[2017-06-24] MEDS ORDERED: METOLAZONE 2.5 MG TAB PO ONE (09:00)
[2017-06-24] MEDS: ALBUTEROL 0.083% (NEB) 2.5 MG/3 ML AMP HHN SCH ×2 (10:40→20:00)
--- NOTE | 2017-06-24 13:13 | CONS ---
Date/Time of Note Date/Time of Note DATE: 06/24/17 TIME: 13:11 Assessment/Plan Assessment/Plan Chief Complaint/Hosp Course Leg edema: Possibly just from CHF but unclear exact etiology as JVP is normal by exam and lungs are not very remarkable (though some edema by CXR). No DVT by outpt ultrasound but with RCC concern for obstruction higher up. May need CT/ MRI venogram to evaluate for thrombus higher up in IVC. Improving Dyspnea: Likely multifactorial as well including heart failure but also from lung mets Acute on chronic systolic heart failure: EF 45% most recently Pericardial thrombus: Post-op echos have shown a layer of thrombus in the anterior portion of the pericardium. Appears to be compressing the RV but IVC normal in size and collapse so unlikely to be causing a hemodynamic consequence. 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 DM HTN -continue bumex 2mg IV BID -consider CT/MR venogram -ASA, lipitor -coreg 3.125mg BID -lisinopril 2.5mg Problems: Consultation Date/Type/Reason Admit Date/Time Jun 21, 2017 at 15:03 Initial Consult Date 06/22/17 Type of Consultation: Cardiology Referring Provider: BARBRA KRUGER 24 HR Interval Summary Free Text/Dictation No o/n events. Diuresing well. No SOB/CP Exam/Review of Systems Vital Signs Vitals Vital Signs Date Time Temp Pulse Resp B/P Pulse Ox O2 Delivery O2 Flow Rate FiO2 06/24/17 12:17 91 06/24/17 11:20 98.0 19 111/63 96 06/24/17 04:26 21 06/22/17 08:00 Nasal Cannula 4.0 Intake and Output 06/23/17 06/23/17 06/24/17 15:00 23:00 07:00 Intake Total 1720 ml Output Total 3800 ml Balance -2080 ml Exam Constitutional: alert, oriented Psych: no complaints Head: atraumatic, normocephalic Neck: No jvd Respiratory: clear to auscultation, No crackles/rales Cardiovascular: edema (3+), regular rate and rhythm, No systolic murmur Gastrointestinal: non-tender, soft, No distended Neurological: nl mental status, nl speech Results Result Diagram: 06/24/17 0743 06/24/17 0743 Results 24 hrs Laboratory Tests Test 06/23/17 17:34 06/23/17 21:21 06/24/17 07:43 06/24/17 08:08 Bedside Glucose 140 160 161 White Blood Count 8.2 Red Blood Count 3.69 L Hemoglobin 8.8 L Hematocrit 31.2 L Mean Corpuscular Volume 84.6 Mean Corpuscular Hemoglobin 23.8 L Mean Corpuscular Hemoglobin Concent 28.2 L Red Cell Distribution Width 16.0 H Platelet Count 428 H Mean Platelet Volume 9.4 Neutrophils % 63.7 Lymphocytes % 19.0 Monocytes % 14.1 H Eosinophils % 1.3 Basophils % 0.4 Nucleated Red Blood Cells % 0.0 Neutrophils # 5.2 Lymphocytes # 1.6 Monocytes # 1.2 H Eosinophils # 0.1 Basophils # 0.0 Nucleated Red Blood Cells # 0.0 Sodium Level 130 L Potassium Level 4.5 Chloride Level 87 L Carbon Dioxide Level 36 H Anion Gap 12 Blood Urea Nitrogen 12 Creatinine 0.78 Glucose Level 168 Calcium Level 9.7 Phosphorus Level 4.1 Magnesium Level 1.8 Test 06/24/17 12:01 Bedside Glucose 178 Medications Medications Current Medications Diagnostic Test (Pha) (Accu-Chek) 1 ea 02 XX Last administered on 06/23/17 02: 24; Admin Dose 1 EA; Start 06/22/17 at 02:00 Diagnostic Test (Pha) (Accu-Chek) ea XX ; Start 06/22/17 at 02:00 Aspirin (Ecotrin) 325 mg DAILY PO Last administered on 06/24/17 08:12; Admin Dose 325 MG; Start 06/22/17 at 09:00 Atorvastatin Calcium (Lipitor) 40 mg QHS PO Last administered on 06/23/17 21: 18; Admin Dose 40 MG; Start 06/21/17 at 21:00 Carvedilol (Coreg) 3.125 mg BID PO Last administered on 06/24/17 08:12; Admin Dose 3.125 MG; Start 06/21/17 at 21:00 Lisinopril (Zestril) 2.5 mg DAILY PO Last administered on 06/24/17 08:12; Admin Dose 2.5 MG; Start 06/22/17 at 09:00 Potassium Chloride (Klor-Con 10) 10 meq DAILY PO Last administered on 08:11; Admin Dose 10 MEQ; Start 06/22/17 at 09:00 Miscellaneous Information 1 ea NOTE XX ; Start 06/21/17 at 18:30 Glucose (Glutose) 15 gm Q15M PRN PO DECREASED GLUCOSE; Start 06/21/17 at 18:30 Glucose (Glutose) 22.5 gm Q15M PRN PO DECREASED GLUCOSE; Start 06/21/17 at 18: 30 Dextrose (D50w Syringe) 25 ml Q15M PRN IV DECREASED GLUCOSE; Start 06/21/17 at 18:30 Dextrose (D50w Syringe) 50 ml Q15M PRN IV DECREASED GLUCOSE; Start 06/21/17 at 18:30 Glucagon (Glucagen) 1 mg Q15M PRN IM DECREASED GLUCOSE; Start 06/21/17 at 18:30 Glucose (Glutose) 15 gm Q15M PRN BUCCAL DECREASED GLUCOSE; Start 06/21/17 at 18 :30 Oxycodone/ Acetaminophen (Percocet (5/ 325)) 1 tab Q4H PRN PO PAIN; Start 06/22 at 07:00 Oxycodone/ Acetaminophen (Percocet (5/ 325)) 2 tab Q4H PRN PO PAIN LEVEL 7-10 Last administered on 06/24/17 08:06; Admin Dose 2 TAB; Start 06/22/17 at 07:00 Enoxaparin Sodium (Lovenox) 40 mg DAILY SC Last administered on 06/24/17 08:16 ; Admin Dose 40 MG; Start 06/23/17 at 09:00 TAMMI MORENO Jun 24, 2017 13:13
--- NOTE | 2017-06-24 14:30 | PN ---
DATE: 06/24/2017 SUBJECTIVE: The patient is stable. No events overnight. The patient had excellent urinary output over 3 liters. No other events noted. OBJECTIVE: VITAL SIGNS: Blood pressure is 142/72, respirations 20, pulse 97, temperature 98.2. HEENT: Head is normocephalic. NECK: Supple. HEART: Regular rate. LUNGS: Show diminished breath sounds at base. ABDOMEN: Soft, nontender to palpation without rebound or guarding. EXTREMITIES: Negative for clubbing, cyanosis. Positive edema +3. DERMATOLOGIC: No rashes. MUSCULOSKELETAL: No joint effusions. NEUROLOGIC: No change in exam. MEDICATIONS: The patient's medications are reviewed. LABORATORY DATA: Currently pending. ASSESSMENT AND PLAN: 1. Volume overload, lower extremity edema. Etiology may be multifactorial secondary to congestive heart failure. However, we will rule out the possibility of deep venous thrombosis in the inferior vena cava. A Doppler lower extremity ultrasound was negative for deep venous thrombosis. The patie nt is pending MRI venogram to evaluate inferior vena cava. Would continue current medical management . Continue Bumex. Continue metolazone. Follow up electrolytes and renal function closely. Follow up with cardiology. 2. Congestive heart failure exacerbation. Continue workup as stated above. Continue diuretic jennifer men. 3. Acute respiratory failure. Etiology is multifactorial, history of congestive heart failure with possible metastatic renal cell carcinoma, chronic obstructive pulmonary disease. Continue current treatment plan. The patient was ruled out for PE previously. 4. Coronary artery disease, status post coronary artery bypass graft. Continue medical management. 5. Renal cell carcinoma stage IV. The patient will likely have chemotherapy in 4 to 6 weeks once c linically stable. We will follow up with ____. 6. 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 Continue to monitor . 7. Diabetes. Continue Accu-Cheks, insulin sliding scale. 8. Dyslipidemia. Continue statin therapy. 9. Debility. Continue physical therapy. 10. Chronic pain syndrome. 11. Gastrointestinal and deep venous thrombosis prophylaxis. Continue proton pump inhibitor and Lo venox. DISPOSITION: Anticipate discharge home in the next 2 to 3 days as patient clinically improves. Dictated By: GIOVANNI WINTER/GUERO Conf#: [id number] DID#: [id number]
[2017-06-24] MEDS: INSULIN GLARGINE [LANtus] 3 ML PEN SC SCH (20:50)
[2017-06-24] MEDS: ATORVASTATIN 40 MG TAB PO SCH (21:16)
[2017-06-24] MEDS: FAMOTIDINE 20 MG TAB PO SCH (21:18)
[2017-06-25] VITALS (11 sets, daily range): BP systolic 101–140; BP diastolic 63–82; PULSE 94–104; RESP 18–20
[2017-06-25] MEDS: ACCU-CHEK XX SCH ×2 (02:54→02:55)
[2017-06-25] MEDS: OXYCODONE/ACETAMINOPHEN (5/325) TAB PO PRN ×4 (03:04→20:28)
[2017-06-25] MEDS: PANTOPRAZOLE (EC) 40 MG TAB PO SCH (06:32)
[2017-06-25] MEDS: BUMETANIDE 2 MG in DEXTROSE 5% 17 ML IVPB SCH ×2 (06:32→17:54)
[2017-06-25 07:05] LABS: ABNORMAL IP MESSAGE 1; BASOPHILS % 0.4 % (0.0-2.0); EOSINOPHILS # 0.2 10^3/ul (0.0-0.5); EOSINOPHILS % 1.8 % (0.0-7.0); HEMATOCRIT 29.6 % (42.0-52.0); HEMOGLOBIN 8.4 g/dl (14.0-18.0); LYMPHOCYTES # 1.8 10^3/ul (0.8-2.9); MEAN CORPUSCULAR HEMOGLOBIN 24.1 pg (29.0-33.0); MEAN CORPUSCULAR HGB CONC 28.4 g/dl (32.0-37.0); MEAN CORPUSCULAR VOLUME 85.1 fl (82.0-101.0); MEAN PLATELET VOLUME 9.3 fl (7.4-10.4); MONOCYTE # 1.6 10^3/ul (0.3-0.9); MONOCYTES % 15.7 % (0.0-11.0); NEUTROPHIL # 6.3 10^3/ul (1.6-7.5); NEUTROPHILS % 62.6 % (39.0-77.0); PLATELET COUNT 436 10^3/UL (140-415); POSITIVE DIFF @See below; RED BLOOD COUNT 3.48 10^6/ul (4.70-6.10); RED CELL DISTRIBUTION WIDTH 15.9 % (11.5-14.5); WHITE BLOOD COUNT 10.1 10^3/ul (4.8-10.8)
[2017-06-25 07:12] LABS: CREATININE 0.82 mg/dl (0.61-1.24); MAGNESIUM 1.8 mg/dl (1.7-2.5); PHOSPHORUS 3.8 mg/dl (2.5-4.9)
[2017-06-25] MEDS: ALBUTEROL 0.083% (NEB) 2.5 MG/3 ML AMP HHN SCH ×2 (08:47→19:42)
[2017-06-25] MEDS: INSULIN ASPART [NOVOLOG] 3 ML PEN SC SCH ×4 (08:57→21:21)
[2017-06-25] MEDS: metFORMIN 500 MG TAB PO SCH ×2 (09:04→17:54)
[2017-06-25] MEDS: POTASSIUM CHLORIDE (SR) 10 MEQ TAB PO SCH (09:05)
[2017-06-25] MEDS: ASPIRIN (EC) 325 MG TAB PO SCH (09:05)
[2017-06-25] MEDS: FAMOTIDINE 20 MG TAB PO SCH ×2 (09:05→21:23)
[2017-06-25] MEDS: ENOXAPARIN 40 MG/0.4 ML SYG SC SCH (09:10)
[2017-06-25] MEDS: LISINOPRIL 5 MG TAB PO SCH (09:13)
[2017-06-25] MEDS ORDERED: ACETAZOLAMIDE 250 MG TAB PO ONE (09:30)
[2017-06-25] MEDS ORDERED: MAGNESIUM SULFATE 2 GM/50 ML 50 ML IVPB ONE (09:30)
--- NOTE | 2017-06-25 09:58 | CONS ---
Date/Time of Note Date/Time of Note DATE: 06/25/17 TIME: 09:54 Assessment/Plan Assessment/Plan Chief Complaint/Hosp Course Leg edema: Possibly just from CHF but unclear exact etiology as JVP is normal by exam and lungs are not very remarkable (though some edema by CXR). No DVT by outpt ultrasound but with RCC concern for obstruction higher up. May need CT/ MRI venogram to evaluate for thrombus higher up in IVC. Improving Dyspnea: Likely multifactorial as well including heart failure but also from lung mets Acute on chronic systolic heart failure: EF 45% most recently Pericardial thrombus: Post-op echos have shown a layer of thrombus in the anterior portion of the pericardium. Appears to be compressing the RV but IVC normal in size and collapse so unlikely to be causing a hemodynamic consequence. 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 Diuresing well. Exam/Review of Systems Vital Signs Vitals Vital Signs Date Time Temp Pulse Resp B/P Pulse Ox O2 Delivery O2 Flow Rate FiO2 06/25/17 08:48 20 21 06/25/17 08:00 98 06/25/17 03:47 98.0 118/63 99 06/22/17 08:00 Nasal Cannula 4.0 Intake and Output 06/24/17 06/24/17 06/25/17 15:00 23:00 07:00 Intake Total 300 ml 950 ml Output Total 3000 ml 1500 ml 600 ml Balance -2700 ml -550 ml -600 ml Exam Constitutional: alert, oriented Psych: no complaints Head: atraumatic, normocephalic Neck: jvd (8cm) Respiratory: clear to auscultation, No crackles/rales Cardiovascular: edema (2-3+), regular rate and rhythm, No systolic murmur Gastrointestinal: non-tender, soft Neurological: nl mental status, nl speech Results Result Diagram: 06/25/1761506/25/17615 Results 24 hrs Laboratory Tests Test 06/24/17 12:01 06/24/17 17:51 06/24/17 20:44 06/25/17 02:09 Bedside Glucose 178 150 188 177 Test 06/25/17 06:16 06/25/17 08:51 White Blood Count 10.1 # Red Blood Count 3.48 L Hemoglobin 8.4 L Hematocrit 29.6 L Mean Corpuscular Volume 85.1 Mean Corpuscular Hemoglobin 24.1 L Mean Corpuscular Hemoglobin Concent 28.4 L Red Cell Distribution Width 15.9 H Platelet Count 436 H Mean Platelet Volume 9.3 Neutrophils % 62.6 Lymphocytes % 18.0 Monocytes % 15.7 H Eosinophils % 1.8 Basophils % 0.4 Nucleated Red Blood Cells % 0.0 Neutrophils # 6.3 Lymphocytes # 1.8 Monocytes # 1.6 H Eosinophils # 0.2 Basophils # 0.0 Nucleated Red Blood Cells # 0.0 Sodium Level 129 L Potassium Level 4.0 Chloride Level 85 L Carbon Dioxide Level 39 H Anion Gap 9 Blood Urea Nitrogen 14 Creatinine 0.82 Glucose Level 135 Calcium Level 9.0 Phosphorus Level 3.8 Magnesium Level 1.8 Bedside Glucose 144 Medications Medications Current Medications Diagnostic Test (Pha) (Accu-Chek) 1 ea 02 XX Last administered on 06/25/17 02: 54; Admin Dose 1 EA; Start 06/22/17 at 02:00 Diagnostic Test (Pha) (Accu-Chek) ea 02 XX Last administered on 06/25/17 02: 55; Admin Dose 1 EA; Start 06/22/17 at 02:00 Aspirin (Ecotrin) 325 mg DAILY PO Last administered on 06/25/17 09:05; Admin Dose 325 MG; Start 06/22/17 at 09:00 Atorvastatin Calcium (Lipitor) 40 mg QHS PO Last administered on 06/24/17 21: 16; Admin Dose 40 MG; Start 06/21/17 at 21:00 Carvedilol (Coreg) 3.125 mg BID PO Last administered on 06/25/17 09:06; Admin Dose 3.125 MG; Start 06/21/17 at 21:00 Lisinopril (Zestril) 2.5 mg DAILY PO Last administered on 06/25/17 09:13; Admin Dose 2.5 MG; Start 06/22/17 at 09:00 Potassium Chloride (Klor-Con 10) 10 meq DAILY PO Last administered on 09:05; Admin Dose 10 MEQ; Start 06/22/17 at 09:00 Miscellaneous Information 1 ea NOTE XX ; Start 06/21/17 at 18:30 Glucose (Glutose) 15 gm Q15M PRN PO DECREASED GLUCOSE; Start 06/21/17 at 18:30 Glucose (Glutose) 22.5 gm Q15M PRN PO DECREASED GLUCOSE; Start 06/21/17 at 18: 30 Dextrose (D50w Syringe) 25 ml Q15M PRN IV DECREASED GLUCOSE; Start 06/21/17 at 18:30 Dextrose (D50w Syringe) 50 ml Q15M PRN IV DECREASED GLUCOSE; Start 06/21/17 at 18:30 Glucagon (Glucagen) 1 mg Q15M PRN IM DECREASED GLUCOSE; Start 06/21/17 at 18:30 Glucose (Glutose) 15 gm Q15M PRN BUCCAL DECREASED GLUCOSE; Start 06/21/17 at 18 :30 Oxycodone/ Acetaminophen (Percocet (5/ 325)) 1 tab Q4H PRN PO PAIN; Start 06/22 at 07:00 Oxycodone/ Acetaminophen (Percocet (5/ 325)) 2 tab Q4H PRN PO PAIN LEVEL 7-10 Last administered on 06/25/17 09:04; Admin Dose 2 TAB; Start 06/22/17 at 07:00 Enoxaparin Sodium (Lovenox) 40 mg DAILY SC Last administered on 06/25/17 09:10 ; Admin Dose 40 MG; Start 06/23/17 at 09:00 Pantoprazole (Protonix Tab) 40 mg DAILY@06 PO Last administered on 06/25/17 06 :32; Admin Dose 40 MG; Start 06/25/17 at 06:00 Famotidine (Pepcid) 20 mg BID PO Last administered on 06/25/17 09:05; Admin Dose 20 MG; Start 06/24/17 at 21:00 Insulin Glargine 10 unit 10 unit DAILY@20 SC Last administered on 06/24/17t 20: 50; Admin Dose 10 UNIT; Start 06/24/17 at 20:00 Magnesium Sulfate (Magnesium Sulfate 2 Gm/50 ml) 50 ml @ 25 mls/hr ONCE ONCE IVPB ; Start 06/25/17 at 09:30; Stop 06/25/17 at 11:29 TAMMI MORENO Jun 25, 2017 09:58
--- NOTE | 2017-06-25 10:17 | PN ---
Date/Time of Note Date/Time of Note DATE: 06/25/17 TIME: 10:15 Assessment/Plan VTE Prophylaxis VTE Prophylaxis Intervention: other Lines/Catheters IV Catheter Type (from Rust): Peripheral IV Urinary Cath still in place: No Assessment/Plan Chief Complaint/Hosp Course SUBJECTIVE: The patient is stable. No events overnight. The patient had excellent urinary output over 3 liters. No other events noted. d/w cardiology no nausea, vomiting, chest pain, dyspnea, melena, hematuria, new rash, fever or chills. no headache OBJECTIVE: HEENT: Head is normocephalic. NECK: Supple. HEART: Regular rate. LUNGS: Show diminished breath sounds at base. ABDOMEN: Soft, nontender to palpation without rebound or guarding. EXTREMITIES: Negative for clubbing, cyanosis. Positive edema +3. DERMATOLOGIC: No rashes. MUSCULOSKELETAL: No joint effusions. NEUROLOGIC: No change in exam. MEDICATIONS: The patient's medications are reviewed. LABORATORY DATA: Currently pending. ASSESSMENT AND PLAN: 1. Volume overload, lower extremity edema. Etiology may be multifactorial secondary to congestive heart failure. A Doppler lower extremity ultrasound was negative for deep venous thrombosis. The patient is pending MRI venogram to evaluate inferior vena cava. Would continue current medical management. Continue Bumex. Continue metolazone. Follow up electrolytes and renal function closely. Follow up with cardiology. 2. Congestive heart failure exacerbation. Continue workup as stated above. Continue diuretic regimen. 3. Acute respiratory failure. Etiology is multifactorial, history of congestive heart failure with possible metastatic renal cell carcinoma, chronic obstructive pulmonary disease. Continue current treatment plan. The patient was ruled out for PE previously. 4. Coronary artery disease, status post coronary artery bypass graft. Continue medical management. 5. Renal cell carcinoma stage IV. The patient will likely have chemotherapy in 4 to 6 weeks once clinically stable. 6. 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 Continue to monitor. 7. Diabetes. Continue Accu-Cheks, insulin sliding scale. 8. Dyslipidemia. Continue statin therapy. 9. Debility. Continue physical therapy. 10. Chronic pain syndrome. 11. Gastrointestinal and deep venous thrombosis prophylaxis. Continue proton pump inhibitor and Lovenox. DISPOSITION: Anticipate discharge home in the next 2 to 3 days as patient clinically improves. Problems: Exam/Review of Systems Vital Signs Vitals Vital Signs Date Time Temp Pulse Resp B/P Pulse Ox O2 Delivery O2 Flow Rate FiO2 06/25/17 08:48 20 21 06/25/17 08:00 98 06/25/17 03:47 98.0 118/63 99 06/22/17 08:00 Nasal Cannula 4.0 Intake and Output 06/24/17 06/24/17 06/25/17 15:00 23:00 07:00 Intake Total 300 ml 950 ml Output Total 3000 ml 1500 ml 600 ml Balance -2700 ml -550 ml -600 ml Results Result Diagram: 06/25/17 0616 06/25/17 0616 Results 24 hrs Laboratory Tests Test 06/24/17 12:01 06/24/17 17:51 06/24/17 20:44 06/25/17 02:09 Bedside Glucose 178 150 188 177 Test 06/25/17 06:16 06/25/17 08:51 White Blood Count 10.1 # Red Blood Count 3.48 L Hemoglobin 8.4 L Hematocrit 29.6 L Mean Corpuscular Volume 85.1 Mean Corpuscular Hemoglobin 24.1 L Mean Corpuscular Hemoglobin Concent 28.4 L Red Cell Distribution Width 15.9 H Platelet Count 436 H Mean Platelet Volume 9.3 Neutrophils % 62.6 Lymphocytes % 18.0 Monocytes % 15.7 H Eosinophils % 1.8 Basophils % 0.4 Nucleated Red Blood Cells % 0.0 Neutrophils # 6.3 Lymphocytes # 1.8 Monocytes # 1.6 H Eosinophils # 0.2 Basophils # 0.0 Nucleated Red Blood Cells # 0.0 Sodium Level 129 L Potassium Level 4.0 Chloride Level 85 L Carbon Dioxide Level 39 H Anion Gap 9 Blood Urea Nitrogen 14 Creatinine 0.82 Glucose Level 135 Calcium Level 9.0 Phosphorus Level 3.8 Magnesium Level 1.8 Bedside Glucose 144 Medications Medications Current Medications Diagnostic Test (Pha) (Accu-Chek) XX Last administered on 06/25/17 02: 54; Admin Dose 1 EA; Start 06/22/17 at 02:00 Diagnostic Test (Pha) (Accu-Chek) XX Last administered on 06/25/17 02: 55; Admin Dose 1 EA; Start 06/22/17 at 02:00 Aspirin (Ecotrin) 325 mg DAILY PO Last administered on 06/25/17 09:05; Admin Dose 325 MG; Start 06/22/17 at 09:00 Atorvastatin Calcium (Lipitor) 40 mg QHS PO Last administered on 06/24/17 21: 16; Admin Dose 40 MG; Start 06/21/17 at 21:00 Carvedilol (Coreg) 3.125 mg BID PO Last administered on 06/25/17 09:06; Admin Dose 3.125 MG; Start 06/21/17 at 21:00 Lisinopril (Zestril) 2.5 mg DAILY PO Last administered on 06/25/17 09:13; Admin Dose 2.5 MG; Start 06/22/17 at 09:00 Potassium Chloride (Klor-Con 10) 10 meq DAILY PO Last administered on 09:05; Admin Dose 10 MEQ; Start 06/22/17 at 09:00 Miscellaneous Information 1 ea NOTE XX ; Start 06/21/17 at 18:30 Glucose (Glutose) 15 gm Q15M PRN PO DECREASED GLUCOSE; Start 06/21/17 at 18:30 Glucose (Glutose) 22.5 gm Q15M PRN PO DECREASED GLUCOSE; Start 06/21/17 at 18: 30 Dextrose (D50w Syringe) 25 ml Q15M PRN IV DECREASED GLUCOSE; Start 06/21/17 at 18:30 Dextrose (D50w Syringe) 50 ml Q15M PRN IV DECREASED GLUCOSE; Start 06/21/17 at 18:30 Glucagon (Glucagen) 1 mg Q15M PRN IM DECREASED GLUCOSE; Start 06/21/17 at 18:30 Glucose (Glutose) 15 gm Q15M PRN BUCCAL DECREASED GLUCOSE; Start 06/21/17 at 18 :30 Oxycodone/ Acetaminophen (Percocet (5/ 325)) 1 tab Q4H PRN PO PAIN; Start 06/22 at 07:00 Oxycodone/ Acetaminophen (Percocet (5/ 325)) 2 tab Q4H PRN PO PAIN LEVEL 7-10 Last administered on 06/25/17 09:04; Admin Dose 2 TAB; Start 06/22/17 at 07:00 Enoxaparin Sodium (Lovenox) 40 mg DAILY SC Last administered on 06/25/17 09:10 ; Admin Dose 40 MG; Start 06/23/17 at 09:00 Pantoprazole (Protonix Tab) 40 mg DAILY@06 PO Last administered on 06/25/17 06 :32; Admin Dose 40 MG; Start 06/25/17 at 06:00 Famotidine (Pepcid) 20 mg BID PO Last administered on 06/25/17 09:05; Admin Dose 20 MG; Start 06/24/17 at 21:00 Insulin Glargine 10 unit 10 unit DAILY@20 SC Last administered on 06/24/17 20: 50; Admin Dose 10 UNIT; Start 06/24/17 at 20:00 Magnesium Sulfate (Magnesium Sulfate 2 Gm/50 ml) 50 ml @ 25 mls/hr ONCE ONCE IVPB ; Start 06/25/17 at 09:30; Stop 06/25/17 at 11:29 Metolazone (Zaroxolyn) 10 mg ONCE ONCE PO ; Start 06/25/17 at 10:30; Stop 06/25 at 10:31 SANDRA PYLE DO Jun 25, 2017 10:17
[2017-06-25] MEDS ORDERED: METOLAZONE 10 MG TAB PO ONE (10:30)
[2017-06-25] MEDS ORDERED: METOLAZONE 5 MG TAB PO ONE (11:30)
[2017-06-25] MEDS: METOLAZONE 5 MG TAB PO SCH (12:46)
[2017-06-25] MEDS: INSULIN GLARGINE [LANtus] 3 ML PEN SC SCH (21:15)
[2017-06-25] MEDS: ATORVASTATIN 40 MG TAB PO SCH (21:24)
[2017-06-26] VITALS (13 sets, daily range): BP systolic 89–120; BP diastolic 52–70; PULSE 88–105; RESP 18–20
[2017-06-26] MEDS: OXYCODONE/ACETAMINOPHEN (5/325) TAB PO PRN ×5 (01:00→21:36)
[2017-06-26] MEDS: ACCU-CHEK XX SCH ×2 (02:52→02:54)
[2017-06-26] MEDS: PANTOPRAZOLE (EC) 40 MG TAB PO SCH (06:16)
[2017-06-26] MEDS: BUMETANIDE 2 MG in DEXTROSE 5% 17 ML IVPB SCH (06:17)
[2017-06-26] MEDS: ENOXAPARIN 40 MG/0.4 ML SYG SC SCH (08:26)
[2017-06-26] MEDS: INSULIN ASPART [NOVOLOG] 3 ML PEN SC SCH ×4 (08:26→21:16)
[2017-06-26] MEDS: POTASSIUM CHLORIDE (SR) 10 MEQ TAB PO SCH (08:30)
[2017-06-26] MEDS: FAMOTIDINE 20 MG TAB PO SCH ×2 (08:30→20:55)
[2017-06-26] MEDS: metFORMIN 500 MG TAB PO SCH ×2 (08:31→17:29)
[2017-06-26] MEDS: ASPIRIN (EC) 325 MG TAB PO SCH (08:31)
[2017-06-26] MEDS: ALBUTEROL 0.083% (NEB) 2.5 MG/3 ML AMP HHN SCH ×2 (09:00→21:33)
[2017-06-26] MEDS ORDERED: METOLAZONE 5 MG TAB PO SCH (09:00)
--- NOTE | 2017-06-26 09:44 | RADRPT ---
PROCEDURE: MRA angiography/venography of the abdomen and pelvis with and without contrast. CLINICAL INDICATION: Renal cell carcinoma, evaluate for venous tumor thrombus TECHNIQUE: MR angiography/venography of the abdomen and pelvis was performed prior to and during t he intravenous administration of contrast. Multiplanar reconstructions, three-dimensional reconstruc tions, as well as maximal intensity projection images are produced and reviewed. CONTRAST: 20 ml Magnevist administered without adverse event. COMPARISON: CT abdomen pelvis 06/04/2017 FINDINGS: Abdominal Aorta: Mild atherosclerotic irregularities without focal stenosis, aneurysm, or dissectio n. Celiac axis: Extrinsic compression by the median arcuate ligament at the origin with mild post compr ession dilatation. SMA: patent, without irregularity or stenosis EZRA: patent, without irregularity or stenosis Right Renal artery: single, patent, without irregularity or stenosis Left Renal artery: single, patent, without irregularity or stenosis Right Common Iliac: patent, without irregularity or stenosis Right Internal Iliac: patent, without irregularity or stenosis Right External Iliac: patent, without irregularity or stenosis Left Common Iliac: patent, without irregularity or stenosis Left Internal Iliac: patent, without irregularity or stenosis Left External Iliac: patent, without irregularity or stenosis Inferior vena cava: Patent Right renal vein: Patent Left renal vein: Patent Right common iliac vein: Patent Left common iliac vein: Patent Bilateral internal and external iliac veins: Insufficient enhancement to exclude thrombus however n o evidence of collateralization to suggest a flow-limiting obstruction. Portal venous circulation: Incompletely visualized. Additional findings: Right renal parenchyma is incompletely visualized. A few non-enhancing lesions are observed within each kidney. IMPRESSION: No evidence of thrombus within the inferior vena cava or proximal systemic venous system. Portal venous system is incompletely visualized. RPTAT: AADD .Renaldo Isidro MD, Date Time Electronically viewed and signed by .Renaldo Isidro MD, MD on 06/26/2017 09:43 .B/
[2017-06-26] MEDS: METOLAZONE 5 MG TAB PO SCH (10:12)
[2017-06-26] MEDS: LISINOPRIL 5 MG TAB PO SCH (10:14)
[2017-06-26 10:56] LABS: ABNORMAL IP MESSAGE 1; BASOPHILS % 0.3 % (0.0-2.0); EOSINOPHILS # 0.1 10^3/ul (0.0-0.5); EOSINOPHILS % 0.7 % (0.0-7.0); HEMATOCRIT 30.2 % (42.0-52.0); HEMOGLOBIN 8.5 g/dl (14.0-18.0); LYMPHOCYTES # 1.4 10^3/ul (0.8-2.9); LYMPHOCYTES % 13.8 % (15.0-51.0); MEAN CORPUSCULAR HEMOGLOBIN 23.7 pg (29.0-33.0); MEAN CORPUSCULAR HGB CONC 28.1 g/dl (32.0-37.0); MEAN CORPUSCULAR VOLUME 84.1 fl (82.0-101.0); MEAN PLATELET VOLUME 9.2 fl (7.4-10.4); MONOCYTE # 1.3 10^3/ul (0.3-0.9); MONOCYTES % 13.3 % (0.0-11.0); NEUTROPHILS % 70.5 % (39.0-77.0); PLATELET COUNT 391 10^3/UL (140-415); POSITIVE DIFF @See below; RED BLOOD COUNT 3.59 10^6/ul (4.70-6.10); RED CELL DISTRIBUTION WIDTH 15.6 % (11.5-14.5); WHITE BLOOD COUNT 9.9 10^3/ul (4.8-10.8)
[2017-06-26 11:09] LABS: CREATININE 0.99 mg/dl (0.61-1.24); POTASSIUM 3.4 mmol/L (3.5-5.1)
[2017-06-26] MEDS ORDERED: NEOMYC/POLYMYX/BACIT 0.9 GM OINT TOP ONE (12:00)
[2017-06-26] MEDS: ALBUTEROL 0.083% (NEB) 2.5 MG/3 ML AMP HHN PRN (13:32)
[2017-06-26] MEDS ORDERED: POTASSIUM CHLORIDE 20 MEQ POWDER FOR ORAL SOLN PO ONE (16:00)
--- NOTE | 2017-06-26 17:06 | CONS ---
Date/Time of Note Date/Time of Note DATE: 06/26/17 TIME: 17:04 Assessment/Plan Assessment/Plan Chief Complaint/Hosp Course Leg edema: MR venogram did not show an IVC thrombus. Improving with diuresis Dyspnea: Likely multifactorial as well including heart failure but also from lung mets Acute on chronic systolic heart failure: EF 45% most recently. Improving Pericardial thrombus: Post-op echos have shown a layer of thrombus in the anterior portion of the pericardium. Appears to be compressing the RV but IVC normal in size and collapse so unlikely to be causing a hemodynamic consequence. 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 DM HTN -change to bumex 1mg PO BID as a trial to get him ready for d/c soon -ASA, lipitor -coreg 3.125mg BID -lisinopril 2.5mg Problems: Consultation Date/Type/Reason Admit Date/Time Jun 21, 2017 at 15:03 Initial Consult Date 06/22/17 Type of Consultation: Cardiology Referring Provider: GIOVANNI KRUGER DO 24 HR Interval Summary Free Text/Dictation No o/n events. Na lower today Exam/Review of Systems Vital Signs Vitals Vital Signs Date Time Temp Pulse Resp B/P Pulse Ox O2 Delivery O2 Flow Rate FiO2 06/26/17 16:04 88 06/26/17 16:00 97.6 18 98/54 96 06/26/17 13:32 21 06/22/17 08:00 Nasal Cannula 4.0 Intake and Output 06/25/17 06/25/17 06/26/17 15:00 23:00 07:00 Intake Total 800 ml 900 ml Output Total 2000 ml 2620 ml Balance -1200 ml -1720 ml Exam Constitutional: alert, oriented Psych: no complaints Head: atraumatic, normocephalic Neck: No jvd Respiratory: clear to auscultation, No crackles/rales Cardiovascular: edema (2+ improving ), regular rate and rhythm, No systolic murmur Gastrointestinal: non-tender, soft Neurological: nl mental status, nl speech Results Result Diagram: 06/26/17 1034 06/26/17 1039 Results 24 hrs Laboratory Tests Test 06/25/17 17:53 06/25/17 21:08 06/26/17 02:46 06/26/17 08:21 Bedside Glucose 224 H 199 137 157 Test 06/26/17 10:34 06/26/17 10:39 06/26/17 12:15 White Blood Count 9.9 Red Blood Count 3.59 L Hemoglobin 8.5 L Hematocrit 30.2 L Mean Corpuscular Volume 84.1 Mean Corpuscular Hemoglobin 23.7 L Mean Corpuscular Hemoglobin Concent 28.1 L Red Cell Distribution Width 15.6 H Platelet Count 391 Mean Platelet Volume 9.2 Neutrophils % 70.5 Lymphocytes % 13.8 L Monocytes % 13.3 H Eosinophils % 0.7 Basophils % 0.3 Nucleated Red Blood Cells % 0.0 Neutrophils # 7.0 Lymphocytes # 1.4 Monocytes # 1.3 H Eosinophils # 0.1 Basophils # 0.0 Nucleated Red Blood Cells # 0.0 Sodium Level 127 L Potassium Level 3.4 L Chloride Level 83 L Carbon Dioxide Level 39 H Anion Gap 8 Blood Urea Nitrogen 17 Creatinine 0.99 Glucose Level 195 Calcium Level 9.0 Phosphorus Level 4.0 Magnesium Level 2.0 Bedside Glucose 196 Medications Medications Current Medications Diagnostic Test (Pha) (Accu-Chek) 1 ea 02 XX Last administered on 06/26/17 02: 52; Admin Dose 1 EA; Start 06/22/17 at 02:00 Diagnostic Test (Pha) (Accu-Chek) 1 ea 02 XX Last administered on 06/26/17 02: 54; Admin Dose 1 EA; Start 06/22/17 at 02:00 Aspirin (Ecotrin) 325 mg DAILY PO Last administered on 06/26/17 08:31; Admin Dose 325 MG; Start 06/22/17 at 09:00 Atorvastatin Calcium (Lipitor) 40 mg QHS PO Last administered on 06/25/17 21: 24; Admin Dose 40 MG; Start 06/21/17 at 21:00 Carvedilol (Coreg) 3.125 mg BID PO Last administered on 06/26/17 10:13; Admin Dose 3.125 MG; Start 06/21/17 at 21:00 Lisinopril (Zestril) 2.5 mg DAILY PO Last administered on 06/26/17 10:14; Admin Dose 2.5 MG; Start 06/22/17 at 09:00 Potassium Chloride (Klor-Con 10) 10 meq DAILY PO Last administered on 08:30; Admin Dose 10 MEQ; Start 06/22/17 at 09:00 Miscellaneous Information 1 ea NOTE XX ; Start 06/21/17 at 18:30 Glucose (Glutose) 15 gm Q15M PRN PO DECREASED GLUCOSE; Start 06/21/17 at 18:30 Glucose (Glutose) 22.5 gm Q15M PRN PO DECREASED GLUCOSE; Start 06/21/17 at 18: 30 Dextrose (D50w Syringe) 25 ml Q15M PRN IV DECREASED GLUCOSE; Start 06/21/17 at 18:30 Dextrose (D50w Syringe) 50 ml Q15M PRN IV DECREASED GLUCOSE; Start 06/21/17 at 18:30 Glucagon (Glucagen) 1 mg Q15M PRN IM DECREASED GLUCOSE; Start 06/21/17 at 18:30 Glucose (Glutose) 15 gm Q15M PRN BUCCAL DECREASED GLUCOSE; Start 06/21/17 at 18 :30 Oxycodone/ Acetaminophen (Percocet (5/ 325)) 1 tab Q4H PRN PO PAIN; Start 06/22 at 07:00 Oxycodone/ Acetaminophen (Percocet (5/ 325)) 2 tab Q4H PRN PO PAIN LEVEL 7-10 Last administered on 06/26/17 10:06; Admin Dose 2 TAB; Start 06/22/17 at 07:00 Enoxaparin Sodium (Lovenox) 40 mg DAILY SC Last administered on 06/26/17 08:26 ; Admin Dose 40 MG; Start 06/23/17 at 09:00 Pantoprazole (Protonix Tab) 40 mg DAILY@06 PO Last administered on 06/26/17 06 :16; Admin Dose 40 MG; Start 06/25/17 at 06:00 Famotidine (Pepcid) 20 mg BID PO Last administered on 06/26/17 08:30; Admin Dose 20 MG; Start 06/24/17 at 21:00 Insulin Glargine (Lantus) 10 unit DAILY@20 SC Last administered on 06/25/17 21 :15; Admin Dose 10 UNIT; Start 10/6/17 at 20:00 TAMMI MORENO Jun 26, 2017 17:06
[2017-06-26] MEDS: ATORVASTATIN 40 MG TAB PO SCH (20:55)
[2017-06-26] MEDS: BUMETANIDE 1 MG TAB PO SCH (20:56)
[2017-06-26] MEDS: INSULIN GLARGINE [LANtus] 3 ML PEN SC SCH (21:11)
[2017-06-27] VITALS (11 sets, daily range): BP systolic 97–122; BP diastolic 59–72; PULSE 92–106; RESP 18–20
[2017-06-27] MEDS: ACCU-CHEK XX SCH ×2 (02:00)
[2017-06-27] MEDS: OXYCODONE/ACETAMINOPHEN (5/325) TAB PO PRN ×5 (02:50→20:18)
[2017-06-27 05:56] LABS: ABNORMAL IP MESSAGE 1; BASOPHILS % 0.4 % (0.0-2.0); EOSINOPHILS # 0.1 10^3/ul (0.0-0.5); EOSINOPHILS % 0.9 % (0.0-7.0); HEMATOCRIT 28.6 % (42.0-52.0); HEMOGLOBIN 8.2 g/dl (14.0-18.0); LYMPHOCYTES # 1.7 10^3/ul (0.8-2.9); LYMPHOCYTES % 18.3 % (15.0-51.0); MEAN CORPUSCULAR HGB CONC 28.7 g/dl (32.0-37.0); MEAN CORPUSCULAR VOLUME 83.9 fl (82.0-101.0); MEAN PLATELET VOLUME 9.5 fl (7.4-10.4); MONOCYTE # 1.4 10^3/ul (0.3-0.9); MONOCYTES % 14.4 % (0.0-11.0); NEUTROPHIL # 6.1 10^3/ul (1.6-7.5); NEUTROPHILS % 64.5 % (39.0-77.0); PLATELET COUNT 371 10^3/UL (140-415); POSITIVE DIFF @See below; RED BLOOD COUNT 3.41 10^6/ul (4.70-6.10); RED CELL DISTRIBUTION WIDTH 15.7 % (11.5-14.5); WHITE BLOOD COUNT 9.5 10^3/ul (4.8-10.8)
[2017-06-27] MEDS: PANTOPRAZOLE (EC) 40 MG TAB PO SCH (06:19)
[2017-06-27] MEDS: BUMETANIDE 1 MG TAB PO SCH ×2 (06:19→17:57)
[2017-06-27 06:24] LABS: CALCIUM 8.7 mg/dl (8.4-10.2); CREATININE 0.99 mg/dl (0.61-1.24); MAGNESIUM 2.1 mg/dl (1.7-2.5); PHOSPHORUS 4.1 mg/dl (2.5-4.9); POTASSIUM 3.8 mmol/L (3.5-5.1)
[2017-06-27] MEDS: INSULIN ASPART [NOVOLOG] 3 ML PEN SC SCH ×4 (07:37→20:20)
[2017-06-27] MEDS: metFORMIN 500 MG TAB PO SCH ×2 (07:38→17:57)
[2017-06-27] MEDS: ALBUTEROL 0.083% (NEB) 2.5 MG/3 ML AMP HHN SCH ×2 (09:00→20:00)
[2017-06-27] MEDS: FAMOTIDINE 20 MG TAB PO SCH ×2 (09:12→20:18)
[2017-06-27] MEDS: ASPIRIN (EC) 325 MG TAB PO SCH (09:12)
[2017-06-27] MEDS: LISINOPRIL 5 MG TAB PO SCH (09:12)
[2017-06-27] MEDS: POTASSIUM CHLORIDE (SR) 10 MEQ TAB PO SCH (09:12)
[2017-06-27] MEDS: ENOXAPARIN 40 MG/0.4 ML SYG SC SCH (09:17)
[2017-06-27] MEDS ORDERED: POTASSIUM CHLORIDE 20 MEQ POWDER FOR ORAL SOLN PO ONE (13:30)
--- NOTE | 2017-06-27 13:38 | CONS ---
Date/Time of Note Date/Time of Note DATE: 06/27/17 TIME: 13:37 Assessment/Plan Assessment/Plan Chief Complaint/Hosp Course Leg edema: MR venogram did not show an IVC thrombus. Improving with diuresis Dyspnea: Likely multifactorial as well including heart failure but also from lung mets Acute on chronic systolic heart failure: EF 45% most recently. Improving Pericardial thrombus: Post-op echos have shown a layer of thrombus in the anterior portion of the pericardium. Appears to be compressing the RV but IVC normal in size and collapse so unlikely to be causing a hemodynamic consequence. 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 Walking around unit slowly but doing ok. Edema improving Exam/Review of Systems Vital Signs Vitals Vital Signs Date Time Temp Pulse Resp B/P Pulse Ox O2 Delivery O2 Flow Rate FiO2 06/27/17 12:01 92 06/27/17 11:38 97.5 20 106/66 99 06/27/17 09:00 21 Intake and Output 06/26/17 06/26/17 06/27/17 15:00 23:00 07:00 Intake Total 700 ml 750 ml Output Total 1600 ml 1550 ml Balance -900 ml -800 ml Exam Constitutional: alert, oriented Psych: nl mood/affect, no complaints Head: atraumatic, normocephalic Neck: No jvd Respiratory: clear to auscultation, No crackles/rales Cardiovascular: edema (1-2+), regular rate and rhythm Gastrointestinal: non-tender, soft Neurological: nl mental status, nl speech Results Result Diagram: 06/27/17 0514 06/27/17 0514 Results 24 hrs Laboratory Tests Test 06/26/17 17:32 06/26/17 21:06 06/27/17 02:44 06/27/17 05:14 Bedside Glucose 148 187 173 White Blood Count 9.5 Red Blood Count 3.41 L Hemoglobin 8.2 L Hematocrit 28.6 L Mean Corpuscular Volume 83.9 Mean Corpuscular Hemoglobin 24.0 L Mean Corpuscular Hemoglobin Concent 28.7 L Red Cell Distribution Width 15.7 H Platelet Count 371 Mean Platelet Volume 9.5 Neutrophils % 64.5 Lymphocytes % 18.3 Monocytes % 14.4 H Eosinophils % 0.9 Basophils % 0.4 Nucleated Red Blood Cells % 0.0 Neutrophils # 6.1 Lymphocytes # 1.7 Monocytes # 1.4 H Eosinophils # 0.1 Basophils # 0.0 Nucleated Red Blood Cells # 0.0 Sodium Level 130 L Potassium Level 3.8 Chloride Level 85 L Carbon Dioxide Level 40 H Anion Gap 9 Blood Urea Nitrogen 18 Creatinine 0.99 Glucose Level 146 # Calcium Level 8.7 Phosphorus Level 4.1 Magnesium Level 2.1 Test 06/27/17 07:36 06/27/17 11:49 Bedside Glucose 132 220 Medications Medications Current Medications Diagnostic Test (Pha) (Accu-Chek) ea 02 XX Last administered on 06/27/17 02: 00; Admin Dose 1 EA; Start 06/22/17 at 02:00 Diagnostic Test (Pha) (Accu-Chek) ea 02 XX Last administered on 06/27/17 02: 00; Admin Dose 1 EA; Start 06/22/17 at 02:00 Aspirin (Ecotrin) 325 mg DAILY PO Last administered on 06/27/17 09:12; Admin Dose 325 MG; Start 06/22/17 at 09:00 Atorvastatin Calcium (Lipitor) 40 mg QHS PO Last administered on 06/26/17 20: 55; Admin Dose 40 MG; Start 06/21/17 at 21:00 Carvedilol (Coreg) 3.125 mg BID PO Last administered on 06/27/17 09:13; Admin Dose 3.125 MG; Start 06/21/17 at 21:00 Lisinopril (Zestril) 2.5 mg DAILY PO Last administered on 06/27/17 09:12; Admin Dose 2.5 MG; Start 06/22/17 at 09:00 Potassium Chloride (Klor-Con 10) 10 meq DAILY PO Last administered on 09:12; Admin Dose 10 MEQ; Start 06/22/17 at 09:00 Miscellaneous Information 1 ea NOTE XX ; Start 06/21/17 at 18:30 Glucose (Glutose) 15 gm Q15M PRN PO DECREASED GLUCOSE; Start 06/21/17 at 18:30 Glucose (Glutose) 22.5 gm Q15M PRN PO DECREASED GLUCOSE; Start 06/21/17 at 18: 30 Dextrose (D50w Syringe) 25 ml Q15M PRN IV DECREASED GLUCOSE; Start 06/21/17 at 18:30 Dextrose (D50w Syringe) 50 ml Q15M PRN IV DECREASED GLUCOSE; Start 06/21/17 at 18:30 Glucagon (Glucagen) 1 mg Q15M PRN IM DECREASED GLUCOSE; Start 06/21/17 at 18:30 Glucose (Glutose) 15 gm Q15M PRN BUCCAL DECREASED GLUCOSE; Start 06/21/17 at 18 :30 Oxycodone/ Acetaminophen (Percocet (5/ 325)) 1 tab Q4H PRN PO PAIN; Start 06/22 at 07:00 Oxycodone/ Acetaminophen (Percocet (5/ 325)) 2 tab Q4H PRN PO PAIN LEVEL 7-10 Last administered on 06/27/17 11:47; Admin Dose 2 TAB; Start 06/22/17 at 07:00 Enoxaparin Sodium (Lovenox) 40 mg DAILY SC Last administered on 06/27/17 09:17 ; Admin Dose 40 MG; Start 06/23/17 at 09:00 Pantoprazole (Protonix Tab) 40 mg DAILY@06 PO Last administered on 06/27/17 06 :19; Admin Dose 40 MG; Start 06/25/17 at 06:00 Famotidine (Pepcid) 20 mg BID PO Last administered on 06/27/17 09:12; Admin Dose 20 MG; Start 06/24/17 at 21:00 Insulin Glargine (Lantus) 10 unit DAILY@20 SC Last administered on 06/26/17 21 :11; Admin Dose 10 UNIT; Start 06/24/17 at 20:00 TAMMI MORENO Jun 27, 2017 13:38
[2017-06-27] MEDS ORDERED: POTASSIUM CHLORIDE (SR) 20 MEQ TAB PO ONE (14:30)
--- NOTE | 2017-06-27 14:53 | PN ---
Date/Time of Note Date/Time of Note DATE: 06/27/17 TIME: 14:53 Assessment/Plan VTE Prophylaxis VTE Prophylaxis Intervention: other Lines/Catheters IV C[facility]ter Type (from [facility]): Peripheral IV Urinary Cath still in place: No Assessment/Plan Chief Complaint/Hosp Course SUBJECTIVE: The patient is stable. No events overnight. The patient had excellent urinary output over 3 liters. No other events noted. d/w cardiology no nausea, vomiting, chest pain, dyspnea, melena, hematuria, new rash, fever or chills. no headache OBJECTIVE: HEENT: Head is normocephalic. NECK: Supple. HEART: Regular rate. LUNGS: Show diminished breath sounds at base. ABDOMEN: Soft, nontender to palpation without rebound or guarding. EXTREMITIES: Negative for clubbing, cyanosis. Positive edema +3. DERMATOLOGIC: No rashes. MUSCULOSKELETAL: No joint effusions. NEUROLOGIC: No change in exam. MEDICATIONS: The patient's medications are reviewed. LABORATORY DATA: Currently pending. ASSESSMENT AND PLAN: 1. Volume overload, lower extremity edema. Etiology may be multifactorial secondary to congestive heart failure. A Doppler lower extremity ultrasound was negative for deep venous thrombosis. The patient is pending MRI venogram to evaluate inferior vena cava. Would continue current medical management. Continue Bumex. Continue metolazone. Follow up electrolytes and renal function closely. Follow up with cardiology. 2. Congestive heart failure exacerbation. Continue workup as stated above. Continue diuretic regimen. 3. Acute respiratory failure. Etiology is multifactorial, history of congestive heart failure with possible metastatic renal cell carcinoma, chronic obstructive pulmonary disease. Continue current treatment plan. The patient was ruled out for PE previously. 4. Coronary artery disease, status post coronary artery bypass graft. Continue medical management. 5. Renal cell carcinoma stage IV. The patient will likely have chemotherapy in 4 to 6 weeks once clinically stable. 6. 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 Continue to monitor. 7. Diabetes. Continue Accu-Cheks, insulin sliding scale. 8. Dyslipidemia. Continue statin therapy. 9. Debility. Continue physical therapy. 10. Chronic pain syndrome. 11. Gastrointestinal and deep venous thrombosis prophylaxis. Continue proton pump inhibitor and Lovenox. DISPOSITION: Anticipate discharge home in the next 2 to 3 days as patient clinically improves. Problems: Exam/Review of Systems Vital Signs Vitals Vital Signs Date Time Temp Pulse Resp B/P Pulse Ox O2 Delivery O2 Flow Rate FiO2 06/27/17 12:01 92 06/27/17 11:38 97.5 20 106/66 99 06/27/17 09:00 21 Intake and Output 06/26/17 06/26/17 06/27/17 15:00 23:00 07:00 Intake Total 700 ml 750 ml Output Total 1600 ml 1550 ml Balance -900 ml -800 ml Results Result Diagram: 06/27/17 0514 06/27/17 0514 Results 24 hrs Laboratory Tests Test 06/26/17 17:32 06/26/17 21:06 06/27/17 02:44 06/27/17 05:14 Bedside Glucose 148 187 173 White Blood Count 9.5 Red Blood Count 3.41 L Hemoglobin 8.2 L Hematocrit 28.6 L Mean Corpuscular Volume 83.9 Mean Corpuscular Hemoglobin 24.0 L Mean Corpuscular Hemoglobin Concent 28.7 L Red Cell Distribution Width 15.7 H Platelet Count 371 Mean Platelet Volume 9.5 Neutrophils % 64.5 Lymphocytes % 18.3 Monocytes % 14.4 H Eosinophils % 0.9 Basophils % 0.4 Nucleated Red Blood Cells % 0.0 Neutrophils # 6.1 Lymphocytes # 1.7 Monocytes # 1.4 H Eosinophils # 0.1 Basophils # 0.0 Nucleated Red Blood Cells # 0.0 Sodium Level 130 L Potassium Level 3.8 Chloride Level 85 L Carbon Dioxide Level 40 H Anion Gap 9 Blood Urea Nitrogen 18 Creatinine 0.99 Glucose Level 146 # Calcium Level 8.7 Phosphorus Level 4.1 Magnesium Level 2.1 Test 06/27/17 07:36 06/27/17 11:49 Bedside Glucose 132 220 Medications Medications Current Medications Diagnostic Test (Pha) (Accu-Chek) XX Last administered on 06/27/17 02: 00; Admin Dose 1 EA; Start 06/22/17 at 02:00 Diagnostic Test (Pha) (Accu-Chek) XX Last administered on 06/27/17 02: 00; Admin Dose 1 EA; Start 06/22/17 at 02:00 Aspirin (Ecotrin) 325 mg DAILY PO Last administered on 06/27/17 09:12; Admin Dose 325 MG; Start 06/22/17 at 09:00 Atorvastatin Calcium (Lipitor) 40 mg QHS PO Last administered on 06/26/17 20: 55; Admin Dose 40 MG; Start 06/21/17 at 21:00 Carvedilol (Coreg) 3.125 mg BID PO Last administered on 06/27/17 09:13; Admin Dose 3.125 MG; Start 06/21/17 at 21:00 Lisinopril (Zestril) 2.5 mg DAILY PO Last administered on 06/27/17 09:12; Admin Dose 2.5 MG; Start 06/22/17 at 09:00 Potassium Chloride (Klor-Con 10) 10 meq DAILY PO Last administered on 09:12; Admin Dose 10 MEQ; Start 06/22/17 at 09:00 Miscellaneous Information 1 ea NOTE XX ; Start 06/21/17 at 18:30 Glucose (Glutose) 15 gm Q15M PRN PO DECREASED GLUCOSE; Start 06/21/17 at 18:30 Glucose (Glutose) 22.5 gm Q15M PRN PO DECREASED GLUCOSE; Start 06/21/17 at 18: 30 Dextrose (D50w Syringe) 25 ml Q15M PRN IV DECREASED GLUCOSE; Start 06/21/17 at 18:30 Dextrose (D50w Syringe) 50 ml Q15M PRN IV DECREASED GLUCOSE; Start 06/21/17 at 18:30 Glucagon (Glucagen) 1 mg Q15M PRN IM DECREASED GLUCOSE; Start 06/21/17 at 18:30 Glucose (Glutose) 15 gm Q15M PRN BUCCAL DECREASED GLUCOSE; Start 06/21/17 at 18 :30 Oxycodone/ Acetaminophen (Percocet (5/ 325)) 1 tab Q4H PRN PO PAIN; Start 06/22 at 07:00 Oxycodone/ Acetaminophen (Percocet (5/ 325)) 2 tab Q4H PRN PO PAIN LEVEL 7-10 Last administered on 06/27/17 11:47; Admin Dose 2 TAB; Start 06/22/17 at 07:00 Enoxaparin Sodium (Lovenox) 40 mg DAILY SC Last administered on 06/27/17 09:17 ; Admin Dose 40 MG; Start 06/23/17 at 09:00 Pantoprazole (Protonix Tab) 40 mg DAILY@06 PO Last administered on 06/27/17 06 :19; Admin Dose 40 MG; Start 06/25/17 at 06:00 Famotidine (Pepcid) 20 mg BID PO Last administered on 06/27/17 09:12; Admin Dose 20 MG; Start 06/24/17 at 21:00 Insulin Glargine (Lantus) 10 unit DAILY@20 SC Last administered on 06/26/17 21 :11; Admin Dose 10 UNIT; Start 06/24/17 at 20:00 SANDRA PYLE DO Jun 27, 2017 14:53
[2017-06-27] MEDS ORDERED: METOLAZONE 10 MG TAB PO SCH (15:00)
[2017-06-27] MEDS: ATORVASTATIN 40 MG TAB PO SCH (20:20)
[2017-06-27] MEDS: INSULIN GLARGINE [LANtus] 3 ML PEN SC SCH (20:31)
[2017-06-28] VITALS (11 sets, daily range): BP systolic 97–135; BP diastolic 53–72; PULSE 92–120; RESP 17–20
[2017-06-28] MEDS: OXYCODONE/ACETAMINOPHEN (5/325) TAB PO PRN ×5 (00:15→21:03)
[2017-06-28] MEDS: ACCU-CHEK XX SCH ×2 (01:38)
[2017-06-28] MEDS: BUMETANIDE 1 MG TAB PO SCH ×2 (05:21→17:30)
[2017-06-28] MEDS: PANTOPRAZOLE (EC) 40 MG TAB PO SCH (05:27)
--- NOTE | 2017-06-28 06:52 | CONS ---
Date/Time of Note Date/Time of Note DATE: 06/28/17 TIME: 06:51 Assessment/Plan Assessment/Plan Chief Complaint/Hosp Course Leg edema: MR venogram did not show an IVC thrombus. Improving with diuresis Dyspnea: Likely multifactorial as well including heart failure but also from lung mets Acute on chronic systolic heart failure: EF 45% most recently. Improving Pericardial thrombus: Post-op echos have shown a layer of thrombus in the anterior portion of the pericardium. Appears to be compressing the RV but IVC normal in size and collapse so unlikely to be causing a hemodynamic consequence. 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 DM HTN -continue bumex 1mg PO BID in hopes of d/c in 1-2 days if working well -hold metolazone due to alkalosis and already adequate diuresis -diamox today -ASA, lipitor -coreg 3.125mg BID -lisinopril 2.5mg Problems: Consultation Date/Type/Reason Admit Date/Time Jun 21, 2017 at 15:03 Initial Consult Date 06/22/17 Type of Consultation: Cardiology Referring Provider: GIOVANNI KRUGER DO 24 HR Interval Summary Free Text/Dictation No o/n events Exam/Review of Systems Vital Signs Vitals Vital Signs Date Time Temp Pulse Resp B/P Pulse Ox O2 Delivery O2 Flow Rate FiO2 06/28/17 04:09 98.3 100 20 135/72 96 06/27/17 20:25 21 Intake and Output 06/27/17 06/27/17 06/28/17 15:00 23:00 07:00 Intake Total 560 ml 700 ml Output Total 800 ml 1800 ml Balance -240 ml -1100 ml Exam Constitutional: alert, oriented Psych: no complaints Head: atraumatic, normocephalic Neck: No jvd Respiratory: clear to auscultation, No crackles/rales Cardiovascular: edema (1-2+), regular rate and rhythm, No systolic murmur Gastrointestinal: non-tender, soft Neurological: nl mental status, nl speech Results Result Diagram: 06/27/17 0514 06/27/17 0514 Results 24 hrs Laboratory Tests Test 06/27/17 07:36 06/27/17 11:49 06/27/17 17:47 06/27/17 20:16 Bedside Glucose 132 220 160 163 Medications Medications Current Medications Diagnostic Test (Pha) (Accu-Chek) 1 ea 02 XX Last administered on 06/27/17 02: 00; Admin Dose 1 EA; Start 06/22/17 at 02:00 Diagnostic Test (Pha) (Accu-Chek) 1 ea 02 XX Last administered on 06/27/17 02: 00; Admin Dose 1 EA; Start 06/22/17 at 02:00 Aspirin (Ecotrin) 325 mg DAILY PO Last administered on 06/27/17 09:12; Admin Dose 325 MG; Start 06/22/17 at 09:00 Atorvastatin Calcium (Lipitor) 40 mg QHS PO Last administered on 06/27/17 20: 20; Admin Dose 40 MG; Start 06/21/17 at 21:00 Carvedilol (Coreg) 3.125 mg BID PO Last administered on 06/27/17 09:13; Admin Dose 3.125 MG; Start 06/21/17 at 21:00 Lisinopril (Zestril) 2.5 mg DAILY PO Last administered on 06/27/17 09:12; Admin Dose 2.5 MG; Start 06/22/17 at 09:00 Potassium Chloride (Klor-Con 10) 10 meq DAILY PO Last administered on 09:12; Admin Dose 10 MEQ; Start 06/22/17 at 09:00 Miscellaneous Information 1 ea NOTE XX ; Start 06/21/17 at 18:30 Glucose (Glutose) 15 gm Q15M PRN PO DECREASED GLUCOSE; Start 06/21/17 at 18:30 Glucose (Glutose) 22.5 gm Q15M PRN PO DECREASED GLUCOSE; Start 06/21/17 at 18: 30 Dextrose (D50w Syringe) 25 ml Q15M PRN IV DECREASED GLUCOSE; Start 06/21/17 at 18:30 Dextrose (D50w Syringe) 50 ml Q15M PRN IV DECREASED GLUCOSE; Start 06/21/17 at 18:30 Glucagon (Glucagen) 1 mg Q15M PRN IM DECREASED GLUCOSE; Start 06/21/17 at 18:30 Glucose (Glutose) 15 gm Q15M PRN BUCCAL DECREASED GLUCOSE; Start 06/21/17 at 18 :30 Oxycodone/ Acetaminophen (Percocet (5/ 325)) 1 tab Q4H PRN PO PAIN; Start 06/22 at 07:00 Oxycodone/ Acetaminophen (Percocet (5/ 325)) 2 tab Q4H PRN PO PAIN LEVEL 7-10 Last administered on 06/28/17 05:21; Admin Dose 2 TAB; Start 06/22/17 at 07:00 Enoxaparin Sodium (Lovenox) 40 mg DAILY SC Last administered on 06/27/17 09:17 ; Admin Dose 40 MG; Start 06/23/17 at 09:00 Pantoprazole (Protonix Tab) 40 mg DAILY@06 PO Last administered on 06/28/17 05:27; Admin Dose 40 MG; Start 06/25/17 at 06:00 Famotidine (Pepcid) 20 mg BID PO Last administered on 06/27/17 20:18; Admin Dose 20 MG; Start 06/24/17 at 21:00 Insulin Glargine (Lantus) 10 unit DAILY@20 SC Last administered on 06/27/17 20 :31; Admin Dose 10 UNIT; Start 06/24/17 at 20:00 Acetazolamide (Diamox) 250 mg ONCE ONCE PO ; Start 06/28/17 at 08:00; Stop at 08:01 TAMMI MORENO Jun 28, 2017 06:52
[2017-06-28] MEDS: INSULIN ASPART [NOVOLOG] 3 ML PEN SC SCH ×4 (07:55→21:15)
[2017-06-28] MEDS ORDERED: ACETAZOLAMIDE 250 MG TAB PO ONE (08:00)
[2017-06-28] MEDS: metFORMIN 500 MG TAB PO SCH ×2 (08:30→17:30)
[2017-06-28] MEDS: ASPIRIN (EC) 325 MG TAB PO SCH (08:30)
[2017-06-28] MEDS: POTASSIUM CHLORIDE (SR) 10 MEQ TAB PO SCH (08:30)
[2017-06-28] MEDS: LISINOPRIL 5 MG TAB PO SCH (08:31)
[2017-06-28] MEDS: FAMOTIDINE 20 MG TAB PO SCH ×2 (08:32→20:57)
[2017-06-28] MEDS: ENOXAPARIN 40 MG/0.4 ML SYG SC SCH (08:37)
[2017-06-28] MEDS: ALBUTEROL 0.083% (NEB) 2.5 MG/3 ML AMP HHN SCH ×2 (08:38→20:17)
--- NOTE | 2017-06-28 13:19 | CONS ---
Date/Time of Note Date/Time of Note DATE: 06/28/17 TIME: 13:17 Consult Date/Type/Reason Admit Date/Time Jun 21, 2017 at 15:03 Initial Consult Date 06/23/17 Type of Consultation: nephrology/im Ordering Provider: GIOVANNI KRUGER DO Subjective SUBJECTIVE: The patient is stable. No events overnight. The patient had excellent urinary output over 3 liters. No other events noted. d/w cardiology. decreased edema mri result noted ros: no nausea, vomiting, chest pain, dyspnea, melena, hematuria, new rash, fever or chills. no headache OBJECTIVE: HEENT: Head is normocephalic. NECK: Supple. HEART: Regular rate. LUNGS: Show diminished breath sounds at base. ABDOMEN: Soft, nontender to palpation without rebound or guarding. EXTREMITIES: Negative for clubbing, cyanosis. Positive edema +3. DERMATOLOGIC: No rashes. MUSCULOSKELETAL: No joint effusions. NEUROLOGIC: No change in exam. Objective Vital Signs Date Time Temp Pulse Resp B/P Pulse Ox O2 Delivery O2 Flow Rate FiO2 06/28/17 12:13 98.4 67 17 97/60 90 06/28/17 08:41 21 Intake and Output 06/27/17 06/27/17 06/28/17 15:00 23:00 07:00 Intake Total 560 ml 700 ml Output Total 800 ml 1800 ml Balance -240 ml -1100 ml Results/Medications Result Diagram: 06/27/17 0514 06/27/17 0514 Results 24 hrs Laboratory Tests Test 06/27/17 17:47 06/27/17 20:16 06/28/17 08:00 06/28/17 11:47 Bedside Glucose 160 163 140 172 Medications Current Medications Diagnostic Test (Pha) (Accu-Chek) 1 ea XX Last administered on 06/27/17 02: 00; Admin Dose 1 EA; Start 06/22/17 at 02:00 Diagnostic Test (Pha) (Accu-Chek) ea XX Last administered on 06/27/17 02: 00; Admin Dose 1 EA; Start 06/22/17 at 02:00 Aspirin (Ecotrin) 325 mg DAILY PO Last administered on 06/28/17 08:30; Admin Dose 325 MG; Start 06/22/17 at 09:00 Atorvastatin Calcium (Lipitor) 40 mg QHS PO Last administered on 06/27/17 20: 20; Admin Dose 40 MG; Start 06/21/17 at 21:00 Carvedilol (Coreg) 3.125 mg BID PO Last administered on 06/28/17 08:32; Admin Dose 3.125 MG; Start 06/21/17 at 21:00 Lisinopril (Zestril) 2.5 mg DAILY PO Last administered on 06/28/17 08:31; Admin Dose 2.5 MG; Start 06/22/17 at 09:00 Potassium Chloride (Klor-Con 10) 10 meq DAILY PO Last administered on 08:30; Admin Dose 10 MEQ; Start 06/22/17 at 09:00 Miscellaneous Information 1 ea NOTE XX ; Start 06/21/17 at 18:30 Glucose (Glutose) 15 gm Q15M PRN PO DECREASED GLUCOSE; Start 06/21/17 at 18:30 Glucose (Glutose) 22.5 gm Q15M PRN PO DECREASED GLUCOSE; Start 06/21/17 at 18: 30 Dextrose (D50w Syringe) 25 ml Q15M PRN IV DECREASED GLUCOSE; Start 06/21/17 at 18:30 Dextrose (D50w Syringe) 50 ml Q15M PRN IV DECREASED GLUCOSE; Start 06/21/17 at 18:30 Glucagon (Glucagen) 1 mg Q15M PRN IM DECREASED GLUCOSE; Start 06/21/17 at 18:30 Glucose (Glutose) 15 gm Q15M PRN BUCCAL DECREASED GLUCOSE; Start 06/21/17 at 18 :30 Oxycodone/ Acetaminophen (Percocet (5/ 325)) 1 tab Q4H PRN PO PAIN; Start 06/22 at 07:00 Oxycodone/ Acetaminophen (Percocet (5/ 325)) 2 tab Q4H PRN PO PAIN LEVEL 7-10 Last administered on 06/28/17 11:04; Admin Dose 2 TAB; Start 06/22/17 at 07:00 Enoxaparin Sodium (Lovenox) 40 mg DAILY SC Last administered on 06/28/17 08: 37; Admin Dose 40 MG; Start 06/23/17 at 09:00 Pantoprazole (Protonix Tab) 40 mg DAILY@06 PO Last administered on 06/28/17 05:27; Admin Dose 40 MG; Start 06/25/17 at 06:00 Famotidine (Pepcid) 20 mg BID PO Last administered on 06/28/17 08:32; Admin Dose 20 MG; Start 06/24/17 at 21:00 Insulin Glargine (Lantus) 10 unit DAILY@20 SC Last administered on 06/27/17 20 :31; Admin Dose 10 UNIT; Start 06/24/17 at 20:00 Assessment/Plan Chief Complaint/Hosp Course ASSESSMENT AND PLAN: 1. Volume overload, lower extremity edema. Etiology may be multifactorial secondary to congestive heart failure. A Doppler lower extremity ultrasound was negative for deep venous thrombosis. The patient is pending MRI venogram to evaluate inferior vena cava. Would continue current medical management. Continue Bumex. Continue metolazone. Follow up electrolytes and renal function closely. Follow up with cardiology. 2. Congestive heart failure exacerbation. Continue workup as stated above. Continue diuretic regimen. 3. Acute respiratory failure. Etiology is multifactorial, history of congestive heart failure with possible metastatic renal cell carcinoma, chronic obstructive pulmonary disease. Continue current treatment plan. The patient was ruled out for PE previously. 4. Coronary artery disease, status post coronary artery bypass graft. Continue medical management. 5. Renal cell carcinoma stage IV. The patient will likely have chemotherapy in 4 to 6 weeks once clinically stable. 6. 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 Continue to monitor. 7. Diabetes. Continue Accu-Cheks, insulin sliding scale. 8. Dyslipidemia. Continue statin therapy. 9. Debility. Continue physical therapy. 10. Chronic pain syndrome. 11. Gastrointestinal and deep venous thrombosis prophylaxis. Continue proton pump inhibitor and Lovenox. Problems: ALIA DILLON MD Jun 28, 2017 13:19
[2017-06-28] MEDS: POLYETHYLENE GLYCOL 17 GM PACKET PO SCH (18:00)
[2017-06-28] MEDS: ATORVASTATIN 40 MG TAB PO SCH (20:57)
[2017-06-28] MEDS: INSULIN GLARGINE [LANtus] 3 ML PEN SC SCH (21:16)
[2017-06-29] VITALS (12 sets, daily range): BP systolic 100–119; BP diastolic 58–65; PULSE 88–110; RESP 16–20
[2017-06-29] MEDS: OXYCODONE/ACETAMINOPHEN (5/325) TAB PO PRN ×6 (01:11→22:33)
[2017-06-29] MEDS: ACCU-CHEK XX SCH ×2 (01:13)
[2017-06-29] MEDS: BUMETANIDE 1 MG TAB PO SCH ×2 (05:20→17:39)
[2017-06-29] MEDS: PANTOPRAZOLE (EC) 40 MG TAB PO SCH (05:20)
[2017-06-29] MEDS: INSULIN ASPART [NOVOLOG] 3 ML PEN SC SCH ×4 (07:56→21:00)
[2017-06-29] MEDS: POLYETHYLENE GLYCOL 17 GM PACKET PO SCH (08:12)
[2017-06-29] MEDS: LISINOPRIL 5 MG TAB PO SCH (08:12)
[2017-06-29] MEDS: ASPIRIN (EC) 325 MG TAB PO SCH (08:13)
[2017-06-29] MEDS: FAMOTIDINE 20 MG TAB PO SCH ×2 (08:13→20:52)
[2017-06-29] MEDS: metFORMIN 500 MG TAB PO SCH ×2 (08:14→17:39)
[2017-06-29] MEDS: POTASSIUM CHLORIDE (SR) 10 MEQ TAB PO SCH (08:14)
[2017-06-29] MEDS: ENOXAPARIN 40 MG/0.4 ML SYG SC SCH (08:22)
[2017-06-29] MEDS: ALBUTEROL 0.083% (NEB) 2.5 MG/3 ML AMP HHN SCH ×2 (09:00→19:50)
--- NOTE | 2017-06-29 11:34 | PN ---
Date/Time of Note Date/Time of Note DATE: 06/29/17 TIME: 11:33 Assessment/Plan VTE Prophylaxis VTE Prophylaxis Intervention: other Lines/Catheters IV [facility] Type [facility]from [facility] Urinary Cath still in place: No Assessment/Plan Chief Complaint/Hosp Course SUBJECTIVE: The patient is stable. No events overnight. The patient had excellent urinary output over 3 liters. No other events noted. d/w cardiology no nausea, vomiting, chest pain, dyspnea, melena, hematuria, new rash, fever or chills. no headache remains grossly volume overloaded and anemic OBJECTIVE: HEENT: Head is normocephalic. NECK: Supple. HEART: Regular rate. LUNGS: Show diminished breath sounds at base. ABDOMEN: Soft, nontender to palpation without rebound or guarding. EXTREMITIES: Negative for clubbing, cyanosis. Positive edema +3. DERMATOLOGIC: No rashes. MUSCULOSKELETAL: No joint effusions. NEUROLOGIC: No change in exam. MEDICATIONS: The patient's medications are reviewed. LABORATORY DATA: Currently pending. ASSESSMENT AND PLAN: 1. Volume overload, lower extremity edema. Etiology may be multifactorial secondary to congestive heart failure. A Doppler lower extremity ultrasound was negative for deep venous thrombosis. The patient is pending MRI venogram to evaluate inferior vena cava. Would continue current medical management. increase Bumex. Continue metolazone. Follow up electrolytes and renal function closely. Follow up with cardiology. 2. Congestive heart failure exacerbation. Continue workup as stated above. Continue diuretic regimen. 3. Acute respiratory failure. Etiology is multifactorial, history of congestive heart failure with possible metastatic renal cell carcinoma, chronic obstructive pulmonary disease. Continue current treatment plan. The patient was ruled out for PE previously. 4. Coronary artery disease, status post coronary artery bypass graft. Continue medical management. 5. Renal cell carcinoma stage IV. The patient will likely have chemotherapy in 4 to 6 weeks once clinically stable. 6. 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 Continue to monitor. 7. Diabetes. Continue Accu-Cheks, insulin sliding scale. 8. Dyslipidemia. Continue statin therapy. 9. Debility. Continue physical therapy. 10. Chronic pain syndrome. 11. Gastrointestinal and deep venous thrombosis prophylaxis. Continue proton pump inhibitor and Lovenox. 12. anemia: will check iron panel, esr and retic count DISPOSITION: Anticipate discharge home in the next 2 to 3 days as patient clinically improves. Problems: Exam/Review of Systems Vital Signs Vitals Vital Signs Date Time Temp Pulse Resp B/P Pulse Ox O2 Delivery O2 Flow Rate FiO2 06/29/17 08:22 93 06/29/17 07:47 98.3 17 100/61 91 06/28/17 20:27 21 Intake and Output 06/28/17 06/28/17 06/29/17 15:00 23:00 07:00 Intake Total 1200 ml 1000 ml Output Total 1400 ml 1950 ml Balance -200 ml -950 ml Results Result Diagram: 06/27/17 0514 06/27/17 0514 Results 24 hrs Laboratory Tests Test 06/28/17 11:47 06/28/17 17:29 06/28/17 20:56 06/29/17 01:09 Bedside Glucose 172 132 230 H 161 Test 06/29/17 07:49 Bedside Glucose 143 Medications Medications Current Medications Diagnostic Test (Pha) (Accu-Chek) 1 ea 02 XX Last administered on 06/29/17 01 :13; Admin Dose 1 EA; Start 06/22/17 at 02:00 Diagnostic Test (Pha) (Accu-Chek) 1 ea 02 XX Last administered on 06/27/17 02: 00; Admin Dose 1 EA; Start 06/22/17 at 02:00 Aspirin (Ecotrin) 325 mg DAILY PO Last administered on 06/29/17 08:13; Admin Dose 325 MG; Start 06/22/17 at 09:00 Atorvastatin Calcium (Lipitor) 40 mg QHS PO Last administered on 06/28/17 20: 57; Admin Dose 40 MG; Start 06/21/17 at 21:00 Carvedilol (Coreg) 3.125 mg BID PO Last administered on 06/29/17 08:15; Admin Dose 3.125 MG; Start 06/21/17 at 21:00 Lisinopril (Zestril) 2.5 mg DAILY PO Last administered on 06/29/17 08:12; Admin Dose 2.5 MG; Start 06/22/17 at 09:00 Potassium Chloride (Klor-Con 10) 10 meq DAILY PO Last administered on 08:14; Admin Dose 10 MEQ; Start 06/22/17 at 09:00 Miscellaneous Information 1 ea NOTE XX ; Start 06/21/17 at 18:30 Glucose (Glutose) 15 gm Q15M PRN PO DECREASED GLUCOSE; Start 06/21/17 at 18:30 Glucose (Glutose) 22.5 gm Q15M PRN PO DECREASED GLUCOSE; Start 06/21/17 at 18: 30 Dextrose (D50w Syringe) 25 ml Q15M PRN IV DECREASED GLUCOSE; Start 06/21/17 at 18:30 Dextrose (D50w Syringe) 50 ml Q15M PRN IV DECREASED GLUCOSE; Start 06/21/17 at 18:30 Glucagon (Glucagen) 1 mg Q15M PRN IM DECREASED GLUCOSE; Start 06/21/17 at 18:30 Glucose (Glutose) 15 gm Q15M PRN BUCCAL DECREASED GLUCOSE; Start 06/21/17 at 18 :30 Oxycodone/ Acetaminophen (Percocet (5/ 325)) 1 tab Q4H PRN PO PAIN; Start 06/22 at 07:00 Oxycodone/ Acetaminophen (Percocet (5/ 325)) 2 tab Q4H PRN PO PAIN LEVEL 7-10 Last administered on 06/29/17 09:44; Admin Dose 2 TAB; Start 06/22/17 at 07:00 Enoxaparin Sodium (Lovenox) 40 mg DAILY SC Last administered on 06/29/17 08: 22; Admin Dose 40 MG; Start 06/23/17 at 09:00 Pantoprazole (Protonix Tab) 40 mg DAILY@06 PO Last administered on 06/29/17 05:20; Admin Dose 40 MG; Start 06/25/17 at 06:00 Famotidine (Pepcid) 20 mg BID PO Last administered on 06/29/17 08:13; Admin Dose 20 MG; Start 06/24/17 at 21:00 Insulin Glargine (Lantus) 10 unit DAILY@20 SC Last administered on 06/28/17 21:16; Admin Dose 10 UNIT; Start 06/24/17 at 20:00 Polyethylene Glycol (Miralax) 17 gm DAILY PO Last administered on 06/29/17 08 :12; Admin Dose 17 GM; Start 06/28/17 at 18:00 SANDRA PYLE DO Jun 29, 2017 11:34
[2017-06-29] MEDS: METOLAZONE 10 MG TAB PO SCH (12:00)
[2017-06-29] MEDS: ALBUTEROL 0.083% (NEB) 2.5 MG/3 ML AMP HHN PRN (14:06)
--- NOTE | 2017-06-29 17:38 | CONS ---
Date/Time of Note Date/Time of Note DATE: 06/29/17 TIME: 17:34 Assessment/Plan Assessment/Plan Chief Complaint/Hosp Course Right upper leg mass: ?superficial thrombus at the site of prior vein harvest. Leg edema: MR venogram did not show an IVC thrombus. Improving with diuresis Dyspnea: Likely multifactorial as well including heart failure but also from lung mets Acute on chronic systolic heart failure: EF 45% most recently. Improving Pericardial thrombus: Post-op echos have shown a layer of thrombus in the anterior portion of the pericardium. Appears to be compressing the RV but IVC normal in size and collapse so unlikely to be causing a hemodynamic consequence. 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 DM HTN -ultrasound of right leg -bumex increased to 2mg PO BID -ASA, lipitor -coreg 3.125mg BID -lisinopril 2.5mg Problems: Consultation Date/Type/Reason Admit Date/Time Jun 21, 2017 at 15:03 Initial Consult Date 06/22/17 Type of Consultation: Cardiology Referring Provider: GIOVANNI KRUGER DO 24 HR Interval Summary Free Text/Dictation No o/n events. Doing well. Right upper leg hard mass noted by Exam/Review of Systems Vital Signs Vitals Vital Signs Date Time Temp Pulse Resp B/P Pulse Ox O2 Delivery O2 Flow Rate FiO2 06/29/17 16:25 88 06/29/17 15:36 98.3 17 108/65 94 06/29/17 14:07 21 Intake and Output 06/28/17 06/28/17 06/29/17 15:00 23:00 07:00 Intake Total 1200 ml 1000 ml Output Total 1400 ml 1950 ml Balance -200 ml -950 ml Exam Constitutional: alert, oriented Head: atraumatic, normocephalic Neck: No jvd Respiratory: clear to auscultation, No crackles/rales Cardiovascular: edema (1+), regular rate and rhythm Gastrointestinal: non-tender, soft Neurological: nl mental status, nl speech Results Result Diagram: 06/27/17 0514 06/27/17 0514 Results 24 hrs Laboratory Tests Test 06/28/17 20:56 06/29/17 01:09 06/29/17 07:49 06/29/17 11:32 Bedside Glucose 230 H 161 143 154 Medications Medications Current Medications Diagnostic Test (Pha) (Accu-Chek) 1 ea 02 XX Last administered on 06/29/17 01 :13; Admin Dose 1 EA; Start 06/22/17 at 02:00 Diagnostic Test (Pha) (Accu-Chek) 1 ea 02 XX Last administered on 06/27/17 02: 00; Admin Dose 1 EA; Start 06/22/17 at 02:00 Aspirin (Ecotrin) 325 mg DAILY PO Last administered on 06/29/17 08:13; Admin Dose 325 MG; Start 06/22/17 at 09:00 Atorvastatin Calcium (Lipitor) 40 mg QHS PO Last administered on 06/28/17 20: 57; Admin Dose 40 MG; Start 06/21/17 at 21:00 Carvedilol (Coreg) 3.125 mg BID PO Last administered on 06/29/17 08:15; Admin Dose 3.125 MG; Start 06/21/17 at 21:00 Lisinopril (Zestril) 2.5 mg DAILY PO Last administered on 06/29/17 08:12; Admin Dose 2.5 MG; Start 06/22/17 at 09:00 Potassium Chloride (Klor-Con 10) 10 meq DAILY PO Last administered on 08:14; Admin Dose 10 MEQ; Start 06/22/17 at 09:00 Miscellaneous Information 1 ea NOTE XX ; Start 06/21/17 at 18:30 Glucose (Glutose) 15 gm Q15M PRN PO DECREASED GLUCOSE; Start 06/21/17 at 18:30 Glucose (Glutose) 22.5 gm Q15M PRN PO DECREASED GLUCOSE; Start 06/21/17 at 18: 30 Dextrose (D50w Syringe) 25 ml Q15M PRN IV DECREASED GLUCOSE; Start 06/21/17 at 18:30 Dextrose (D50w Syringe) 50 ml Q15M PRN IV DECREASED GLUCOSE; Start 06/21/17 at 18:30 Glucagon (Glucagen) 1 mg Q15M PRN IM DECREASED GLUCOSE; Start 06/21/17 at 18:30 Glucose (Glutose) 15 gm Q15M PRN BUCCAL DECREASED GLUCOSE; Start 06/21/17 at 18 :30 Oxycodone/ Acetaminophen (Percocet (5/ 325)) 1 tab Q4H PRN PO PAIN; Start 06/22 at 07:00 Oxycodone/ Acetaminophen (Percocet (5/ 325)) 2 tab Q4H PRN PO PAIN LEVEL 7-10 Last administered on 06/29/17 14:27; Admin Dose 2 TAB; Start 06/22/17 at 07:00 Enoxaparin Sodium (Lovenox) 40 mg DAILY SC Last administered on 06/29/17 08: 22; Admin Dose 40 MG; Start 06/23/17 at 09:00 Pantoprazole (Protonix Tab) 40 mg DAILY@06 PO Last administered on 06/29/17 05:20; Admin Dose 40 MG; Start 06/25/17 at 06:00 Famotidine (Pepcid) 20 mg BID PO Last administered on 06/29/17 08:13; Admin Dose 20 MG; Start 06/24/17 at 21:00 Insulin Glargine (Lantus) 10 unit DAILY@20 SC Last administered on 06/28/17 21:16; Admin Dose 10 UNIT; Start 06/24/17 at 20:00 Polyethylene Glycol (Miralax) 17 gm DAILY PO Last administered on 06/29/17 08 :12; Admin Dose 17 GM; Start 06/28/17 at 18:00 Metolazone (Zaroxolyn) 10 mg DAILY PO ; Start 06/29/17 at 12:00 TAMMI MORENO Jun 29, 2017 17:37
--- NOTE | 2017-06-29 19:57 | RADRPT ---
PROCEDURE: Ultrasound extremity limited CLINICAL INDICATION: Medial right thigh mass TECHNIQUE: Real time sonographic imaging in the area of concern, the right thigh is performed and 4 images are submitted to the PACS for review COMPARISON: Venous ultrasound 06/22/2017 FINDINGS: Larger ovoid predominately anechoic collection with increased through transmission is seen from the upper groin region to the popliteal fossa measuring up to 34.5 cm in length. There are internal sept ations. The AP and transverse dimensions of the abnormality measure 4 x 2.3 cm. RPTAT:HJJR IMPRESSION: Elongated septated collection extending from the proximal right side of the popliteal fossa possibly a hematoma or complex seroma for which clinical follow-up is recommended, the finding not visible o n the venous ultrasound 06/22/2017. Physician Anuel Date Time Electronically viewed and signed by Physician Anuel on 06/29/2017 19:57 JR/
[2017-06-29] MEDS: ATORVASTATIN 40 MG TAB PO SCH (20:52)
[2017-06-29] MEDS: INSULIN GLARGINE [LANtus] 3 ML PEN SC SCH (21:03)
[2017-06-30] VITALS (12 sets, daily range): BP systolic 105–126; BP diastolic 60–76; PULSE 92–110; RESP 16–18
[2017-06-30] MEDS: ACCU-CHEK XX SCH ×2 (02:00)
[2017-06-30] MEDS: OXYCODONE/ACETAMINOPHEN (5/325) TAB PO PRN ×3 (03:51→18:45)
[2017-06-30] MEDS: PANTOPRAZOLE (EC) 40 MG TAB PO SCH (05:44)
[2017-06-30] MEDS: BUMETANIDE 1 MG TAB PO SCH ×2 (05:44→17:21)
[2017-06-30 06:56] LABS: RETICULOCYTE COUNT % 2.4 % (0.5-1.5)
[2017-06-30 06:58] LABS: ABNORMAL IP MESSAGE 1; BASOPHILS % 0.3 % (0.0-2.0); EOSINOPHILS # 0.1 10^3/ul (0.0-0.5); HEMATOCRIT 28.4 % (42.0-52.0); HEMOGLOBIN 8.1 g/dl (14.0-18.0); LYMPHOCYTES # 1.5 10^3/ul (0.8-2.9); LYMPHOCYTES % 16.8 % (15.0-51.0); MEAN CORPUSCULAR HEMOGLOBIN 23.7 pg (29.0-33.0); MEAN CORPUSCULAR HGB CONC 28.5 g/dl (32.0-37.0); MEAN PLATELET VOLUME 9.6 fl (7.4-10.4); MONOCYTE # 1.2 10^3/ul (0.3-0.9); MONOCYTES % 13.7 % (0.0-11.0); NEUTROPHIL # 5.8 10^3/ul (1.6-7.5); NEUTROPHILS % 66.5 % (39.0-77.0); PLATELET COUNT 357 10^3/UL (140-415); POSITIVE DIFF @See below; RED BLOOD COUNT 3.42 10^6/ul (4.70-6.10); RED CELL DISTRIBUTION WIDTH 15.5 % (11.5-14.5); WHITE BLOOD COUNT 8.7 10^3/ul (4.8-10.8)
[2017-06-30 07:13] LABS: IRON 21 ug/dl (35-150)
[2017-06-30 07:18] LABS: CREATININE 0.95 mg/dl (0.61-1.24); MAGNESIUM 1.9 mg/dl (1.7-2.5); PHOSPHORUS 4.1 mg/dl (2.5-4.9); POTASSIUM 3.2 mmol/L (3.5-5.1)
[2017-06-30 07:23] LABS: TOTAL IRON BINDING CAPACITY 211 ug/dl (241-421)
[2017-06-30] MEDS: INSULIN ASPART [NOVOLOG] 3 ML PEN SC SCH ×4 (07:54→20:31)
[2017-06-30] MEDS: metFORMIN 500 MG TAB PO SCH ×2 (07:55→17:21)
[2017-06-30] MEDS: POTASSIUM CHLORIDE (SR) 10 MEQ TAB PO SCH (08:38)
[2017-06-30] MEDS: ASPIRIN (EC) 325 MG TAB PO SCH (08:39)
[2017-06-30] MEDS: METOLAZONE 10 MG TAB PO SCH (08:39)
[2017-06-30] MEDS: FAMOTIDINE 20 MG TAB PO SCH ×2 (08:39→20:29)
[2017-06-30] MEDS: LISINOPRIL 5 MG TAB PO SCH (08:40)
[2017-06-30] MEDS: POLYETHYLENE GLYCOL 17 GM PACKET PO SCH (08:41)
[2017-06-30] MEDS: ENOXAPARIN 40 MG/0.4 ML SYG SC SCH (08:48)
[2017-06-30] MEDS: ALBUTEROL 0.083% (NEB) 2.5 MG/3 ML AMP HHN SCH ×2 (09:00→20:15)
[2017-06-30] MEDS ORDERED: POTASSIUM CHLORIDE 20 MEQ POWDER FOR ORAL SOLN PO ONE (10:30)
[2017-06-30] MEDS ORDERED: POTASSIUM CHLORIDE 50 ML IVPB SCH (10:30)
--- NOTE | 2017-06-30 10:31 | CONS ---
Date/Time of Note Date/Time of Note DATE: 06/30/17 TIME: 10:28 Assessment/Plan Assessment/Plan Chief Complaint/Hosp Course Right upper leg mass: septated seroma vs hematoma per ultrasound. Dr. Mooney will evaluate Leg edema: MR venogram did not show an IVC thrombus. Improving with diuresis Dyspnea: Likely multifactorial as well including heart failure but also from lung mets Acute on chronic systolic heart failure: EF 45% most recently. Improving Pericardial thrombus: Post-op echos have shown a layer of thrombus in the anterior portion of the pericardium. Appears to be compressing the RV but IVC normal in size and collapse so unlikely to be causing a hemodynamic consequence. 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 DM HTN -replete K -add diamox 250mg x 3 doses today -decrease to bumex 1mg PO BID in anticipation for discharge tomorrow and to maintain as home dose -d/c metolazone -ASA, lipitor -coreg 3.125mg BID -lisinopril 2.5mg Problems: Consultation Date/Type/Reason Admit Date/Time Jun 21, 2017 at 15:03 Initial Consult Date 06/22/17 Type of Consultation: Cardiology Referring Provider: GIOVANNI KRUGER DO 24 HR Interval Summary Free Text/Dictation No o/n events. Ultrasound results noted. Per daughter, pt was confused in the middle of the night Exam/Review of Systems Vital Signs Vitals Vital Signs Date Time Temp Pulse Resp B/P Pulse Ox O2 Delivery O2 Flow Rate FiO2 06/30/17 08:00 100 06/30/17 07:42 98.0 18 126/76 91 06/29/17 19:54 21 Intake and Output 06/29/17 06/29/17 06/30/17 15:00 23:00 07:00 Intake Total 1000 ml 500 ml Balance 1000 ml 500 ml Exam Constitutional: alert, oriented Psych: no complaints Head: atraumatic, normocephalic Neck: supple, No jvd Respiratory: clear to auscultation, No crackles/rales Cardiovascular: edema (1+), regular rate and rhythm Gastrointestinal: non-tender, soft Neurological: nl mental status, nl speech Results Result Diagram: 06/30/1761306/30/17 06 Results 24 hrs Laboratory Tests Test 06/29/17 11:32 06/29/17 17:28 06/29/17 20:56 06/30/17 06:14 Bedside Glucose 154 146 180 White Blood Count 8.7 Red Blood Count 3.42 L Hemoglobin 8.1 L Hematocrit 28.4 L Mean Corpuscular Volume 83.0 Mean Corpuscular Hemoglobin 23.7 L Mean Corpuscular Hemoglobin Concent 28.5 L Red Cell Distribution Width 15.5 H Platelet Count 357 Mean Platelet Volume 9.6 Neutrophils % 66.5 Lymphocytes % 16.8 Monocytes % 13.7 H Eosinophils % 1.0 Basophils % 0.3 Nucleated Red Blood Cells % 0.0 Neutrophils # 5.8 Lymphocytes # 1.5 Monocytes # 1.2 H Eosinophils # 0.1 Basophils # 0.0 Nucleated Red Blood Cells # 0.0 Erythrocyte Sedimentation Rate 88 H Absolute Reticulocyte Count 0.083 Percent Reticulocyte Count 2.4 H Sodium Level 128 L Potassium Level 3.2 L Chloride Level 83 L Carbon Dioxide Level 43 *H Anion Gap 5 L Blood Urea Nitrogen 21 H Creatinine 0.95 Glucose Level 154 Calcium Level 9.0 Phosphorus Level 4.1 Magnesium Level 1.9 Iron Level 21 L Total Iron Binding Capacity 211 L Percent Iron Saturation 10 L Test 06/30/17 07:45 Bedside Glucose 142 Medications Medications Current Medications Diagnostic Test (Pha) (Accu-Chek) XX Last administered on 06/29/17 01 :13; Admin Dose 1 EA; Start 06/22/17 at 02:00 Diagnostic Test (Pha) (Accu-Chek) ea XX Last administered on 06/27/17 02: 00; Admin Dose 1 EA; Start 06/22/17 at 02:00 Aspirin (Ecotrin) 325 mg DAILY PO Last administered on 06/30/17 08:39; Admin Dose 325 MG; Start 06/22/17 at 09:00 Atorvastatin Calcium (Lipitor) 40 mg QHS PO Last administered on 06/29/17 20: 52; Admin Dose 40 MG; Start 06/21/17 at 21:00 Carvedilol (Coreg) 3.125 mg BID PO Last administered on 06/30/17 08:38; Admin Dose 3.125 MG; Start 06/21/17 at 21:00 Lisinopril (Zestril) 2.5 mg DAILY PO Last administered on 06/30/17 08:40; Admin Dose 2.5 MG; Start 06/22/17 at 09:00 Potassium Chloride (Klor-Con 10) 10 meq DAILY PO Last administered on 08:38; Admin Dose 10 MEQ; Start 06/22/17 at 09:00 Miscellaneous Information 1 ea NOTE XX ; Start 06/21/17 at 18:30 Glucose (Glutose) 15 gm Q15M PRN PO DECREASED GLUCOSE; Start 06/21/17 at 18:30 Glucose (Glutose) 22.5 gm Q15M PRN PO DECREASED GLUCOSE; Start 06/21/17 at 18: 30 Dextrose (D50w Syringe) 25 ml Q15M PRN IV DECREASED GLUCOSE; Start 06/21/17 at 18:30 Dextrose (D50w Syringe) 50 ml Q15M PRN IV DECREASED GLUCOSE; Start 06/21/17 at 18:30 Glucagon (Glucagen) 1 mg Q15M PRN IM DECREASED GLUCOSE; Start 06/21/17 at 18:30 Glucose (Glutose) 15 gm Q15M PRN BUCCAL DECREASED GLUCOSE; Start 06/21/17 at 18 :30 Oxycodone/ Acetaminophen (Percocet (5/ 325)) 1 tab Q4H PRN PO PAIN; Start 06/22 at 07:00 Oxycodone/ Acetaminophen (Percocet (5/ 325)) 2 tab Q4H PRN PO PAIN LEVEL 7-10 Last administered on 06/30/17 03:51; Admin Dose 2 TAB; Start 06/22/17 at 07:00 Enoxaparin Sodium (Lovenox) 40 mg DAILY SC Last administered on 06/30/17 08: 48; Admin Dose 40 MG; Start 06/23/17 at 09:00 Pantoprazole (Protonix Tab) 40 mg DAILY@06 PO Last administered on 06/30/17 05:44; Admin Dose 40 MG; Start 06/25/17 at 06:00 Famotidine (Pepcid) 20 mg BID PO Last administered on 06/30/17 08:39; Admin Dose 20 MG; Start 06/24/17 at 21:00 Insulin Glargine (Lantus) 10 unit DAILY@20 SC Last administered on 06/29/17 21:03; Admin Dose 10 UNIT; Start 06/24/17 at 20:00 Polyethylene Glycol (Miralax) 17 gm DAILY PO Last administered on 06/30/17 08 :41; Admin Dose 17 GM; Start 06/28/17 at 18:00 Metolazone (Zaroxolyn) 10 mg DAILY PO Last administered on 06/30/17 08:39; Admin Dose 10 MG; Start 06/29/17 at 12:00 Acetazolamide (Diamox) 250 mg TID PO ; Start 06/30/17 at 09:00; Stop 07/01/17 at 06:00 TAMMI MORENO Jun 30, 2017 10:31
[2017-06-30] MEDS: ACETAZOLAMIDE 250 MG TAB PO SCH ×3 (11:49→20:29)
[2017-06-30] MEDS: KCL 20 MEQ in NS 100 ML IV SCH ×2 (12:18→14:12)
--- NOTE | 2017-06-30 14:17 | CONS ---
Date/Time of Note Date/Time of Note DATE: 06/30/17 TIME: 14:17 Consult Date/Type/Reason Admit Date/Time Jun 21, 2017 at 15:03 Initial Consult Date 06/23/17 Type of Consultation: nephrology Ordering Provider: GIOVANNI KRUGER DO Objective Vital Signs Date Time Temp Pulse Resp B/P Pulse Ox O2 Delivery O2 Flow Rate FiO2 06/30/17 12:00 92 06/30/17 11:09 98.6 18 113/66 98 06/29/17 19:54 21 Intake and Output 06/29/17 06/29/17 06/30/17 15:00 23:00 07:00 Intake Total 1000 ml 500 ml Balance 1000 ml 500 ml Exam The patient is stable. No events overnight. The patient had excellent urinary output over 3 liters. No other events noted. d/w cardiology no nausea, vomiting, chest pain, dyspnea, melena, hematuria, new rash, fever or chills. no headache remains grossly volume overloaded and anemic OBJECTIVE: HEENT: Head is normocephalic. NECK: Supple. HEART: Regular rate. LUNGS: Show diminished breath sounds at base. ABDOMEN: Soft, nontender to palpation without rebound or guarding. EXTREMITIES: Negative for clubbing, cyanosis. Positive edema +3. DERMATOLOGIC: No rashes. MUSCULOSKELETAL: No joint effusions. NEUROLOGIC: No change in exam. Results/Medications Result Diagram: 06/30/1761306/30/1714 Results 24 hrs Laboratory Tests Test 06/29/17 17:28 06/29/17 20:56 06/30/17 06:14 06/30/17 07:45 Bedside Glucose 146 180 142 White Blood Count 8.7 Red Blood Count 3.42 L Hemoglobin 8.1 L Hematocrit 28.4 L Mean Corpuscular Volume 83.0 Mean Corpuscular Hemoglobin 23.7 L Mean Corpuscular Hemoglobin Concent 28.5 L Red Cell Distribution Width 15.5 H Platelet Count 357 Mean Platelet Volume 9.6 Neutrophils % 66.5 Lymphocytes % 16.8 Monocytes % 13.7 H Eosinophils % 1.0 Basophils % 0.3 Nucleated Red Blood Cells % 0.0 Neutrophils # 5.8 Lymphocytes # 1.5 Monocytes # 1.2 H Eosinophils # 0.1 Basophils # 0.0 Nucleated Red Blood Cells # 0.0 Erythrocyte Sedimentation Rate 88 H Absolute Reticulocyte Count 0.083 Percent Reticulocyte Count 2.4 H Sodium Level 128 L Potassium Level 3.2 L Chloride Level 83 L Carbon Dioxide Level 43 *H Anion Gap 5 L Blood Urea Nitrogen 21 H Creatinine 0.95 Glucose Level 154 Calcium Level 9.0 Phosphorus Level 4.1 Magnesium Level 1.9 Iron Level 21 L Total Iron Binding Capacity 211 L Percent Iron Saturation 10 L Test 06/30/17 11:22 Bedside Glucose 232 H Medications Current Medications Diagnostic Test (Pha) (Accu-Chek) 1 ea 02 XX Last administered on 06/29/17 01 :13; Admin Dose 1 EA; Start 06/22/17 at 02:00 Diagnostic Test (Pha) (Accu-Chek) 1 ea 02 XX Last administered on 06/27/17 02: 00; Admin Dose 1 EA; Start 06/22/17 at 02:00 Aspirin (Ecotrin) 325 mg DAILY PO Last administered on 06/30/17 08:39; Admin Dose 325 MG; Start 06/22/17 at 09:00 Atorvastatin Calcium (Lipitor) 40 mg QHS PO Last administered on 06/29/17 20: 52; Admin Dose 40 MG; Start 06/21/17 at 21:00 Carvedilol (Coreg) 3.125 mg BID PO Last administered on 06/30/17 08:38; Admin Dose 3.125 MG; Start 06/21/17 at 21:00 Lisinopril (Zestril) 2.5 mg DAILY PO Last administered on 06/30/17 08:40; Admin Dose 2.5 MG; Start 06/22/17 at 09:00 Potassium Chloride (Klor-Con 10) 10 meq DAILY PO Last administered on 08:38; Admin Dose 10 MEQ; Start 06/22/17 at 09:00 Miscellaneous Information 1 ea NOTE XX ; Start 06/21/17 at 18:30 Glucose (Glutose) 15 gm Q15M PRN PO DECREASED GLUCOSE; Start 06/21/17 at 18:30 Glucose (Glutose) 22.5 gm Q15M PRN PO DECREASED GLUCOSE; Start 06/21/17 at 18: 30 Dextrose (D50w Syringe) 25 ml Q15M PRN IV DECREASED GLUCOSE; Start 06/21/17 at 18:30 Dextrose (D50w Syringe) 50 ml Q15M PRN IV DECREASED GLUCOSE; Start 06/21/17 at 18:30 Glucagon (Glucagen) 1 mg Q15M PRN IM DECREASED GLUCOSE; Start 06/21/17 at 18:30 Glucose (Glutose) 15 gm Q15M PRN BUCCAL DECREASED GLUCOSE; Start 06/21/17 at 18 :30 Oxycodone/ Acetaminophen (Percocet (5/ 325)) 1 tab Q4H PRN PO PAIN; Start 06/22 at 07:00 Oxycodone/ Acetaminophen (Percocet (5/ 325)) 2 tab Q4H PRN PO PAIN LEVEL 7-10 Last administered on 06/30/17 12:18; Admin Dose 2 TAB; Start 06/22/17 at 07:00 Enoxaparin Sodium (Lovenox) 40 mg DAILY SC Last administered on 06/30/17 08: 48; Admin Dose 40 MG; Start 06/23/17 at 09:00 Pantoprazole (Protonix Tab) 40 mg DAILY@06 PO Last administered on 06/30/17 05:44; Admin Dose 40 MG; Start 06/25/17 at 06:00 Famotidine (Pepcid) 20 mg BID PO Last administered on 06/30/17 08:39; Admin Dose 20 MG; Start 06/24/17 at 21:00 Insulin Glargine (Lantus) 10 unit DAILY@20 SC Last administered on 06/29/17 21:03; Admin Dose 10 UNIT; Start 06/24/17 at 20:00 Polyethylene Glycol (Miralax) 17 gm DAILY PO Last administered on 06/30/17 08 :41; Admin Dose 17 GM; Start 06/28/17 at 18:00 Acetazolamide 250 mg 250 mg TID PO Last administered on 06/30/17 14:12; Admin Dose 250 MG; Start 06/30/17 at 09:00; Stop 07/01/17 at 06:00 Potassium Chloride/Sodium Chloride (KCl/NS) 110 ml @ 55 mls/hr Q2H IV Last administered on 06/30/17 14:12; Admin Dose 55 MLS/HR; Start 06/30/17 at 12:00 ; Stop 06/30/17 at 15:59 Assessment/Plan Chief Complaint/Hosp Course ASSESSMENT AND PLAN: 1. Volume overload, lower extremity edema. Etiology may be multifactorial secondary to congestive heart failure. A Doppler lower extremity ultrasound was negative for deep venous thrombosis. The patient is pending MRI venogram to evaluate inferior vena cava. Would continue current medical management. Continue Bumex. Continue metolazone. Follow up electrolytes and renal function closely. Follow up with cardiology. 2. Congestive heart failure exacerbation. Continue workup as stated above. Continue diuretic regimen. 3. Acute respiratory failure. Etiology is multifactorial, history of congestive heart failure with possible metastatic renal cell carcinoma, chronic obstructive pulmonary disease. Continue current treatment plan. The patient was ruled out for PE previously. 4. Coronary artery disease, status post coronary artery bypass graft. Continue medical management. 5. Renal cell carcinoma stage IV. The patient will likely have chemotherapy in 4 to 6 weeks once clinically stable. 6. 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 Continue to monitor. 7. Diabetes. Continue Accu-Cheks, insulin sliding scale. 8. Dyslipidemia. Continue statin therapy. 9. Debility. Continue physical therapy. 10. Chronic pain syndrome. 11. Gastrointestinal and deep venous thrombosis prophylaxis. Continue proton pump inhibitor and Lovenox. Problems: ALIA DILLON MD Jun 30, 2017 14:17
[2017-06-30] MEDS: ATORVASTATIN 40 MG TAB PO SCH (20:29)
[2017-06-30] MEDS: INSULIN GLARGINE [LANtus] 3 ML PEN SC SCH (20:43)
[2017-07-01] VITALS (7 sets, daily range): BP systolic 108–115; BP diastolic 69–76; PULSE 92–105; RESP 16
[2017-07-01] MEDS: OXYCODONE/ACETAMINOPHEN (5/325) TAB PO PRN ×3 (01:30→10:56)
[2017-07-01] MEDS: ACCU-CHEK XX SCH ×2 (02:00)
[2017-07-01] MEDS: PANTOPRAZOLE (EC) 40 MG TAB PO SCH (05:57)
[2017-07-01] MEDS: BUMETANIDE 1 MG TAB PO SCH (05:57)
[2017-07-01] MEDS: INSULIN ASPART [NOVOLOG] 3 ML PEN SC SCH ×2 (07:34→11:57)
[2017-07-01] MEDS: POTASSIUM CHLORIDE (SR) 10 MEQ TAB PO SCH (08:29)
[2017-07-01] MEDS: LISINOPRIL 5 MG TAB PO SCH (08:30)
[2017-07-01] MEDS: metFORMIN 500 MG TAB PO SCH (08:30)
[2017-07-01] MEDS: FAMOTIDINE 20 MG TAB PO SCH (08:31)
[2017-07-01] MEDS: ASPIRIN (EC) 325 MG TAB PO SCH (08:31)
[2017-07-01] MEDS: POLYETHYLENE GLYCOL 17 GM PACKET PO SCH (08:32)
[2017-07-01] MEDS: ENOXAPARIN 40 MG/0.4 ML SYG SC SCH (08:38)
--- NOTE | 2017-07-01 08:38 | CONS ---
Date/Time of Note Date/Time of Note DATE: 07/01/17 TIME: 08:35 Assessment/Plan Assessment/Plan Chief Complaint/Hosp Course Right upper leg mass: septated seroma vs hematoma per ultrasound. Dr. Mooney will evaluate Leg edema: MR venogram did not show an IVC thrombus. Improvedwith diuresis Dyspnea: Likely multifactorial as well including heart failure but also from lung mets Acute on chronic systolic heart failure: EF 45% most recently. Improving Pericardial thrombus: Post-op echos have shown a layer of thrombus in the anterior portion of the pericardium. 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 Lucid again this am. Wants to go home. Exam/Review of Systems Vital Signs Vitals Vital Signs Date Time Temp Pulse Resp B/P Pulse Ox O2 Delivery O2 Flow Rate FiO2 07/01/17 08:09 97.8 92 16 108/69 94 07/01/17 00:39 Nasal Cannula 2.0 06/30/17 20:27 21 Intake and Output 06/30/17 06/30/17 07/01/17 15:00 23:00 07:00 Intake Total 880 ml 500 ml Output Total 1400 ml 1500 ml Balance -520 ml -1000 ml Exam Constitutional: alert, oriented Psych: no complaints Head: atraumatic, normocephalic Neck: No jvd Respiratory: clear to auscultation, No crackles/rales Cardiovascular: edema (1+), regular rate and rhythm Gastrointestinal: non-tender, soft Neurological: nl mental status, nl speech Results Result Diagram: 10/12/17 0614 10/12/17 0614 Results 24 hrs Laboratory Tests Test 06/30/17 11:22 06/30/17 17:26 06/30/17 20:28 07/01/17 07:27 Bedside Glucose 232 H 171 167 180 Medications Medications Current Medications Diagnostic Test (Pha) (Accu-Chek) 1 ea 02 XX Last administered on 06/29/17 01 :13; Admin Dose 1 EA; Start 06/22/17 at 02:00 Diagnostic Test (Pha) (Accu-Chek) 1 ea 02 XX Last administered on 06/27/17 02: 00; Admin Dose 1 EA; Start 06/22/17 at 02:00 Aspirin (Ecotrin) 325 mg DAILY PO Last administered on 06/30/17 08:39; Admin Dose 325 MG; Start 06/22/17 at 09:00 Atorvastatin Calcium (Lipitor) 40 mg QHS PO Last administered on 06/30/17 20: 29; Admin Dose 40 MG; Start 06/21/17 at 21:00 Carvedilol (Coreg) 3.125 mg BID PO Last administered on 06/30/17 20:30; Admin Dose 3.125 MG; Start 06/21/17 at 21:00 Lisinopril (Zestril) 2.5 mg DAILY PO Last administered on 06/30/17 08:40; Admin Dose 2.5 MG; Start 06/22/17 at 09:00 Potassium Chloride (Klor-Con 10) 10 meq DAILY PO Last administered on 08:38; Admin Dose 10 MEQ; Start 06/22/17 at 09:00 Miscellaneous Information 1 ea NOTE XX ; Start 06/21/17 at 18:30 Glucose (Glutose) 15 gm Q15M PRN PO DECREASED GLUCOSE; Start 06/21/17 at 18:30 Glucose (Glutose) 22.5 gm Q15M PRN PO DECREASED GLUCOSE; Start 06/21/17 at 18: 30 Dextrose (D50w Syringe) 25 ml Q15M PRN IV DECREASED GLUCOSE; Start 06/21/17 at 18:30 Dextrose (D50w Syringe) 50 ml Q15M PRN IV DECREASED GLUCOSE; Start 06/21/17 at 18:30 Glucagon (Glucagen) 1 mg Q15M PRN IM DECREASED GLUCOSE; Start 10/3/17 at 18:30 Glucose (Glutose) 15 gm Q15M PRN BUCCAL DECREASED GLUCOSE; Start 06/21/17 at 18 :30 Oxycodone/ Acetaminophen (Percocet (5/ 325)) 1 tab Q4H PRN PO PAIN; Start 06/22 at 07:00 Oxycodone/ Acetaminophen (Percocet (5/ 325)) 2 tab Q4H PRN PO PAIN LEVEL 7-10 Last administered on 07/01/17 05:57; Admin Dose 2 TAB; Start 06/22/17 at 07:00 Enoxaparin Sodium (Lovenox) 40 mg DAILY SC Last administered on 06/30/17 08: 48; Admin Dose 40 MG; Start 06/23/17 at 09:00 Pantoprazole (Protonix Tab) 40 mg DAILY@06 PO Last administered on 07/01/17 05:57; Admin Dose 40 MG; Start 06/25/17 at 06:00 Famotidine (Pepcid) 20 mg BID PO Last administered on 06/30/17 20:29; Admin Dose 20 MG; Start 06/24/17 at 21:00 Insulin Glargine (Lantus) 10 unit DAILY@20 SC Last administered on 06/30/17 20:43; Admin Dose 10 UNIT; Start 06/24/17 at 20:00 Polyethylene Glycol (Miralax) 17 gm DAILY PO Last administered on 06/30/17 08 :41; Admin Dose 17 GM; Start 06/28/17 at 18:00 TAMMI MORENO Jul 01, 2017 08:37
[2017-07-01] MEDS: ALBUTEROL 0.083% (NEB) 2.5 MG/3 ML AMP HHN SCH (09:00)
[2017-07-01 09:22] LABS: CALCIUM 9.4 mg/dl (8.4-10.2); CREATININE 0.98 mg/dl (0.61-1.24); POTASSIUM 3.6 mmol/L (3.5-5.1)
[2017-07-01] MEDS ORDERED: LANT3I SC (10:39)
[2017-07-01] MEDS ORDERED: PANT40TA4 PO (10:39)
[2017-07-01] MEDS ORDERED: BUME1TAB18 PO (10:39)
--- NOTE | 2017-07-01 10:41 | DS ---
Date/Time of Note Date/Time of Note DATE: 07/01/17 TIME: 10:40 Discharge Summary Admission/Discharge Info Admit Date/Time Jun 21, 2017 at 15:03 Discharge Date/Time Discharge Diagnosis after ct scan results called to md Patient Condition: Good Hospital Course Right upper leg mass: septated seroma vs hematoma per ultrasound. Dr. Mooney will evaluate Leg edema: MR venogram did not show an IVC thrombus. Improvedwith diuresis Dyspnea: Likely multifactorial as well including heart failure but also from lung mets Acute on chronic systolic heart failure: EF 45% most recently. Improving Pericardial thrombus: Post-op echos have shown a layer of thrombus in the anterior portion of the pericardium. 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 DM HTN -though likely just , will check a head CT prior to d/c to make sure no brain mets -check am labs, if ok can be discharged today -home dose bumex 1mg PO BID with KCL BID -ASA, lipitor -coreg 3.125mg BID -lisinopril 2.5mg Home Meds Reported Medications Oxycodone HCl/Acetaminophen (Percocet 5-325 mg Tablet) 1 Each Tablet, 2 EACH PO Q6 Y for PAIN LEVEL 7-10, TAB 06/21/17 Atorvastatin* (Atorvastatin*) 40 Mg Tablet, 40 MG PO QHS, #30 TAB 06/21/17 Ipratropium-Albuterol (Ipratropium-Albuterol) 0.5-3 Mg/3 Ml Ampul.neb, 3 ML INHALATION Q6 Y for SHORTNESS OF BREATH, #30 VIAL 06/21/17 Albuterol Sulfate* (Ventolin HFA*) 18 Gm Hfa.aer.ad, 2 PUFF INHALATION QID, #1 INHALER 06/21/17 Potassium Chloride (Klor-Con) 10 Meq Tablet.sa, 10 MEQ PO DAILY, TAB.SA 06/21/17 Lisinopril* (Lisinopril*) 2.5 Mg Tablet, 2.5 MG PO DAILY, #30 TAB 06/21/17 Oxycodone HCl/Acetaminophen (Oxycodone-Acetaminophen 5-325) 1 Each Tablet, 1 EACH PO Q6 Y for PAIN, TAB 06/21/17 Metformin Hcl (Glucophage) 500 Mg Tablet, 500 MG PO BID WITH MEALS, #30 TAB 06/21/17 Carvedilol* (Coreg*) 3.125 Mg Tablet, 3.125 MG PO BID, #60 TAB 05/24/17 Aspirin* (Aspirin* EC) 325 Mg Tab, 325 MG PO DAILY, TAB 05/24/17 Primary Care Provider Care Physician No Primary Time spent on discharge: < 30 minutes Pending Labs Laboratory Tests Test 06/30/17 11:22 06/30/17 17:26 06/30/17 20:28 07/01/17 07:27 Bedside Glucose 232mg/dL (70-220) 171mg/dL (70-220) 167mg/dL (70-220) 180mg/dL (70-220) Test 07/01/17 07:46 Sodium Level 132mmol/L (135-144) Potassium Level 3.6mmol/L (3.5-5.1) Chloride Level 84mmol/L (97-110) Carbon Dioxide Level 39mmol/L (21-31) Anion Gap 13 (8-16) Blood Urea Nitrogen 17mg/dl (7-20) Creatinine 0.98mg/dl (0.61-1.24) Glucose Level 146mg/dl (70-220) Calcium Level 9.4mg/dl (8.4-10.2) Magnesium Level 2.0mg/dl (1.7-2.5) ALIA DILLON MD Jul 01, 2017 10:41
--- NOTE | 2017-07-01 11:30 | RADRPT ---
PROCEDURE: CT BRAIN WITHOUT CONTRAST. CLINICAL INDICATION: Confusion. Rule out metastasis. TECHNIQUE: A CT of the brain was performed on a multidetector high-resolution CT scanner utilizing axial imaging from the skull base through the vertex without IV contrast. Multiplanar reformatted images were made. Images were reviewed on a PACS workstation. The CTDIvol is 44.2 mGy and the DLP is 720 mGycm. One or more of the following dose reduction techniques were used: - Automated exposure control. - Adjustment of the mA and/or kV according to patient size. - Use of iterative reconstruction technique. COMPARISON: None FINDINGS: The posterior fossa structures are unremarkable. The rajani, midbrain, and medulla appear to be with n ormal limits. There is no evidence of acute intracranial hemorrhage, infarct, or extra-axial fluid collection. No gross mass effect or midline shift. Cerebral sulci, cisternal spaces, and ventricles are prominent. There is bifrontal encephalomalacia.. The visualized paranasal sinuses are clear. The mastoid air cells are well-aerated. The calvarium is unremarkable. IMPRESSION: 1. No evidence of acute intracranial hemorrhage, infarct, or extra-axial fluid collection. 2. No evidence of abnormal mass effect or midline shift at this time. 3. Bifrontal encephalomalacia. Correlate with clinical history. RPTAT: AAPP Physician Valentino Date Time Electronically viewed and signed by Physician Valentino on 07/01/2017 11:29 RUTH ANN/
[2017-07-01] MEDS: ALBUTEROL 0.083% (NEB) 2.5 MG/3 ML AMP HHN PRN (13:15)
== END 2017-07-01 16:15 | disposition home health service (06) | DRG 291 ==
LOC: MS4 15:03 → TEL 22:00
PROVIDERS: ADMIT Internal Medicine; ATTEND Internal Medicine
DX: I50.23 Acute on chronic systolic (congestive) heart failure (principal); J96.00 Acute respiratory failure, unspecified whether with hypoxia or hypercapnia; E87.1 Hypo-osmolality and hyponatremia; C78.00 Secondary malignant neoplasm of unspecified lung; C64.9 Malignant neoplasm of unspecified kidney, except renal pelvis; D64.9 Anemia, unspecified; I51.3 Intracardiac thrombosis, not elsewhere classified; I11.0 Hypertensive heart disease with heart failure; J44.9 Chronic obstructive pulmonary disease, unspecified; I25.10 Atherosclerotic heart disease of native coronary artery without angina pectoris; Z95.1 Presence of aortocoronary bypass graft; E11.9 Type 2 diabetes mellitus without complications; E78.5 Hyperlipidemia, unspecified; G89.4 Chronic pain syndrome; R53.81 Other malaise; Z79.82 Long term (current) use of aspirin; Z79.4 Long term (current) use of insulin
CPT/HCPCS: 70450; 71010; 74185; 80048; 80053; 81003; 82962; 83540; 83735; 83880; 84100; 85025; 85045; 85651; 87081; 93970; 94640; 94664; 97161; J1650; J1815; J3475; J3480

== ENCOUNTER 2017-08-08 14:59 | Inpatient (IN) | payer MEDICARE, OTHER ==
[~2017-08-08] VITALS: Ht 172.7 cm; Wt 90.9 kg
[~2017-08-08 14:59] MED LIST changes: -ACET500C5 PO; +ALBU18HF INHALATION; -ATOR10TA65 PO; +ATOR40TA68 PO; +BUME1TAB18 PO; +IPRA3AMP INHALATION; +LANT3I SC; -LEVEM SC; +LISI2.5T59 PO; +METF500T PO; +OXYC-438 PO; +PANT40TA4 PO; +POTA10TA97 PO
[2017-08-08 15:03] VITALS: Ht 172.7 cm; Wt 90.9 kg
--- NOTE | 2017-08-08 15:38 | ERD ---
ER Documentation Chief Complaint Chief Complaint weak, sob, LE edema x1wk. on 2L [place] oxygen, sent by pmd HPI 66-year-old man referred here by PMD for multiple complaints including recent increasing shortness of breath, peripheral edema, and flexion deformity at the neck. 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 Family members state he makes urine without difficulty although recently he is experience some dysuria and dark urine. Family members state he has had flexion deformity at the neck for a few months now although over the last week it has gotten worse. Patient has had no fevers or chills, no vomiting or diarrhea, no hematemesis, no blood per rectum or melena, no complaints of chest pain. He has had no recent antibiotic use. ROS All systems reviewed and are negative except as per history of present illness. Medications Home Meds Active Scripts Insulin Glargine* (Lantus*) 100 Unit/Ml Soln, 10 UNIT SC DAILY@20 for 90 Days Prov:ALIA DILLON MD 07/01/17 Pantoprazole* (Pantoprazole*) 40 Mg Tablet.dr, 40 MG PO DAILY@06 for 90 Days Prov:ALIA DILLON MD 07/01/17 Bumetanide* (Bumetanide*) 1 Mg Tablet, 1 MG PO BID DIURETICS for 90 Days, TAB Prov:ALIA DILLON MD 07/01/17 Reported Medications Atorvastatin* (Atorvastatin*) 40 Mg Tablet, 40 MG PO QHS, #30 TAB 06/21/17 Ipratropium-Albuterol (Ipratropium-Albuterol) 0.5-3 Mg/3 Ml Ampul.neb, 3 ML INHALATION Q6 Y for SHORTNESS OF BREATH, #30 VIAL 06/21/17 Albuterol Sulfate* (Ventolin HFA*) 18 Gm Hfa.aer.ad, 2 PUFF INHALATION QID, #1 INHALER 06/21/17 Potassium Chloride (Klor-Con) 10 Meq Tablet.sa, 10 MEQ PO DAILY, TAB.SA 06/21/17 Lisinopril* (Lisinopril*) 2.5 Mg Tablet, 2.5 MG PO DAILY, #30 TAB 06/21/17 Oxycodone HCl/Acetaminophen (Oxycodone-Acetaminophen 5-325) 1 Each Tablet, 1 EACH PO Q6 Y for PAIN, TAB 06/21/17 Metformin Hcl (Glucophage) 500 Mg Tablet, 500 MG PO BID WITH MEALS, #30 TAB 06/21/17 Carvedilol* (Coreg*) 3.125 Mg Tablet, 3.125 MG PO BID, #60 TAB 05/24/17 Aspirin* (Aspirin* EC) 325 Mg Tab, 325 MG PO DAILY, TAB 05/24/17 Allergies Allergies: Coded Allergies: No Known Allergies (Verified Allergy, Unknown, 05/24/17) REENTRY OF NKDA IN ADVERSE REACTION FIELD PMhx/Soc CAD status post CABG, CHF with a left ventricular ejection fraction of 45%, metastatic renal carcinoma, COPD, chronic pain syndrome, hyponatremia, hypertension, diabetes mellitus, dyslipidemia History of Surgery: Yes (CABG,) Anesthesia Reaction: No Hx Neurological Disorder: No Hx Respiratory Disorders: Yes (COPD) Hx Cardiac Disorders: Yes (CHF, S/P CABG) Hx Psychiatric Problems: No Hx Miscellaneous Medical Probl: Yes (CAD s/p CABG, CHF, renal cell carcinoma stage IV) Hx Alcohol Use: No Hx Substance Use: No Hx Tobacco Use: No FmHx Family History: No diabetes Physical Exam Vitals Vital Signs Date Time Temp Pulse Resp B/P Pulse Ox O2 Delivery O2 Flow Rate FiO2 08/08/17 16:25 107 30 97 Nasal Cannula 3.0 08/08/17 16:24 Nasal Cannula 3.0 08/08/17 16:24 Nasal Cannula 3 08/08/17 15:03 97.6 100 20 103/67 96 Physical Exam GENERAL: Well-developed, well-nourished, well-hydrated, in no apparent distress , looks nontoxic in appearance HEENT: Dry mucous membranes, flexion deformity at the neck, kyphosis, pink conjunctiva, no cervical spine tenderness or step-off deformities, no goiter, no jaundice or icterus, extraocular movements intact without pain. No submandibular induration, and no pharyngeal erythema NEURO: Alert and oriented 3, cranial nerves II through XII intact bilaterally, pupils equal round reactive to light, no focal deficits or facial asymmetry, sensation intact distally Strength 5/5 in upper and lower extremities bilaterally CARDIAC: Tachycardic and regular, no murmurs rubs or gallops LUNGS: Clear bilaterally no wheezing crackles or stridor ABDOMEN: Soft nontender, no guarding, no rigidity, no rebound, no psoas sign no obturator sign. Normoactive bowel sounds SKIN: Warm and dry to touch, no abrasions, contusions, or hematomas, no lacerations, no ecchymosis, no target lesions, and without ulcers EXTREMITIES: No clubbing cyanosis, 1+ pitting edema in the lower extremities bilaterally, calves are bilaterally symmetrical, no Homans sign, no popliteal cord sign. Distal pulses equal and bilateral PSYCH: Normal affect without agitation or irritability Result Diagram: 08/08/17 1555 08/08/17 1555 Results 24 hrs Laboratory Tests Test 08/08/17 15:55 08/08/17 16:00 White Blood Count 12.210^3/ul Red Blood Count 4.2810^6/ul Hemoglobin 10.1g/dl Hematocrit 35.4% Mean Corpuscular Volume 82.7fl Mean Corpuscular Hemoglobin 23.6pg Mean Corpuscular Hemoglobin Concent 28.5g/dl Red Cell Distribution Width 17.0% Platelet Count 34452^3/UL Mean Platelet Volume 9.1fl Neutrophils % 78.5% Lymphocytes % 10.3% Monocytes % 9.7% Eosinophils % 0.1% Basophils % 0.2% Nucleated Red Blood Cells % 0.0/100WBC Neutrophils # 9.610^3/ul Lymphocytes # 1.310^3/ul Monocytes # 1.210^3/ul Eosinophils # 0.010^3/ul Basophils # 0.010^3/ul Nucleated Red Blood Cells # 0.010^3/ul Prothrombin Time 12.9Sec Prothrombin Time Ratio 1.0 INR International Normalized Ratio 0.97 Sodium Level 127mmol/L Potassium Level 3.8mmol/L Chloride Level 77mmol/L Carbon Dioxide Level 38mmol/L Anion Gap 16 Blood Urea Nitrogen 21mg/dl Creatinine 0.70mg/dl Glucose Level 168mg/dl Calcium Level 8.3mg/dl Total Bilirubin 0.1mg/dl Direct Bilirubin 0.00mg/dl Indirect Bilirubin 0.1mg/dl Aspartate Amino Transf (AST/SGOT) 55IU/L Alanine Aminotransferase (ALT/SGPT) 29IU/L Alkaline Phosphatase 291IU/L Troponin I 0.034ng/ml B-Type Natriuretic Peptide 2250PG/ML Total Protein 7.1g/dl Albumin 3.2g/dl Globulin 3.90g/dl Albumin/Globulin Ratio 0.82 Lipase 38U/L Urine Color YELLOW Urine Clarity SLIGHTLY CLOUDY Urine pH 6.0 Urine Specific [place] 1.013 Urine Ketones TRACEmg/dL Urine Nitrite NEGATIVEmg/dL Urine Bilirubin NEGATIVEmg/dL Urine Urobilinogen NEGATIVEmg/dL Urine Leukocyte Esterase 3+Viki/ul Urine Microscopic RBC 2/HPF Urine Microscopic WBC > 182/HPF Urine Bacteria FEW/HPF Urine Hemoglobin NEGATIVEmg/dL Urine Random Creatinine 49.07mg/dl Urine Random Sodium 45mmol/L Urine Glucose NEGATIVEmg/dL Urine Total Protein 13.0mg/dl Current Medications Medications (Trade) Dose Ordered Sig/Camron Route PRN Reason Start Time Stop Time Status Last Admin Dose Admin Lorazepam (Ativan) 0.5 mg ONCE ONCE IV 08/08/17 16:00 08/08/17 16:01 DC 08/08/17 16:23 Albuterol (Proventil 0.5% (Neb)) 10 mg ONCE STAT INH 08/08/17 15:50 08/08/17 15:56 DC 08/08/17 16:24 Ipratropium [place] (Atrovent 0.02% (Neb)) 1 mg ONCE STAT INH 08/08/17 15:50 08/08/17 15:56 DC 08/08/17 16:25 Methylprednisolone Sodium Succinate (Solu-Medrol) 125 mg ONCE STAT IV 08/08/17 15:50 08/08/17 15:56 DC 08/08/17 16:23 Albuterol (Proventil (O.r. Use Only)) 2 puff QID INH 08/08/17 17:00 08/08/17 17:00 DC Aspirin (Ecotrin) 325 mg DAILY PO 08/09/17 09:00 Atorvastatin Calcium (Lipitor) 40 mg QHS PO 08/08/17 21:00 Carvedilol (Coreg) 3.125 mg BID PO 08/08/17 21:00 Insulin Glargine (Lantus) 10 unit DAILY@20 SC 08/08/17 20:00 Albuterol/ Ipratropium (Duoneb) 3 ml Q6 PRN NEB SHORTNESS OF BREATH 08/08/17 17:00 Lisinopril (Zestril) 2.5 mg DAILY PO 08/09/17 09:00 Metformin HCl (Glucophage) 500 mg BID WITH MEALS PO 08/08/17 18:00 Oxycodone/ Acetaminophen (Percocet (5/ 325)) 1 tab Q6 PRN PO PAIN 08/08/17 17:00 Pantoprazole (Protonix Tab) 40 mg DAILY@06 PO 08/09/17 06:00 Potassium Chloride (Klor-Con 10) 10 meq DAILY PO 08/09/17 09:00 Albuterol 2 puff 2 puff QID INH 08/08/17 17:00 Cefepime HCl (Maxipime 1gm/50 ml (Pmx)) 50 ml @ 100 mls/hr ONCE ONCE IVPB 08/08/17 17:30 08/08/17 17:59 Furosemide (Lasix) 60 mg ONCE ONCE IV 08/08/17 17:30 08/08/17 17:31 Procedures/MDM IV line was established patient was placed on front desk monitor rhythm strip revealed a sinus tachycardia at 110 bpm with upright P and T waves. Patient was afebrile. EKG performed, read by me revealed a sinus tachycardia at 111 bpm, normal axis, right ventricular conduction delay with a QRS duration of 100 ms, poor R-wave progression, no concerning ST elevations or depressions noted. One view chest x-ray performed, read by me reveals sternotomy wires and a large mediastinal mass with congestion bilaterally, no acute infiltrates, no pneumothorax. I administered albuterol 10 mg via nebulizer, ipratropium 1 mg IV 1, methylprednisolone 125 mg IV 1 for initial dyspnea. He also received lorazepam 0.5 mg IV 1 for initial flexion deformity ?muscle spasm of the neck. CBC was unremarkable, electrolytes revealed mild dehydration with creatinine is 0.7, liver function tests were unremarkable, BNP elevated over 3000, troponin was negative. Urine analysis was positive for infection. I do not suspect sepsis I administered cefepime 1 g IV 1. Patient requires BiPAP therapy which he was placed on here in the emergency department. Family members are refusing intubation currently and state his wishes were to not be intubated although they did state they would discuss this issue, I suspect BiPAP will help this patient he may not require emergent intubation in the ED. Critical Care: Time: 55 minutes, this was time separate from other billable procedures. Treatments/Evaluations: Close monitoring and treatment of unstable vital signs, cardiorespiratory, and neurologic status, while maintaining tight balance of fluid, respiratory, and cardiac interventions. Patient's hypertension improved while here in the emergency, and I also administered furosemide 60 mg IV 1 for diuresis Patient will be admitted to the intensive care unit for continued medical management and pulmonary consultation. Departure Diagnosis: Primary Impression: Metastatic renal cell carcinoma Laterality: unspecified laterality Qualified Code: C64.9 - Metastatic renal cell carcinoma, unspecified laterality Additional Impressions: CHF (congestive heart failure) Congestive heart failure type: combined Congestive heart failure chronicity: acute Qualified Code: I50.41 - Acute combined systolic and diastolic congestive heart failure Acute respiratory failure Respiratory failure complication: hypoxia and hypercapnia Qualified Code: J96.01 - Acute respiratory failure with hypoxia and hypercapnia Acute UTI Pulmonary metastasis Laterality: unspecified laterality Qualified Code: C78.00 - Malignant neoplasm metastatic to lung, unspecified laterality Hypertension Hypertension type: essential hypertension Qualified Code: I10 - Essential hypertension Condition: Serious CORRINE MCKEON MD Aug 08, 2017 15:38
[2017-08-08] MEDS ORDERED: IPRATROPIUM (NEB) 0.5 MG/2.5 ML AMP INH STA (15:50)
[2017-08-08] MEDS ORDERED: ALBUTEROL 0.5% (NEB) 2.5 MG/0.5 ML AMP INH STA (15:50)
[2017-08-08] MEDS ORDERED: METHYLPREDNISOLONE 125 MG INJ IV STA (15:50)
[2017-08-08] MEDS ORDERED: LORAZEPAM 2 MG INJ IV ONE (16:00)
[2017-08-08 16:06] LABS: ABNORMAL IP MESSAGE 1; BASOPHILS % 0.2 % (0.0-2.0); EOSINOPHILS % 0.1 % (0.0-7.0); HEMATOCRIT 35.4 % (42.0-52.0); HEMOGLOBIN 10.1 g/dl (14.0-18.0); LYMPHOCYTES # 1.3 10^3/ul (0.8-2.9); LYMPHOCYTES % 10.3 % (15.0-51.0); MEAN CORPUSCULAR HEMOGLOBIN 23.6 pg (29.0-33.0); MEAN CORPUSCULAR HGB CONC 28.5 g/dl (32.0-37.0); MEAN CORPUSCULAR VOLUME 82.7 fl (82.0-101.0); MEAN PLATELET VOLUME 9.1 fl (7.4-10.4); MONOCYTE # 1.2 10^3/ul (0.3-0.9); MONOCYTES % 9.7 % (0.0-11.0); NEUTROPHIL # 9.6 10^3/ul (1.6-7.5); NEUTROPHILS % 78.5 % (39.0-77.0); PLATELET COUNT 324 10^3/UL (140-415); POSITIVE DIFF @See below; RED BLOOD COUNT 4.28 10^6/ul (4.70-6.10); WHITE BLOOD COUNT 12.2 10^3/ul (4.8-10.8)
[2017-08-08 16:22] LABS: INR 0.97; PROTIME 12.9 Sec (12.2-14.2)
[2017-08-08 16:24] LABS: ALBUMIN 3.2 g/dl (3.3-4.9); ALBUMIN/GLOBULIN RATIO 0.82; BILIRUBIN,INDIRECT 0.1 mg/dl (0-1.1); BILIRUBIN,TOTAL 0.1 mg/dl (0.2-1.3); CALCIUM 8.3 mg/dl (8.4-10.2); CREATININE 0.7 mg/dl (0.61-1.24); POTASSIUM 3.8 mmol/L (3.5-5.1); TOTAL PROTEIN 7.1 g/dl (6.1-8.1)
--- NOTE | 2017-08-08 16:25 | RADRPT ---
PROCEDURE: XR Chest. CLINICAL INDICATION: chest pain TECHNIQUE: Single frontal view of the chest was obtained COMPARISON: CR CHEST 05/27/2017 FINDINGS: The study is limited due to patient positioning and severe kyphosis. The upper lobes are partially obscured by patient's chin. There is right upper lobe atelectasis and consolidation. There is mild cardiomegaly. There are patchy left perihilar and left lower lobe infiltrates. There is a small right pleural effusion. RPTAT: AA IMPRESSION: Limited study. Right upper lobe atelectasis/consolidation. Patchy left perihilar and left lower lobe infiltrates. Mild cardiomegaly. Small right pleural effusion. .Dayron Rose MD, MD Date Time Electronically viewed and signed by .Dayron Roes MD, on 08/08/2017 16:24 .S/
[2017-08-08 16:36] LABS: TROPONIN-I 0.034 ng/ml (0.00-0.12)
[2017-08-08] MEDS ORDERED: PROVENTIL HFA 6.7GM INHALER INH SCH (17:00)
[2017-08-08] MEDS ORDERED: OXYCODONE/ACETAMINOPHEN (5/325) TAB PO PRN (17:00)
[2017-08-08 17:06] LABS: ADD UMIC YES; UR ASCORBIC ACID NEGATIVE (NEGATIVE); UR BACTERIA FEW /HPF (NONE SEEN); UR BILIRUBIN (Dip) NEGATIVE (NEGATIVE); UR BLOOD (Dip) NEGATIVE (NEGATIVE); UR CLARITY SLIGHTLY CLOUDY (CLEAR); UR COLOR YELLOW (YELLOW); UR GLUCOSE (Dip) NEGATIVE (NEGATIVE); UR KETONES (Dip) TRACE mg/dL (NEGATIVE); UR LEUKOCYTE ESTERASE (Dip) 3+ Leu/ul (NEGATIVE); UR NITRITE (Dip) NEGATIVE (NEGATIVE); UR RBC 2 /HPF (0-5); UR SPECIFIC GRAVITY (Dip) 1.013 (1.003-1.030); UR TOTAL PROTEIN (Dip) NEGATIVE (NEGATIVE); UR UROBILINOGEN (Dip) NEGATIVE (NEGATIVE)
[2017-08-08] MEDS ORDERED: FUROSEMIDE 40 MG INJ IV ONE (17:30)
[2017-08-08] MEDS ORDERED: CEFEPIME 1GM/50 ML (PMX) 50 ML IVPB ONE (17:30)
[2017-08-08] MEDS ORDERED: metFORMIN 500 MG TAB PO SCH (18:00)
[2017-08-08] MEDS: ALBUTEROL HFA 8 GM INHALER INH SCH ×2 (18:21→21:00)
[2017-08-08] MEDS ORDERED: LUBI24CA7 PO (19:06)
[2017-08-08] MEDS: INSULIN ASPART [NOVOLOG] 3 ML PEN SC SCH ×2 (20:25→20:26)
[2017-08-08] MEDS: ATORVASTATIN 40 MG TAB PO SCH (20:25)
[2017-08-08] MEDS ORDERED: GLUCOSE GEL 15 GRAM TUBE PO PRN ×2 (20:30)
[2017-08-08] MEDS ORDERED: GLUCOSE GEL 15 GRAM TUBE BUCCAL PRN (20:30)
[2017-08-08] MEDS ORDERED: DEXTROSE 50% 50 ML SYRINGE IV PRN ×2 (20:30)
[2017-08-08] MEDS ORDERED: GLUCAGON 1 MG INJ IM PRN (20:30)
[2017-08-08 20:34] LABS: AADO2 Arterial 167.6 mmHg (7.0-24.0); Arterial Base Excess 11.9 mmol/L (-3.0-3); Arterial Fraction of Oxyhgb 97.3 % (93.0-99.0); Arterial HCO3 38.1 mmol/L (22.0-26.0); Arterial MetHb 0.3 % (0.0-1.5); Blood Gas IEPAP 15/5; Blood Gas PS 10; MODE MASK - BIPAP
--- NOTE | 2017-08-08 20:34 | HP ---
DATE OF ADMISSION: 08/08/2017 CHIEF COMPLAINT: Shortness of breath, lower extremity edema. 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 The patient was recently admitted to [facility] approximately 1 month ago with simila r complaints. The patient had a 1-week stay, was diuresed and discharged home. Since his discharge home, patient was seen by his oncologist, Dr. Andres at [facility]. The patient was initiated on chemotherap y. His initial chemotherapy was last . Following the chemotherapy, patient has had progres sive shortness of breath, lower extremity edema and desaturations. The patient also was noted to be extremely weak. Of note, patient was also noted to have extreme cervical flexion with inability to lift his head, which has been progressively worsening. Given the decompensation, the patient came in to the emergency room for evaluation. Upon arrival, the patient had laboratory data drawn, which showed a white count 12.2, hemoglobin 10.1, hematocrit of 35.4, platelet count of 324. Sodium 127, potassium 3.8, chloride 77, a BUN 21, a creatinine 0.70. Chest x-ray showed right lower, upper lob e atelectasis, consolidation, patchy left infiltrates and mild cardiomegaly. In the emergency room, the patient was given nebulizer therapy and IV Solu-Medrol. PAST MEDICAL HISTORY: As stated above, history of CHF, diabetes, coronary artery disease, renal curtis l carcinoma stage IV, lower extremity edema. PAST SURGICAL HISTORY: Status post CABG. FAMILY HISTORY: Noncontributory. SOCIAL HISTORY: History of tobacco use. MEDICATIONS: Have been reviewed and reconciled. REVIEW OF SYSTEMS: A 14-point review of systems conducted. Pertinent positives stated in HPI, othe rwise negative. PHYSICAL EXAMINATION: VITAL SIGNS: Blood pressure is 130/76, temperature 97.8, pulse 110, respirations 18. HEENT: Head is normocephalic. Pupils are reactive to light. NECK: The patient's neck forward flexion with tenderness to palpation along the cervical spin e, extremely limited in rotation left and right. HEART: Tachycardic. LUNGS: Show diminished breath sounds at the bases. Positive rhonchi. ABDOMEN: Soft, nontender to palpation. EXTREMITIES: Positive for +4 edema. DERMATOLOGIC: No rashes. MUSCULOSKELETAL: No joint effusions. NEUROLOGIC: No focal deficits. LABORATORY DATA: Shows a white count 12.2, hemoglobin 10.1, hematocrit of 35.4, platelet count 324, sodium 127, chloride 77, bicarbonate 38, BUN 21, creatinine 0.70, calcium 8.3, alkaline phosphatase 291 and BNP is 2000. ASSESSMENT AND PLAN: This is a 66-year-old male who presents with: 1. Acute hypoxemic respiratory failure. Etiology is likely multifactorial secondary to metastatic renal cell carcinoma, pulmonary mass, acute congestive heart failure exacerbation, diastolic, chroni c obstructive pulmonary disease exacerbation, possible pneumonia. The patient's chest x-ray shows e vidence of possible infiltrate. Plan at this point is to get a CT scan of the chest if patient is a ble to lie down flat. We will start the patient on nebulizers. We will also start empiric antibiot ics of meropenem for possible healthcare-associated pneumonia. We will start diuretic therapy of Bu hank IV, consider a drip. Otherwise, we will continue supportive care. We will also place a pulmona ry and cardiology consult for evaluation. 2. Acute diastolic heart failure. The patient is compensated with positive lower extremity edema. Continue diuretic therapy with Bumex 1 mg IV q.12 hours. We will add metolazone. Continue Bumex d rip. We will monitor renal function closely. 3. Hyponatremia, etiology is likely secondary to congestive heart failure, metolazone effect. Plan is to limit free water intake. We will continue diuretic therapy and monitor. 4. Alkalosis. Etiology is unclear, possibly primary versus compensatory. Plan is to check an ABG. Would consider Diamox if this is a metabolic alkalemia. We will otherwise monitor closely. 5. Anemia. Monitor hemoglobin and hematocrit levels. 6. Coronary artery disease status post CABG. Continue medical management. 7. Renal cell carcinoma stage IV. The patient is status post chemotherapy 1 week ago. We will fol low with patient's primary oncologist. 8. Diabetes. Continue Lantus. Continue current insulin regimen. 9. Gastrointestinal and DVT prophylaxis. Continue PPI and sequential leg squeezers. 10. Chronic pain syndrome secondary to metastatic disease. Continue current pain regimen. Please note I spent up to 25 minutes [id number] time with the patient and the patient's . The patient is full code. Dictated By: GIOVANNI KRUGER DO NR/GUERO Conf#: [id number] DID#: [id number]
[2017-08-08 21:00] VITALS: TEMP 97.6
[2017-08-08] MEDS: INSULIN GLARGINE [LANtus] 3 ML PEN SC SCH (21:53)
[2017-08-08] MEDS: CEFEPIME 1GM/50 ML (PMX) 50 ML IVPB SCH (21:54)
[2017-08-08] MEDS: ALBUTEROL/IPRATROPIUM (NEB) 3 ML AMP NEB PRN (22:02)
--- NOTE | 2017-08-08 22:19 | CONS ---
DATE OF ADMISSION: 08/08/2017 DATE OF CONSULTATION: 08/08/2017 TYPE OF CONSULTATION: Infectious disease. REASON FOR CONSULTATION: Antibiotic management. HISTORY OF PRESENT ILLNESS: Herrera Dong is a 66-year-old male who comes into the emergency room with weakness and shortness of breath and is being seen for antibiotic management. His problems in clude: 1. Adult-onset diabetes mellitus. 2. Coronary artery disease. 3. Status post coronary artery bypass grafting. 4. Congestive heart failure with left ventricular ejection fraction of 45%. 5. Metastatic renal carcinoma. 6. COPD. 7. Chronic pain syndrome. 8. Hypertension. 9. Dyslipidemia. 10. Peripheral edema. Acutely, the patient comes in with shortness of breath and flexion deformity of the neck. He has re cently experienced some dysuria and dark urine. His flexion deformity of the neck has been getting worse over the last week. On admission, his white count was 12.2, H and H of 10.1 and 35.4, platele t count 324,000. BUN and creatinine 21/0.7, glucose of 168. He is hyponatremic with a sodium of 12 7. Potassium is 3.8. His chloride is 77, and his CO2 is 38. BUN and creatinine 21/0.7 as noted. PAST MEDICAL HISTORY: Operations as outlined. FAMILY HISTORY: Noncontributory. SOCIAL HISTORY: He does not smoke, drink or abuse drugs. ALLERGIES: NONE TO PENICILLIN, SULFA OR FOODS. MEDICATIONS: Per chart. REVIEW OF SYSTEMS: As per HPI. PHYSICAL EXAMINATION: GENERAL: The patient is a well-developed, well-nourished male who is chronically ill, in no acute d istress. SKIN: Without generalized rash, without rash or icterus as noted. HEENT: Within normal limits. NECK: He has a deformity with kyphosis. CHEST: Decreased breath sounds at the bases. HEART: Tachycardic without murmur or gallop. ABDOMEN: Soft and nontender, without organosplenomegaly or masses. EXTREMITIES: Without cyanosis, clubbing. He has 1+ edema in the lower extremities bilaterally. RECTAL AND GENITAL: Deferred. NEUROLOGIC: No focal neurological abnormalities. IMPRESSION AND PLAN: The patient presents now with severe congestive heart failure. His chest x-ra y shows limited study with right upper lobe atelectasis and consolidation, patchy left perihilar and left lower lobe infiltrates, mild cardiomegaly, small right pleural effusion. His influenza A and B is negative. He was given cefepime and was started also on some methylprednisolone. The patient has pneumonia, and he probably has been in and out of the hospital recently, although that is not do cumented. Nevertheless, cefepime is a reasonable choice, though was only given once. We should get some blood cultures, sputum cultures and resume the cefepime. I will dictate my findings to the spitalist. Dictated By: SUDARSHAN LESTER MD, JD/GUERO Conf#: [id number] DID#: [id number]
[2017-08-08] MEDS ORDERED: FOLI0.4T2 PO (22:35)
[2017-08-09] VITALS (38 sets, daily range): BP systolic 80–132; BP diastolic 58–86; PULSE 85–106; RESP 10–29
[2017-08-09] MEDS ORDERED: IOHEXOL 300MG/ML 150 ML BTL ONE (00:20)
[2017-08-09] MEDS ORDERED: SOD CHLORIDE 0.9% 100 ML ONE (00:20)
--- NOTE | 2017-08-09 01:23 | RADRPT ---
PROCEDURE: CT chest, abdomen and pelvis with contrast. CLINICAL INDICATION: Shortness of breath and abdominal pain. TECHNIQUE: CT of the chest, abdomen and pelvis was performed on a multi-detector high-resolution CT scanner. Contiguous axial images were obtained after the administration of 100 cc of Omnipaque 3 00 intravenous contrast. Coronal and sagittal reformatted images were also obtained. Images were r eviewed on the PACS workstation. DICOM images are available. One or more of the following dose reduction techniques were used: - Automated exposure control. - Adjustment of the mA and/or kV according to patient size. - Use of iterative reconstruction technique. Exam CTD/vol = 15.56 mGy. Total exam DLP = 1296.77 mGy-cm. COMPARISON: 05/30/2017 and 06/04/2017. FINDINGS: Chest: Mediasternotomy wires are present. The visualized thyroid gland is unremarkable. There are no enlarged axillary lymph nodes. There are prominent paratracheal, AP window, subcarinal and right hilar lymph nodes. The heart is normal in size. There is no pericardial thickening or effusion. The aorta is of normal course and caliber with mild scattered atherosclerotic calcifications. There are multiple pulmonary nodules bilaterally measuring up to 2 cm in size. There are bilateral small t o moderate pleural effusions with underlying atelectasis. There are scattered patchy airspace opacit ies within bilateral perihilar regions and upper lobes. There is increased soft tissue density with in the right perihilar region with narrowing of the right upper lobe bronchus. Abdomen: The liver is normal in size. There is no focal mass or dilatation of the biliary tree. T he gallbladder is not distended. The spleen, pancreas and bilateral adrenal glands are within erica l limits. Bilateral kidneys are normal in size with symmetric enhancement. There are bilateral francine al cysts. There is no hydronephrosis or hydroureter. There is mild perinephric stranding bilaterally . There is no retroperitoneal adenopathy. The abdominal aorta is of normal caliber with scattered a therosclerotic calcifications. There is retained contrast throughout the colon. There is no bowel obstruction or free air. A norm al appendix is identified. There is sigmoid diverticulosis without evidence of diverticulitis. The re is no ascites. Pelvis: The bladder contains a Vizcarra catheter. The prostate and seminal vesicles are within normal limits. There is no significant pelvic adenopathy or free fluid. Evaluation of the osseous structures demonstrates multiple sclerotic lesions throughout the bony ske leton. There is a mild compression deformity of the L4 vertebral body. There are defects of bilatera l pars interarticularis of L5. There are old left-sided rib fractures. IMPRESSION: Increased soft tissue within the right perihilar region with narrowing of the right upper lobe bronc hus suspicious for neoplasm. There is postobstructive consolidation within the right upper lobe whic h has increased compared with 05/30/2017. Multiple metastatic pulmonary nodules bilaterally, unchanged. Bilateral small to moderate pleural effusions with underlying atelectasis, increased compared with t he prior study. Mild mediastinal and right hilar adenopathy, unchanged. Multiple osseous metastases, increased. Mild pathologic compression fracture of L4, unchanged. Bilateral renal cysts. There is bilateral perinephric stranding of uncertain clinical significance, increased compared with the prior study. Sigmoid diverticulosis without evidence of diverticulitis. Vascular calcifications reflective of atherosclerosis. Bilateral pars defects of L5. .Wisam Langford MD, Date Time Electronically viewed and signed by .Wisam Langford MD, on 08/09/2017 01:22 .T/
[2017-08-09] MEDS: ACCU-CHEK XX SCH (02:00)
[2017-08-09 05:19] LABS: ABNORMAL IP MESSAGE 1; BASOPHILS % 0.2 % (0.0-2.0); HEMOGLOBIN 9.8 g/dl (14.0-18.0); LYMPHOCYTES # 0.9 10^3/ul (0.8-2.9); LYMPHOCYTES % 9.2 % (15.0-51.0); MEAN CORPUSCULAR HEMOGLOBIN 23.6 pg (29.0-33.0); MEAN CORPUSCULAR HGB CONC 28.8 g/dl (32.0-37.0); MEAN CORPUSCULAR VOLUME 81.9 fl (82.0-101.0); MEAN PLATELET VOLUME 9.2 fl (7.4-10.4); MONOCYTE # 0.7 10^3/ul (0.3-0.9); NEUTROPHIL # 7.8 10^3/ul (1.6-7.5); NEUTROPHILS % 82.1 % (39.0-77.0); PLATELET COUNT 290 10^3/UL (140-415); POSITIVE DIFF @See below; RED BLOOD COUNT 4.15 10^6/ul (4.70-6.10); RED CELL DISTRIBUTION WIDTH 16.7 % (11.5-14.5); WHITE BLOOD COUNT 9.5 10^3/ul (4.8-10.8)
[2017-08-09 05:52] LABS: CREATININE 0.65 mg/dl (0.61-1.24); MAGNESIUM 1.8 mg/dl (1.7-2.5); PHOSPHORUS 3.6 mg/dl (2.5-4.9); POTASSIUM 3.8 mmol/L (3.5-5.1)
[2017-08-09] MEDS: PANTOPRAZOLE (EC) 40 MG TAB PO SCH (06:00)
[2017-08-09] MEDS ORDERED: morphine 2 MG INJ IV PRN (06:30)
[2017-08-09] MEDS ORDERED: LORAZEPAM 2 MG INJ IV PRN (06:30)
[2017-08-09] MEDS: ALBUTEROL/IPRATROPIUM (NEB) 3 ML AMP NEB PRN (07:16)
[2017-08-09] MEDS ORDERED: PENDING SANTYL ORDER FOR WOUND CARE XX PRN (07:30)
[2017-08-09] MEDS ORDERED: MAGNESIUM SULFATE 2 GM/50 ML 50 ML IVPB ONE (08:30)
[2017-08-09] MEDS ORDERED: POTASSIUM CHLORIDE 250 ML IVPB ONE (08:30)
[2017-08-09] MEDS: CEFEPIME 1GM/50 ML (PMX) 50 ML IVPB SCH ×2 (08:59→21:33)
[2017-08-09] MEDS: ASPIRIN (EC) 325 MG TAB PO SCH (09:00)
[2017-08-09] MEDS: ALBUTEROL HFA 8 GM INHALER INH SCH (09:00)
[2017-08-09] MEDS ORDERED: CEFEPIME 1GM/50 ML (PMX) 50 ML IVPB SCH (09:00)
[2017-08-09] MEDS: POTASSIUM CHLORIDE (SR) 10 MEQ TAB PO SCH (09:00)
[2017-08-09] MEDS ORDERED: METHYLPREDNISOLONE 125 MG INJ IV SCH (09:00)
[2017-08-09] MEDS: LISINOPRIL 5 MG TAB PO SCH (09:00)
[2017-08-09] MEDS: INSULIN ASPART [NOVOLOG] 3 ML PEN SC SCH ×4 (09:20→22:38)
--- NOTE | 2017-08-09 09:21 | PN ---
DATE: 08/09/2017 SUBJECTIVE: The patient is currently in intensive care unit on BiPAP. The patient overnight diures ed well and was over 1500 urinary output. No other acute events noted. The patient is lethargic. Please note I spoke with the patient's oncologist yesterday who stated the patient may have develope d a pneumonitis from recent immunotherapy. And is recommended giving Solu-Medrol. OBJECTIVE: VITAL SIGNS: Blood pressure 105/65, respiration 26, pulse 101, temperature 98.6. I's AND O'S: The patient 100 in, 1500 out. HEENT: Head is normocephalic. NECK: Supple. HEART: Tachycardic. LUNGS: Show diminished breath sounds at the base. ABDOMEN: Soft, nontender to palpation. No rebound or guarding. EXTREMITIES: Negative for clubbing, cyanosis. Positive edema. DERMATOLOGIC: No rashes. MUSCULOSKELETAL: No joint effusions. NEUROLOGIC: No change in exam. MEDICATIONS: The patient's medications have been reviewed. LABORATORY DATA: Shows sodium 129, potassium 3.8, chloride 80, BUN 24, creatinine 0.65. White coun t 9.5, hemoglobin 9.8, hematocrit 34.0, platelet count 290. The patient's ABG from 08/08 showed a p H of 7.42 with a pCO2 of 58, base excess 11.9. ASSESSMENT AND PLAN: 1. Acute hypoxemic respiratory failure. Etiology is likely multifactorial. The patient's CT scan of the chest shows postobstructive consolidation consistent with pneumonia. Other possibilities inc luding pneumonitis from recent immunotherapy, congestive heart failure, chronic obstructive pulmonar y disease, metastatic pulmonary metastasis of underlying renal cell carcinoma. The patient currentl y is receiving nebulizers, IV antibiotics and Solu-Medrol for possible pneumonitis. The patient is also currently on BiPAP. Plan would be to continue current treatment plan. We will attempt to wean off BiPAP if possible. We will follow up with stone hand, Dr. Thibodeaux, for further recommendati ons. We will also continue diuretic therapy. Monitor closely. 2. Acute diastolic heart failure. The patient is status post Lasix yesterday with good diuresis. We will give the patient a course of Diamox as he has underlying alkalemia. We will monitor I's and O's closely. May augment diuresis with IV Bumex. 3. Metabolic alkalemia. Etiology is likely due to chloride deficiency from recent diuretic therapy . Would recommend to hold loop diuretics at this time and we will give the patient IV Diamox and mo nitor closely. 4. Hyponatremia, etiology is multifactorial secondary to metolazone effect, congestive heart failur e. The patient's sodium levels have slowly been improving. Continue diuretic therapy and monitor. 5. Anemia. Monitor hemoglobin and hematocrit levels. 6. Coronary artery disease, status post coronary artery bypass graft. Continue medical management. 7. Renal cell carcinoma stage IV. The patient is status post immunotherapy 1 week ago. I did teo werner with the patient's primary oncologist, Dr. Andres, who stated that patient may have a pneumonitis and has recommended high dose steroids 1 mg/kg. 8. Diabetes. Continue Lantus insulin sliding scale. 9. Gastrointestinal and deep venous thrombosis prophylaxis. Continue proton pump inhibitor and seq uential leg squeezers. 10. Chronic pain syndrome. Continue current pain regimen. Please note I spent over 40 minutes of critical care time with this patient. Dictated By: GIOVANNI WINTER/GUERO Conf#: [id number] DID#: [id number]
[2017-08-09] MEDS ORDERED: ACETAZOLAMIDE 500 MG INJ IV SCH (10:00)
[2017-08-09 10:07] LABS: AADO2 Arterial 138.2 mmHg (7.0-24.0); Arterial Base Excess 14.1 mmol/L (-3.0-3); Arterial COHb 0.5 % (0.0-3.0); Arterial Fraction of Oxyhgb 95.7 % (93.0-99.0); Arterial HCO3 39.5 mmol/L (22.0-26.0); Arterial MetHb 0.3 % (0.0-1.5); Arterial Total Hemglobin 10.4 g/dl (12.0-18.0); Blood Gas IEPAP 15/5; MODE MASK - BIPAP
[2017-08-09] MEDS: HYDROmorphONE 0.5 MG/0.5 ML SYG IV PRN ×3 (11:01→19:25)
--- NOTE | 2017-08-09 12:22 | CONS ---
Date/Time of Note Date/Time of Note DATE: 08/09/17 TIME: 12:10 Assessment/Plan Assessment/Plan Chief Complaint/Hosp Course Acute on chronic respiratory failure: Multifactorial including CHF, postobstructive PNA, lung mets, and possible pneumonitis from recent immunomodulation therapy. Off BiPAP now Acute on chronic systolic heart failure: EF 45% most recently. 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 DM HTN -start bumex 2mg IV BID for now -agree with diamox -antibiotics and steroids per primary below PO meds when can tolerate -ASA, lipitor -coreg 3.125mg BID -lisinopril 2.5mg Problems: Consultation Date/Type/Reason Admit Date/Time Aug 08, 2017 at 17:31 Date of Consultation: Aug 09, 2017 Type of Consultation: Cardiology Reason for Consultation CHF Referring Provider: GIOVANNI KRUGER DO Hx of Present Illness 66 yo M well known to me with a h/o RCC with mets to lungs/bones now on experimental immunomodulation therapy, CAD s/p CABG (PORTER-LAD, SVG-RCA 05/20/2017) , ischemic cardiomyopathy with chronic heart failure (EF 45%), DM, HTN, who was admitted for respiratory distress and altered mentation. The pt was started on experimental immunomodulation therapy which per my discussion with his oncologist,is known to cause pneumonitis. She had been coughing recently per his but clear sputum. No fevers. notes worsening leg edema despite increasing his meds over the weekend. She also notes foul smelling, dark urine. Pt was placed on BiPAP overnight and he is now off. He notes that he feels well but he is generally very stoic. does agree that he is better and his mentation is now back to baseline. CT showed an obstructive tumor with RUL postobstructive PNA. per hPI Past Medical History per HPI Past Surgical History Past Surgical Hx: no surgical history Social History Smoking Status: Never smoker Exam/Review of Systems Vital Signs Vitals Vital Signs Date Time Temp Pulse Resp B/P Pulse Ox O2 Delivery O2 Flow Rate FiO2 08/09/17 11:30 101 20 128/75 96 08/09/17 11:00 Nasal Cannula 3.0 08/09/17 10:50 40 08/09/17 08:00 97.6 Intake and Output 08/08/17 08/08/17 08/09/17 15:00 23:00 07:00 Intake Total 100 ml 0 ml Output Total 1200 ml 300 ml Balance -1100 ml -300 ml Exam Constitutional: alert, distress (mild respiratory ), oriented Head: atraumatic, normocephalic Neck: jvd (8cm), supple Respiratory: No clear to auscultation (crackles at bases, RUL with wheezing/ ronchi ) Cardiovascular: edema (2+), regular rate and rhythm, No systolic murmur Gastrointestinal: non-tender, soft, No distended Neurological: nl mental status, nl speech Skin: No rash or lesions Results EKG: sinus tachycardia, low voltage, no ST changes Result Diagram: 08/09/1744108/09/17441 Results 24 hrs Laboratory Tests Test 08/08/17 15:55 08/08/17 16:00 08/08/17 20:01 08/08/17 20:03 White Blood Count 12.2 #H Red Blood Count 4.28 #L Hemoglobin 10.1 #L Hematocrit 35.4 #L Mean Corpuscular Volume 82.7 Mean Corpuscular Hemoglobin 23.6 L Mean Corpuscular Hemoglobin Concent 28.5 L Red Cell Distribution Width 17.0 H Platelet Count 324 Mean Platelet Volume 9.1 Neutrophils % 78.5 H Lymphocytes % 10.3 L Monocytes % 9.7 Eosinophils % 0.1 Basophils % 0.2 Nucleated Red Blood Cells % 0.0 Neutrophils # 9.6 H Lymphocytes # 1.3 Monocytes # 1.2 H Eosinophils # 0.0 Basophils # 0.0 Nucleated Red Blood Cells # 0.0 Prothrombin Time 12.9 Prothrombin Time Ratio 1.0 INR International Normalized Ratio 0.97 Sodium Level 127 L Potassium Level 3.8 Chloride Level 77 L Carbon Dioxide Level 38 H Anion Gap 16 Blood Urea Nitrogen 21 H Creatinine 0.70 Glucose Level 168 Calcium Level 8.3 L Total Bilirubin 0.1 L Direct Bilirubin 0.00 Indirect Bilirubin 0.1 Aspartate Amino Transf (AST/SGOT) 55 H Alanine Aminotransferase (ALT/SGPT) 29 Alkaline Phosphatase 291 H Troponin I 0.034 B-Type Natriuretic Peptide 2250 H Total Protein 7.1 Albumin 3.2 L Globulin 3.90 H Albumin/Globulin Ratio 0.82 Lipase 38 Urine Color YELLOW Urine Clarity SLIGHTLY CLOUDY A Urine pH 6.0 Urine Specific [place] 1.013 Urine Ketones TRACE A Urine Nitrite NEGATIVE Urine Bilirubin NEGATIVE Urine Urobilinogen NEGATIVE Urine Leukocyte Esterase 3+ H Urine Microscopic RBC 2 Urine Microscopic WBC > 182 H Urine Bacteria FEW A Urine Hemoglobin NEGATIVE Urine Random Creatinine 49.07 Urine Random Sodium 45 Urine Glucose NEGATIVE Urine Total Protein 13.0 H Blood Gas Specimen Source Blood arterial Arterial Blood Date Drawn 08/08/2017 8:20:03 PM Arterial Blood pH (Temp corrected) 7.429 Arterial Blood pCO2 (Temp correct) 58.9 H Arterial Blood pO2 (Temp corrected) 122.6 H Arterial Blood HCO3 38.1 H Arterial Blood Base Excess 11.9 H Arterial Blood Oxygen Saturation 98.6 H Gerardo Test N/A Arterial Blood Gas Puncture Site Right Brachial Arterial Blood Carboxyhemoglobin 1.0 Arterial Blood Methemoglobin 0.3 Blood Gas A-a O2 Differential 167.6 H Oxyhemoglobin Percent 97.3 Total Hemoglobin 11.0 L Blood Gas Temperature 37.0 Blood Gas Respiration Rate 14.0 Blood Gas Actual Respiration Rate 28 Blood Gas Modality MASK - BIPAP FiO2 50.0 Blood Gas Pressure Support 10 Blood Gas IPAP/EPAP Ratio 15/5 Blood Gas Notified Whom KM Blood Gas Notified Time 08/08/2017 8:34:05 PM Bedside Glucose 179 Test 08/09/17 03:41 08/09/17 04:42 08/09/17 08:28 08/09/17 09:18 Bedside Glucose 209 181 White Blood Count 9.5 # Red Blood Count 4.15 L Hemoglobin 9.8 L Hematocrit 34.0 L Mean Corpuscular Volume 81.9 L Mean Corpuscular Hemoglobin 23.6 L Mean Corpuscular Hemoglobin Concent 28.8 L Red Cell Distribution Width 16.7 H Platelet Count 290 Mean Platelet Volume 9.2 Neutrophils % 82.1 H Lymphocytes % 9.2 L Monocytes % 7.0 Eosinophils % 0.0 Basophils % 0.2 Nucleated Red Blood Cells % 0.0 Neutrophils # 7.8 H Lymphocytes # 0.9 Monocytes # 0.7 Eosinophils # 0.0 Basophils # 0.0 Nucleated Red Blood Cells # 0.0 Sodium Level 129 L Potassium Level 3.8 Chloride Level 80 L Carbon Dioxide Level Anion Gap 10 # Blood Urea Nitrogen 24 H Creatinine 0.65 Glucose Level 204 Calcium Level 8.0 L Phosphorus Level 3.6 Magnesium Level 1.8 Blood Gas Specimen Source Blood arterial Arterial Blood Date Drawn 08/09/2017 9:40:59 AM Arterial Blood pH (Temp corrected) 7.477 H Arterial Blood pCO2 (Temp correct) 54.7 H Arterial Blood pO2 (Temp corrected) 84.1 Arterial Blood HCO3 39.5 H Arterial Blood Base Excess 14.1 H Arterial Blood Oxygen Saturation 96.5 Gerardo Test N/A Arterial Blood Gas Puncture Site Right Brachial Arterial Blood Carboxyhemoglobin 0.5 Arterial Blood Methemoglobin 0.3 Blood Gas A-a O2 Differential 138.2 H Oxyhemoglobin Percent 95.7 Total Hemoglobin 10.4 L Blood Gas Temperature 37.0 Blood Gas Respiration Rate 14.0 Blood Gas Actual Respiration Rate 17 Blood Gas Modality MASK - BIPAP FiO2 40.0 Blood Gas IPAP/EPAP Ratio 15/5 Blood Gas Notified Whom JLD Blood Gas Notified Time 08/09/2017 10:06:52 AM Medications Medications Current Medications Aspirin (Ecotrin) 325 mg DAILY PO ; Start 08/09/17 at 09:00 Atorvastatin Calcium (Lipitor) 40 mg QHS PO ; Start 08/08/17 at 21:00 Carvedilol (Coreg) 3.125 mg BID PO ; Start 08/08/17 at 21:00 Insulin Glargine (Lantus) 10 unit DAILY@20 SC Last administered on 08/08/17 21:53; Admin Dose 10 UNIT; Start 08/08/17 at 20:00 Albuterol/ Ipratropium (Duoneb) 3 ml Q6 PRN NEB SHORTNESS OF BREATH Last administered on 08/09/17 07:16; Admin Dose 3 ML; Start 08/08/17 at 17:00 Lisinopril (Zestril) 2.5 mg DAILY PO ; Start 08/09/17 at 09:00 Oxycodone/ Acetaminophen (Percocet (5/ 325)) 1 tab Q6 PRN PO PAIN; Start 08/08 at 17:00 Pantoprazole (Protonix Tab) 40 mg DAILY@06 PO ; Start 08/09/17 at 06:00 Potassium Chloride (Klor-Con 10) 10 meq DAILY PO ; Start 08/09/17 at 09:00 Albuterol (Ventolin Hfa) 2 puff QID INH ; Start 08/08/17 at 17:00 Diagnostic Test (Pha) 1 ea 1 ea 02 XX ; Start 08/09/17 at 02:00 Cefepime HCl (Maxipime 1gm/50 ml (Pmx)) 50 ml @ 100 mls/hr Q12 IVPB Last administered on 08/09/17 08:59; Admin Dose 100 MLS/HR; Start 08/08/17 at 21: 00 Miscellaneous Information 1 ea NOTE XX ; Start 08/08/17 at 20:30 Glucose (Glutose) 15 gm Q15M PRN PO DECREASED GLUCOSE; Start 08/08/17 at 20:30 Glucose (Glutose) 22.5 gm Q15M PRN PO DECREASED GLUCOSE; Start 08/08/17 at 20: 30 Dextrose (D50w Syringe) 25 ml Q15M PRN IV DECREASED GLUCOSE; Start 08/08/17 at 20:30 Dextrose (D50w Syringe) 50 ml Q15M PRN IV DECREASED GLUCOSE; Start 08/08/17 at 20:30 Glucagon (Glucagen) 1 mg Q15M PRN IM DECREASED GLUCOSE; Start 08/08/17 at 20: 30 Glucose (Glutose) 15 gm Q15M PRN BUCCAL DECREASED GLUCOSE; Start 08/08/17 at 20:30 Lorazepam (Ativan) 0.5 mg Q6H PRN IV ANXIETY; Start 08/09/17 at 06:30 Methylprednisolone Sodium Succinate (Solu-Medrol) 100 mg DAILY IV Last administered on 08/09/17 09:11; Admin Dose 100 MG; Start 08/09/17 at 09:00 Miscellaneous Information (Pending [facility] Order For Wound Care) This patient hoffmann... PRN PRN XX WOUND CARE; Start 08/09/17 at 07:30 Insulin Aspart NOVOLOG *MILD* ALGORITHM Q4 SC Last administered on 08/09/17 09:20; Admin Dose 1 UNIT; Start 08/09/17 at 09:00 Potassium Chloride (KCl 40 MEQ/250 ML NS) 250 ml @ 62.5 mls/hr ONCE ONCE IVPB Last administered on 08/09/17 12:09; Admin Dose 62.5 MLS/HR; Start at 08:30; Stop 08/09/17 at 12:29 Hydromorphone HCl (Dilaudid) 0.5 mg Q4H PRN IV PAIN Last administered on 11:01; Admin Dose 0.5 MG; Start 08/09/17 at 10:00 TAMMI MORENO Aug 09, 2017 12:21
--- NOTE | 2017-08-09 13:09 | CONS ---
Date/Time of Note Date/Time of Note DATE: 08/09/17 TIME: 13:09 Consultation Date/Type/Reason Admit Date/Time Aug 08, 2017 at 17:31 Date of Consultation: Aug 09, 2017 Type of Consultation: Pulmonary/critical care Reason for Consultation Consultation dictated #[id number] Past Surgical History Past Surgical Hx: no surgical history Social History Smoking Status: Never smoker Exam/Review of Systems Vital Signs Vitals Vital Signs Date Time Temp Pulse Resp B/P Pulse Ox O2 Delivery O2 Flow Rate FiO2 08/09/17 11:30 101 20 128/75 96 08/09/17 11:00 Nasal Cannula 3.0 08/09/17 10:50 40 08/09/17 08:00 97.6 Intake and Output 08/08/17 08/08/17 08/09/17 14:59 22:59 06:59 Intake Total 100 ml 0 ml Output Total 1200 ml 300 ml Balance -1100 ml -300 ml Results Result Diagram: 08/09/17 0442 08/09/17 0442 Results 24 hrs Laboratory Tests Test 08/08/17 15:55 08/08/17 16:00 08/08/17 20:01 08/08/17 20:03 White Blood Count 12.2 #H Red Blood Count 4.28 #L Hemoglobin 10.1 #L Hematocrit 35.4 #L Mean Corpuscular Volume 82.7 Mean Corpuscular Hemoglobin 23.6 L Mean Corpuscular Hemoglobin Concent 28.5 L Red Cell Distribution Width 17.0 H Platelet Count 324 Mean Platelet Volume 9.1 Neutrophils % 78.5 H Lymphocytes % 10.3 L Monocytes % 9.7 Eosinophils % 0.1 Basophils % 0.2 Nucleated Red Blood Cells % 0.0 Neutrophils # 9.6 H Lymphocytes # 1.3 Monocytes # 1.2 H Eosinophils # 0.0 Basophils # 0.0 Nucleated Red Blood Cells # 0.0 Prothrombin Time 12.9 Prothrombin Time Ratio 1.0 INR International Normalized Ratio 0.97 Sodium Level 127 L Potassium Level 3.8 Chloride Level 77 L Carbon Dioxide Level 38 H Anion Gap 16 Blood Urea Nitrogen 21 H Creatinine 0.70 Glucose Level 168 Calcium Level 8.3 L Total Bilirubin 0.1 L Direct Bilirubin 0.00 Indirect Bilirubin 0.1 Aspartate Amino Transf (AST/SGOT) 55 H Alanine Aminotransferase (ALT/SGPT) 29 Alkaline Phosphatase 291 H Troponin I 0.034 B-Type Natriuretic Peptide 2250 H Total Protein 7.1 Albumin 3.2 L Globulin 3.90 H Albumin/Globulin Ratio 0.82 Lipase 38 Urine Color YELLOW Urine Clarity SLIGHTLY CLOUDY A Urine pH 6.0 Urine Specific [place] 1.013 Urine Ketones TRACE A Urine Nitrite NEGATIVE Urine Bilirubin NEGATIVE Urine Urobilinogen NEGATIVE Urine Leukocyte Esterase 3+ H Urine Microscopic RBC 2 Urine Microscopic WBC > 182 H Urine Bacteria FEW A Urine Hemoglobin NEGATIVE Urine Random Creatinine 49.07 Urine Random Sodium 45 Urine Glucose NEGATIVE Urine Total Protein 13.0 H Blood Gas Specimen Source Blood arterial Arterial Blood Date Drawn 08/08/2017 8:20:03 PM Arterial Blood pH (Temp corrected) 7.429 Arterial Blood pCO2 (Temp correct) 58.9 H Arterial Blood pO2 (Temp corrected) 122.6 H Arterial Blood HCO3 38.1 H Arterial Blood Base Excess 11.9 H Arterial Blood Oxygen Saturation 98.6 H Gerardo Test N/A Arterial Blood Gas Puncture Site Right Brachial Arterial Blood Carboxyhemoglobin 1.0 Arterial Blood Methemoglobin 0.3 Blood Gas A-a O2 Differential 167.6 H Oxyhemoglobin Percent 97.3 Total Hemoglobin 11.0 L Blood Gas Temperature 37.0 Blood Gas Respiration Rate 14.0 Blood Gas Actual Respiration Rate 28 Blood Gas Modality MASK - BIPAP FiO2 50.0 Blood Gas Pressure Support 10 Blood Gas IPAP/EPAP Ratio 15/5 Blood Gas Notified Whom KM Blood Gas Notified Time 08/08/2017 8:34:05 PM Bedside Glucose 179 Test 08/09/17 03:41 08/09/17 04:42 08/09/17 08:28 08/09/17 09:18 Bedside Glucose 209 181 White Blood Count 9.5 # Red Blood Count 4.15 L Hemoglobin 9.8 L Hematocrit 34.0 L Mean Corpuscular Volume 81.9 L Mean Corpuscular Hemoglobin 23.6 L Mean Corpuscular Hemoglobin Concent 28.8 L Red Cell Distribution Width 16.7 H Platelet Count 290 Mean Platelet Volume 9.2 Neutrophils % 82.1 H Lymphocytes % 9.2 L Monocytes % 7.0 Eosinophils % 0.0 Basophils % 0.2 Nucleated Red Blood Cells % 0.0 Neutrophils # 7.8 H Lymphocytes # 0.9 Monocytes # 0.7 Eosinophils # 0.0 Basophils # 0.0 Nucleated Red Blood Cells # 0.0 Sodium Level 129 L Potassium Level 3.8 Chloride Level 80 L Carbon Dioxide Level Anion Gap 10 # Blood Urea Nitrogen 24 H Creatinine 0.65 Glucose Level 204 Calcium Level 8.0 L Phosphorus Level 3.6 Magnesium Level 1.8 Blood Gas Specimen Source Blood arterial Arterial Blood Date Drawn 08/09/2017 9:40:59 AM Arterial Blood pH (Temp corrected) 7.477 H Arterial Blood pCO2 (Temp correct) 54.7 H Arterial Blood pO2 (Temp corrected) 84.1 Arterial Blood HCO3 39.5 H Arterial Blood Base Excess 14.1 H Arterial Blood Oxygen Saturation 96.5 Gerardo Test N/A Arterial Blood Gas Puncture Site Right Brachial Arterial Blood Carboxyhemoglobin 0.5 Arterial Blood Methemoglobin 0.3 Blood Gas A-a O2 Differential 138.2 H Oxyhemoglobin Percent 95.7 Total Hemoglobin 10.4 L Blood Gas Temperature 37.0 Blood Gas Respiration Rate 14.0 Blood Gas Actual Respiration Rate 17 Blood Gas Modality MASK - BIPAP FiO2 40.0 Blood Gas IPAP/EPAP Ratio 15/5 Blood Gas Notified Whom JLD Blood Gas Notified Time 08/09/2017 10:06:52 AM Medications Medications Current Medications Aspirin (Ecotrin) 325 mg DAILY PO ; Start 08/09/17 at 09:00 Atorvastatin Calcium (Lipitor) 40 mg QHS PO ; Start 08/08/17 at 21:00 Carvedilol (Coreg) 3.125 mg BID PO ; Start 08/08/17 at 21:00 Insulin Glargine (Lantus) 10 unit DAILY@20 SC Last administered on 08/08/17 21:53; Admin Dose 10 UNIT; Start 08/08/17 at 20:00 Albuterol/ Ipratropium (Duoneb) 3 ml Q6 PRN NEB SHORTNESS OF BREATH Last administered on 08/09/17 07:16; Admin Dose 3 ML; Start 08/08/17 at 17:00 Lisinopril (Zestril) 2.5 mg DAILY PO ; Start 08/09/17 at 09:00 Oxycodone/ Acetaminophen (Percocet (5/ 325)) 1 tab Q6 PRN PO PAIN; Start 08/08 at 17:00 Pantoprazole (Protonix Tab) 40 mg DAILY@06 PO ; Start 08/09/17 at 06:00 Potassium Chloride (Klor-Con 10) 10 meq DAILY PO ; Start 08/09/17 at 09:00 Albuterol (Ventolin Hfa) 2 puff QID INH ; Start 08/08/17 at 17:00 Diagnostic Test (Pha) 1 ea 1 ea 02 XX ; Start 08/09/17 at 02:00 Cefepime HCl (Maxipime 1gm/50 ml (Pmx)) 50 ml @ 100 mls/hr Q12 IVPB Last administered on 08/09/17 08:59; Admin Dose 100 MLS/HR; Start 08/08/17 at 21: 00 Miscellaneous Information 1 ea NOTE XX ; Start 08/08/17 at 20:30 Glucose (Glutose) 15 gm Q15M PRN PO DECREASED GLUCOSE; Start 08/08/17 at 20:30 Glucose (Glutose) 22.5 gm Q15M PRN PO DECREASED GLUCOSE; Start 08/08/17 at 20: 30 Dextrose (D50w Syringe) 25 ml Q15M PRN IV DECREASED GLUCOSE; Start 08/08/17 at 20:30 Dextrose (D50w Syringe) 50 ml Q15M PRN IV DECREASED GLUCOSE; Start 08/08/17 at 20:30 Glucagon (Glucagen) 1 mg Q15M PRN IM DECREASED GLUCOSE; Start 08/08/17 at 20: 30 Glucose (Glutose) 15 gm Q15M PRN BUCCAL DECREASED GLUCOSE; Start 08/08/17 at 20:30 Lorazepam (Ativan) 0.5 mg Q6H PRN IV ANXIETY; Start 08/09/17 at 06:30 Methylprednisolone Sodium Succinate (Solu-Medrol) 100 mg DAILY IV Last administered on 08/09/17 09:11; Admin Dose 100 MG; Start 08/09/17 at 09:00 Miscellaneous Information ([facility] This patient hoffmann... PRN PRN XX WOUND CARE; Start 08/09/17 at 07:30 Insulin Aspart (Novolog Insulin Pen) NOVOLOG *MILD* ALGORITHM Q4 SC Last administered on 08/09/17 09:20; Admin Dose 1 UNIT; Start 08/09/17 at 09:00 Hydromorphone HCl (Dilaudid) 0.5 mg Q4H PRN IV PAIN Last administered on 11:01; Admin Dose 0.5 MG; Start 08/09/17 at 10:00 ROC AGRAWAL Aug 09, 2017 13:09
--- NOTE | 2017-08-09 14:02 | CONS ---
DATE OF ADMISSION: 08/08/2017 DATE OF CONSULTATION: 08/09/2017 REFERRING PHYSICIAN: Dr. Giovanni Boyd. REASON FOR REFERRAL: Evaluation of pneumonia. HISTORY OF PRESENT ILLNESS: Mr. Dong is a 66-year-old white male who was admitted yesterday with complaints of shortness of breath. Upon evaluation, a chest x-ray was done which is showing infilt rative changes in the right upper lobe area. Patient subsequently had a CT of the chest done which is concerning for postobstructive pneumonia involving right upper lobe with multiple pulmonary nodul es due to metastatic renal cell carcinoma by the time I saw the patient, the patient was on suppleme ntal oxygen and was completely awake and alert, and did not exhibit any signs of respiratory or hemo dynamic compromise. According to the patient, he is feeling better since admission. Denies any tabitha st pain, abdominal pain, nausea, vomiting. PAST MEDICAL HISTORY: 1. Widely metastatic renal cell carcinoma. 2. History of coronary artery bypass graft. 3. Mild congestive heart failure. 4. Diabetes. 5. Chronic lower extremity edema. 6. Hypertension. 7. Diabetes. MEDICATIONS 1. Cefepime 1 gram IV q.12h. 2. Magnesium was given x1, 2 grams. 3. Potassium also was given x1. 4. Diamox was given x1 intravenously 500 mg. 5. DuoNeb q.6h. 6. Atorvastatin 40 mg a day. 7. Aspirin 325 mg a day. 8. Coreg 3.125 mg b.i.d. 9. Lasix was given x1 yesterday 60 mg. 10. Dilaudid on a p.r.n. basis. 11. Lisinopril 2.5 mg a day. 12. Lantus insulin 10 units daily. 13. Metformin 500 mg b.i.d. 14. Solu-Medrol 100 mg IV daily. 15. Sliding scale insulin. ALLERGIES: NONE. SOCIAL HISTORY: Prior history of tobacco use. FAMILY HISTORY: The patient is , has a very supportive family. 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 REVIEW OF SYSTEMS: Denies any headache, seizures, visual changes, shortness of breath is improving. Denies any coughing or hemoptysis, abdominal pain, nausea, vomiting, fever, chills, melena or yfn tochezia. Complains of mild orthopnea. Has lost weight. PHYSICAL EXAMINATION: GENERAL: Elderly male, awake and alert, currently in no distress. VITAL SIGNS: Temperature is 98 degrees Fahrenheit, respiratory rate is 20 per minute, heart rate of 90 per minute, blood pressure is 128/75, O2 sat 95% on 3 liter nasal cannula. HEENT: Supple neck, no JVD, no lymphadenopathy, midline trachea, no thyromegaly. Patient is edentu lous, has bilateral intraocular lens implants. The patient has neck flexion. CHEST: Diminished breath sounds bilaterally. There is a well-healed sternal scar. HEART: S1, S2 audible. No murmurs, regular rhythm. ABDOMEN: Soft, nondistended. No organomegaly. Bowel sounds audible. EXTREMITIES: No edema or clubbing. CENTRAL NERVOUS SYSTEM: No focal deficits. IMAGING: Chest x-ray was reviewed from yesterday, which is showing right upper lobe consolidated ch anges with some element of atelectasis. CT chest findings showing similar changes. There is no eliane dence of any diffuse pneumonia to suggest immunological lung injury from recent chemotherapy. LABORATORY DATA: Sodium 129, potassium 3.8, chloride 80, BUN 24, creatinine 0.6. White count 9.5, hemoglobin 9.8, platelet count of 290. ABG on 40% FIO2 on BiPAP, pH 7.47, pCO2 of 54, pO2 of 84, O2 sat 96%. ASSESSMENT AND PLAN: 1. Patient admitted with right upper lobe pneumonia, likely postobstructive in etiology, currently on appropriate antibiotic regimen. 2. History of widely metastatic renal cell carcinoma with significant pulmonary involvement. 3. Based upon CT imaging of the chest, there is no evidence to suggest diffuse lung injury from imm unotherapy. 4. History of diabetes. 5. Hypertension. 6. Mild hypercapnia. RECOMMENDATIONS: Continue current supportive care, decrease IV Solu-Medrol to 40 mg q.12h. Overall prognosis remains poor and code status needs to be discussed with the family. Dictated By: ROC SHAW/GUERO Conf#: [id number] DID#: [id number] CC: GIOVANNI BOYD DO;*EndCC*
--- NOTE | 2017-08-09 15:33 | PN ---
DATE: 08/09/2017 SUBJECTIVE: Patient is sleeping, very weak. He is on BiPAP, looks comfortable, no fevers. VITAL SIGNS: Temperature 97.6, pulse 101, respirations 20, blood pressure 128/75, saturation 96%. LABORATORY DATA: WBC 9.5, H and H 9.8 and 34, platelets 290, neutrophils 82.1, BUN 24, creatinine 0 .65. MICROBIOLOGY: Influenza swab was negative. DIAGNOSTICS: CT of the chest revealed increased soft tissue within the right perihilar region with narrowing of right upper lobe bronchus suspicious of neoplasm. There is a postop obstructive consol idation within the right upper lobe which has increased compared to 05/30/2017. Multiple metastatic pulmonary nodules bilaterally, unchanged. Increased moderate pleural effusions with underlying ate lectasis. Mild mediastinal and right hilar adenopathy, unchanged. Multiple osseous metastasis incr eased, mild pathologic compression fracture of L4, unchanged. Sigmoid diverticulosis without eviden ce of diverticulitis. ANTIMICROBIALS: The patient is on cefepime. He is also on IV steroids. PHYSICAL EXAMINATION: GENERAL: This is a fragile elderly man who is comfortable on BiPAP. HEENT: Head atraumatic, normocephalic. Sclerae anicteric. Buccal mucosa dry. NECK: Supple. CHEST: Rise symmetrical. Breath sounds diminished to bases. HEART: S1, S2. ABDOMEN: Soft, bowel tones present. EXTREMITIES: Without cyanosis. ASSESSMENT: 1. Sepsis. 2. Acute hypoxemic respiratory failure secondary to postobstructive pneumonia. 3. Metastatic renal carcinoma. 4. Acute congestive heart failure exacerbation. 5. Anemia. 6. History of coronary artery bypass graft. 7. Diabetes. PLAN: The patient remains stable on BiPAP. Continue present care. Continue on current antibiotics . Steroid taper. Follow recommendations of consultants. Dictated By: MK LIMA SPINDLE MAKER for SUDARSHAN ARAGON/NTS Conf#: [id number] DID#: [id number]
[2017-08-09] MEDS: BUMETANIDE 1 MG INJ IV SCH (18:02)
[2017-08-09] MEDS: ATORVASTATIN 40 MG TAB PO SCH (21:00)
[2017-08-09] MEDS: METHYLPREDNISOLONE 40 MG INJ IV SCH (21:32)
[2017-08-09] MEDS ORDERED: HYDROmorphONE 0.5 MG/0.5 ML SYG IV STA (22:11)
[2017-08-09] MEDS: INSULIN GLARGINE [LANtus] 3 ML PEN SC SCH (22:38)
[2017-08-10] VITALS (24 sets, daily range): BP systolic 108–133; BP diastolic 67–84; PULSE 79–102; RESP 18–21
[2017-08-10] MEDS: HYDROmorphONE 0.5 MG/0.5 ML SYG IV PRN ×5 (00:44→19:00)
[2017-08-10] MEDS: INSULIN ASPART [NOVOLOG] 3 ML PEN SC SCH ×6 (00:57→21:00)
[2017-08-10] MEDS: ACCU-CHEK XX SCH (01:50)
[2017-08-10] MEDS: PANTOPRAZOLE (EC) 40 MG TAB PO SCH (06:00)
[2017-08-10] MEDS: BUMETANIDE 1 MG INJ IV SCH (06:21)
[2017-08-10] MEDS: ASPIRIN (EC) 325 MG TAB PO SCH (08:03)
[2017-08-10] MEDS: POTASSIUM CHLORIDE (SR) 10 MEQ TAB PO SCH (08:03)
[2017-08-10] MEDS: LISINOPRIL 5 MG TAB PO SCH (08:03)
[2017-08-10] MEDS: ALBUTEROL HFA 8 GM INHALER INH SCH ×6 (09:00→21:34)
[2017-08-10] MEDS: METHYLPREDNISOLONE 40 MG INJ IV SCH ×2 (09:10→21:21)
[2017-08-10] MEDS: CEFEPIME 1GM/50 ML (PMX) 50 ML IVPB SCH ×2 (09:14→21:21)
--- NOTE | 2017-08-10 09:43 | PN ---
DATE: 08/10/2017 SUBJECTIVE: The patient was transferred from ICU to telemetry. The patient remains on BiPAP. The patient states he is feeling better overall, but still continues to desaturate off BiPAP. No other events noted. OBJECTIVE: VITAL SIGNS: Blood pressure is 124/74, respiration 21, pulse 88, temperature 97.2. HEENT: Head is normocephalic. NECK: Supple. HEART: Regular rate. LUNGS: Show diminished breath sounds at the base. ABDOMEN: Soft, nontender to palpation. No rebound or guarding. EXTREMITIES: Negative for clubbing, cyanosis. The patient has edema that is improving. DERMATOLOGIC: No rashes. MUSCULOSKELETAL: No joint effusions. NEUROLOGIC: No change in exam. IMAGING STUDIES: Reviewed. ASSESSMENT AND PLAN: 1. Acute hypoxemic respiratory failure, etiology is multifactorial secondary to possible postobstru ctive pneumonia. Other possibilities include pneumonitis and recent immunotherapy, congestive heart failure, chronic obstructive pulmonary disease and metastatic pulmonary metastasis of underlying re nal cell carcinoma. The patient remains on BiPAP, is receiving Solu-Medrol, diuretic therapy, antib iotics and nebulized therapy. We will continue current treatment plan. Continue to wean off BiPAP. Follow up with pulmonary for recommendations. 2. Acute diastolic heart failure. The patient is currently on IV Bumex, received 1 dose of Diamox yesterday. We will monitor renal function closely on current diuretic regimen. 3. Metabolic alkalemia, etiology is from chloride deficiency and recent diuretic use. The patient is status post Diamox. We will follow up BMP, adjust diuretics as needed. 4. Hyponatremia, etiology is secondary to metolazone , congestive heart failure, possible chlo ride deficiency. Sodium levels have been improving with water restriction, continue diuretic regime n and monitor. 5. Anemia. Monitor hemoglobin and hematocrit. 6. Coronary artery disease, status post coronary artery bypass graft. Continue medical management. 7. Renal cell carcinoma stage IV. The patient is status post immunotherapy 1 week ago. Continue t o monitor. Follow up the patient's primary oncologist. 8. Diabetes. Continue Lantus insulin sliding scale. 9. Gastrointestinal and deep venous thrombosis prophylaxis. Continue proton pump inhibitor and seq uential leg squeezers. 10. Chronic pain syndrome. Continue current pain regimen. Dictated By: GIOVANNI WINTER/GUERO Conf#: [id number] [facility]#: [id number]
[2017-08-10 10:23] LABS: BASOPHILS % 0.2 % (0.0-2.0); HEMATOCRIT 34.9 % (42.0-52.0); HEMOGLOBIN 10.2 g/dl (14.0-18.0); LYMPHOCYTES # 0.9 10^3/ul (0.8-2.9); LYMPHOCYTES % 7.6 % (15.0-51.0); MEAN CORPUSCULAR HEMOGLOBIN 24.5 pg (29.0-33.0); MEAN CORPUSCULAR HGB CONC 29.2 g/dl (32.0-37.0); MEAN CORPUSCULAR VOLUME 83.7 fl (82.0-101.0); MEAN PLATELET VOLUME 9.2 fl (7.4-10.4); MONOCYTE # 1.1 10^3/ul (0.3-0.9); MONOCYTES % 9.9 % (0.0-11.0); NEUTROPHIL # 9.2 10^3/ul (1.6-7.5); NEUTROPHILS % 80.9 % (39.0-77.0); PLATELET COUNT 249 10^3/UL (140-415); RED BLOOD COUNT 4.17 10^6/ul (4.70-6.10); RED CELL DISTRIBUTION WIDTH 17.1 % (11.5-14.5); WHITE BLOOD COUNT 11.4 10^3/ul (4.8-10.8)
[2017-08-10 10:48] LABS: MAGNESIUM 2.2 mg/dl (1.7-2.5); PHOSPHORUS 2.4 mg/dl (2.5-4.9)
[2017-08-10 10:49] LABS: CALCIUM 8.4 mg/dl (8.4-10.2); CREATININE 0.73 mg/dl (0.61-1.24); POTASSIUM 3.5 mmol/L (3.5-5.1)
--- NOTE | 2017-08-10 11:34 | CONS ---
Date/Time of Note Date/Time of Note DATE: 08/10/17 TIME: 11:31 Consult Date/Type/Reason Admit Date/Time Aug 08, 2017 at 17:31 Initial Consult Date 08/09/17 Type of Consultation: Pulmonary/critical care Ordering Provider: GIOVANNI KRUGER DO Subjective patient stable this morning. States he was to keep his BiPAP on. Awake alert and oriented no respiratory distress. Objective Vital Signs Date Time Temp Pulse Resp B/P Pulse Ox O2 Delivery O2 Flow Rate FiO2 08/10/17 11:20 80 98 30 08/10/17 08:20 124/74 08/10/17 08:00 97.2 21 08/09/17 18:00 BIPAP 08/09/17 17:22 3.0 Intake and Output 08/09/17 08/09/17 08/10/17 14:59 22:59 06:59 Intake Total 115 ml 305 ml Output Total 960 ml 415 ml 1600 ml Balance -845 ml -110 ml -1600 ml Exam GENERAL: Elderly gentleman on noninvasive positive pressure ventilation comfortable at rest. VITAL SIGNS: per chart NECK: Supple. No JVD or lymphadenopathy. CARDIAC EXAM: S1, S2. No added sounds or murmurs. CHEST: clear bilaterally, No added sounds, rales or wheezes ABDOMEN: Soft, nontender. No guarding or rebound. EXTREMITIES: No cyanosis, clubbing or edema. NEUROLOGIC: Generalized weakness. No focal deficits. Results/Medications Result Diagram: 08/10/17 0955 08/10/17 0955 Results 24 hrs Laboratory Tests Test 08/09/17 13:33 08/09/17 17:33 08/09/17 21:25 08/10/17 00:52 Bedside Glucose 193 223 H 187 181 Test 08/10/17 05:31 08/10/17 09:03 08/10/17 09:55 Bedside Glucose 161 153 White Blood Count 11.4 H Red Blood Count 4.17 L Hemoglobin 10.2 L Hematocrit 34.9 L Mean Corpuscular Volume 83.7 Mean Corpuscular Hemoglobin 24.5 L Mean Corpuscular Hemoglobin Concent 29.2 L Red Cell Distribution Width 17.1 H Platelet Count 249 Mean Platelet Volume 9.2 Neutrophils % 80.9 H Lymphocytes % 7.6 L Monocytes % 9.9 Eosinophils % 0.0 Basophils % 0.2 Nucleated Red Blood Cells % 0.0 Neutrophils # 9.2 H Lymphocytes # 0.9 Monocytes # 1.1 H Eosinophils # 0.0 Basophils # 0.0 Nucleated Red Blood Cells # 0.0 Sodium Level 132 L Potassium Level 3.5 Chloride Level 86 L Carbon Dioxide Level 39 H Anion Gap 11 Blood Urea Nitrogen 21 H Creatinine 0.73 Glucose Level 158 Calcium Level 8.4 Phosphorus Level 2.4 #L Magnesium Level 2.2 Medications Current Medications Aspirin (Ecotrin) 325 mg DAILY PO ; Start 08/09/17 at 09:00 Atorvastatin Calcium (Lipitor) 40 mg QHS PO ; Start 08/08/17 at 21:00 Carvedilol (Coreg) 3.125 mg BID PO ; Start 08/08/17 at 21:00 Albuterol/ Ipratropium (Duoneb) 3 ml Q6 PRN NEB SHORTNESS OF BREATH Last administered on 08/09/17 07:16; Admin Dose 3 ML; Start 08/08/17 at 17:00 Lisinopril (Zestril) 2.5 mg DAILY PO ; Start 08/09/17 at 09:00 Oxycodone/ Acetaminophen (Percocet (5/ 325)) 1 tab Q6 PRN PO PAIN; Start 08/08 at 17:00 Pantoprazole (Protonix Tab) 40 mg DAILY@06 PO ; Start 08/09/17 at 06:00 Potassium Chloride (Klor-Con 10) 10 meq DAILY PO ; Start 08/09/17 at 09:00 Albuterol (Ventolin Hfa) 2 puff QID INH Last administered on 08/10/17 09:00; Admin Dose 2 PUFF; Start 08/08/17 at 17:00 Diagnostic Test (Pha) 1 ea 1 ea 02 XX ; Start 08/09/17 at 02:00 Cefepime HCl (Maxipime 1gm/50 ml (Pmx)) 50 ml @ 100 mls/hr Q12 IVPB Last administered on 08/10/17 09:14; Admin Dose 100 MLS/HR; Start 08/08/17 at 21: 00 Miscellaneous Information 1 ea NOTE XX ; Start 08/08/17 at 20:30 Glucose (Glutose) 15 gm Q15M PRN PO DECREASED GLUCOSE; Start 08/08/17 at 20:30 Glucose (Glutose) 22.5 gm Q15M PRN PO DECREASED GLUCOSE; Start 08/08/17 at 20: 30 Dextrose (D50w Syringe) 25 ml Q15M PRN IV DECREASED GLUCOSE; Start 08/08/17 at 20:30 Dextrose (D50w Syringe) 50 ml Q15M PRN IV DECREASED GLUCOSE; Start 08/08/17 at 20:30 Glucagon (Glucagen) 1 mg Q15M PRN IM DECREASED GLUCOSE; Start 08/08/17 at 20: 30 Glucose (Glutose) 15 gm Q15M PRN BUCCAL DECREASED GLUCOSE; Start 08/08/17 at 20:30 Lorazepam (Ativan) 0.5 mg Q6H PRN IV ANXIETY; Start 08/09/17 at 06:30 Miscellaneous Information [facility] This patient hoffmann... PRN PRN XX WOUND CARE; Start 08/09/17 at 07:30 Insulin Aspart (Novolog Insulin Pen) NOVOLOG *MILD* ALGORITHM Q4 SC Last administered on 08/10/17 09:22; Admin Dose 1 UNIT; Start 08/09/17 at 09:00 Methylprednisolone Sodium Succinate (Solu-Medrol) 40 mg Q12 IV Last administered on 08/10/17 09:10; Admin Dose 40 MG; Start 08/09/17 at 21:00 Hydromorphone HCl (Dilaudid) 0.75 mg Q4H PRN IV PAIN Last administered on 08/10 09:08; Admin Dose 0.75 MG; Start 08/09/17 at 22:30 Insulin Glargine (Lantus) 14 unit DAILY@20 SC ; Start 08/10/17 at 20:00 Assessment/Plan Chief Complaint/Hosp Course Assessment 1. Hypoxemic respiratory failure likely secondary to pneumonia 2. Obstructive etiology right upper lobe. May require bronchoscopy if does not improve. 3. Metastatic renal cell carcinoma 4. History of diabetes mellitus Plan 1. Continue supplemental O2 and BiPAP 2. Continue bronchodilators and steroids 3. Encourage out of bed 4. ID recommendations Problems: SON[facility] GIRALDO MD, [facility] Aug 10, 2017 11:34
[2017-08-10 14:52] LABS: MICROALBUMIN 0.9 mg/dL
--- NOTE | 2017-08-10 14:54 | CONS ---
Date/Time of Note Date/Time of Note DATE: 08/10/17 TIME: 14:52 Assessment/Plan Assessment/Plan Chief Complaint/Hosp Course Acute on chronic respiratory failure: Multifactorial including CHF, postobstructive PNA, lung mets. Improved Acute on chronic systolic heart failure: EF 45% most recently. 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 DM HTN -hold further diuretics as euvolemic now, will assess daily -antibiotics and steroids per primary below PO meds when can tolerate (has not passed swallow eval yet) -ASA, lipitor -coreg 3.125mg BID -lisinopril 2.5mg Problems: Consultation Date/Type/Reason Admit Date/Time Aug 08, 2017 at 17:31 Initial Consult Date 08/09/17 Type of Consultation: Cardiology Referring Provider: GIOVANNI KRUGER DO 24 HR Interval Summary Free Text/Dictation Doing better but wants to be on BiPAP as feels better. Diuresed well. Exam/Review of Systems Vital Signs Vitals Vital Signs Date Time Temp Pulse Resp B/P Pulse Ox O2 Delivery O2 Flow Rate FiO2 08/10/17 12:54 90 96 30 08/10/17 12:02 97.8 18 128/76 08/09/17 18:00 BIPAP 08/09/17 17:22 3.0 Intake and Output 08/09/17 08/09/17 08/10/17 15:00 23:00 07:00 Intake Total 115 ml 305 ml Output Total 985 ml 315 ml 1600 ml Balance -870 ml -10 ml -1600 ml Exam Constitutional: alert, oriented, other (on BiPAP) Head: atraumatic, normocephalic Neck: supple, No jvd Respiratory: diminished breath sounds, No clear to auscultation, No crackles/rales Cardiovascular: regular rate and rhythm, No edema, No systolic murmur Gastrointestinal: non-tender, soft Neurological: nl mental status, nl speech Results Result Diagram: 08/10/1795408/10/17 0955 Results 24 hrs Laboratory Tests Test 08/09/17 17:33 08/09/17 21:25 08/10/17 00:52 08/10/17 05:31 Bedside Glucose 223 H 187 181 161 Test 08/10/17 09:03 08/10/17 09:55 08/10/17 12:27 Bedside Glucose 153 169 White Blood Count 11.4 H Red Blood Count 4.17 L Hemoglobin 10.2 L Hematocrit 34.9 L Mean Corpuscular Volume 83.7 Mean Corpuscular Hemoglobin 24.5 L Mean Corpuscular Hemoglobin Concent 29.2 L Red Cell Distribution Width 17.1 H Platelet Count 249 Mean Platelet Volume 9.2 Neutrophils % 80.9 H Lymphocytes % 7.6 L Monocytes % 9.9 Eosinophils % 0.0 Basophils % 0.2 Nucleated Red Blood Cells % 0.0 Neutrophils # 9.2 H Lymphocytes # 0.9 Monocytes # 1.1 H Eosinophils # 0.0 Basophils # 0.0 Nucleated Red Blood Cells # 0.0 Sodium Level 132 L Potassium Level 3.5 Chloride Level 86 L Carbon Dioxide Level 39 H Anion Gap 11 Blood Urea Nitrogen 21 H Creatinine 0.73 Glucose Level 158 Calcium Level 8.4 Phosphorus Level 2.4 #L Magnesium Level 2.2 Medications Medications Current Medications Aspirin (Ecotrin) 325 mg DAILY PO ; Start 08/09/17 at 09:00 Atorvastatin Calcium (Lipitor) 40 mg QHS PO ; Start 08/08/17 at 21:00 Carvedilol (Coreg) 3.125 mg BID PO ; Start 08/08/17 at 21:00 Albuterol/ Ipratropium (Duoneb) 3 ml Q6 PRN NEB SHORTNESS OF BREATH Last administered on 08/09/17t 07:16; Admin Dose 3 ML; Start 08/08/17 at 17:00 Lisinopril (Zestril) 2.5 mg DAILY PO ; Start 08/09/17 at 09:00 Oxycodone/ Acetaminophen (Percocet (5/ 325)) 1 tab Q6 PRN PO PAIN; Start 08/08 at 17:00 Pantoprazole (Protonix Tab) 40 mg DAILY@06 PO ; Start 08/09/17 at 06:00 Potassium Chloride (Klor-Con 10) 10 meq DAILY PO ; Start 08/09/17 at 09:00 Albuterol (Ventolin Hfa) 2 puff QID INH Last administered on 08/10/17 12:29; Admin Dose 2 PUFF; Start 08/08/17 at 17:00 Diagnostic Test (Pha) 1 ea 1 ea 02 XX ; Start 08/09/17 at 02:00 Cefepime HCl (Maxipime 1gm/50 ml (Pmx)) 50 ml @ 100 mls/hr Q12 IVPB Last administered on 08/10/17 09:14; Admin Dose 100 MLS/HR; Start 08/08/17 at 21: 00 Miscellaneous Information 1 ea NOTE XX ; Start 08/08/17 at 20:30 Glucose (Glutose) 15 gm Q15M PRN PO DECREASED GLUCOSE; Start 08/08/17 at 20:30 Glucose (Glutose) 22.5 gm Q15M PRN PO DECREASED GLUCOSE; Start 08/08/17 at 20: 30 Dextrose (D50w Syringe) 25 ml Q15M PRN IV DECREASED GLUCOSE; Start 08/08/17 at 20:30 Dextrose (D50w Syringe) 50 ml Q15M PRN IV DECREASED GLUCOSE; Start 08/08/17 at 20:30 Glucagon (Glucagen) 1 mg Q15M PRN IM DECREASED GLUCOSE; Start 08/08/17 at 20: 30 Glucose (Glutose) 15 gm Q15M PRN BUCCAL DECREASED GLUCOSE; Start 08/08/17 at 20:30 Lorazepam (Ativan) 0.5 mg Q6H PRN IV ANXIETY; Start 08/09/17 at 06:30 Miscellaneous Information (Pending [facility] Order For Wound Care) This patient hoffmann... PRN PRN XX WOUND CARE; Start 08/09/17 at 07:30 Insulin Aspart (Novolog Insulin Pen) NOVOLOG *MILD* ALGORITHM Q4 SC Last administered on 08/10/17 12:53; Admin Dose 1 UNIT; Start 08/09/17 at 09:00 Methylprednisolone Sodium Succinate (Solu-Medrol) 40 mg Q12 IV Last administered on 08/10/17 09:10; Admin Dose 40 MG; Start 08/09/17 at 21:00 Hydromorphone HCl (Dilaudid) 0.75 mg Q4H PRN IV PAIN Last administered on 11/22 /17at 14:07; Admin Dose 0.75 MG; Start 08/09/17 at 22:30 Insulin Glargine (Lantus) 14 unit DAILY@20 SC ; Start 08/10/17 at 20:00 TAMMI MORENO Aug 10, 2017 14:54
--- NOTE | 2017-08-10 15:00 | CONS ---
Date/Time of Note Date/Time of Note DATE: 08/10/17 TIME: 14:58 Assessment/Plan Assessment/Plan Chief Complaint/Hosp Course SUBJECTIVE: Patient is comfortable on BiPAP, no fevers. MICROBIOLOGY: Influenza swab was negative. DIAGNOSTICS: CT of the chest revealed increased soft tissue within the right perihilar region with narrowing of right upper lobe bronchus suspicious of neoplasm. There is a postop obstructive consolidation within the right upper lobe which has increased compared to 05/30/2017. Multiple metastatic pulmonary nodules bilaterally, unchanged. Increased moderate pleural effusions with underlying atelectasis. Mild mediastinal and right hilar adenopathy, unchanged. Multiple osseous metastasis increased, mild pathologic compression fracture of L4, unchanged. Sigmoid diverticulosis without evidence of diverticulitis. ANTIMICROBIALS: The patient is on cefepime. He is also on IV steroids. PHYSICAL EXAMINATION: GENERAL: This is a fragile elderly man who is in no distress. HEENT: Head atraumatic, normocephalic. NECK: Supple. CHEST: Rise symmetrical. Breath sounds diminished to bases. HEART: S1, S2. ABDOMEN: Soft, bowel tones present. EXTREMITIES: Without cyanosis. ASSESSMENT: 1. Sepsis. 2. Acute hypoxemic respiratory failure secondary to postobstructive pneumonia. 3. Metastatic renal carcinoma. 4. Acute congestive heart failure exacerbation. 5. Anemia. 6. History of coronary artery bypass graft. 7. Diabetes. PLAN: The patient remains unchanged. Continue present care. Continue on current antibiotics. Steroid taper. Follow recommendations of consultants. Problems: Consultation Date/Type/Reason Admit Date/Time Aug 08, 2017 at 17:31 Initial Consult Date 08/09/17 Type of Consultation: ID Referring Provider: GIOVANNI KRUGER DO Exam/Review of Systems Vital Signs Vitals Vital Signs Date Time Temp Pulse Resp B/P Pulse Ox O2 Delivery O2 Flow Rate FiO2 08/10/17 12:54 90 96 30 08/10/17 12:02 97.8 18 128/76 08/09/17 18:00 BIPAP 08/09/17 17:22 3.0 Intake and Output 08/09/17 08/09/17 08/10/17 14:59 22:59 06:59 Intake Total 115 ml 305 ml Output Total 960 ml 415 ml 1600 ml Balance -845 ml -110 ml -1600 ml Results Result Diagram: 08/10/17 0955 08/10/17 0955 Results 24 hrs Laboratory Tests Test 08/09/17 17:33 08/09/17 21:25 08/10/17 00:52 08/10/17 05:31 Bedside Glucose 223 H 187 181 161 Test 08/10/17 09:03 08/10/17 09:55 08/10/17 12:27 Bedside Glucose 153 169 White Blood Count 11.4 H Red Blood Count 4.17 L Hemoglobin 10.2 L Hematocrit 34.9 L Mean Corpuscular Volume 83.7 Mean Corpuscular Hemoglobin 24.5 L Mean Corpuscular Hemoglobin Concent 29.2 L Red Cell Distribution Width 17.1 H Platelet Count 249 Mean Platelet Volume 9.2 Neutrophils % 80.9 H Lymphocytes % 7.6 L Monocytes % 9.9 Eosinophils % 0.0 Basophils % 0.2 Nucleated Red Blood Cells % 0.0 Neutrophils # 9.2 H Lymphocytes # 0.9 Monocytes # 1.1 H Eosinophils # 0.0 Basophils # 0.0 Nucleated Red Blood Cells # 0.0 Sodium Level 132 L Potassium Level 3.5 Chloride Level 86 L Carbon Dioxide Level 39 H Anion Gap 11 Blood Urea Nitrogen 21 H Creatinine 0.73 Glucose Level 158 Calcium Level 8.4 Phosphorus Level 2.4 #L Magnesium Level 2.2 Medications Medications Current Medications Aspirin (Ecotrin) 325 mg DAILY PO ; Start 08/09/17 at 09:00 Atorvastatin Calcium (Lipitor) 40 mg QHS PO ; Start 08/08/17 at 21:00 Carvedilol (Coreg) 3.125 mg BID PO ; Start 08/08/17 at 21:00 Albuterol/ Ipratropium (Duoneb) 3 ml Q6 PRN NEB SHORTNESS OF BREATH Last administered on 08/09/17t 07:16; Admin Dose 3 ML; Start 08/08/17 at 17:00 Lisinopril (Zestril) 2.5 mg DAILY PO ; Start 08/09/17 at 09:00 Oxycodone/ Acetaminophen (Percocet (5/ 325)) 1 tab Q6 PRN PO PAIN; Start 08/08 at 17:00 Pantoprazole (Protonix Tab) 40 mg DAILY@06 PO ; Start 08/09/17 at 06:00 Potassium Chloride (Klor-Con 10) 10 meq DAILY PO ; Start 08/09/17 at 09:00 Albuterol (Ventolin Hfa) 2 puff QID INH Last administered on 08/10/17 12:29; Admin Dose 2 PUFF; Start 08/08/17 at 17:00 Diagnostic Test (Pha) 1 ea 1 ea 02 XX ; Start 08/09/17 at 02:00 Cefepime HCl (Maxipime 1gm/50 ml (Pmx)) 50 ml @ 100 mls/hr Q12 IVPB Last administered on 08/10/17 09:14; Admin Dose 100 MLS/HR; Start 08/08/17 at 21: 00 Miscellaneous Information 1 ea NOTE XX ; Start 08/08/17 at 20:30 Glucose (Glutose) 15 gm Q15M PRN PO DECREASED GLUCOSE; Start 08/08/17 at 20:30 Glucose (Glutose) 22.5 gm Q15M PRN PO DECREASED GLUCOSE; Start 08/08/17 at 20: 30 Dextrose (D50w Syringe) 25 ml Q15M PRN IV DECREASED GLUCOSE; Start 08/08/17 at 20:30 Dextrose (D50w Syringe) 50 ml Q15M PRN IV DECREASED GLUCOSE; Start 08/08/17 at 20:30 Glucagon (Glucagen) 1 mg Q15M PRN IM DECREASED GLUCOSE; Start 08/08/17 at 20: 30 Glucose (Glutose) 15 gm Q15M PRN BUCCAL DECREASED GLUCOSE; Start 08/08/17 at 20:30 Lorazepam (Ativan) 0.5 mg Q6H PRN IV ANXIETY; Start 08/09/17 at 06:30 Miscellaneous Information (Pending [facility] Order For Wound Care) This patient hoffmann... PRN PRN XX WOUND CARE; Start 08/09/17 at 07:30 Insulin Aspart (Novolog Insulin Pen) NOVOLOG *MILD* ALGORITHM Q4 SC Last administered on 08/10/17 12:53; Admin Dose 1 UNIT; Start 08/09/17 at 09:00 Methylprednisolone Sodium Succinate (Solu-Medrol) 40 mg Q12 IV Last administered on 08/10/17 09:10; Admin Dose 40 MG; Start 08/09/17 at 21:00 Hydromorphone HCl (Dilaudid) 0.75 mg Q4H PRN IV PAIN Last administered on 08/10 14:07; Admin Dose 0.75 MG; Start 08/09/17 at 22:30 Insulin Glargine (Lantus) 14 unit DAILY@20 SC ; Start 08/10/17 at 20:00 MK LIMA NP Aug 10, 2017 15:00
--- NOTE | 2017-08-10 16:05 | RADRPT ---
PROCEDURE: CT neck without contrast CLINICAL INDICATION: Respiratory failure. Cervical kyphosis, assess for metastatic disease or compre ssion fractures. TECHNIQUE: Continuous axial CT images were obtained through the neck. Coronal and sagittal recons tructions were performed. No intravenous contrast was administered intravenously. The calculated r adiation dose measures 322 mGy centimeters. The CTDI measures 11 mGy One or more of the following dose reduction techniques were used: Automated exposure control. Adjustment of the mA and/or kV according to patient size. Use of iterative reconstruction technique. COMPARISON: none FINDINGS: There is bilateral pleural effusions, and dense atelectasis along the posterior right upper lobe. Th ere are multiple upper lobe lung nodules, partially visualized. There is adenopathy in the superior mediastinum, partially visualized. The nasopharynx, oropharynx, hypopharynx, and larynx appear normally patent, without abnormal mass o r soft tissue thickening. The parotid glands, submandibular glands, and sublingual glands appear no rmal in size and configuration. The oral tongue and base of tongue appear unremarkable. The floor of mouth appears normal. There is borderline prominent right supraclavicular lymph node, 12 x 10 mm. There is level heterogeneous bony demineralization. There is a sclerotic lesion in the T3 vertebral body. There are heterogeneous sclerotic changes on the right from C4-C6 as well. There is straighten ing of the normal cervical lordosis. There is a mild compression deformity of the C6 vertebral body, with 30% central height loss. There is minimal superior plate compression deformity at T3. There is posterior osteophyte formation at C5-C6, with associated mild appearing bony central canal stenosis . There is uncovertebral hypertrophy at C3-C4 and C5-C6, with bony foraminal stenosis on the right a t C3-C4, and on both sides at C5-C6. IMPRESSION: 1. Bilateral pleural effusions. Dense atelectasis along the posterior right upper lobe. Multiple up per lobe lung nodules, and adenopathy in the superior mediastinum, partially visualized. 2. Borderline enlarged right supraclavicular lymph node, 12 x 10 mm. 3. Heterogeneous bony demineralization through the cervical spine, which could reflect diffuse meta static involvement, and/or patchy osteopenia. Scattered sclerotic lesions most prominent at T3, cons istent with sclerotic metastases. 4. Acute appearing fracture deformity of the C6 vertebral body, with mild associated height loss, 3 0%, without significant associated retropulsion. 5. Mild superior plate compression deformity at T3, of uncertain age, possibly chronic. RPTAT: HBST .Nain Hopkins MD, Date Time Electronically viewed and signed by .Nain Hopkins MD, on 08/10/2017 16:04 .T/
[2017-08-10] MEDS: NEOMYC/POLYMYX/BACIT 30 GM OINT TOP SCH (21:00)
[2017-08-10] MEDS: ATORVASTATIN 40 MG TAB PO SCH (21:00)
[2017-08-10] MEDS: INSULIN GLARGINE [LANtus] 3 ML PEN SC SCH (21:32)
[2017-08-10] MEDS ORDERED: HYDROmorphONE 1 MG/ML SYG IV PRN (22:00)
[2017-08-11] VITALS (19 sets, daily range): BP systolic 102–143; BP diastolic 69–88; PULSE 94–128; RESP 18–24
[2017-08-11] MEDS: INSULIN ASPART [NOVOLOG] 3 ML PEN SC SCH ×6 (01:00→21:01)
[2017-08-11] MEDS: ACCU-CHEK XX SCH (02:00)
[2017-08-11] MEDS: PANTOPRAZOLE (EC) 40 MG TAB PO SCH (05:23)
[2017-08-11] MEDS: ALBUTEROL/IPRATROPIUM (NEB) 3 ML AMP NEB PRN ×2 (08:04→23:25)
[2017-08-11 08:21] LABS: BASOPHILS % 0.2 % (0.0-2.0); HEMATOCRIT 36.1 % (42.0-52.0); HEMOGLOBIN 10.6 g/dl (14.0-18.0); LYMPHOCYTES # 0.8 10^3/ul (0.8-2.9); LYMPHOCYTES % 6.7 % (15.0-51.0); MEAN CORPUSCULAR HEMOGLOBIN 23.9 pg (29.0-33.0); MEAN CORPUSCULAR HGB CONC 29.4 g/dl (32.0-37.0); MEAN CORPUSCULAR VOLUME 81.5 fl (82.0-101.0); MEAN PLATELET VOLUME 9.3 fl (7.4-10.4); MONOCYTE # 1.4 10^3/ul (0.3-0.9); MONOCYTES % 11.2 % (0.0-11.0); NEUTROPHIL # 9.6 10^3/ul (1.6-7.5); NEUTROPHILS % 79.1 % (39.0-77.0); PLATELET COUNT 244 10^3/UL (140-415); RED BLOOD COUNT 4.43 10^6/ul (4.70-6.10); RED CELL DISTRIBUTION WIDTH 17.2 % (11.5-14.5); WHITE BLOOD COUNT 12.1 10^3/ul (4.8-10.8)
[2017-08-11] MEDS: ASPIRIN (EC) 325 MG TAB PO SCH (08:42)
[2017-08-11] MEDS: POTASSIUM CHLORIDE (SR) 10 MEQ TAB PO SCH (08:42)
[2017-08-11] MEDS: NEOMYC/POLYMYX/BACIT 30 GM OINT TOP SCH ×2 (08:42→21:00)
[2017-08-11] MEDS: CEFEPIME 1GM/50 ML (PMX) 50 ML IVPB SCH ×2 (08:43→20:58)
[2017-08-11] MEDS: ALBUTEROL HFA 8 GM INHALER INH SCH ×4 (08:43→21:00)
[2017-08-11] MEDS: METHYLPREDNISOLONE 40 MG INJ IV SCH ×2 (08:43→20:58)
[2017-08-11 08:47] LABS: CALCIUM 8.4 mg/dl (8.4-10.2); CREATININE 0.66 mg/dl (0.61-1.24); MAGNESIUM 2.2 mg/dl (1.7-2.5); PHOSPHORUS 2.3 mg/dl (2.5-4.9); POTASSIUM 3.7 mmol/L (3.5-5.1)
[2017-08-11 08:47] LABS: AADO2 Arterial 85.6 mmHg (7.0-24.0); Allen Test ACCEPTAB; Arterial Base Excess 3.7 mmol/L (-3.0-3); Arterial COHb 0.8 % (0.0-3.0); Arterial Fraction of Oxyhgb 94.6 % (93.0-99.0); Arterial HCO3 28.3 mmol/L (22.0-26.0); Arterial MetHb 0.3 % (0.0-1.5); Arterial Total Hemglobin 12.6 g/dl (12.0-18.0); Blood Gas IEPAP 15/5; Blood Gas PS 10; MODE MASK - BIPAP
[2017-08-11] MEDS: LISINOPRIL 5 MG TAB PO SCH (09:00)
[2017-08-11] MEDS ORDERED: DEXTROSE 5%-0.9% NACL 1,000 ML IV SCH (10:00)
[2017-08-11] MEDS ORDERED: SODIUM PHOSPHATE 20 MEQ in SOD CHLORIDE 0.9% 250 ML IVPB ONE (10:00)
--- NOTE | 2017-08-11 11:06 | CONS ---
Date/Time of Note Date/Time of Note DATE: 08/11/17 TIME: 11:05 Consult Date/Type/Reason Admit Date/Time Aug 08, 2017 at 17:31 Initial Consult Date 08/09/17 Type of Consultation: Pulmonary Ordering Provider: GIOVANNI KRUGER DO Subjective Still has shortness of breath unable to come off noninvasive positive pressure ventilation Awake alert and oriented. Complaining of neck pain. Objective Vital Signs Date Time Temp Pulse Resp B/P Pulse Ox O2 Delivery O2 Flow Rate FiO2 08/11/17 08:13 114 08/11/17 07:34 97.5 23 132/85 97 08/11/17 04:58 30 08/09/17 18:00 BIPAP 08/09/17 17:22 3.0 Intake and Output 08/10/17 08/10/17 08/11/17 14:59 22:59 06:59 Intake Total 50 ml Output Total 1450 ml 1200 ml Balance 50 ml -1450 ml -1200 ml Exam GENERAL: Well-nourished well-developed gentleman comfortable at rest. VITAL SIGNS: per chart NECK: Supple. No JVD or lymphadenopathy. CARDIAC EXAM: S1, S2. No added sounds or murmurs. CHEST: Diminished air entry bilaterally with rales right base. ABDOMEN: Soft, nontender. No guarding or rebound. EXTREMITIES: No cyanosis, clubbing or edema. NEUROLOGIC: Generalized weakness. No focal deficits. Results/Medications Result Diagram: 08/11/17 0723 08/11/17 0723 Results 24 hrs Laboratory Tests Test 08/10/17 12:27 08/10/17 17:26 08/10/17 21:29 08/11/17 05:17 Bedside Glucose 169 166 157 176 Test 08/11/17 07:22 08/11/17 07:23 08/11/17 07:57 Blood Gas Specimen Source Blood arterial Arterial Blood Date Drawn 08/11/2017 8:35:39 AM Arterial Blood pH (Temp corrected) 7.439 Arterial Blood pCO2 (Temp correct) 42.7 Arterial Blood pO2 (Temp corrected) 78.1 L Arterial Blood HCO3 28.3 H Arterial Blood Base Excess 3.7 H Arterial Blood Oxygen Saturation 95.7 Gerardo Test ACCEPTAB Arterial Blood Gas Puncture Site Right Radial Arterial Blood Carboxyhemoglobin 0.8 Arterial Blood Methemoglobin 0.3 Blood Gas A-a O2 Differential 85.6 H Oxyhemoglobin Percent 94.6 Total Hemoglobin 12.6 Blood Gas Temperature 37.0 Blood Gas Respiration Rate 14.0 Blood Gas Actual Respiration Rate 27 Blood Gas Modality MASK - BIPAP FiO2 30.0 Blood Gas Pressure Support 10 Blood Gas IPAP/EPAP Ratio 15/5 Blood Gas Notified Whom AC Blood Gas Notified Time 08/11/2017 8:47:28 AM White Blood Count 12.1 H Red Blood Count 4.43 L Hemoglobin 10.6 L Hematocrit 36.1 L Mean Corpuscular Volume 81.5 L Mean Corpuscular Hemoglobin 23.9 L Mean Corpuscular Hemoglobin Concent 29.4 L Red Cell Distribution Width 17.2 H Platelet Count 244 Mean Platelet Volume 9.3 Neutrophils % 79.1 H Lymphocytes % 6.7 L Monocytes % 11.2 H Eosinophils % 0.0 Basophils % 0.2 Nucleated Red Blood Cells % 0.0 Neutrophils # 9.6 H Lymphocytes # 0.8 Monocytes # 1.4 H Eosinophils # 0.0 Basophils # 0.0 Nucleated Red Blood Cells # 0.0 Sodium Level 133 L Potassium Level 3.7 Chloride Level 88 L Carbon Dioxide Level 34 H Anion Gap 15 Blood Urea Nitrogen 19 Creatinine 0.66 Glucose Level 178 Calcium Level 8.4 Phosphorus Level 2.3 L Magnesium Level 2.2 Bedside Glucose 157 Medications Current Medications Aspirin (Ecotrin) 325 mg DAILY PO ; Start 08/09/17 at 09:00 Atorvastatin Calcium (Lipitor) 40 mg QHS PO ; Start 08/08/17 at 21:00 Carvedilol (Coreg) 3.125 mg BID PO ; Start 08/08/17 at 21:00 Albuterol/ Ipratropium (Duoneb) 3 ml Q6 PRN NEB SHORTNESS OF BREATH Last administered on 08/11/17t 08:04; Admin Dose 3 ML; Start 08/08/17 at 17:00 Lisinopril (Zestril) 2.5 mg DAILY PO ; Start 08/09/17 at 09:00 Oxycodone/ Acetaminophen (Percocet (5/ 325)) 1 tab Q6 PRN PO PAIN; Start 08/08 at 17:00 Pantoprazole (Protonix Tab) 40 mg DAILY@06 PO ; Start 08/09/17 at 06:00 Potassium Chloride (Klor-Con 10) 10 meq DAILY PO ; Start 08/09/17 at 09:00 Albuterol (Ventolin Hfa) 2 puff QID INH Last administered on 08/11/17 08:43; Admin Dose 2 PUFF; Start 08/08/17 at 17:00 Diagnostic Test (Pha) 1 ea 1 ea 02 XX ; Start 08/09/17 at 02:00 Cefepime HCl (Maxipime 1gm/50 ml (Pmx)) 50 ml @ 100 mls/hr Q12 IVPB Last administered on 08/11/17 08:43; Admin Dose 100 MLS/HR; Start 08/08/17 at 21: 00 Miscellaneous Information 1 ea NOTE XX ; Start 08/08/17 at 20:30 Glucose (Glutose) 15 gm Q15M PRN PO DECREASED GLUCOSE; Start 08/08/17 at 20:30 Glucose (Glutose) 22.5 gm Q15M PRN PO DECREASED GLUCOSE; Start 08/08/17 at 20: 30 Dextrose (D50w Syringe) 25 ml Q15M PRN IV DECREASED GLUCOSE; Start 08/08/17 at 20:30 Dextrose (D50w Syringe) 50 ml Q15M PRN IV DECREASED GLUCOSE; Start 08/08/17 at 20:30 Glucagon (Glucagen) 1 mg Q15M PRN IM DECREASED GLUCOSE; Start 08/08/17 at 20: 30 Glucose (Glutose) 15 gm Q15M PRN BUCCAL DECREASED GLUCOSE; Start 08/08/17 at 20:30 Lorazepam (Ativan) 0.5 mg Q6H PRN IV ANXIETY Last administered on 08/10/17 21 :21; Admin Dose 0.5 MG; Start 08/09/17 at 06:30 Miscellaneous Information (Pending [facility] Order For Wound Care) This patient hoffmann... PRN PRN XX WOUND CARE; Start 08/09/17 at 07:30 Insulin Aspart (Novolog Insulin Pen) NOVOLOG *MILD* ALGORITHM Q4 SC Last administered on 08/11/17 08:05; Admin Dose 1 UNIT; Start 08/09/17 at 09:00 Methylprednisolone Sodium Succinate (Solu-Medrol) 40 mg Q12 IV Last administered on 08/11/17 08:43; Admin Dose 40 MG; Start 08/09/17 at 21:00 Insulin Glargine (Lantus) 14 unit DAILY@20 SC Last administered on 08/10/17 21:32; Admin Dose 14 UNIT; Start 08/10/17 at 20:00 Neomycin/ Polymyxin/ Bacitracin (Neosporin Topical Oint) 1 applic BID TOP Last administered on 08/11/17 08:42; Admin Dose 1 APPLIC; Start 08/10/17 at 21:00 Hydromorphone HCl 1 mg 1 mg Q3H PRN IV PAIN LEVEL 8-10 Last administered on 22:17; Admin Dose 1 MG; Start 08/10/17 at 22:00 Dextrose/Sodium Chloride (D5-NS) 1,000 ml @ 40 mls/hr Q24H IV Last administered on 08/11/17 10:14; Admin Dose 40 MLS/HR; Start 08/11/17 at 10:00 Hydromorphone HCl 0.5 mg 0.5 mg Q4H PRN IV PAIN; Start 08/11/17 at 10:30 Potassium Phosphate/Sodium Chloride (K Phos (Meq)/NS) 254.5455 ml @ 63.75 mls/ hr ONCE ONCE IV ; Start 08/11/17 at 12:00; Stop 08/11/17 at 15:59 Assessment/Plan Chief Complaint/Hosp Course Assessment 1. Hypoxemic respiratory failure likely secondary to pneumonia 2. Obstructive etiology right upper lobe. Right lower lobe atelectasis. Pulmonary metastasis noted. 3. Metastatic renal cell carcinoma concern for possible C-spine metastasis. 4. History of diabetes mellitus Plan 1. Continue supplemental O2 and BiPAP, trial of high flow oxygen. 2. Continue bronchodilators and steroids 3. Encourage out of bed 4. ID recommendations 5. MRI neck. Problems: SONJA GIRALDO MD, [facility] Aug 11, 2017 11:06
[2017-08-11] MEDS ORDERED: POTASSIUM PHOSPHATE 20 MEQ in SOD CHLORIDE 0.9% 250 ML IV ONE (12:00)
--- NOTE | 2017-08-11 12:21 | CONS ---
Date/Time of Note Date/Time of Note DATE: 08/11/17 TIME: 12:19 Assessment/Plan Assessment/Plan Chief Complaint/Hosp Course SUBJECTIVE: Awake, more confused today, comfortable on BiPAP MICROBIOLOGY: Influenza swab was negative. DIAGNOSTICS: CT of the chest revealed increased soft tissue within the right perihilar region with narrowing of right upper lobe bronchus suspicious of neoplasm. There is a postop obstructive consolidation within the right upper lobe which has increased compared to 05/30/2017. Multiple metastatic pulmonary nodules bilaterally, unchanged. Increased moderate pleural effusions with underlying atelectasis. Mild mediastinal and right hilar adenopathy, unchanged. Multiple osseous metastasis increased, mild pathologic compression fracture of L4, unchanged. Sigmoid diverticulosis without evidence of diverticulitis. ANTIMICROBIALS: The patient is on cefepime. He is also on IV steroids. PHYSICAL EXAMINATION: GENERAL: This is a fragile elderly man who is in no distress. HEENT: Head atraumatic, normocephalic. NECK: Supple. CHEST: Rise symmetrical. Breath sounds diminished to bases. HEART: S1, S2. ABDOMEN: Soft, bowel tones present. EXTREMITIES: Without cyanosis. ASSESSMENT: 1. Sepsis. 2. Acute hypoxemic respiratory failure secondary to postobstructive pneumonia. 3. Metastatic renal carcinoma possible cervical spine metastasis. 4. Acute congestive heart failure exacerbation. 5. Anemia. 6. History of coronary artery bypass graft. 7. Diabetes. PLAN: The patient remains unchanged. Continue present care. Continue on current antibiotics. Follow recommendations of consultants. Pending cervical spine MRI DW family at bedside Problems: Consultation Date/Type/Reason Admit Date/Time Aug 08, 2017 at 17:31 Initial Consult Date 08/09/17 Type of Consultation: ID Referring Provider: GIOVANNI KRUGER DO Exam/Review of Systems Vital Signs Vitals Vital Signs Date Time Temp Pulse Resp B/P Pulse Ox O2 Delivery O2 Flow Rate FiO2 08/11/17 12:07 97.7 129 24 138/88 96 08/11/17 11:20 50 08/11/17 09:10 3.0 08/09/17 18:00 BIPAP Intake and Output 08/10/17 08/10/17 08/11/17 15:00 23:00 07:00 Intake Total 50 ml Output Total 1450 ml 1200 ml Balance 50 ml -1450 ml -1200 ml Results Result Diagram: 08/11/17 0723 08/11/17 0723 Results 24 hrs Laboratory Tests Test 08/10/17 12:27 08/10/17 17:26 08/10/17 21:29 08/11/17 05:17 Bedside Glucose 169 166 157 176 Test 08/11/17 07:22 08/11/17 07:23 08/11/17 07:57 08/11/17 12:01 Blood Gas Specimen Source Blood arterial Arterial Blood Date Drawn 08/11/2017 8:35:39 AM Arterial Blood pH (Temp corrected) 7.439 Arterial Blood pCO2 (Temp correct) 42.7 Arterial Blood pO2 (Temp corrected) 78.1 L Arterial Blood HCO3 28.3 H Arterial Blood Base Excess 3.7 H Arterial Blood Oxygen Saturation 95.7 Gerardo Test ACCEPTAB Arterial Blood Gas Puncture Site Right Radial Arterial Blood Carboxyhemoglobin 0.8 Arterial Blood Methemoglobin 0.3 Blood Gas A-a O2 Differential 85.6 H Oxyhemoglobin Percent 94.6 Total Hemoglobin 12.6 Blood Gas Temperature 37.0 Blood Gas Respiration Rate 14.0 Blood Gas Actual Respiration Rate 27 Blood Gas Modality MASK - BIPAP FiO2 30.0 Blood Gas Pressure Support 10 Blood Gas IPAP/EPAP Ratio 15/5 Blood Gas Notified Whom AC Blood Gas Notified Time 08/11/2017 8:47:28 AM White Blood Count 12.1 H Red Blood Count 4.43 L Hemoglobin 10.6 L Hematocrit 36.1 L Mean Corpuscular Volume 81.5 L Mean Corpuscular Hemoglobin 23.9 L Mean Corpuscular Hemoglobin Concent 29.4 L Red Cell Distribution Width 17.2 H Platelet Count 244 Mean Platelet Volume 9.3 Neutrophils % 79.1 H Lymphocytes % 6.7 L Monocytes % 11.2 H Eosinophils % 0.0 Basophils % 0.2 Nucleated Red Blood Cells % 0.0 Neutrophils # 9.6 H Lymphocytes # 0.8 Monocytes # 1.4 H Eosinophils # 0.0 Basophils # 0.0 Nucleated Red Blood Cells # 0.0 Sodium Level 133 L Potassium Level 3.7 Chloride Level 88 L Carbon Dioxide Level 34 H Anion Gap 15 Blood Urea Nitrogen 19 Creatinine 0.66 Glucose Level 178 Calcium Level 8.4 Phosphorus Level 2.3 L Magnesium Level 2.2 Bedside Glucose 157 196 Medications Medications Current Medications Aspirin (Ecotrin) 325 mg DAILY PO ; Start 08/09/17 at 09:00 Atorvastatin Calcium (Lipitor) 40 mg QHS PO ; Start 08/08/17 at 21:00 Carvedilol (Coreg) 3.125 mg BID PO ; Start 08/08/17 at 21:00 Albuterol/ Ipratropium (Duoneb) 3 ml Q6 PRN NEB SHORTNESS OF BREATH Last administered on 08/11/17 08:04; Admin Dose 3 ML; Start 08/08/17 at 17:00 Lisinopril (Zestril) 2.5 mg DAILY PO ; Start 08/09/17 at 09:00 Oxycodone/ Acetaminophen (Percocet (5/ 325)) 1 tab Q6 PRN PO PAIN; Start 08/08 at 17:00 Pantoprazole (Protonix Tab) 40 mg DAILY@06 PO ; Start 08/09/17 at 06:00 Potassium Chloride (Klor-Con 10) 10 meq DAILY PO ; Start 08/09/17 at 09:00 Albuterol (Ventolin Hfa) 2 puff QID INH Last administered on 08/11/17 12:02; Admin Dose 2 PUFF; Start 08/08/17 at 17:00 Diagnostic Test (Pha) 1 ea 1 ea 02 XX ; Start 08/09/17 at 02:00 Cefepime HCl (Maxipime 1gm/50 ml (Pmx)) 50 ml @ 100 mls/hr Q12 IVPB Last administered on 08/11/17 08:43; Admin Dose 100 MLS/HR; Start 08/08/17 at 21: 00 Miscellaneous Information 1 ea NOTE XX ; Start 08/08/17 at 20:30 Glucose (Glutose) 15 gm Q15M PRN PO DECREASED GLUCOSE; Start 08/08/17 at 20:30 Glucose (Glutose) 22.5 gm Q15M PRN PO DECREASED GLUCOSE; Start 08/08/17 at 20: 30 Dextrose (D50w Syringe) 25 ml Q15M PRN IV DECREASED GLUCOSE; Start 08/08/17 at 20:30 Dextrose (D50w Syringe) 50 ml Q15M PRN IV DECREASED GLUCOSE; Start 08/08/17 at 20:30 Glucagon (Glucagen) 1 mg Q15M PRN IM DECREASED GLUCOSE; Start 08/08/17 at 20: 30 Glucose (Glutose) 15 gm Q15M PRN BUCCAL DECREASED GLUCOSE; Start 08/08/17 at 20:30 Lorazepam (Ativan) 0.5 mg Q6H PRN IV ANXIETY Last administered on 08/10/17 21 :21; Admin Dose 0.5 MG; Start 08/09/17 at 06:30 Miscellaneous Information (Pending [facility] Order For Wound Care) This patient hoffmann... PRN PRN XX WOUND CARE; Start 08/09/17 at 07:30 Insulin Aspart (Novolog Insulin Pen) NOVOLOG *MILD* ALGORITHM Q4 SC Last administered on 08/11/17 12:03; Admin Dose 2 UNIT; Start 08/09/17 at 09:00 Methylprednisolone Sodium Succinate (Solu-Medrol) 40 mg Q12 IV Last administered on 08/11/17 08:43; Admin Dose 40 MG; Start 08/09/17 at 21:00 Insulin Glargine (Lantus) 14 unit DAILY@20 SC Last administered on 08/10/17 21:32; Admin Dose 14 UNIT; Start 08/10/17 at 20:00 Neomycin/ Polymyxin/ Bacitracin (Neosporin Topical Oint) 1 applic BID TOP Last administered on 08/11/17 08:42; Admin Dose 1 APPLIC; Start 08/10/17 at 21:00 Hydromorphone HCl 1 mg 1 mg Q3H PRN IV PAIN LEVEL 8-10 Last administered on 22:17; Admin Dose 1 MG; Start 08/10/17 at 22:00 Dextrose/Sodium Chloride (D5-NS) 1,000 ml @ 40 mls/hr Q24H IV Last administered on 08/11/17 10:14; Admin Dose 40 MLS/HR; Start 08/11/17 at 10:00 Hydromorphone HCl 0.5 mg 0.5 mg Q4H PRN IV PAIN; Start 08/11/17 at 10:30 Potassium Phosphate/Sodium Chloride (K Phos (Meq)/NS) 254.5455 ml @ 63.75 mls/ hr ONCE ONCE IV Last administered on 08/11/17 11:29; Admin Dose 63.75 MLS/HR ; Start 08/11/17 at 12:00; Stop 08/11/17 at 15:59 MK LIMA NP Aug 11, 2017 12:21
--- NOTE | 2017-08-11 12:53 | CONS ---
Date/Time of Note Date/Time of Note DATE: 08/11/17 TIME: 12:50 Assessment/Plan Assessment/Plan Chief Complaint/Hosp Course Acute on chronic respiratory failure: Multifactorial including CHF, postobstructive PNA, lung mets. Improved and off BiPAP but now worse this am Acute on chronic systolic heart failure: EF 45% most recently. 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 DM HTN -hold off on MRI for now as may not tolerate in terms of respiratory status -hold further diuretics for now -antibiotics and steroids per primary below PO meds when can tolerate (has not passed swallow eval yet) -ASA, lipitor -coreg 3.125mg BID -lisinopril 2.5mg Problems: Consultation Date/Type/Reason Admit Date/Time Aug 08, 2017 at 17:31 Initial Consult Date 08/09/17 Type of Consultation: Cardiology Referring Provider: GIOVANNI KRUGER DO 24 HR Interval Summary Free Text/Dictation More confused overnight. Off BiPAP. CT showed cervical metastatic tumor Exam/Review of Systems Vital Signs Vitals Vital Signs Date Time Temp Pulse Resp B/P Pulse Ox O2 Delivery O2 Flow Rate FiO2 08/11/17 12:07 97.7 129 24 138/88 96 08/11/17 11:20 50 08/11/17 09:10 3.0 08/09/17 18:00 BIPAP Intake and Output 08/10/17 08/10/17 08/11/17 15:00 23:00 07:00 Intake Total 50 ml Output Total 1450 ml 1200 ml Balance 50 ml -1450 ml -1200 ml Exam Constitutional: alert, No oriented (confused ) Head: atraumatic, normocephalic Neck: No jvd Respiratory: No clear to auscultation (wheezing, right upper lobe decreased breath sounds ) Cardiovascular: regular rate and rhythm, No edema, No systolic murmur Gastrointestinal: non-tender, soft Neurological: No nl mental status (confused ), No nl speech Skin: No rash or lesions Results Result Diagram: 08/11/17 0723 08/11/17 0723 Results 24 hrs Laboratory Tests Test 08/10/17 17:26 08/10/17 21:29 08/11/17 05:17 08/11/17 07:22 Bedside Glucose 166 157 176 Blood Gas Specimen Source Blood arterial Arterial Blood Date Drawn 08/11/2017 8:35:39 AM Arterial Blood pH (Temp corrected) 7.439 Arterial Blood pCO2 (Temp correct) 42.7 Arterial Blood pO2 (Temp corrected) 78.1 L Arterial Blood HCO3 28.3 H Arterial Blood Base Excess 3.7 H Arterial Blood Oxygen Saturation 95.7 Gerardo Test ACCEPTAB Arterial Blood Gas Puncture Site Right Radial Arterial Blood Carboxyhemoglobin 0.8 Arterial Blood Methemoglobin 0.3 Blood Gas A-a O2 Differential 85.6 H Oxyhemoglobin Percent 94.6 Total Hemoglobin 12.6 Blood Gas Temperature 37.0 Blood Gas Respiration Rate 14.0 Blood Gas Actual Respiration Rate 27 Blood Gas Modality MASK - BIPAP FiO2 30.0 Blood Gas Pressure Support 10 Blood Gas IPAP/EPAP Ratio 15/5 Blood Gas Notified Whom AC Blood Gas Notified Time 08/11/2017 8:47:28 AM Test 08/11/17 07:23 08/11/17 07:57 08/11/17 12:01 White Blood Count 12.1 H Red Blood Count 4.43 L Hemoglobin 10.6 L Hematocrit 36.1 L Mean Corpuscular Volume 81.5 L Mean Corpuscular Hemoglobin 23.9 L Mean Corpuscular Hemoglobin Concent 29.4 L Red Cell Distribution Width 17.2 H Platelet Count 244 Mean Platelet Volume 9.3 Neutrophils % 79.1 H Lymphocytes % 6.7 L Monocytes % 11.2 H Eosinophils % 0.0 Basophils % 0.2 Nucleated Red Blood Cells % 0.0 Neutrophils # 9.6 H Lymphocytes # 0.8 Monocytes # 1.4 H Eosinophils # 0.0 Basophils # 0.0 Nucleated Red Blood Cells # 0.0 Sodium Level 133 L Potassium Level 3.7 Chloride Level 88 L Carbon Dioxide Level 34 H Anion Gap 15 Blood Urea Nitrogen 19 Creatinine 0.66 Glucose Level 178 Calcium Level 8.4 Phosphorus Level 2.3 L Magnesium Level 2.2 Bedside Glucose 157 196 Medications Medications Current Medications Aspirin (Ecotrin) 325 mg DAILY PO ; Start 08/09/17 at 09:00 Atorvastatin Calcium (Lipitor) 40 mg QHS PO ; Start 08/08/17 at 21:00 Carvedilol (Coreg) 3.125 mg BID PO ; Start 08/08/17 at 21:00 Albuterol/ Ipratropium (Duoneb) 3 ml Q6 PRN NEB SHORTNESS OF BREATH Last administered on 08/11/17 08:04; Admin Dose 3 ML; Start 08/08/17 at 17:00 Lisinopril (Zestril) 2.5 mg DAILY PO ; Start 08/09/17 at 09:00 Oxycodone/ Acetaminophen (Percocet (5/ 325)) 1 tab Q6 PRN PO PAIN; Start 08/08 at 17:00 Pantoprazole (Protonix Tab) 40 mg DAILY@06 PO ; Start 08/09/17 at 06:00 Potassium Chloride (Klor-Con 10) 10 meq DAILY PO ; Start 08/09/17 at 09:00 Albuterol (Ventolin Hfa) 2 puff QID INH Last administered on 08/11/17 12:02; Admin Dose 2 PUFF; Start 08/08/17 at 17:00 Diagnostic Test (Pha) 1 ea 1 ea 02 XX ; Start 08/09/17 at 02:00 Cefepime HCl (Maxipime 1gm/50 ml (Pmx)) 50 ml @ 100 mls/hr Q12 IVPB Last administered on 08/11/17 08:43; Admin Dose 100 MLS/HR; Start 08/08/17 at 21: 00 Miscellaneous Information 1 ea NOTE XX ; Start 08/08/17 at 20:30 Glucose (Glutose) 15 gm Q15M PRN PO DECREASED GLUCOSE; Start 08/08/17 at 20:30 Glucose (Glutose) 22.5 gm Q15M PRN PO DECREASED GLUCOSE; Start 08/08/17 at 20: 30 Dextrose (D50w Syringe) 25 ml Q15M PRN IV DECREASED GLUCOSE; Start 08/08/17 at 20:30 Dextrose (D50w Syringe) 50 ml Q15M PRN IV DECREASED GLUCOSE; Start 08/08/17 at 20:30 Glucagon (Glucagen) 1 mg Q15M PRN IM DECREASED GLUCOSE; Start 08/08/17 at 20: 30 Glucose (Glutose) 15 gm Q15M PRN BUCCAL DECREASED GLUCOSE; Start 08/08/17 at 20:30 Lorazepam (Ativan) 0.5 mg Q6H PRN IV ANXIETY Last administered on 08/10/17 21 :21; Admin Dose 0.5 MG; Start 08/09/17 at 06:30 Miscellaneous Information ([facility] This patient hoffmann... PRN PRN XX WOUND CARE; Start 08/09/17 at 07:30 Insulin Aspart (Novolog Insulin Pen) NOVOLOG *MILD* ALGORITHM Q4 SC Last administered on 08/11/17 12:03; Admin Dose 2 UNIT; Start 08/09/17 at 09:00 Methylprednisolone Sodium Succinate (Solu-Medrol) 40 mg Q12 IV Last administered on 08/11/17 08:43; Admin Dose 40 MG; Start 08/09/17 at 21:00 Insulin Glargine (Lantus) 14 unit DAILY@20 SC Last administered on 08/10/17 21:32; Admin Dose 14 UNIT; Start 08/10/17 at 20:00 Neomycin/ Polymyxin/ Bacitracin (Neosporin Topical Oint) 1 applic BID TOP Last administered on 08/11/17 08:42; Admin Dose 1 APPLIC; Start 08/10/17 at 21:00 Hydromorphone HCl 1 mg 1 mg Q3H PRN IV PAIN LEVEL 8-10 Last administered on 22:17; Admin Dose 1 MG; Start 08/10/17 at 22:00 Dextrose/Sodium Chloride (D5-NS) 1,000 ml @ 40 mls/hr Q24H IV Last administered on 08/11/17 10:14; Admin Dose 40 MLS/HR; Start 08/11/17 at 10:00 Hydromorphone HCl 0.5 mg 0.5 mg Q4H PRN IV PAIN; Start 08/11/17 at 10:30 Potassium Phosphate/Sodium Chloride (K Phos (Meq)/NS) 254.5455 ml @ 63.75 mls/ hr ONCE ONCE IV Last administered on 08/11/17 11:29; Admin Dose 63.75 MLS/HR ; Start 08/11/17 at 12:00; Stop 08/11/17 at 15:59 TAMMI MORENO Aug 11, 2017 12:52
--- NOTE | 2017-08-11 13:32 | PN ---
DATE: 08/11/2017 SUBJECTIVE: The patient was noted to be agitated and confused overnight. The patient attempted to take out his CPAP machine on multiple occasions. No other acute events noted. No hemoptysis, hemat emesis or hematochezia. OBJECTIVE: VITAL SIGNS: Blood pressure is 132/85, respiration 23, pulse 109, temperature 97.5. I's AND O'S: The patient had 50 in and 2.6 liters out. HEENT: Head is normocephalic. NECK: Supple. HEART: Regular rate. LUNGS: Show diminished breath sounds at the base. ABDOMEN: Soft, nontender to palpation without rebound or guarding. EXTREMITIES: Negative for clubbing, cyanosis. No edema. DERMATOLOGIC: No rashes. MUSCULOSKELETAL: No joint effusions. NEUROLOGIC: No change in exam. MEDICATIONS: The patient's medications have been reviewed. LABORATORY DATA: Shows pH 7.43, pCO2 of 42. Sodium 133, potassium 3.7, chloride 88, bicarbonate 34 , phosphorus 2.3. White count 12.1, hemoglobin 10.6, hematocrit is , platelet count is 244. ASSESSMENT AND PLAN: 1. Acute hypoxemic respiratory failure. Etiology is likely multifactorial secondary to postobstruc tive pneumonia. Other possibilities include disease exacerbation, congestive heart failure, pulmona ry metastasis of underlying renal cell carcinoma, questionable pneumonitis. The patient remains on BiPAP, unable to be weaned off. Continues on Solu-Medrol, antibiotics and nebulizers. Plan at this point would be to discuss with pulmonary to see if a BiPAP can be taken off, whether or not the pat ient is a candidate for high flow oxygen. We will continue otherwise current treatment plan. Kyle nue to taper off steroids. 2. Acute diastolic heart failure. The patient is status post diuretic therapy. At this point, wou ld defer diuretics as the patient appears euvolemic. 3. Metabolic alkalemia, etiology secondary from chloride deficiency from diuretic use. The patient 's recent ABG was reviewed. Continue to monitor. Would defer Diamox at this time. 4. Hyponatremia, etiology is secondary to chloride deficiency. Metolazone, possible underlying AJIT DH given malignancy. The patient's sodium levels have been improving on water restriction. Will co ntinue to monitor. 5. Anemia. Monitor. 6. Coronary artery disease status post coronary artery bypass graft. Continue medical management. 7. 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 Will continue to monitor. Follow up with patient's primary oncologist. 8. Diabetes. Continue Lantus insulin sliding scale. 9. Gastrointestinal and deep venous thrombosis prophylaxis. Continue proton pump inhibitor and seq uential leg squeezers. 10. Chronic pain syndrome. Dictated By: GIOVANNI WINTER/GUERO Conf#: [id number] DID#: [id number]
[2017-08-11] MEDS: ATORVASTATIN 40 MG TAB PO SCH (21:00)
[2017-08-11] MEDS: INSULIN GLARGINE [LANtus] 3 ML PEN SC SCH (21:01)
[2017-08-11] MEDS: HYDROmorphONE 0.5 MG/0.5 ML SYG IV PRN (21:43)
[2017-08-11] MEDS ORDERED: ONDANSETRON 4 MG INJ IV PRN (23:00)
[2017-08-12] VITALS (20 sets, daily range): BP systolic 92–119; BP diastolic 54–80; PULSE 89–127; RESP 18–22
[2017-08-12] MEDS: ACCU-CHEK XX SCH (02:00)
[2017-08-12] MEDS: INSULIN ASPART [NOVOLOG] 3 ML PEN SC SCH ×6 (02:44→20:47)
[2017-08-12] MEDS: PANTOPRAZOLE (EC) 40 MG TAB PO SCH (06:00)
[2017-08-12 08:20] LABS: AADO2 Arterial 123.5 mmHg (7.0-24.0); Arterial COHb 0.7 % (0.0-3.0); Arterial Fraction of Oxyhgb 96.8 % (93.0-99.0); Arterial HCO3 31.7 mmol/L (22.0-26.0); Arterial MetHb 0.3 % (0.0-1.5); Arterial Total Hemglobin 11.4 g/dl (12.0-18.0); Blood Gas IEPAP 15/5; Blood Gas PS 10; MODE MASK - BIPAP
[2017-08-12] MEDS: ALBUTEROL/IPRATROPIUM (NEB) 3 ML AMP NEB PRN (08:36)
[2017-08-12] MEDS: LISINOPRIL 5 MG TAB PO SCH (09:00)
[2017-08-12] MEDS: ASPIRIN (EC) 325 MG TAB PO SCH (09:00)
[2017-08-12] MEDS: NEOMYC/POLYMYX/BACIT 30 GM OINT TOP SCH ×2 (09:00→21:00)
[2017-08-12] MEDS: CEFEPIME 1GM/50 ML (PMX) 50 ML IVPB SCH ×2 (09:00→20:44)
[2017-08-12] MEDS: ALBUTEROL HFA 8 GM INHALER INH SCH ×4 (09:00→21:00)
[2017-08-12] MEDS: POTASSIUM CHLORIDE (SR) 10 MEQ TAB PO SCH (09:00)
[2017-08-12] MEDS: METHYLPREDNISOLONE 40 MG INJ IV SCH ×2 (09:00→20:44)
--- NOTE | 2017-08-12 09:41 | CONS ---
Date/Time of Note Date/Time of Note DATE: 08/12/17 TIME: 09:39 Assessment/Plan Assessment/Plan Chief Complaint/Hosp Course ID PROGRESS NOTE CURRENT ABX: DAY #4 => Cefepime + IV steroids 24H INTERVAL SUMMARY * Awake, alert, high flow O2 vis NC w/mild dyspnea after changing position in bed, Afebrile, VSS, No c/o, no oral thrush * Family members present * MICRO: BCx(-) * DIAGNOSTICS: CT of the chest revealed increased soft tissue within the right perihilar region with narrowing of right upper lobe bronchus suspicious of neoplasm. There is a postop obstructive consolidation within the right upper lobe which has increased compared to 05/30/2017. Multiple metastatic pulmonary nodules bilaterally, unchanged. Increased moderate pleural effusions with underlying atelectasis. Mild mediastinal and right hilar adenopathy, unchanged. Multiple osseous metastasis increased, mild pathologic compression fracture of L4, unchanged. Sigmoid diverticulosis without evidence of diverticulitis. PHYSICAL EXAMINATION: GENERAL: VSS, NAD HEENT: AT, NC, anicteric, moist oral membranes NECK: Trach midline, supple CHEST: Equal chest rise bilaterally, without dyspnea on observation HEART: RRR ABDOMEN: Soft, NT, ND : NL EXT: Warm, moves all ext SKIN: No rash, no diaphoresis ID ASSESSMENT: 66 yo M admit with: 1. SIRS, s/p sepsis-> afebrile, WBC elevated = partial IV steroids demargination 2. Acute hypoxemic respiratory failure secondary to postobstructive pneumonia = > improved 3. Metastatic renal carcinoma possible cervical spine metastasis. 4. Acute congestive heart failure exacerbation. 5. Anemia. 6. History of coronary artery bypass graft. 7. Diabetes. (-)Influenza A/B Screen ABX ALLERGY: NKDA INVASIVES: PIV CURRENT ABX:DAY # 4=> Cefepime + IV steroids ID RECOMMENDATIONS/PLAN: 1. Continue current ABX over the weekend -> ID team colleague f/u next week . Problems: Consultation Date/Type/Reason Admit Date/Time Aug 08, 2017 at 17:31 Initial Consult Date 08/09/17 Type of Consultation: ID Referring Provider: GIOVANNI KRUGER DO Exam/Review of Systems Vital Signs Vitals Vital Signs Date Time Temp Pulse Resp B/P Pulse Ox O2 Delivery O2 Flow Rate FiO2 08/12/17 08:30 97 97 40 08/12/17 07:47 98.1 20 92/54 08/12/17 04:00 BIPAP 08/11/17 09:10 3.0 Intake and Output 08/11/17 08/11/17 08/12/17 14:59 22:59 06:59 Intake Total 50 ml 840 ml Output Total 1350 ml 1250 ml Balance 50 ml -510 ml -1250 ml Results Result Diagram: 08/11/1723 08/11/1723 Results 24 hrs Laboratory Tests Test 08/11/17 12:01 08/11/17 17:23 08/11/17 20:31 08/12/17 02:39 Bedside Glucose 196 328 H 260 H 281 H Test 08/12/17 05:57 08/12/17 07:00 Bedside Glucose 247 H Blood Gas Specimen Source Blood arterial Arterial Blood Date Drawn 08/12/2017 8:10:57 AM Arterial Blood pH (Temp corrected) 7.410 Arterial Blood pCO2 (Temp correct) 51.2 H Arterial Blood pO2 (Temp corrected) 102.8 H Arterial Blood HCO3 31.7 H Arterial Blood Base Excess 6.0 H Arterial Blood Oxygen Saturation 97.8 Gerardo Test N/A Arterial Blood Gas Puncture Site Right Brachial Arterial Blood Carboxyhemoglobin 0.7 Arterial Blood Methemoglobin 0.3 Blood Gas A-a O2 Differential 123.5 H Oxyhemoglobin Percent 96.8 Total Hemoglobin 11.4 L Blood Gas Temperature 37.0 Blood Gas Respiration Rate 14.0 Blood Gas Actual Respiration Rate 22 Blood Gas Modality MASK - BIPAP FiO2 40.0 Blood Gas Pressure Support 10 Blood Gas IPAP/EPAP Ratio 15/5 Blood Gas Notified Whom TM Blood Gas Notified Time 08/12/2017 8:19:49 AM Medications Medications Current Medications Aspirin (Ecotrin) 325 mg DAILY PO ; Start 08/09/17 at 09:00 Atorvastatin Calcium (Lipitor) 40 mg QHS PO ; Start 08/08/17 at 21:00 Carvedilol (Coreg) 3.125 mg BID PO ; Start 08/08/17 at 21:00 Albuterol/ Ipratropium (Duoneb) 3 ml Q6 PRN NEB SHORTNESS OF BREATH Last administered on 08/12/17t 08:36; Admin Dose 3 ML; Start 08/08/17 at 17:00 Lisinopril (Zestril) 2.5 mg DAILY PO ; Start 08/09/17 at 09:00 Oxycodone/ Acetaminophen (Percocet (5/ 325)) 1 tab Q6 PRN PO PAIN; Start 08/08 at 17:00 Pantoprazole (Protonix Tab) 40 mg DAILY@06 PO ; Start 08/09/17 at 06:00 Potassium Chloride (Klor-Con 10) 10 meq DAILY PO ; Start 08/09/17 at 09:00 Albuterol (Ventolin Hfa) 2 puff QID INH Last administered on 08/11/17 21:00; Admin Dose 2 PUFF; Start 08/08/17 at 17:00 Diagnostic Test (Pha) 1 ea 1 ea 02 XX ; Start 08/09/17 at 02:00 Cefepime HCl (Maxipime 1gm/50 ml (Pmx)) 50 ml @ 100 mls/hr Q12 IVPB Last administered on 08/11/17 20:58; Admin Dose 100 MLS/HR; Start 08/08/17 at 21: 00 Miscellaneous Information 1 ea NOTE XX ; Start 08/08/17 at 20:30 Glucose (Glutose) 15 gm Q15M PRN PO DECREASED GLUCOSE; Start 08/08/17 at 20:30 Glucose (Glutose) 22.5 gm Q15M PRN PO DECREASED GLUCOSE; Start 08/08/17 at 20: 30 Dextrose (D50w Syringe) 25 ml Q15M PRN IV DECREASED GLUCOSE; Start 08/08/17 at 20:30 Dextrose (D50w Syringe) 50 ml Q15M PRN IV DECREASED GLUCOSE; Start 08/08/17 at 20:30 Glucagon (Glucagen) 1 mg Q15M PRN IM DECREASED GLUCOSE; Start 08/08/17 at 20: 30 Glucose (Glutose) 15 gm Q15M PRN BUCCAL DECREASED GLUCOSE; Start 08/08/17 at 20:30 Lorazepam (Ativan) 0.5 mg Q6H PRN IV ANXIETY Last administered on 08/10/17 21 :21; Admin Dose 0.5 MG; Start 08/09/17 at 06:30 Miscellaneous Information (Pending [facility] Order For Wound Care) This patient hoffmann... PRN PRN XX WOUND CARE; Start 08/09/17 at 07:30 Insulin Aspart (Novolog Insulin Pen) NOVOLOG *MILD* ALGORITHM Q4 SC Last administered on 08/12/17 06:05; Admin Dose 2 UNIT; Start 08/09/17 at 09:00 Methylprednisolone Sodium Succinate (Solu-Medrol) 40 mg Q12 IV Last administered on 08/11/17 20:58; Admin Dose 40 MG; Start 08/09/17 at 21:00 Neomycin/ Polymyxin/ Bacitracin (Neosporin Topical Oint) 1 applic BID TOP Last administered on 08/11/17 21:00; Admin Dose 1 APPLIC; Start 08/10/17 at 21:00 Hydromorphone HCl (Dilaudid) 1 mg Q3H PRN IV PAIN LEVEL 8-10 Last administered on 08/10/17 22:17; Admin Dose 1 MG; Start 08/10/17 at 22:00 Hydromorphone HCl (Dilaudid) 0.5 mg Q4H PRN IV PAIN Last administered on 21:43; Admin Dose 0.5 MG; Start 08/11/17 at 10:30 Ondansetron HCl (Zofran Inj) 4 mg Q6H PRN IV NAUSEA AND/OR VOMITING; Start at 23:00 Insulin Glargine (Lantus) 18 unit DAILY@20 SC ; Start 08/12/17 at 20:00; Status ANTHONY ROTH NP Aug 12, 2017 09:41
--- NOTE | 2017-08-12 09:47 | CONS ---
Date/Time of Note Date/Time of Note DATE: 08/12/17 TIME: 09:43 Consult Date/Type/Reason Admit Date/Time Aug 08, 2017 at 17:31 Initial Consult Date 08/09/17 Type of Consultation: Pulmonary Ordering Provider: GIOVANNI KRUGER DO Subjective Remains agitated on BiPAP. Did not tolerate high flow O2 for a significant period of time. Significant desaturation off noninvasive positive pressure ventilation. According to patient has not slept well in many days. Objective Vital Signs Date Time Temp Pulse Resp B/P Pulse Ox O2 Delivery O2 Flow Rate FiO2 08/12/17 08:30 97 97 40 08/12/17 07:47 98.1 20 92/54 08/12/17 04:00 BIPAP 08/11/17 09:10 3.0 Intake and Output 08/11/17 08/11/17 08/12/17 15:00 23:00 07:00 Intake Total 50 ml 840 ml Output Total 1350 ml 1250 ml Balance 50 ml -510 ml -1250 ml Exam GENERAL: Well-nourished well-developed gentleman mild agitation on BiPAP. VITAL SIGNS: per chart NECK: Supple. No JVD or lymphadenopathy. CARDIAC EXAM: S1, S2. No added sounds or murmurs. CHEST: Diminished air entry bilaterally with rales right base. ABDOMEN: Soft, nontender. No guarding or rebound. EXTREMITIES: No cyanosis, clubbing or edema. NEUROLOGIC: Generalized weakness. No focal deficits. Results/Medications Result Diagram: 08/11/1772208/11/17 0723 Results 24 hrs Chest x-ray Bilateral infiltrates with metastatic disease Laboratory Tests Test 08/11/17 12:01 08/11/17 17:23 08/11/17 20:31 08/12/17 02:39 Bedside Glucose 196 328 H 260 H 281 H Test 08/12/17 05:57 08/12/17 07:00 Bedside Glucose 247 H Blood Gas Specimen Source Blood arterial Arterial Blood Date Drawn 08/12/2017 8:10:57 AM Arterial Blood pH (Temp corrected) 7.410 Arterial Blood pCO2 (Temp correct) 51.2 H Arterial Blood pO2 (Temp corrected) 102.8 H Arterial Blood HCO3 31.7 H Arterial Blood Base Excess 6.0 H Arterial Blood Oxygen Saturation 97.8 Gerardo Test N/A Arterial Blood Gas Puncture Site Right Brachial Arterial Blood Carboxyhemoglobin 0.7 Arterial Blood Methemoglobin 0.3 Blood Gas A-a O2 Differential 123.5 H Oxyhemoglobin Percent 96.8 Total Hemoglobin 11.4 L Blood Gas Temperature 37.0 Blood Gas Respiration Rate 14.0 Blood Gas Actual Respiration Rate 22 Blood Gas Modality MASK - BIPAP FiO2 40.0 Blood Gas Pressure Support 10 Blood Gas IPAP/EPAP Ratio 15/5 Blood Gas Notified Whom TM Blood Gas Notified Time 08/12/2017 8:19:49 AM Medications Current Medications Aspirin (Ecotrin) 325 mg DAILY PO ; Start 08/09/17 at 09:00 Atorvastatin Calcium (Lipitor) 40 mg QHS PO ; Start 08/08/17 at 21:00 Carvedilol (Coreg) 3.125 mg BID PO ; Start 08/08/17 at 21:00 Albuterol/ Ipratropium (Duoneb) 3 ml Q6 PRN NEB SHORTNESS OF BREATH Last administered on 08/12/17 08:36; Admin Dose 3 ML; Start 08/08/17 at 17:00 Lisinopril (Zestril) 2.5 mg DAILY PO ; Start 08/09/17 at 09:00 Oxycodone/ Acetaminophen (Percocet (5/ 325)) 1 tab Q6 PRN PO PAIN; Start 08/08 at 17:00 Pantoprazole (Protonix Tab) 40 mg DAILY@06 PO ; Start 08/09/17 at 06:00 Potassium Chloride (Klor-Con 10) 10 meq DAILY PO ; Start 08/09/17 at 09:00 Albuterol (Ventolin Hfa) 2 puff QID INH Last administered on 08/11/17 21:00; Admin Dose 2 PUFF; Start 08/08/17 at 17:00 Diagnostic Test (Pha) 1 ea 1 ea 02 XX ; Start 08/09/17 at 02:00 Cefepime HCl (Maxipime 1gm/50 ml (Pmx)) 50 ml @ 100 mls/hr Q12 IVPB Last administered on 08/11/17 20:58; Admin Dose 100 MLS/HR; Start 08/08/17 at 21: 00 Miscellaneous Information 1 ea NOTE XX ; Start 08/08/17 at 20:30 Glucose (Glutose) 15 gm Q15M PRN PO DECREASED GLUCOSE; Start 08/08/17 at 20:30 Glucose (Glutose) 22.5 gm Q15M PRN PO DECREASED GLUCOSE; Start 08/08/17 at 20: 30 Dextrose (D50w Syringe) 25 ml Q15M PRN IV DECREASED GLUCOSE; Start 08/08/17 at 20:30 Dextrose (D50w Syringe) 50 ml Q15M PRN IV DECREASED GLUCOSE; Start 08/08/17 at 20:30 Glucagon (Glucagen) 1 mg Q15M PRN IM DECREASED GLUCOSE; Start 08/08/17 at 20: 30 Glucose (Glutose) 15 gm Q15M PRN BUCCAL DECREASED GLUCOSE; Start 08/08/17 at 20:30 Lorazepam (Ativan) 0.5 mg Q6H PRN IV ANXIETY Last administered on 08/10/17 21 :21; Admin Dose 0.5 MG; Start 08/09/17 at 06:30 Miscellaneous Information (Pending [facility] Order For Wound Care) This patient hoffmann... PRN PRN XX WOUND CARE; Start 08/09/17 at 07:30 Insulin Aspart (Novolog Insulin Pen) NOVOLOG *MILD* ALGORITHM Q4 SC Last administered on 08/12/17 06:05; Admin Dose 2 UNIT; Start 08/09/17 at 09:00 Methylprednisolone Sodium Succinate (Solu-Medrol) 40 mg Q12 IV Last administered on 08/11/17 20:58; Admin Dose 40 MG; Start 08/09/17 at 21:00 Neomycin/ Polymyxin/ Bacitracin (Neosporin Topical Oint) 1 applic BID TOP Last administered on 08/11/17 21:00; Admin Dose 1 APPLIC; Start 08/10/17 at 21:00 Hydromorphone HCl (Dilaudid) 1 mg Q3H PRN IV PAIN LEVEL 8-10 Last administered on 08/10/17 22:17; Admin Dose 1 MG; Start 08/10/17 at 22:00 Hydromorphone HCl (Dilaudid) 0.5 mg Q4H PRN IV PAIN Last administered on 21:43; Admin Dose 0.5 MG; Start 08/11/17 at 10:30 Ondansetron HCl (Zofran Inj) 4 mg Q6H PRN IV NAUSEA AND/OR VOMITING; Start at 23:00 Insulin Glargine (Lantus) 18 unit DAILY@20 SC ; Start 08/12/17 at 20:00; Status UNV Assessment/Plan Chief Complaint/Hosp Course Assessment 1. Hypoxemic respiratory failure likely secondary to pneumonia and tumor burden from metastatic renal cell CA 2. Obstructive etiology right upper lobe. Right lower lobe atelectasis. Pulmonary metastasis noted. 3. Metastatic renal cell carcinoma concern for possible C-spine metastasis. C- spine fracture noted 4. History of diabetes mellitus Plan 1. Continue supplemental O2 and BiPAP, 2. Continue bronchodilators and steroids 3. Encourage out of bed 4. ID recommendations 5. Neurosurgical recommendations regarding C-spine fracture Discussed with family at length. Explained to patient's prognosis is poor. Hypoxemic respiratory failure requiring persistent noninvasive positive pressure ventilation. Explained that BiPAP is only a temporary measure. Patient's stated that they have an advanced directive and patient does not wish to be intubated if he is not able to come off artificial ventilation. Currently given his significant tumor burden and mild hypoxemia it is unlikely that the patient would be safely weaned off mechanical ventilation if he was intubated. Patient's CODE STATUS to be changed to DNI to be consistent with his advanced directive. Continue all current measures. Problems: SONJA GIRALDO MD, [facility] Aug 12, 2017 09:47
[2017-08-12] MEDS: HYDROmorphONE 0.5 MG/0.5 ML SYG IV PRN (09:52)
--- NOTE | 2017-08-12 12:13 | CONS ---
Date/Time of Note Date/Time of Note DATE: 08/12/17 TIME: 12:11 Assessment/Plan Assessment/Plan Chief Complaint/Hosp Course Acute on chronic respiratory failure: Multifactorial including CHF, postobstructive PNA, lung mets.On and off BiPAP Acute on chronic systolic heart failure: EF 45% most recently. 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 DM HTN -continue to hold diuretics -ASA, lipitor -coreg 3.125mg BID -lisinopril 2.5mg Problems: Consultation Date/Type/Reason Admit Date/Time Aug 08, 2017 at 17:31 Initial Consult Date 08/09/17 Type of Consultation: Cardiology Referring Provider: GIOVANNI KRUGER DO 24 HR Interval Summary Free Text/Dictation On and off BiPAP. Passed swallow eval. Looks better overall today Exam/Review of Systems Vital Signs Vitals Vital Signs Date Time Temp Pulse Resp B/P Pulse Ox O2 Delivery O2 Flow Rate FiO2 08/12/17 10:12 99 45 08/12/17 08:30 97 08/12/17 07:47 98.1 20 92/54 08/12/17 04:00 BIPAP 08/11/17 09:10 3.0 Intake and Output 08/11/17 08/11/17 08/12/17 15:00 23:00 07:00 Intake Total 50 ml 840 ml Output Total 1350 ml 1250 ml Balance 50 ml -510 ml -1250 ml Exam Constitutional: alert, oriented Head: atraumatic, normocephalic Neck: No jvd Respiratory: No clear to auscultation (RUL ronchi ), No crackles/rales, No wheezing Cardiovascular: regular rate and rhythm, No edema, No systolic murmur Gastrointestinal: non-tender, soft, No distended Neurological: nl mental status, nl speech Results Result Diagram: 08/11/17 0723 08/11/17 0723 Results 24 hrs Laboratory Tests Test 08/11/17 17:23 08/11/17 20:31 08/12/17 02:39 08/12/17 05:57 Bedside Glucose 328 H 260 H 281 H 247 H Test 08/12/17 07:00 08/12/17 10:34 Blood Gas Specimen Source Blood arterial Arterial Blood Date Drawn 08/12/2017 8:10:57 AM Arterial Blood pH (Temp corrected) 7.410 Arterial Blood pCO2 (Temp correct) 51.2 H Arterial Blood pO2 (Temp corrected) 102.8 H Arterial Blood HCO3 31.7 H Arterial Blood Base Excess 6.0 H Arterial Blood Oxygen Saturation 97.8 Gerardo Test N/A Arterial Blood Gas Puncture Site Right Brachial Arterial Blood Carboxyhemoglobin 0.7 Arterial Blood Methemoglobin 0.3 Blood Gas A-a O2 Differential 123.5 H Oxyhemoglobin Percent 96.8 Total Hemoglobin 11.4 L Blood Gas Temperature 37.0 Blood Gas Respiration Rate 14.0 Blood Gas Actual Respiration Rate 22 Blood Gas Modality MASK - BIPAP FiO2 40.0 Blood Gas Pressure Support 10 Blood Gas IPAP/EPAP Ratio 15/5 Blood Gas Notified Whom TM Blood Gas Notified Time 08/12/2017 8:19:49 AM Bedside Glucose 272 H Medications Medications Current Medications Aspirin (Ecotrin) 325 mg DAILY PO ; Start 08/09/17 at 09:00 Atorvastatin Calcium (Lipitor) 40 mg QHS PO ; Start 08/08/17 at 21:00 Carvedilol (Coreg) 3.125 mg BID PO ; Start 08/08/17 at 21:00 Albuterol/ Ipratropium (Duoneb) 3 ml Q6 PRN NEB SHORTNESS OF BREATH Last administered on 08/12/17 08:36; Admin Dose 3 ML; Start 08/08/17 at 17:00 Lisinopril (Zestril) 2.5 mg DAILY PO ; Start 08/09/17 at 09:00 Oxycodone/ Acetaminophen (Percocet (5/ 325)) 1 tab Q6 PRN PO PAIN; Start 08/08 at 17:00 Pantoprazole (Protonix Tab) 40 mg DAILY@06 PO ; Start 08/09/17 at 06:00 Potassium Chloride (Klor-Con 10) 10 meq DAILY PO ; Start 08/09/17 at 09:00 Albuterol (Ventolin Hfa) 2 puff QID INH Last administered on 08/11/17 21:00; Admin Dose 2 PUFF; Start 08/08/17 at 17:00 Diagnostic Test (Pha) 1 ea 1 ea 02 XX ; Start 08/09/17 at 02:00 Cefepime HCl (Maxipime 1gm/50 ml (Pmx)) 50 ml @ 100 mls/hr Q12 IVPB Last administered on 08/12/17 09:00; Admin Dose 100 MLS/HR; Start 08/08/17 at 21: 00 Miscellaneous Information 1 ea NOTE XX ; Start 08/08/17 at 20:30 Glucose (Glutose) 15 gm Q15M PRN PO DECREASED GLUCOSE; Start 08/08/17 at 20:30 Glucose (Glutose) 22.5 gm Q15M PRN PO DECREASED GLUCOSE; Start 08/08/17 at 20: 30 Dextrose (D50w Syringe) 25 ml Q15M PRN IV DECREASED GLUCOSE; Start 08/08/17 at 20:30 Dextrose (D50w Syringe) 50 ml Q15M PRN IV DECREASED GLUCOSE; Start 08/08/17 at 20:30 Glucagon (Glucagen) 1 mg Q15M PRN IM DECREASED GLUCOSE; Start 08/08/17 at 20: 30 Glucose (Glutose) 15 gm Q15M PRN BUCCAL DECREASED GLUCOSE; Start 08/08/17 at 20:30 Lorazepam (Ativan) 0.5 mg Q6H PRN IV ANXIETY Last administered on 08/10/17 21 :21; Admin Dose 0.5 MG; Start 08/09/17 at 06:30 Miscellaneous Information (Pending [facility] Order For Wound Care) This patient hoffmann... PRN PRN XX WOUND CARE; Start 08/09/17 at 07:30 Insulin Aspart (Novolog Insulin Pen) NOVOLOG *MILD* ALGORITHM Q4 SC Last administered on 08/12/17 09:00; Admin Dose 4 UNIT; Start 08/09/17 at 09:00 Methylprednisolone Sodium Succinate (Solu-Medrol) 40 mg Q12 IV Last administered on 08/12/17 09:00; Admin Dose 40 MG; Start 08/09/17 at 21:00 Neomycin/ Polymyxin/ Bacitracin (Neosporin Topical Oint) 1 applic BID TOP Last administered on 08/12/17 09:00; Admin Dose 1 APPLIC; Start 08/10/17 at 21:00 Hydromorphone HCl (Dilaudid) 1 mg Q3H PRN IV PAIN LEVEL 8-10 Last administered on 08/10/17 22:17; Admin Dose 1 MG; Start 08/10/17 at 22:00 Hydromorphone HCl (Dilaudid) 0.5 mg Q4H PRN IV PAIN Last administered on 09:52; Admin Dose 0.5 MG; Start 08/11/17 at 10:30 Ondansetron HCl (Zofran Inj) 4 mg Q6H PRN IV NAUSEA AND/OR VOMITING; Start at 23:00 Insulin Glargine (Lantus) 18 unit DAILY@20 SC ; Start 08/12/17 at 20:00 TAMMI MORENO Aug 12, 2017 12:13
--- NOTE | 2017-08-12 12:51 | RADRPT ---
PROCEDURE: XR Chest. CLINICAL INDICATION: Chest pain. TECHNIQUE: AP Portable chest. COMPARISON: 08/09/2017 CT and 08/08/2017 chest x-ray FINDINGS: The soft tissues and bones are remarkable for status post median sternotomy and heart surgery. The p resence of a skin fold is noted along the right chest wall. The patient is rotated to the right. Rig ht upper lobe volume loss is present with associated discoid atelectasis or infiltrate. Again noted are bilateral pulmonary nodules compatible with the patient's known metastatic disease. These are be tter demonstrated on the CT 08/09/2017. Small left greater than right pleural effusion is present. T he mediastinum demonstrates mild vascular calcifications of the thoracic aorta and mild cardiomegaly is present. No pneumothorax is present. The imaged upper abdomen appears normal. IMPRESSION: 1. Status post median sternotomy and heart surgery. 2. Bilateral pulmonary nodules compatible with metastatic disease as previously noted on chest CT. 3. Right upper lobe volume loss and discoid atelectasis or infiltrate. 4. Small left greater than right pleural effusions 5. Mild cardiomegaly and atherosclerotic vascular disease RPTAT: HDC .Barbara Presley MD, MD Date Time Electronically viewed and signed by .Barbara Presley MD, MD on 08/12/2017 12:51 .C/
--- NOTE | 2017-08-12 13:02 | PN ---
DATE: 08/12/2017 SUBJECTIVE: The patient is lethargic this morning, but arousable. The patient was noted to be less confused, agitated overnight. The patient is pending a swallow evaluation. OBJECTIVE: VITAL SIGNS: Blood pressure is 92/54, respiratory rate 20, pulse 76, temperature 98.1. NECK: Supple. HEART: Regular rate. LUNGS: Show diminished breath sounds at base. ABDOMEN: Soft, nontender to palpation. No rebound or guarding. EXTREMITIES: Negative for clubbing, cyanosis, no edema. DERMATOLOGIC: No rashes. MUSCULOSKELETAL: No joint effusions. NEUROLOGIC: No change in exam. MEDICATIONS: The patient's medications have been reviewed. LABORATORY DATA: From 08/12/2017 is pending. ASSESSMENT AND PLAN: 1. Acute hypoxemic respiratory failure, etiology is multifactorial secondary to postobstructive pne umonia, congestive heart failure, metastatic disease. The patient remains on BiPAP, was able to be on high flow oxygen for a brief period of time yesterday. Will continue to transition to high flow oxygen possible. Continue to taper off steroids. Continue antibiotic therapy, and nebulizers. 2. Acute encephalopathy. Etiology is likely multifactorial, possibly due to opiates, steroids, sep sis. Toxic metabolic. Will continue to monitor. The patient's mental status is waxing and waning. 3. Acute diastolic heart failure. The patient is status post diuretic therapy. We'll continue to monitor. 4. Metabolic alkalemia, etiology secondary to chloride deficiency, diuretic use. The patient's rec ent ABG was reviewed. Will continue to monitor. 5. Hyponatremia secondary to chloride deficiency and metolazone, possible underlying syndrome of in appropriate antidiuretic hormone secretion. Continue to monitor sodium levels. 6. Anemia. Monitor hemoglobin and hematocrit levels. 7. Coronary artery disease, status post coronary artery bypass graft. Continue medical management. 8. Renal cell carcinoma, stage IV with metastasis to mediastinum and bones. The patient is status post immunotherapy, continue to monitor. Follow up with oncology. 9. Diabetes. The patient is hyperglycemic. Will remove dextrose from underlying IV fluids and inc rease Lantus. 10. Gastrointestinal and deep venous thrombosis prophylaxis. Continue PPIs, sequential leg squeeze rs. 11. Chronic pain syndrome. Continue current pain regimen. Dictated By: GIOVANNI WINTER/GUERO Conf#: [id number] [facility]#: [id number]
[2017-08-12 15:14] LABS: ABNORMAL IP MESSAGE 1; BASOPHILS % 0.2 % (0.0-2.0); EOSINOPHILS % 0.1 % (0.0-7.0); HEMATOCRIT 40.3 % (42.0-52.0); HEMOGLOBIN 11.4 g/dl (14.0-18.0); LYMPHOCYTES # 0.7 10^3/ul (0.8-2.9); LYMPHOCYTES % 5.2 % (15.0-51.0); MEAN CORPUSCULAR HEMOGLOBIN 23.9 pg (29.0-33.0); MEAN CORPUSCULAR HGB CONC 28.3 g/dl (32.0-37.0); MEAN CORPUSCULAR VOLUME 84.7 fl (82.0-101.0); MEAN PLATELET VOLUME 9.6 fl (7.4-10.4); MONOCYTE # 1.2 10^3/ul (0.3-0.9); MONOCYTES % 8.4 % (0.0-11.0); NEUTROPHIL # 11.9 10^3/ul (1.6-7.5); NEUTROPHILS % 83.7 % (39.0-77.0); PLATELET COUNT 215 10^3/UL (140-415); POSITIVE DIFF @See below; RED BLOOD COUNT 4.76 10^6/ul (4.70-6.10); RED CELL DISTRIBUTION WIDTH 16.9 % (11.5-14.5); WHITE BLOOD COUNT 14.2 10^3/ul (4.8-10.8)
[2017-08-12 15:39] LABS: CALCIUM 8.4 mg/dl (8.4-10.2); CREATININE 0.64 mg/dl (0.61-1.24); POTASSIUM 4.1 mmol/L (3.5-5.1)
[2017-08-12] MEDS ORDERED: INSULIN ASPART [NOVOLOG] 3 ML PEN SC ONE (18:30)
[2017-08-12] MEDS: ATORVASTATIN 40 MG TAB PO SCH (20:44)
[2017-08-12] MEDS: INSULIN GLARGINE [LANtus] 3 ML PEN SC SCH (20:46)
[2017-08-12] MEDS: OXYCODONE/ACETAMINOPHEN (10/325) TAB PO PRN (22:06)
[2017-08-13] VITALS (23 sets, daily range): BP systolic 95–126; BP diastolic 57–75; PULSE 78–128; RESP 18–82
[2017-08-13] MEDS: INSULIN ASPART [NOVOLOG] 3 ML PEN SC SCH ×6 (01:00→20:51)
[2017-08-13] MEDS: ACCU-CHEK XX SCH (01:47)
[2017-08-13] MEDS: OXYCODONE/ACETAMINOPHEN (10/325) TAB PO PRN ×2 (03:57→17:50)
[2017-08-13] MEDS: PANTOPRAZOLE (EC) 40 MG TAB PO SCH (05:35)
[2017-08-13 07:31] LABS: ABNORMAL IP MESSAGE 1; BASOPHILS % 0.2 % (0.0-2.0); HEMATOCRIT 34.8 % (42.0-52.0); HEMOGLOBIN 9.9 g/dl (14.0-18.0); LYMPHOCYTES # 0.8 10^3/ul (0.8-2.9); LYMPHOCYTES % 7.2 % (15.0-51.0); MEAN CORPUSCULAR HGB CONC 28.4 g/dl (32.0-37.0); MEAN CORPUSCULAR VOLUME 84.5 fl (82.0-101.0); MEAN PLATELET VOLUME 9.8 fl (7.4-10.4); MONOCYTE # 1.1 10^3/ul (0.3-0.9); MONOCYTES % 9.1 % (0.0-11.0); NEUTROPHIL # 9.4 10^3/ul (1.6-7.5); NEUTROPHILS % 81.3 % (39.0-77.0); PLATELET COUNT 155 10^3/UL (140-415); POSITIVE DIFF @See below; RED BLOOD COUNT 4.12 10^6/ul (4.70-6.10); RED CELL DISTRIBUTION WIDTH 17.2 % (11.5-14.5); WHITE BLOOD COUNT 11.6 10^3/ul (4.8-10.8)
[2017-08-13 07:51] LABS: CALCIUM 8.4 mg/dl (8.4-10.2); CREATININE 0.64 mg/dl (0.61-1.24); MAGNESIUM 2.3 mg/dl (1.7-2.5); PHOSPHORUS 2.5 mg/dl (2.5-4.9); POTASSIUM 4.1 mmol/L (3.5-5.1)
--- NOTE | 2017-08-13 08:39 | PN ---
DATE: 08/13/2017 SUBJECTIVE: The patient remains in serious condition. The patient remains on BiPAP at night, sudhir nues to have episodes of confusion, no other events noted. OBJECTIVE: VITAL SIGNS: Blood pressure 126/72, respirations 20, pulse 103, temperature 98.2. HEENT: Head is normocephalic. NECK: Supple. HEART: Regular rate. LUNGS: Show diminished breath sounds at the base. ABDOMEN: Soft, nontender to palpation. No rebound or guarding. EXTREMITIES: Negative for clubbing, cyanosis, no edema. DERMATOLOGIC: No rashes. MUSCULOSKELETAL: No joint effusions. NEUROLOGIC: No change in exam. MEDICATIONS: The patient's medications have been reviewed. LABORATORY DATA: Shows white count 11.6, hemoglobin 9.9, hematocrit 34.8, platelet count is 155. T he patient's BMP is pending. ASSESSMENT AND PLAN: 1. Acute hypoxemic respiratory failure, etiology is multifactorial secondary to postobstructive pne umonia, CHF, metastatic disease. The patient remains on BiPAP, is able to tolerate high flow during the day. Continue current treatment plan. Continue to taper off steroids. Continue antibiotics. Follow up with pulmonary. 2. Acute encephalopathy, etiology is multifactorial secondary to opiate, steroids, sepsis, toxic me tabolic. Continue to monitor. 3. Cervical compression fracture of C6. Please note I spoke with neurosurgery and I am waiting for evaluation. MRI of the thoracic spine and C-spine with and without contrast is ordered and pending once the patient is clinically stable. 4. Acute diastolic heart failure. The patient currently is euvolemic to hypokalemic. Diuretic the rapy has been on hold. Continue to monitor. 5. Alkalosis. Etiology is likely due to chloride deficiency and diuretic use. Continue to monitor . ABG was reviewed. 6. Hyponatremia, improved. Continue free water restriction. 7. Anemia. Monitor hemoglobin and hematocrit levels. 8. Coronary artery disease, status post coronary artery bypass graft. Continue medical management. 9. 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 The patient is s tatus post immunotherapy, continue to monitor. 10. Diabetes. Continue to adjust Lantus. Glucose levels are slowly improving. 11. Chronic pain syndrome. Continue current pain regimen. 12. Gastrointestinal and deep venous thrombosis prophylaxis. Continue proton pump inhibitor and se quential leg squeezers and we will start the patient on Lovenox. Dictated By: GIOVANNI WINTER/GUERO Conf#: [id number] DID#: [id number] CC: GIOVANNI KRUGER DO;*EndCC*
[2017-08-13] MEDS: ENOXAPARIN 40 MG/0.4 ML SYG SC SCH (09:00)
[2017-08-13] MEDS: ALBUTEROL HFA 8 GM INHALER INH SCH ×4 (09:00→21:30)
[2017-08-13] MEDS: NEOMYC/POLYMYX/BACIT 30 GM OINT TOP SCH ×2 (09:00→21:00)
[2017-08-13] MEDS: LISINOPRIL 5 MG TAB PO SCH (09:00)
--- NOTE | 2017-08-13 09:31 | RADRPT ---
PROCEDURE: XR Chest. CLINICAL INDICATION: Shortness of breath. TECHNIQUE: Single frontal view. COMPARISON: 08/12/2017. FINDINGS: Multiple bilateral pulmonary nodules are not well seen due to underlying bilateral pulmonary airspac e and interstitial disease, worse than seen previously. Atelectasis is present in the right upper lo be and left mid to upper lobe. The heart is enlarged. There are sternal wires. There is no pleural effusion. There is no pneumothorax. IMPRESSION: 1. Bilateral pulmonary nodules not well seen due to underline pulmonary disease, worse than seen pr eviously. 2. Cardiomegaly. 3. Sternal wires. 4. No other change from the 08/08/2017 chest radiograph. RPTAT: QQ .Russell Guzman MD, MD Date Time Electronically viewed and signed by .Russell Guzman MD, MD on 08/13/2017 09:31 .R/
--- NOTE | 2017-08-13 09:47 | CONS ---
Date/Time of Note Date/Time of Note DATE: 08/13/17 TIME: 09:46 Consult Date/Type/Reason Admit Date/Time Aug 08, 2017 at 17:31 Initial Consult Date 08/09/17 Type of Consultation: Pulmonary Ordering Provider: GIOVANNI KRUGER DO Subjective Patient remains BiPAP dependent. Mild confusion earlier but now resolved. Objective Vital Signs Date Time Temp Pulse Resp B/P Pulse Ox O2 Delivery O2 Flow Rate FiO2 08/13/17 08:01 104 08/13/17 07:56 98.0 29 107/75 99 08/13/17 05:00 40 08/12/17 20:00 Nasal Cannula 08/11/17 09:10 3.0 Intake and Output 08/12/17 08/12/17 08/13/17 15:00 23:00 07:00 Intake Total 600 ml Output Total 1400 ml Balance -800 ml Exam GENERAL: Well-nourished well-developed gentleman mild agitation on BiPAP. VITAL SIGNS: per chart NECK: Supple. No JVD or lymphadenopathy. CARDIAC EXAM: S1, S2. No added sounds or murmurs. CHEST: Diminished air entry bilaterally with rales right base. ABDOMEN: Soft, nontender. No guarding or rebound. EXTREMITIES: No cyanosis, clubbing or edema. NEUROLOGIC: Generalized weakness. No focal deficits. Results/Medications Result Diagram: 08/13/17 0646 08/13/17 0646 Results 24 hrs Laboratory Tests Test 08/12/17 10:34 08/12/17 13:01 08/12/17 14:52 08/12/17 15:16 Bedside Glucose 272 H 274 H 249 H White Blood Count 14.2 H Red Blood Count 4.76 Hemoglobin 11.4 L Hematocrit 40.3 L Mean Corpuscular Volume 84.7 Mean Corpuscular Hemoglobin 23.9 L Mean Corpuscular Hemoglobin Concent 28.3 L Red Cell Distribution Width 16.9 H Platelet Count 215 Mean Platelet Volume 9.6 Neutrophils % 83.7 H Lymphocytes % 5.2 L Monocytes % 8.4 Eosinophils % 0.1 Basophils % 0.2 Nucleated Red Blood Cells % 0.0 Neutrophils # 11.9 H Lymphocytes # 0.7 L Monocytes # 1.2 H Eosinophils # 0.0 Basophils # 0.0 Nucleated Red Blood Cells # 0.0 Sodium Level 135 Potassium Level 4.1 Chloride Level 88 L Carbon Dioxide Level 39 H Anion Gap 12 Blood Urea Nitrogen 19 Creatinine 0.64 Glucose Level 247 H Calcium Level 8.4 Test 08/12/17 18:08 08/12/17 20:40 08/13/17 01:34 08/13/17 05:31 Bedside Glucose 285 H 205 147 173 Test 08/13/17 06:46 White Blood Count 11.6 H Red Blood Count 4.12 L Hemoglobin 9.9 L Hematocrit 34.8 L Mean Corpuscular Volume 84.5 Mean Corpuscular Hemoglobin 24.0 L Mean Corpuscular Hemoglobin Concent 28.4 L Red Cell Distribution Width 17.2 H Platelet Count 155 # Mean Platelet Volume 9.8 Neutrophils % 81.3 H Lymphocytes % 7.2 L Monocytes % 9.1 Eosinophils % 0.0 Basophils % 0.2 Nucleated Red Blood Cells % 0.0 Neutrophils # 9.4 H Lymphocytes # 0.8 Monocytes # 1.1 H Eosinophils # 0.0 Basophils # 0.0 Nucleated Red Blood Cells # 0.0 Sodium Level 136 Potassium Level 4.1 Chloride Level 91 L Carbon Dioxide Level 41 *H Anion Gap 8 Blood Urea Nitrogen 22 H Creatinine 0.64 Glucose Level 173 Calcium Level 8.4 Phosphorus Level 2.5 Magnesium Level 2.3 Medications Current Medications Aspirin (Ecotrin) 325 mg DAILY PO ; Start 08/09/17 at 09:00 Atorvastatin Calcium (Lipitor) 40 mg QHS PO Last administered on 08/12/17 20: 44; Admin Dose 40 MG; Start 08/08/17 at 21:00 Carvedilol (Coreg) 3.125 mg BID PO ; Start 08/08/17 at 21:00 Albuterol/ Ipratropium (Duoneb) 3 ml Q6 PRN NEB SHORTNESS OF BREATH Last administered on 08/12/17 08:36; Admin Dose 3 ML; Start 08/08/17 at 17:00 Lisinopril (Zestril) 2.5 mg DAILY PO ; Start 08/09/17 at 09:00 Pantoprazole (Protonix Tab) 40 mg DAILY@06 PO Last administered on 08/13/17 05:35; Admin Dose 40 MG; Start 08/09/17 at 06:00 Potassium Chloride (Klor-Con 10) 10 meq DAILY PO ; Start 08/09/17 at 09:00 Albuterol (Ventolin Hfa) 2 puff QID INH Last administered on 08/12/17 21:00; Admin Dose 2 PUFF; Start 08/08/17 at 17:00 Diagnostic Test (Pha) 1 ea 1 ea 02 XX ; Start 08/09/17 at 02:00 Cefepime HCl (Maxipime 1gm/50 ml (Pmx)) 50 ml @ 100 mls/hr Q12 IVPB Last administered on 08/12/17 20:44; Admin Dose 100 MLS/HR; Start 08/08/17 at 21: 00 Miscellaneous Information 1 ea NOTE XX ; Start 08/08/17 at 20:30 Glucose (Glutose) 15 gm Q15M PRN PO DECREASED GLUCOSE; Start 08/08/17 at 20:30 Glucose (Glutose) 22.5 gm Q15M PRN PO DECREASED GLUCOSE; Start 08/08/17 at 20: 30 Dextrose (D50w Syringe) 25 ml Q15M PRN IV DECREASED GLUCOSE; Start 08/08/17 at 20:30 Dextrose (D50w Syringe) 50 ml Q15M PRN IV DECREASED GLUCOSE; Start 08/08/17 at 20:30 Glucagon (Glucagen) 1 mg Q15M PRN IM DECREASED GLUCOSE; Start 08/08/17 at 20: 30 Glucose (Glutose) 15 gm Q15M PRN BUCCAL DECREASED GLUCOSE; Start 08/08/17 at 20:30 Lorazepam (Ativan) 0.5 mg Q6H PRN IV ANXIETY Last administered on 08/10/17 21 :21; Admin Dose 0.5 MG; Start 08/09/17 at 06:30 [facility] This patient hoffmann... PRN PRN XX WOUND CARE; Start 08/09/17 at 07:30 Insulin Aspart (Novolog Insulin Pen) NOVOLOG *MILD* ALGORITHM Q4 SC Last administered on 08/12/17 20:47; Admin Dose 1 UNIT; Start 08/09/17 at 09:00 Methylprednisolone Sodium Succinate (Solu-Medrol) 40 mg Q12 IV Last administered on 08/12/17 20:44; Admin Dose 40 MG; Start 08/09/17 at 21:00 Neomycin/ Polymyxin/ Bacitracin (Neosporin Topical Oint) 1 applic BID TOP Last administered on 08/12/17 09:00; Admin Dose 1 APPLIC; Start 08/10/17 at 21:00 Hydromorphone HCl (Dilaudid) 1 mg Q3H PRN IV PAIN LEVEL 8-10 Last administered on 08/10/17 22:17; Admin Dose 1 MG; Start 08/10/17 at 22:00 Hydromorphone HCl (Dilaudid) 0.5 mg Q4H PRN IV PAIN Last administered on 09:52; Admin Dose 0.5 MG; Start 08/11/17 at 10:30 Ondansetron HCl (Zofran Inj) 4 mg Q6H PRN IV NAUSEA AND/OR VOMITING; Start at 23:00 Insulin Glargine (Lantus) 18 unit DAILY@20 SC Last administered on 08/12/17 20:46; Admin Dose 18 UNIT; Start 08/12/17 at 20:00 Oxycodone/ Acetaminophen (Endocet (10/ 325)) 1 tab Q6H PRN PO PAIN Last administered on 08/13/17 03:57; Admin Dose 1 TAB; Start 08/12/17 at 22:00 Enoxaparin Sodium (Lovenox) 40 mg DAILY SC ; Start 08/13/17 at 09:00 Assessment/Plan Chief Complaint/Hosp Course Assessment 1. Hypoxemic respiratory failure likely secondary to pneumonia and tumor burden from metastatic renal cell CA 2. Obstructive etiology right upper lobe. Right lower lobe atelectasis. Pulmonary metastasis noted. 3. Metastatic renal cell carcinoma concern for possible C-spine metastasis. C- spine fracture noted 4. History of diabetes mellitus Plan 1. Continue supplemental O2 and BiPAP, 2. Continue bronchodilators and steroids 3. Encourage out of bed 4. ID recommendations 5. Neurosurgical recommendations regarding C-spine fracture Patient's CODE STATUS to be changed to DNI to be consistent with his advanced directive. Continue all current measures. Extremely poor prognosis. Problems: SONJA GIRALDO MD, [facility] Aug 13, 2017 09:46
[2017-08-13] MEDS: METHYLPREDNISOLONE 40 MG INJ IV SCH ×2 (09:49→20:50)
[2017-08-13] MEDS: ASPIRIN (EC) 325 MG TAB PO SCH (09:50)
[2017-08-13] MEDS: CEFEPIME 1GM/50 ML (PMX) 50 ML IVPB SCH ×2 (09:50→20:50)
[2017-08-13] MEDS: POTASSIUM CHLORIDE (SR) 10 MEQ TAB PO SCH (09:51)
[2017-08-13] MEDS ORDERED: SOD CHLORIDE 0.9% 1,000 ML IV ONE (11:30)
[2017-08-13 11:37] LABS: AADO2 Arterial 142.3 mmHg (7.0-24.0); Allen Test ACCEPTAB; Arterial Base Excess 7.1 mmol/L (-3.0-3); Arterial COHb 0.5 % (0.0-3.0); Arterial Fraction of Oxyhgb 94.5 % (93.0-99.0); Arterial HCO3 33.6 mmol/L (22.0-26.0); Arterial MetHb 0.3 % (0.0-1.5); Arterial Total Hemglobin 11.2 g/dl (12.0-18.0); Blood Gas IEPAP 15/5; Blood Gas PS 5; MODE MASK - BIPAP
[2017-08-13] MEDS: SOD CHLORIDE 0.9% 1,000 ML IV SCH (13:03)
--- NOTE | 2017-08-13 16:18 | CONS ---
Date/Time of Note Date/Time of Note DATE: 08/13/17 TIME: 16:14 Assessment/Plan Assessment/Plan Chief Complaint/Hosp Course ID PROGRESS NOTE CURRENT ABX: DAY #5=> Cefepime + IV steroids 24H INTERVAL SUMMARY * A/A/O responsive -- on full face mask BIPAP -> Not able to remove today for POs * Yesterday was able to remove for POs on high flow O2 * Family present, Afebrile, VSS, No c/o, no oral thrush, no F/C/N/V/D/CP/ABD pain -- no c/o * MICRO: BCx(-) * 08/13/17 CXR IMPRESSION:1. Bilateral pulmonary nodules not well seen due to underline pulmonary disease, worse than seen previously.2. Cardiomegaly.3. Sternal wires. 4. No other change from the 08/08/2017 chest radiograph. * DIAGNOSTICS: CT of the chest revealed increased soft tissue within the right perihilar region with narrowing of right upper lobe bronchus suspicious of neoplasm. There is a postop obstructive consolidation within the right upper lobe which has increased compared to 05/30/2017. Multiple metastatic pulmonary nodules bilaterally, unchanged. Increased moderate pleural effusions with underlying atelectasis. Mild mediastinal and right hilar adenopathy, unchanged. Multiple osseous metastasis increased, mild pathologic compression fracture of L4, unchanged. Sigmoid diverticulosis without evidence of diverticulitis. PHYSICAL EXAMINATION: GENERAL: A/A/O-> responsive with hypoxic respiratory distress, now stable on BIPAP HEENT: AT, NC, anicteric, moist oral membranes == FULL FACE BIPAP NECK: Trach midline, supple CHEST: Equal chest rise bilaterally,course HEART: RRR ABDOMEN: Soft, NT, ND EXT: Warm, moves all ext SKIN: No rash, no diaphoresis ID ASSESSMENT: 66 yo M admit with: 1. SIRS, s/p sepsis-> afebrile, WBC elevated = partial IV steroids demargination 2. Acute hypoxemic respiratory failure secondary to postobstructive pneumonia * 08/13/17 CXR IMPRESSION:1. Bilateral pulmonary nodules not well seen due to underline pulmonary disease, worse than seen previously. 3. Metastatic renal carcinoma possible cervical spine metastasis. 4. Acute congestive heart failure exacerbation. 5. Anemia. 6. History of coronary artery bypass graft. 7. Diabetes. (-)Influenza A/B Screen ABX ALLERGY: NKDA INVASIVES: PIV CURRENT ABX:DAY # 5 => Cefepime + IV steroids ID RECOMMENDATIONS/PLAN: 1. Continue current ABX over the weekend -> ID team colleague f/u next week . Problems: Consultation Date/Type/Reason Admit Date/Time Aug 08, 2017 at 17:31 Initial Consult Date 08/09/17 Type of Consultation: ID Referring Provider: GIOVANNI KRUGER DO Exam/Review of Systems Vital Signs Vitals Vital Signs Date Time Temp Pulse Resp B/P Pulse Ox O2 Delivery O2 Flow Rate FiO2 08/13/17 15:34 98.0 113 34 96/68 100 08/13/17 05:00 40 08/12/17 20:00 Nasal Cannula 08/11/17 09:10 3.0 Intake and Output 08/12/17 08/12/17 08/13/17 14:59 22:59 06:59 Intake Total 600 ml Output Total 1400 ml Balance -800 ml Results Result Diagram: 08/13/17 0646 08/13/17 0646 Results 24 hrs Laboratory Tests Test 08/12/17 18:08 08/12/17 20:40 08/13/17 01:34 08/13/17 05:31 Bedside Glucose 285 H 205 147 173 Test 08/13/17 06:46 08/13/17 07:00 08/13/17 09:48 08/13/17 13:13 White Blood Count 11.6 H Red Blood Count 4.12 L Hemoglobin 9.9 L Hematocrit 34.8 L Mean Corpuscular Volume 84.5 Mean Corpuscular Hemoglobin 24.0 L Mean Corpuscular Hemoglobin Concent 28.4 L Red Cell Distribution Width 17.2 H Platelet Count 155 # Mean Platelet Volume 9.8 Neutrophils % 81.3 H Lymphocytes % 7.2 L Monocytes % 9.1 Eosinophils % 0.0 Basophils % 0.2 Nucleated Red Blood Cells % 0.0 Neutrophils # 9.4 H Lymphocytes # 0.8 Monocytes # 1.1 H Eosinophils # 0.0 Basophils # 0.0 Nucleated Red Blood Cells # 0.0 Sodium Level 136 Potassium Level 4.1 Chloride Level 91 L Carbon Dioxide Level 41 *H Anion Gap 8 Blood Urea Nitrogen 22 H Creatinine 0.64 Glucose Level 173 Calcium Level 8.4 Phosphorus Level 2.5 Magnesium Level 2.3 Blood Gas Specimen Source Blood arterial Arterial Blood Date Drawn 08/13/2017 11:28:02 AM Arterial Blood pH (Temp corrected) 7.381 Arterial Blood pCO2 (Temp correct) 58.0 H Arterial Blood pO2 (Temp corrected) 76.2 L Arterial Blood HCO3 33.6 H Arterial Blood Base Excess 7.1 H Arterial Blood Oxygen Saturation 95.3 Gerardo Test ACCEPTAB Arterial Blood Gas Puncture Site Left Radial Arterial Blood Carboxyhemoglobin 0.5 Arterial Blood Methemoglobin 0.3 Blood Gas A-a O2 Differential 142.3 H Oxyhemoglobin Percent 94.5 Total Hemoglobin 11.2 L Blood Gas Temperature 37.0 Blood Gas Respiration Rate 14.0 Blood Gas Actual Respiration Rate 33 Blood Gas Modality MASK - BIPAP FiO2 40.0 Blood Gas Pressure Support 5 Blood Gas IPAP/EPAP Ratio 15/5 Blood Gas Notified Whom AT Blood Gas Notified Time 08/13/2017 11:37:07 AM Bedside Glucose 166 129 Medications Medications Current Medications Aspirin (Ecotrin) 325 mg DAILY PO Last administered on 08/13/17 09:50; Admin Dose 325 MG; Start 08/09/17 at 09:00 Atorvastatin Calcium (Lipitor) 40 mg QHS PO Last administered on 08/12/17 20: 44; Admin Dose 40 MG; Start 08/08/17 at 21:00 Carvedilol (Coreg) 3.125 mg BID PO ; Start 08/08/17 at 21:00 Albuterol/ Ipratropium (Duoneb) 3 ml Q6 PRN NEB SHORTNESS OF BREATH Last administered on 08/12/17 08:36; Admin Dose 3 ML; Start 08/08/17 at 17:00 Lisinopril (Zestril) 2.5 mg DAILY PO ; Start 08/09/17 at 09:00 Pantoprazole (Protonix Tab) 40 mg DAILY@06 PO Last administered on 08/13/17 05:35; Admin Dose 40 MG; Start 08/09/17 at 06:00 Potassium Chloride (Klor-Con 10) 10 meq DAILY PO Last administered on 09:51; Admin Dose 10 MEQ; Start 08/09/17 at 09:00 Albuterol (Ventolin Hfa) 2 puff QID INH Last administered on 08/12/17 21:00; Admin Dose 2 PUFF; Start 08/08/17 at 17:00 Diagnostic Test (Pha) 1 ea 1 ea 02 XX ; Start 08/09/17 at 02:00 Cefepime HCl (Maxipime 1gm/50 ml (Pmx)) 50 ml @ 100 mls/hr Q12 IVPB Last administered on 08/13/17 09:50; Admin Dose 100 MLS/HR; Start 08/08/17 at 21: 00 Miscellaneous Information 1 ea NOTE XX ; Start 08/08/17 at 20:30 Glucose (Glutose) 15 gm Q15M PRN PO DECREASED GLUCOSE; Start 08/08/17 at 20:30 Glucose (Glutose) 22.5 gm Q15M PRN PO DECREASED GLUCOSE; Start 08/08/17 at 20: 30 Dextrose (D50w Syringe) 25 ml Q15M PRN IV DECREASED GLUCOSE; Start 08/08/17 at 20:30 Dextrose (D50w Syringe) 50 ml Q15M PRN IV DECREASED GLUCOSE; Start 08/08/17 at 20:30 Glucagon (Glucagen) 1 mg Q15M PRN IM DECREASED GLUCOSE; Start 08/08/17 at 20: 30 Glucose (Glutose) 15 gm Q15M PRN BUCCAL DECREASED GLUCOSE; Start 08/08/17 at 20:30 Lorazepam (Ativan) 0.5 mg Q6H PRN IV ANXIETY Last administered on 08/10/17 21 :21; Admin Dose 0.5 MG; Start 08/09/17 at 06:30 Miscellaneous Information (Pending [facility] Order For Wound Care) This patient hoffmann... PRN PRN XX WOUND CARE; Start 08/09/17 at 07:30 Insulin Aspart (Novolog Insulin Pen) NOVOLOG *MILD* ALGORITHM Q4 SC Last administered on 08/13/17 09:00; Admin Dose 1 UNIT; Start 08/09/17 at 09:00 Methylprednisolone Sodium Succinate (Solu-Medrol) 40 mg Q12 IV Last administered on 08/13/17 09:49; Admin Dose 40 MG; Start 08/09/17 at 21:00 Neomycin/ Polymyxin/ Bacitracin (Neosporin Topical Oint) 1 applic BID TOP Last administered on 08/13/17 09:00; Admin Dose 1 APPLIC; Start 08/10/17 at 21:00 Hydromorphone HCl (Dilaudid) 1 mg Q3H PRN IV PAIN LEVEL 8-10 Last administered on 08/10/17 22:17; Admin Dose 1 MG; Start 08/10/17 at 22:00 Hydromorphone HCl (Dilaudid) 0.5 mg Q4H PRN IV PAIN Last administered on 09:52; Admin Dose 0.5 MG; Start 08/11/17 at 10:30 Ondansetron HCl (Zofran Inj) 4 mg Q6H PRN IV NAUSEA AND/OR VOMITING; Start at 23:00 Insulin Glargine (Lantus) 18 unit DAILY@20 SC Last administered on 08/12/17 20:46; Admin Dose 18 UNIT; Start 08/12/17 at 20:00 Oxycodone/ Acetaminophen (Endocet (10/ 325)) 1 tab Q6H PRN PO PAIN Last administered on 08/13/17 03:57; Admin Dose 1 TAB; Start 08/12/17 at 22:00 Enoxaparin Sodium 40 mg 40 mg DAILY SC ; Start 08/13/17 at 09:00 Sodium Chloride (NS) 1,000 ml @ 75 mls/hr [id number] IV Last administered on 13:03; Admin Dose 75 MLS/HR; Start 08/13/17 at 13:00 Escitalopram Oxalate (Lexapro) 10 mg DAILY PO ; Start 08/14/17 at 09:00 ANTHONY CROWELL NP Aug 13, 2017 16:18
--- NOTE | 2017-08-13 17:16 | RADRPT ---
PROCEDURE: US Lower extremity Venous. CLINICAL INDICATION: Bilateral lower extremity edema TECHNIQUE: Multiple sonographic images of the bilateral lower extremity deep venous system was obt ained utilizing grayscale, color-flow, compressive sonography and doppler imaging with augmentation. The images were reviewed on a PACS workstation. COMPARISON: None. FINDINGS: There is normal compressibility and flow within the bilateral common femoral, femoral, calf and pop liteal veins. RPTAT: AA IMPRESSION: No sonographic evidence for deep venous thrombosis. Physician Seferino Date Time Electronically viewed and signed by Kristina Hankins Physician on 08/13/2017 17:16 MS/
[2017-08-13] MEDS: ALBUTEROL/IPRATROPIUM (NEB) 3 ML AMP NEB PRN (17:17)
[2017-08-13] MEDS: ATORVASTATIN 40 MG TAB PO SCH (20:50)
[2017-08-13] MEDS: INSULIN GLARGINE [LANtus] 3 ML PEN SC SCH (21:04)
[2017-08-14] VITALS (22 sets, daily range): BP systolic 92–110; BP diastolic 60–98; PULSE 85–112; RESP 17–30
[2017-08-14] MEDS: INSULIN ASPART [NOVOLOG] 3 ML PEN SC SCH ×6 (01:00→21:00)
[2017-08-14] MEDS: ACCU-CHEK XX SCH (02:00)
[2017-08-14] MEDS: SOD CHLORIDE 0.9% 1,000 ML IV SCH ×2 (02:22→15:40)
[2017-08-14] MEDS: PANTOPRAZOLE (EC) 40 MG TAB PO SCH (06:00)
[2017-08-14] MEDS: OXYCODONE/ACETAMINOPHEN (10/325) TAB PO PRN ×4 (06:40→22:24)
[2017-08-14 06:42] LABS: ABNORMAL IP MESSAGE 1; BASOPHILS % 0.3 % (0.0-2.0); HEMATOCRIT 38.6 % (42.0-52.0); HEMOGLOBIN 10.6 g/dl (14.0-18.0); LYMPHOCYTES # 0.7 10^3/ul (0.8-2.9); LYMPHOCYTES % 6.2 % (15.0-51.0); MEAN CORPUSCULAR HEMOGLOBIN 23.6 pg (29.0-33.0); MEAN CORPUSCULAR HGB CONC 27.5 g/dl (32.0-37.0); MONOCYTES % 7.9 % (0.0-11.0); NEUTROPHILS % 83.3 % (39.0-77.0); PLATELET COUNT 164 10^3/UL (140-415); POSITIVE DIFF @See below; RED BLOOD COUNT 4.49 10^6/ul (4.70-6.10); RED CELL DISTRIBUTION WIDTH 17.2 % (11.5-14.5)
[2017-08-14 07:24] LABS: CALCIUM 8.3 mg/dl (8.4-10.2); CREATININE 0.62 mg/dl (0.61-1.24); MAGNESIUM 2.3 mg/dl (1.7-2.5); PHOSPHORUS 2.8 mg/dl (2.5-4.9); POTASSIUM 4.4 mmol/L (3.5-5.1)
[2017-08-14] MEDS: ALBUTEROL HFA 8 GM INHALER INH SCH ×4 (10:02→20:50)
[2017-08-14] MEDS: CEFEPIME 1GM/50 ML (PMX) 50 ML IVPB SCH ×2 (10:02→20:49)
[2017-08-14] MEDS: METHYLPREDNISOLONE 40 MG INJ IV SCH ×2 (10:03→20:49)
[2017-08-14] MEDS: POTASSIUM CHLORIDE (SR) 10 MEQ TAB PO SCH (10:04)
[2017-08-14] MEDS: ESCITALOPRAM 10 MG TAB PO SCH (10:04)
[2017-08-14] MEDS: ASPIRIN (EC) 325 MG TAB PO SCH (10:04)
[2017-08-14] MEDS: LISINOPRIL 5 MG TAB PO SCH (10:05)
[2017-08-14] MEDS: ENOXAPARIN 40 MG/0.4 ML SYG SC SCH (10:10)
[2017-08-14] MEDS: NEOMYC/POLYMYX/BACIT 30 GM OINT TOP SCH ×2 (10:11→22:25)
--- NOTE | 2017-08-14 10:14 | PN ---
DATE: 08/14/2017 SUBJECTIVE: The patient remains seriously ill overnight. Yesterday the patient was noted to be hyp otensive with blood pressures in the 80s. He was given a bolus of normal saline. The patient kyle nues to be on BiPAP, unable to be weaned off. The patient is progressively hypoxic. Please note I again discussed with the patient's and family at bedside. The patient currently is still a DN I. No other events noted. PHYSICAL EXAMINATION : OBJECTIVE: VITAL SIGNS: Blood pressure 110/71, respirations 24, pulse 93, temperature 98.4. HEENT: Head is normocephalic. NECK: Supple. HEART: Regular rate. LUNGS: Show diminished breath sounds at base. ABDOMEN: Soft, nontender to palpation. No rebound or guarding. EXTREMITIES: Negative for clubbing, cyanosis, no edema. DERMATOLOGIC: No rashes. MUSCULOSKELETAL: No joint effusions. NEUROLOGIC: No focal deficits. MEDICATIONS: The patient's medications have been reviewed. LABORATORY DATA STUDIES: The patient's chest x-ray shows bilateral pulmonary nodules, worse than pr eviously seen, cardiomegaly, sternal wires, and Doppler ultrasound shows no evidence of DVT. LABORATORY DATA: Shows sodium 140, potassium 1.4, chloride 94, bicarbonate 41, BUN 20, creatinine 0 .62. White count 12.0, hemoglobin 10.6, hematocrit 38.6, and platelet count is 164. ASSESSMENT AND PLAN: 1. Acute hypoxemic respiratory failure, etiology secondary to pneumonia, metastatic disease. The p atient remains on BiPAP. Unable to tolerate high flow. The patient appears to be in more respirato ry distress. Currently the patient is a DNI. At this point, continue current medical management, s teroids, antibiotics. We will follow with pulmonary for further recommendations. 2. Acute encephalopathy. Etiology is multifactorial secondary to opiates, steroids, sepsis. Kyle nue to monitor, supportive care. 3. History of cervical compression fracture C6. The patient is pending an MRI of the neck once sta ble, was evaluated by neurosurgery. No further recommendations at this time. 4. Acute diastolic heart failure. The patient appears euvolemic to hypovolemic. Continue to monit or. The patient is receiving gentle IV hydration. 5. Alkalosis. Etiology appears to be compensatory. We will follow up an ABG. 6. Hyponatremia, resolved. 7. Anemia. Monitor changed status post coronary artery disease, status post coronary artery bypass graft. Continue medical management. 8. History of breast carcinoma stage IV with metastasis to lungs and bones. The patient is status post immunotherapy continue to monitor. 9. Diabetes. Continue current insulin regimen. 10. Chronic pain syndrome. Continue current pain regimen. 11. Gastrointestinal and deep venous thrombosis prophylaxis. Continue proton pump inhibitor and Lo venox. Dictated By: GIOVANNI WINTER/GUERO Conf#: [id number] DID#: [id number]
[2017-08-14] MEDS: ALBUTEROL/IPRATROPIUM (NEB) 3 ML AMP NEB PRN (11:32)
--- NOTE | 2017-08-14 12:05 | CONS ---
Date/Time of Note Date/Time of Note DATE: 08/14/17 TIME: 12:04 Consult Date/Type/Reason Admit Date/Time Aug 08, 2017 at 17:31 Initial Consult Date 08/09/17 Type of Consultation: Pulmonary Ordering Provider: GIOVANNI KRUGER DO Subjective Patient remains BiPAP dependent. Family state his breathing is improved somewhat today. Objective Vital Signs Date Time Temp Pulse Resp B/P Pulse Ox O2 Delivery O2 Flow Rate FiO2 08/14/17 10:50 101 97 40 08/14/17 08:22 97.5 26 92/63 08/12/17 20:00 Nasal Cannula 08/11/17 09:10 3.0 Intake and Output 08/13/17 08/13/17 08/14/17 15:00 23:00 07:00 Intake Total 240 ml Output Total 700 ml Balance -460 ml Exam GENERAL: Well-nourished well-developed gentleman mild agitation on BiPAP. FiO2 40% VITAL SIGNS: per chart NECK: Supple. No JVD or lymphadenopathy. CARDIAC EXAM: S1, S2. No added sounds or murmurs. CHEST: Diminished air entry bilaterally with rales right base. ABDOMEN: Soft, nontender. No guarding or rebound. EXTREMITIES: No cyanosis, clubbing or edema. NEUROLOGIC: Generalized weakness. No focal deficits. Results/Medications Result Diagram: 08/14/1713 08/14/17 0613 Results 24 hrs Laboratory Tests Test 08/13/17 13:13 08/13/17 17:27 08/13/17 20:30 08/14/17 01:04 Bedside Glucose 129 148 163 172 Test 08/14/17 06:13 White Blood Count 12.0 H Red Blood Count 4.49 L Hemoglobin 10.6 L Hematocrit 38.6 L Mean Corpuscular Volume 86.0 Mean Corpuscular Hemoglobin 23.6 L Mean Corpuscular Hemoglobin Concent 27.5 L Red Cell Distribution Width 17.2 H Platelet Count 164 Mean Platelet Volume 10.0 Neutrophils % 83.3 H Lymphocytes % 6.2 L Monocytes % 7.9 Eosinophils % 0.0 Basophils % 0.3 Nucleated Red Blood Cells % 0.0 Neutrophils # 10.0 H Lymphocytes # 0.7 L Monocytes # 1.0 H Eosinophils # 0.0 Basophils # 0.0 Nucleated Red Blood Cells # 0.0 Sodium Level 140 Potassium Level 4.4 Chloride Level 94 L Carbon Dioxide Level 41 *H Anion Gap 9 Blood Urea Nitrogen 20 Creatinine 0.62 Glucose Level 167 Bedside Glucose 185 Calcium Level 8.3 L Phosphorus Level 2.8 Magnesium Level 2.3 Medications Current Medications Aspirin (Ecotrin) 325 mg DAILY PO Last administered on 08/14/17 10:04; Admin Dose 325 MG; Start 08/09/17 at 09:00 Atorvastatin Calcium (Lipitor) 40 mg QHS PO Last administered on 08/13/17 20: 50; Admin Dose 40 MG; Start 08/08/17 at 21:00 Carvedilol (Coreg) 3.125 mg BID PO ; Start 08/08/17 at 21:00 Albuterol/ Ipratropium (Duoneb) 3 ml Q6 PRN NEB SHORTNESS OF BREATH Last administered on 08/14/17 11:32; Admin Dose 3 ML; Start 08/08/17 at 17:00 Lisinopril (Zestril) 2.5 mg DAILY PO ; Start 08/09/17 at 09:00 Pantoprazole (Protonix Tab) 40 mg DAILY@06 PO Last administered on 08/13/17 05:35; Admin Dose 40 MG; Start 08/09/17 at 06:00 Potassium Chloride (Klor-Con 10) 10 meq DAILY PO Last administered on 10:04; Admin Dose 10 MEQ; Start 08/09/17 at 09:00 Albuterol (Ventolin Hfa) 2 puff QID INH Last administered on 08/14/17 10:02; Admin Dose 2 PUFF; Start 08/08/17 at 17:00 Diagnostic Test (Pha) 1 ea 1 ea 02 XX ; Start 08/09/17 at 02:00 Cefepime HCl (Maxipime 1gm/50 ml (Pmx)) 50 ml @ 100 mls/hr Q12 IVPB Last administered on 08/14/17 10:02; Admin Dose 100 MLS/HR; Start 08/08/17 at 21: 00 Miscellaneous Information 1 ea NOTE XX ; Start 08/08/17 at 20:30 Glucose (Glutose) 15 gm Q15M PRN PO DECREASED GLUCOSE; Start 08/08/17 at 20:30 Glucose (Glutose) 22.5 gm Q15M PRN PO DECREASED GLUCOSE; Start 08/08/17 at 20: 30 Dextrose (D50w Syringe) 25 ml Q15M PRN IV DECREASED GLUCOSE; Start 08/08/17 at 20:30 Dextrose (D50w Syringe) 50 ml Q15M PRN IV DECREASED GLUCOSE; Start 08/08/17 at 20:30 Glucagon (Glucagen) 1 mg Q15M PRN IM DECREASED GLUCOSE; Start 08/08/17 at 20: 30 Glucose (Glutose) 15 gm Q15M PRN BUCCAL DECREASED GLUCOSE; Start 08/08/17 at 20:30 Lorazepam (Ativan) 0.5 mg Q6H PRN IV ANXIETY Last administered on 08/10/17 21 :21; Admin Dose 0.5 MG; Start 08/09/17 at 06:30 Miscellaneous Information [facility] This patient hoffmann... PRN PRN XX WOUND CARE; Start 08/09/17 at 07:30 Insulin Aspart (Novolog Insulin Pen) NOVOLOG *MILD* ALGORITHM Q4 SC Last administered on 08/14/17 10:10; Admin Dose 1 UNIT; Start 08/09/17 at 09:00 Methylprednisolone Sodium Succinate (Solu-Medrol) 40 mg Q12 IV Last administered on 08/14/17 10:03; Admin Dose 40 MG; Start 08/09/17 at 21:00 Neomycin/ Polymyxin/ Bacitracin (Neosporin Topical Oint) 1 applic BID TOP Last administered on 08/14/17 10:11; Admin Dose 1 APPLIC; Start 08/10/17 at 21:00 Hydromorphone HCl (Dilaudid) 1 mg Q3H PRN IV PAIN LEVEL 8-10 Last administered on 08/10/17 22:17; Admin Dose 1 MG; Start 08/10/17 at 22:00 Hydromorphone HCl (Dilaudid) 0.5 mg Q4H PRN IV PAIN Last administered on 09:52; Admin Dose 0.5 MG; Start 08/11/17 at 10:30 Ondansetron HCl (Zofran Inj) 4 mg Q6H PRN IV NAUSEA AND/OR VOMITING; Start at 23:00 Insulin Glargine (Lantus) 18 unit DAILY@20 SC Last administered on 08/13/17 21:04; Admin Dose 18 UNIT; Start 08/12/17 at 20:00 Oxycodone/ Acetaminophen (Endocet (10/ 325)) 1 tab Q6H PRN PO PAIN Last administered on 08/14/17 11:22; Admin Dose 1 TAB; Start 08/12/17 at 22:00 Enoxaparin Sodium 40 mg 40 mg DAILY SC Last administered on 08/14/17 10:10; Admin Dose 40 MG; Start 08/13/17 at 09:00 Sodium Chloride (NS) 1,000 ml @ 75 mls/hr [id number] IV Last administered on 02:22; Admin Dose 75 MLS/HR; Start 08/13/17 at 13:00 Escitalopram Oxalate (Lexapro) 10 mg DAILY PO Last administered on 08/14/17 10:04; Admin Dose 10 MG; Start 08/14/17 at 09:00 Assessment/Plan Chief Complaint/Hosp Course Assessment 1. Hypoxemic respiratory failure likely secondary to pneumonia and tumor burden from metastatic renal cell CA, possible component of lymphangitic spread. Only on 40% FiO2. 2. Obstructive etiology right upper lobe. Right lower lobe atelectasis. Pulmonary metastasis noted. 3. Metastatic renal cell carcinoma concern for possible C-spine metastasis. C- spine fracture noted 4. History of diabetes mellitus Plan 1. Continue supplemental O2 and BiPAP, trial of high flow O2 if tolerated 2. Continue bronchodilators and steroids, continue steroids 3. Encourage out of bed 4. ID recommendations 5. Neurosurgical recommendations regarding C-spine fracture 6. Agree with Lexapro, trial of Xanax. Discussed with family. Patient's CODE STATUS to be changed to DNI to be consistent with his advanced directive. Continue all current measures. Extremely poor prognosis. Problems: SONJA GIRALDO MD, [facility] Aug 14, 2017 12:05
[2017-08-14] MEDS ORDERED: LORAZEPAM 0.5 MG TAB PO PRN (12:07)
[2017-08-14] MEDS: ALPRAZOLAM 0.5 MG TAB PO SCH ×2 (14:35→22:24)
--- NOTE | 2017-08-14 15:14 | CONS ---
Date/Time of Note Date/Time of Note DATE: 08/14/17 TIME: 15:12 Assessment/Plan Assessment/Plan Chief Complaint/Hosp Course ID PROGRESS NOTE CURRENT ABX: DAY #6=> Cefepime + IV steroids 24H INTERVAL SUMMARY * Remains on BIPAP -> Hypoxic/Hypercapnic resp failure -- not much change from yesterday * WBC slightly up on IV steroids, no fevers * MICRO: BCx(-) * 08/13/17 CXR IMPRESSION:1. Bilateral pulmonary nodules not well seen due to underline pulmonary disease, worse than seen previously.2. Cardiomegaly.3. Sternal wires. 4. No other change from the 08/08/2017 chest radiograph. * DIAGNOSTICS: CT of the chest revealed increased soft tissue within the right perihilar region with narrowing of right upper lobe bronchus suspicious of neoplasm. There is a postop obstructive consolidation within the right upper lobe which has increased compared to 05/30/2017. Multiple metastatic pulmonary nodules bilaterally, unchanged. Increased moderate pleural effusions with underlying atelectasis. Mild mediastinal and right hilar adenopathy, unchanged. Multiple osseous metastasis increased, mild pathologic compression fracture of L4, unchanged. Sigmoid diverticulosis without evidence of diverticulitis. PHYSICAL EXAMINATION: GENERAL: A/A/O-> responsive with hypoxic respiratory distress, now stable on BIPAP HEENT: AT, NC, anicteric, moist oral membranes == FULL FACE BIPAP NECK: Trach midline, supple CHEST: Equal chest rise bilaterally,course HEART: RRR ABDOMEN: Soft, NT, ND EXT: Warm, moves all ext SKIN: No rash, no diaphoresis ID ASSESSMENT: 66 yo M admit with: 1. SIRS, s/p sepsis-> afebrile, WBC elevated = partial IV steroids demargination 2. Acute hypoxemic/hypercapnic respiratory failure secondary to postobstructive pneumonia * 08/13/17 CXR IMPRESSION:1. Bilateral pulmonary nodules not well seen due to underline pulmonary disease, worse than seen previously. 3. Metastatic renal carcinoma possible cervical spine metastasis. 4. Acute congestive heart failure exacerbation. 5. Anemia. 6. History of coronary artery bypass graft. 7. Diabetes. (-)Influenza A/B Screen ABX ALLERGY: NKDA INVASIVES: PIV CURRENT ABX:DAY # 6 => Cefepime + IV steroids ID RECOMMENDATIONS/PLAN: 1. Continue current ABX over the weekend -> ID team colleague f/u next week . Problems: Consultation Date/Type/Reason Admit Date/Time Aug 08, 2017 at 17:31 Initial Consult Date 08/09/17 Type of Consultation: ID Referring Provider: GIOVANNI KRUGER DO Exam/Review of Systems Vital Signs Vitals Vital Signs Date Time Temp Pulse Resp B/P Pulse Ox O2 Delivery O2 Flow Rate FiO2 08/14/17 12:19 112 08/14/17 12:08 97.4 30 107/73 100 08/14/17 10:50 40 08/12/17 20:00 Nasal Cannula 08/11/17 09:10 3.0 Intake and Output 08/13/17 08/13/17 08/14/17 15:00 23:00 07:00 Intake Total 240 ml Output Total 700 ml Balance -460 ml Results Result Diagram: 08/14/17 0613 08/14/17 0613 Results 24 hrs Laboratory Tests Test 08/13/17 17:27 08/13/17 20:30 08/14/17 01:04 08/14/17 06:13 Bedside Glucose 148 163 172 185 White Blood Count 12.0 H Red Blood Count 4.49 L Hemoglobin 10.6 L Hematocrit 38.6 L Mean Corpuscular Volume 86.0 Mean Corpuscular Hemoglobin 23.6 L Mean Corpuscular Hemoglobin Concent 27.5 L Red Cell Distribution Width 17.2 H Platelet Count 164 Mean Platelet Volume 10.0 Neutrophils % 83.3 H Lymphocytes % 6.2 L Monocytes % 7.9 Eosinophils % 0.0 Basophils % 0.3 Nucleated Red Blood Cells % 0.0 Neutrophils # 10.0 H Lymphocytes # 0.7 L Monocytes # 1.0 H Eosinophils # 0.0 Basophils # 0.0 Nucleated Red Blood Cells # 0.0 Sodium Level 140 Potassium Level 4.4 Chloride Level 94 L Carbon Dioxide Level 41 *H Anion Gap 9 Blood Urea Nitrogen 20 Creatinine 0.62 Glucose Level 167 Calcium Level 8.3 L Phosphorus Level 2.8 Magnesium Level 2.3 Test 08/14/17 12:58 Bedside Glucose 132 Medications Medications Current Medications Aspirin (Ecotrin) 325 mg DAILY PO Last administered on 08/14/17t 10:04; Admin Dose 325 MG; Start 08/09/17 at 09:00 Atorvastatin Calcium (Lipitor) 40 mg QHS PO Last administered on 08/13/17 20: 50; Admin Dose 40 MG; Start 08/08/17 at 21:00 Carvedilol (Coreg) 3.125 mg BID PO ; Start 08/08/17 at 21:00 Albuterol/ Ipratropium (Duoneb) 3 ml Q6 PRN NEB SHORTNESS OF BREATH Last administered on 08/14/17 11:32; Admin Dose 3 ML; Start 08/08/17 at 17:00 Lisinopril (Zestril) 2.5 mg DAILY PO ; Start 08/09/17 at 09:00 Pantoprazole (Protonix Tab) 40 mg DAILY@06 PO Last administered on 08/13/17 05:35; Admin Dose 40 MG; Start 08/09/17 at 06:00 Potassium Chloride (Klor-Con 10) 10 meq DAILY PO Last administered on 10:04; Admin Dose 10 MEQ; Start 08/09/17 at 09:00 Albuterol (Ventolin Hfa) 2 puff QID INH Last administered on 08/14/17 12:59; Admin Dose 2 PUFF; Start 08/08/17 at 17:00 Diagnostic Test (Pha) 1 ea 1 ea 02 XX ; Start 08/09/17 at 02:00 Cefepime HCl (Maxipime 1gm/50 ml (Pmx)) 50 ml @ 100 mls/hr Q12 IVPB Last administered on 08/14/17 10:02; Admin Dose 100 MLS/HR; Start 08/08/17 at 21: 00 Miscellaneous Information 1 ea NOTE XX ; Start 08/08/17 at 20:30 Glucose (Glutose) 15 gm Q15M PRN PO DECREASED GLUCOSE; Start 08/08/17 at 20:30 Glucose (Glutose) 22.5 gm Q15M PRN PO DECREASED GLUCOSE; Start 08/08/17 at 20: 30 Dextrose (D50w Syringe) 25 ml Q15M PRN IV DECREASED GLUCOSE; Start 08/08/17 at 20:30 Dextrose (D50w Syringe) 50 ml Q15M PRN IV DECREASED GLUCOSE; Start 08/08/17 at 20:30 Glucagon (Glucagen) 1 mg Q15M PRN IM DECREASED GLUCOSE; Start 08/08/17 at 20: 30 Glucose (Glutose) 15 gm Q15M PRN BUCCAL DECREASED GLUCOSE; Start 08/08/17 at 20:30 [facility]iscellaneous [facility] This patient hoffmann... PRN PRN XX WOUND CARE; Start 08/09/17 at 07:30 Insulin Aspart (Novolog Insulin Pen) NOVOLOG *MILD* ALGORITHM Q4 SC Last administered on 08/14/17 10:10; Admin Dose 1 UNIT; Start 08/09/17 at 09:00 Methylprednisolone Sodium Succinate (Solu-Medrol) 40 mg Q12 IV Last administered on 08/14/17 10:03; Admin Dose 40 MG; Start 08/09/17 at 21:00 Neomycin/ Polymyxin/ Bacitracin (Neosporin Topical Oint) 1 applic BID TOP Last administered on 08/14/17 10:11; Admin Dose 1 APPLIC; Start 08/10/17 at 21:00 Hydromorphone HCl (Dilaudid) 1 mg Q3H PRN IV PAIN LEVEL 8-10 Last administered on 08/10/17 22:17; Admin Dose 1 MG; Start 08/10/17 at 22:00 Hydromorphone HCl (Dilaudid) 0.5 mg Q4H PRN IV PAIN Last administered on 09:52; Admin Dose 0.5 MG; Start 08/11/17 at 10:30 Ondansetron HCl (Zofran Inj) 4 mg Q6H PRN IV NAUSEA AND/OR VOMITING; Start at 23:00 Insulin Glargine (Lantus) 18 unit DAILY@20 SC Last administered on 08/13/17 21:04; Admin Dose 18 UNIT; Start 08/12/17 at 20:00 Oxycodone/ Acetaminophen (Endocet (10/ 325)) 1 tab Q6H PRN PO PAIN Last administered on 08/14/17 11:22; Admin Dose 1 TAB; Start 08/12/17 at 22:00 Enoxaparin Sodium 40 mg 40 mg DAILY SC Last administered on 08/14/17 10:10; Admin Dose 40 MG; Start 08/13/17 at 09:00 Sodium Chloride (NS) 1,000 ml @ 75 mls/hr [id number] IV Last administered on 02:22; Admin Dose 75 MLS/HR; Start 08/13/17 at 13:00 Escitalopram Oxalate (Lexapro) 10 mg DAILY PO Last administered on 08/14/17 10:04; Admin Dose 10 MG; Start 08/14/17 at 09:00 Alprazolam (Xanax) 0.5 mg Q8 PO Last administered on 08/14/17 14:35; Admin Dose 0.5 MG; Start 08/14/17 at 14:00 Lorazepam (Ativan) 0.5 mg Q6H PRN PO ANXIETY; Start 08/14/17 at 12:07 ANTHONY CROWELL NP Aug 14, 2017 15:14
[2017-08-14] MEDS: ATORVASTATIN 40 MG TAB PO SCH (20:50)
[2017-08-14] MEDS: INSULIN GLARGINE [LANtus] 3 ML PEN SC SCH (20:53)
[2017-08-15] VITALS (26 sets, daily range): BP systolic 91–126; BP diastolic 56–80; PULSE 89–108; RESP 19–26
[2017-08-15] MEDS: INSULIN ASPART [NOVOLOG] 3 ML PEN SC SCH ×6 (01:00→21:00)
[2017-08-15] MEDS: ACCU-CHEK XX SCH (02:00)
[2017-08-15] MEDS: SOD CHLORIDE 0.9% 1,000 ML IV SCH ×3 (03:45→23:46)
[2017-08-15] MEDS: OXYCODONE/ACETAMINOPHEN (10/325) TAB PO PRN ×2 (04:13→08:08)
[2017-08-15] MEDS: PANTOPRAZOLE (EC) 40 MG TAB PO SCH (05:39)
[2017-08-15] MEDS: ALPRAZOLAM 0.5 MG TAB PO SCH ×3 (05:39→20:41)
[2017-08-15 07:26] LABS: ABNORMAL IP MESSAGE 1; BASOPHILS % 0.2 % (0.0-2.0); HEMATOCRIT 35.6 % (42.0-52.0); HEMOGLOBIN 9.7 g/dl (14.0-18.0); LYMPHOCYTES # 0.7 10^3/ul (0.8-2.9); LYMPHOCYTES % 6.2 % (15.0-51.0); MEAN CORPUSCULAR HEMOGLOBIN 23.9 pg (29.0-33.0); MEAN CORPUSCULAR HGB CONC 27.2 g/dl (32.0-37.0); MEAN CORPUSCULAR VOLUME 87.7 fl (82.0-101.0); MEAN PLATELET VOLUME 10.3 fl (7.4-10.4); MONOCYTE # 1.1 10^3/ul (0.3-0.9); MONOCYTES % 9.4 % (0.0-11.0); NEUTROPHIL # 9.3 10^3/ul (1.6-7.5); NEUTROPHILS % 81.9 % (39.0-77.0); PLATELET COUNT 170 10^3/UL (140-415); POSITIVE DIFF @See below; RED BLOOD COUNT 4.06 10^6/ul (4.70-6.10); RED CELL DISTRIBUTION WIDTH 17.2 % (11.5-14.5); WHITE BLOOD COUNT 11.3 10^3/ul (4.8-10.8)
[2017-08-15 07:55] LABS: CALCIUM 8.2 mg/dl (8.4-10.2); CREATININE 0.61 mg/dl (0.61-1.24); MAGNESIUM 2.5 mg/dl (1.7-2.5); PHOSPHORUS 2.5 mg/dl (2.5-4.9); POTASSIUM 5.2 mmol/L (3.5-5.1)
[2017-08-15] MEDS ORDERED: SOD CHLORIDE 0.9% 1,000 ML IV ONE (08:30)
[2017-08-15] MEDS ORDERED: SOD CHLORIDE 0.9% 500 ML IV ONE (08:30)
[2017-08-15] MEDS: POTASSIUM CHLORIDE (SR) 10 MEQ TAB PO SCH (09:00)
[2017-08-15] MEDS: ALBUTEROL HFA 8 GM INHALER INH SCH ×4 (09:00→20:42)
[2017-08-15] MEDS: NEOMYC/POLYMYX/BACIT 30 GM OINT TOP SCH ×2 (09:00→20:24)
[2017-08-15] MEDS: CEFEPIME 1GM/50 ML (PMX) 50 ML IVPB SCH ×2 (09:59→20:24)
[2017-08-15] MEDS: METHYLPREDNISOLONE 40 MG INJ IV SCH ×2 (09:59→20:23)
[2017-08-15] MEDS: ASPIRIN (EC) 325 MG TAB PO SCH (09:59)
[2017-08-15] MEDS: ESCITALOPRAM 10 MG TAB PO SCH (09:59)
[2017-08-15] MEDS: ENOXAPARIN 40 MG/0.4 ML SYG SC SCH (10:15)
--- NOTE | 2017-08-15 10:17 | PN ---
DATE: 08/15/2017 SUBJECTIVE: The patient remains on BiPAP, unable to be weaned off. The patient also noted to be hy pertensive with systolic pressures in the 90s. The patient is alert and oriented, although confused at times. The patient's and children are at bedside. At this point, patient will remain DNI. OBJECTIVE: VITAL SIGNS: Blood pressure is 94/62, respirations 24, pulse 91. I's AND O'S: The patient had 1100 in, 1300 out. HEENT: Head is normocephalic. NECK: Supple. HEART: Regular rate. LUNGS: Show diminished breath sounds at the base. ABDOMEN: Soft, nontender to palpation. No rebound or guarding. EXTREMITIES: Negative for clubbing, cyanosis, no edema. DERMATOLOGIC: No rashes. MUSCULOSKELETAL: No joint effusions. NEUROLOGIC: No change in exam. MEDICATIONS: The patient's medications are reviewed. LABORATORY DATA: Shows white count 11.3, hemoglobin 9.7, platelet count is 170. Sodium 141, potass ium 5.2, bicarbonate 43, BUN 25, creatinine 0.61. ASSESSMENT AND PLAN: 1. Acute hypoxemic respiratory failure secondary to pneumonia, metastatic disease. The patient rem ains on BiPAP, unable to tolerate high flow oxygen. We will continue current treatment plan. Kyle nue BiPAP, steroids, antibiotics. Follow up with pulmonary for further recommendations. 2. Acute encephalopathy. Etiology is likely secondary to opiate steroid sepsis. Continue to monit or. 3. C6 compression fracture. The patient was seen by neurosurgery planning for MRI of the neck and thoracic spine once clinically stable. 4. Acute diastolic heart failure. The patient currently is hypovolemic. We will continue to monit or closely. 5. Hypertension, likely secondary to volume depletion. The patient will be given a fluid challenge . We will increase IV fluids to 75 mL an hour. 6. Alkalosis, likely compensatory. We will follow up an ABG. 7. Hyperkalemia. Etiology is likely due to hypovolemia causing decreased delivery to distal nephrons. We will increase IV fluid, give a fluid challenge and monitor. 8. Anemia. Monitor hemoglobin and hematocrit levels. 9. Coronary artery disease, status post coronary artery bypass graft. Continue medical management. 10. Diabetes. Continue current insulin regimen. 11. 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 The patient is status post immunoth erapy, continue to monitor. 12. Chronic pain syndrome. Continue current pain regimen. 13. Gastrointestinal and deep venous thrombosis prophylaxis. Continue proton pump inhibitor and Lo venox. Dictated By: GIOVANNI WINTER/GUERO Conf#: [id number] DID#: [id number]
--- NOTE | 2017-08-15 11:02 | CONS ---
Date/Time of Note Date/Time of Note DATE: 08/15/17 TIME: 11:01 Consult Date/Type/Reason Admit Date/Time Aug 08, 2017 at 17:31 Initial Consult Date 08/09/17 Type of Consultation: Pulmonary Ordering Provider: GIOVANNI KRUGER DO Subjective Appears agitated on BiPAP. Awake alert. Objective Vital Signs Date Time Temp Pulse Resp B/P Pulse Ox O2 Delivery O2 Flow Rate FiO2 08/15/17 10:05 92 98 40 08/15/17 08:12 24 94/62 08/15/17 05:45 BIPAP 08/15/17 04:05 97.4 08/11/17 09:10 3.0 Intake and Output 08/14/17 08/14/17 08/15/17 15:00 23:00 07:00 Intake Total 120 ml 820 ml 230 ml Output Total 550 ml 800 ml Balance -430 ml 20 ml 230 ml Exam GENERAL: Well-nourished well-developed gentleman mild agitation on BiPAP. FiO2 40% VITAL SIGNS: per chart NECK: Supple. No JVD or lymphadenopathy. CARDIAC EXAM: S1, S2. No added sounds or murmurs. CHEST: Diminished air entry bilaterally with rales right base. ABDOMEN: Soft, nontender. No guarding or rebound. EXTREMITIES: No cyanosis, clubbing or edema. NEUROLOGIC: Generalized weakness. No focal deficits. Results/Medications Result Diagram: 08/15/17 0657 08/15/17 0657 Results 24 hrs Laboratory Tests Test 08/14/17 12:58 08/14/17 17:52 08/14/17 20:47 08/15/17 01:06 Bedside Glucose 132 160 153 143 Test 08/15/17 05:33 08/15/17 06:57 08/15/17 10:02 Bedside Glucose 135 105 White Blood Count 11.3 H Red Blood Count 4.06 L Hemoglobin 9.7 L Hematocrit 35.6 L Mean Corpuscular Volume 87.7 Mean Corpuscular Hemoglobin 23.9 L Mean Corpuscular Hemoglobin Concent 27.2 L Red Cell Distribution Width 17.2 H Platelet Count 170 Mean Platelet Volume 10.3 Neutrophils % 81.9 H Lymphocytes % 6.2 L Monocytes % 9.4 Eosinophils % 0.0 Basophils % 0.2 Nucleated Red Blood Cells % 0.0 Neutrophils # 9.3 H Lymphocytes # 0.7 L Monocytes # 1.1 H Eosinophils # 0.0 Basophils # 0.0 Nucleated Red Blood Cells # 0.0 Sodium Level 141 Potassium Level 5.2 H Chloride Level 97 Carbon Dioxide Level 43 *H Anion Gap 6 L Blood Urea Nitrogen 25 H Creatinine 0.61 Glucose Level 140 Calcium Level 8.2 L Phosphorus Level 2.5 Magnesium Level 2.5 Medications Current Medications Aspirin (Ecotrin) 325 mg DAILY PO Last administered on 08/15/17 09:59; Admin Dose 325 MG; Start 08/09/17 at 09:00 Atorvastatin Calcium (Lipitor) 40 mg QHS PO Last administered on 08/14/17 20: 50; Admin Dose 40 MG; Start 08/08/17 at 21:00 Carvedilol (Coreg) 3.125 mg BID PO ; Start 08/08/17 at 21:00 Albuterol/ Ipratropium (Duoneb) 3 ml Q6 PRN NEB SHORTNESS OF BREATH Last administered on 08/14/17 11:32; Admin Dose 3 ML; Start 08/08/17 at 17:00 Lisinopril (Zestril) 2.5 mg DAILY PO ; Start 08/09/17 at 09:00; Status Future Hold Pantoprazole (Protonix Tab) 40 mg DAILY@06 PO Last administered on 08/15/17 05:39; Admin Dose 40 MG; Start 08/09/17 at 06:00 Potassium Chloride (Klor-Con 10) 10 meq DAILY PO Last administered on 10:04; Admin Dose 10 MEQ; Start 08/09/17 at 09:00 Albuterol (Ventolin Hfa) 2 puff QID INH Last administered on 08/14/17 20:50; Admin Dose 2 PUFF; Start 08/08/17 at 17:00 Diagnostic Test (Pha) 1 ea 1 ea 02 XX ; Start 08/09/17 at 02:00 Cefepime HCl (Maxipime 1gm/50 ml (Pmx)) 50 ml @ 100 mls/hr Q12 IVPB Last administered on 08/15/17 09:59; Admin Dose 100 MLS/HR; Start 08/08/17 at 21: 00 Miscellaneous Information 1 ea NOTE XX ; Start 08/08/17 at 20:30 Glucose (Glutose) 15 gm Q15M PRN PO DECREASED GLUCOSE; Start 08/08/17 at 20:30 Glucose (Glutose) 22.5 gm Q15M PRN PO DECREASED GLUCOSE; Start 08/08/17 at 20: 30 Dextrose (D50w Syringe) 25 ml Q15M PRN IV DECREASED GLUCOSE; Start 08/08/17 at 20:30 Dextrose (D50w Syringe) 50 ml Q15M PRN IV DECREASED GLUCOSE; Start 08/08/17 at 20:30 Glucagon (Glucagen) 1 mg Q15M PRN IM DECREASED GLUCOSE; Start 08/08/17 at 20: 30 Glucose (Glutose) 15 gm Q15M PRN BUCCAL DECREASED GLUCOSE; Start 08/08/17 at 20:30 Miscellaneous Information (Pending [facility] Order For Wound Care) This patient hoffmann... PRN PRN XX WOUND CARE; Start 08/09/17 at 07:30 Insulin Aspart (Novolog Insulin Pen) NOVOLOG *MILD* ALGORITHM Q4 SC Last administered on 08/14/17 18:09; Admin Dose 1 UNIT; Start 08/09/17 at 09:00 Methylprednisolone Sodium Succinate (Solu-Medrol) 40 mg Q12 IV Last administered on 08/15/17 09:59; Admin Dose 40 MG; Start 08/09/17 at 21:00 Neomycin/ Polymyxin/ Bacitracin (Neosporin Topical Oint) 1 applic BID TOP Last administered on 08/15/17 09:00; Admin Dose 1 APPLIC; Start 08/10/17 at 21:00 Hydromorphone HCl (Dilaudid) 1 mg Q3H PRN IV PAIN LEVEL 8-10 Last administered on 08/10/17 22:17; Admin Dose 1 MG; Start 08/10/17 at 22:00 Hydromorphone HCl (Dilaudid) 0.5 mg Q4H PRN IV PAIN Last administered on 09:52; Admin Dose 0.5 MG; Start 08/11/17 at 10:30 Ondansetron HCl (Zofran Inj) 4 mg Q6H PRN IV NAUSEA AND/OR VOMITING; Start at 23:00 Insulin Glargine (Lantus) 18 unit DAILY@20 SC Last administered on 08/14/17 20:53; Admin Dose 18 UNIT; Start 08/12/17 at 20:00 Enoxaparin Sodium 40 mg 40 mg DAILY SC Last administered on 08/15/17 10:15; Admin Dose 40 MG; Start 08/13/17 at 09:00 Sodium Chloride (NS) 1,000 ml @ 75 mls/hr [id number] IV Last administered on 03:45; Admin Dose 75 MLS/HR; Start 08/13/17 at 13:00 Escitalopram Oxalate (Lexapro) 10 mg DAILY PO Last administered on 08/15/17 09:59; Admin Dose 10 MG; Start 08/14/17 at 09:00 Alprazolam (Xanax) 0.5 mg Q8 PO Last administered on 08/15/17 05:39; Admin Dose 0.5 MG; Start 08/14/17 at 14:00 Lorazepam (Ativan) 0.5 mg Q6H PRN PO ANXIETY; Start 08/14/17 at 12:07 Oxycodone/ Acetaminophen (Endocet (10/ 325)) 1 tab Q4 PRN PO PAIN Last administered on 08/15/17 08:08; Admin Dose 1 TAB; Start 08/15/17 at 09:00 Assessment/Plan Chief Complaint/Hosp Course Assessment 1. Hypoxemic respiratory failure likely secondary to pneumonia and tumor burden from metastatic renal cell CA, possible component of lymphangitic spread. Only on 40% FiO2. 2. Obstructive etiology right upper lobe. Right lower lobe atelectasis. Pulmonary metastasis noted. 3. Metastatic renal cell carcinoma concern for possible C-spine metastasis. C- spine fracture noted 4. History of diabetes mellitus Plan 1. Continue supplemental O2 and BiPAP, trial of high flow O2 if tolerated 2. Continue bronchodilators and steroids, continue steroids 3. Encourage out of bed 4. ID recommendations 5. Neurosurgical recommendations regarding C-spine fracture 6. Agree with Lexapro, trial of Xanax. Discussed with family. Patient's CODE STATUS to be changed to DNI to be consistent with his advanced directive. Extremely poor prognosis.Consider palliative care. Problems: SONJA GIRALDO MD, [facility] Aug 15, 2017 11:02
[2017-08-15] MEDS: HYDROmorphONE 0.5 MG/0.5 ML SYG IV PRN ×3 (11:54→22:19)
--- NOTE | 2017-08-15 14:10 | CONS ---
Date/Time of Note Date/Time of Note DATE: 08/15/17 TIME: 14:09 Assessment/Plan Assessment/Plan Chief Complaint/Hosp Course SUBJECTIVE: No acute events. Patient is comfortable on BiPAP. No fevers overnight MICROBIOLOGY: Influenza swab was negative. DIAGNOSTICS: CT of the chest revealed increased soft tissue within the right perihilar region with narrowing of right upper lobe bronchus suspicious of neoplasm. There is a postop obstructive consolidation within the right upper lobe which has increased compared to 05/30/2017. Multiple metastatic pulmonary nodules bilaterally, unchanged. Increased moderate pleural effusions with underlying atelectasis. Mild mediastinal and right hilar adenopathy, unchanged. Multiple osseous metastasis increased, mild pathologic compression fracture of L4, unchanged. Sigmoid diverticulosis without evidence of diverticulitis. ANTIMICROBIALS: The patient is on cefepime. He is also on IV steroids. PHYSICAL EXAMINATION: GENERAL: This is a fragile elderly man who is in no distress. HEENT: Head atraumatic, normocephalic. NECK: Supple. CHEST: Rise symmetrical. Breath sounds diminished to bases. HEART: S1, S2. ABDOMEN: Soft, bowel tones present. EXTREMITIES: Without cyanosis. ASSESSMENT: 1. Sepsis. 2. Acute hypoxemic respiratory failure secondary to postobstructive pneumonia. 3. Metastatic renal carcinoma possible cervical spine metastasis. 4. Acute congestive heart failure exacerbation. 5. Anemia. 6. History of coronary artery bypass graft. 7. Diabetes. PLAN: The patient remains unchanged. Continue present care. Continue on current antibiotics. Follow recommendations of consultants. Prognosis poor DW staff Problems: Consultation Date/Type/Reason Admit Date/Time Aug 08, 2017 at 17:31 Initial Consult Date 08/09/17 Type of Consultation: id Referring Provider: GIOVANNI KRUGER DO Exam/Review of Systems Vital Signs Vitals Vital Signs Date Time Temp Pulse Resp B/P Pulse Ox O2 Delivery O2 Flow Rate FiO2 08/15/17 12:22 98 92 40 08/15/17 12:00 115/80 BIPAP 08/15/17 08:12 24 08/15/17 04:05 97.4 08/11/17 09:10 3.0 Intake and Output 08/14/17 08/14/17 08/15/17 14:59 22:59 06:59 Intake Total 120 ml 820 ml 230 ml Output Total 550 ml 800 ml Balance -430 ml 20 ml 230 ml Results Result Diagram: 08/15/17 0657 08/15/17 0657 Results 24 hrs Laboratory Tests Test 08/14/17 17:52 08/14/17 20:47 08/15/17 01:06 08/15/17 05:33 Bedside Glucose 160 153 143 135 Test 08/15/17 06:57 08/15/17 10:02 08/15/17 14:06 White Blood Count 11.3 H Red Blood Count 4.06 L Hemoglobin 9.7 L Hematocrit 35.6 L Mean Corpuscular Volume 87.7 Mean Corpuscular Hemoglobin 23.9 L Mean Corpuscular Hemoglobin Concent 27.2 L Red Cell Distribution Width 17.2 H Platelet Count 170 Mean Platelet Volume 10.3 Neutrophils % 81.9 H Lymphocytes % 6.2 L Monocytes % 9.4 Eosinophils % 0.0 Basophils % 0.2 Nucleated Red Blood Cells % 0.0 Neutrophils # 9.3 H Lymphocytes # 0.7 L Monocytes # 1.1 H Eosinophils # 0.0 Basophils # 0.0 Nucleated Red Blood Cells # 0.0 Sodium Level 141 Potassium Level 5.2 H Chloride Level 97 Carbon Dioxide Level 43 *H Anion Gap 6 L Blood Urea Nitrogen 25 H Creatinine 0.61 Glucose Level 140 Calcium Level 8.2 L Phosphorus Level 2.5 Magnesium Level 2.5 Bedside Glucose 105 118 Medications Medications Current Medications Aspirin (Ecotrin) 325 mg DAILY PO Last administered on 08/15/17 09:59; Admin Dose 325 MG; Start 08/09/17 at 09:00 Atorvastatin Calcium (Lipitor) 40 mg QHS PO Last administered on 08/14/17 20: 50; Admin Dose 40 MG; Start 08/08/17 at 21:00 Carvedilol (Coreg) 3.125 mg BID PO ; Start 08/08/17 at 21:00 Albuterol/ Ipratropium (Duoneb) 3 ml Q6 PRN NEB SHORTNESS OF BREATH Last administered on 08/14/17 11:32; Admin Dose 3 ML; Start 08/08/17 at 17:00 Lisinopril (Zestril) 2.5 mg DAILY PO ; Start 08/09/17 at 09:00; Status Future Hold Pantoprazole (Protonix Tab) 40 mg DAILY@06 PO Last administered on 08/15/17 05:39; Admin Dose 40 MG; Start 08/09/17 at 06:00 Potassium Chloride (Klor-Con 10) 10 meq DAILY PO Last administered on 10:04; Admin Dose 10 MEQ; Start 08/09/17 at 09:00 Albuterol (Ventolin Hfa) 2 puff QID INH Last administered on 08/14/17 20:50; Admin Dose 2 PUFF; Start 08/08/17 at 17:00 Diagnostic Test (Pha) 1 ea 1 ea 02 XX ; Start 08/09/17 at 02:00 Cefepime HCl (Maxipime 1gm/50 ml (Pmx)) 50 ml @ 100 mls/hr Q12 IVPB Last administered on 08/15/17 09:59; Admin Dose 100 MLS/HR; Start 08/08/17 at 21: 00 Miscellaneous Information 1 ea NOTE XX ; Start 08/08/17 at 20:30 Glucose (Glutose) 15 gm Q15M PRN PO DECREASED GLUCOSE; Start 08/08/17 at 20:30 Glucose (Glutose) 22.5 gm Q15M PRN PO DECREASED GLUCOSE; Start 08/08/17 at 20: 30 Dextrose (D50w Syringe) 25 ml Q15M PRN IV DECREASED GLUCOSE; Start 08/08/17 at 20:30 Dextrose (D50w Syringe) 50 ml Q15M PRN IV DECREASED GLUCOSE; Start 08/08/17 at 20:30 Glucagon (Glucagen) 1 mg Q15M PRN IM DECREASED GLUCOSE; Start 08/08/17 at 20: 30 Glucose (Glutose) 15 gm Q15M PRN BUCCAL DECREASED GLUCOSE; Start 08/08/17 at 20:30 Miscellaneous Information (Pending [facility] Order For Wound Care) This patient hoffmann... PRN PRN XX WOUND CARE; Start 08/09/17 at 07:30 Insulin Aspart (Novolog Insulin Pen) NOVOLOG *MILD* ALGORITHM Q4 SC Last administered on 08/14/17 18:09; Admin Dose 1 UNIT; Start 08/09/17 at 09:00 Methylprednisolone Sodium Succinate (Solu-Medrol) 40 mg Q12 IV Last administered on 08/15/17 09:59; Admin Dose 40 MG; Start 08/09/17 at 21:00 Neomycin/ Polymyxin/ Bacitracin (Neosporin Topical Oint) 1 applic BID TOP Last administered on 08/15/17 09:00; Admin Dose 1 APPLIC; Start 08/10/17 at 21:00 Hydromorphone HCl (Dilaudid) 1 mg Q3H PRN IV PAIN LEVEL 8-10 Last administered on 08/10/17 22:17; Admin Dose 1 MG; Start 08/10/17 at 22:00 Hydromorphone HCl (Dilaudid) 0.5 mg Q4H PRN IV PAIN Last administered on 11:54; Admin Dose 0.5 MG; Start 08/11/17 at 10:30 Ondansetron HCl (Zofran Inj) 4 mg Q6H PRN IV NAUSEA AND/OR VOMITING; Start at 23:00 Insulin Glargine (Lantus) 18 unit DAILY@20 SC Last administered on 08/14/17 20:53; Admin Dose 18 UNIT; Start 08/12/17 at 20:00 Enoxaparin Sodium 40 mg 40 mg DAILY SC Last administered on 08/15/17 10:15; Admin Dose 40 MG; Start 08/13/17 at 09:00 Sodium Chloride (NS) 1,000 ml @ 75 mls/hr [id number] IV Last administered on 03:45; Admin Dose 75 MLS/HR; Start 08/13/17 at 13:00 Escitalopram Oxalate (Lexapro) 10 mg DAILY PO Last administered on 08/15/17 09:59; Admin Dose 10 MG; Start 08/14/17 at 09:00 Alprazolam (Xanax) 0.5 mg Q8 PO Last administered on 08/15/17 05:39; Admin Dose 0.5 MG; Start 08/14/17 at 14:00 Lorazepam (Ativan) 0.5 mg Q6H PRN PO ANXIETY; Start 08/14/17 at 12:07 Oxycodone/ Acetaminophen (Endocet (10/ 325)) 1 tab Q4 PRN PO PAIN Last administered on 08/15/17 08:08; Admin Dose 1 TAB; Start 08/15/17 at 09:00 MK LIMA NP Aug 15, 2017 14:10
--- NOTE | 2017-08-15 15:16 | RADRPT ---
PROCEDURE: Ultrasound of the soft tissues of the anterior abdominal wall.. CLINICAL INDICATION: Palpable lesion in the soft tissues of the anterior abdominal wall to the rig ht of the umbilicus. TECHNIQUE: High-resolution sonography of the soft tissues of the anterior abdominal wall to the ri ght of the umbilicus at the site of the palpable lesion was performed in the axial and sagittal plan es. COMPARISON: None FINDINGS: There is no fluid collection or mass in the soft tissues of the anterior abdominal wall to the right of the umbilicus. There is no evidence of abdominal wall hernia. IMPRESSION: 1. No abnormality at the site of the palpable lesion in the soft tissues of the anterior abdominal wall to the right of the umbilicus. 2. Any further management regarding the palpable lesion should be based on clinical grounds. RPTAT: QQ .Russell Guzman MD, MD Date Time Electronically viewed and signed by .Russell Guzman MD, on 08/15/2017 15:16 .R/
[2017-08-15] MEDS: ALBUTEROL/IPRATROPIUM (NEB) 3 ML AMP NEB PRN (15:52)
--- NOTE | 2017-08-15 16:47 | CONS ---
Date/Time of Note Date/Time of Note DATE: 08/15/17 TIME: 16:40 Assessment/Plan Assessment/Plan Chief Complaint/Hosp Course Delirium: multifactorial but mostly metaboloc. Acute on chronic respiratory failure: Multifactorial including CHF, postobstructive PNA, lung mets.On and off BiPAP but now dependent Acute on chronic systolic heart failure: EF 45% most recently. 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 DM HTN Overall poor prognosis unfortunately -ASA, lipitor -coreg 3.125mg BID -will discuss with Dr. Thibodeaux regarding ?palliative options for bronchial obstruction Problems: Consultation Date/Type/Reason Admit Date/Time Aug 08, 2017 at 17:31 Initial Consult Date 08/09/17 Type of Consultation: Cardiology Referring Provider: GIOVANNI KRUGER DO 24 HR Interval Summary Free Text/Dictation Worse over the weekend. Now more confused. Remains on BiPAP Exam/Review of Systems Vital Signs Vitals Vital Signs Date Time Temp Pulse Resp B/P Pulse Ox O2 Delivery O2 Flow Rate FiO2 08/15/17 16:38 98.0 103 23 126/73 97 08/15/17 15:52 40 08/15/17 12:00 BIPAP 08/11/17 09:10 3.0 Intake and Output 08/14/17 08/14/17 08/15/17 15:00 23:00 07:00 Intake Total 120 ml 820 ml 230 ml Output Total 550 ml 800 ml Balance -430 ml 20 ml 230 ml Exam Constitutional: No alert (somnolent, confused ) Head: atraumatic, normocephalic ENMT: other (on BiPAP) Neck: No jvd Respiratory: No clear to auscultation (RUL ronchi ) Cardiovascular: regular rate and rhythm, No edema, No systolic murmur Gastrointestinal: non-tender, soft, No distended Neurological: No nl mental status, No nl speech Results Result Diagram: 08/15/17 0657 08/15/17 0657 Results 24 hrs Laboratory Tests Test 08/14/17:52 08/14/17 20:47 08/15/17 01:06 08/15/17 05:33 Bedside Glucose 160 153 143 135 Test 08/15/17 06:57 08/15/17 10:02 08/15/17 14:06 White Blood Count 11.3 H Red Blood Count 4.06 L Hemoglobin 9.7 L Hematocrit 35.6 L Mean Corpuscular Volume 87.7 Mean Corpuscular Hemoglobin 23.9 L Mean Corpuscular Hemoglobin Concent 27.2 L Red Cell Distribution Width 17.2 H Platelet Count 170 Mean Platelet Volume 10.3 Neutrophils % 81.9 H Lymphocytes % 6.2 L Monocytes % 9.4 Eosinophils % 0.0 Basophils % 0.2 Nucleated Red Blood Cells % 0.0 Neutrophils # 9.3 H Lymphocytes # 0.7 L Monocytes # 1.1 H Eosinophils # 0.0 Basophils # 0.0 Nucleated Red Blood Cells # 0.0 Sodium Level 141 Potassium Level 5.2 H Chloride Level 97 Carbon Dioxide Level 43 *H Anion Gap 6 L Blood Urea Nitrogen 25 H Creatinine 0.61 Glucose Level 140 Calcium Level 8.2 L Phosphorus Level 2.5 Magnesium Level 2.5 Bedside Glucose 105 118 Medications Medications Current Medications Aspirin (Ecotrin) 325 mg DAILY PO Last administered on 08/15/17 09:59; Admin Dose 325 MG; Start 08/09/17 at 09:00 Atorvastatin Calcium (Lipitor) 40 mg QHS PO Last administered on 08/14/17 20: 50; Admin Dose 40 MG; Start 08/08/17 at 21:00 Carvedilol (Coreg) 3.125 mg BID PO ; Start 08/08/17 at 21:00 Albuterol/ Ipratropium (Duoneb) 3 ml Q6 PRN NEB SHORTNESS OF BREATH Last administered on 08/15/17 15:52; Admin Dose 3 ML; Start 08/08/17 at 17:00 Lisinopril (Zestril) 2.5 mg DAILY PO ; Start 08/09/17 at 09:00; Status Future Hold Pantoprazole (Protonix Tab) 40 mg DAILY@06 PO Last administered on 08/15/17 05:39; Admin Dose 40 MG; Start 08/09/17 at 06:00 Potassium Chloride (Klor-Con 10) 10 meq DAILY PO Last administered on 10:04; Admin Dose 10 MEQ; Start 08/09/17 at 09:00 Albuterol (Ventolin Hfa) 2 puff QID INH Last administered on 08/15/17 15:52; Admin Dose 2 PUFF; Start 08/08/17 at 17:00 Diagnostic Test (Pha) 1 ea 1 ea 02 XX ; Start 08/09/17 at 02:00 Cefepime HCl (Maxipime 1gm/50 ml (Pmx)) 50 ml @ 100 mls/hr Q12 IVPB Last administered on 08/15/17 09:59; Admin Dose 100 MLS/HR; Start 08/08/17 at 21: 00 Miscellaneous Information 1 ea NOTE XX ; Start 08/08/17 at 20:30 Glucose (Glutose) 15 gm Q15M PRN PO DECREASED GLUCOSE; Start 08/08/17 at 20:30 Glucose (Glutose) 22.5 gm Q15M PRN PO DECREASED GLUCOSE; Start 08/08/17 at 20: 30 Dextrose (D50w Syringe) 25 ml Q15M PRN IV DECREASED GLUCOSE; Start 08/08/17 at 20:30 Dextrose (D50w Syringe) 50 ml Q15M PRN IV DECREASED GLUCOSE; Start 08/08/17 at 20:30 Glucagon (Glucagen) 1 mg Q15M PRN IM DECREASED GLUCOSE; Start 08/08/17 at 20: 30 Glucose (Glutose) 15 gm Q15M PRN BUCCAL DECREASED GLUCOSE; Start 08/08/17 at 20:30 Miscellaneous Information (Pending [facility] Order For Wound Care) This patient hoffmann... PRN PRN XX WOUND CARE; Start 08/09/17 at 07:30 Insulin Aspart (Novolog Insulin Pen) NOVOLOG *MILD* ALGORITHM Q4 SC Last administered on 08/14/17 18:09; Admin Dose 1 UNIT; Start 08/09/17 at 09:00 Methylprednisolone Sodium Succinate (Solu-Medrol) 40 mg Q12 IV Last administered on 08/15/17 09:59; Admin Dose 40 MG; Start 08/09/17 at 21:00 Neomycin/ Polymyxin/ Bacitracin (Neosporin Topical Oint) 1 applic BID TOP Last administered on 08/15/17 09:00; Admin Dose 1 APPLIC; Start 08/10/17 at 21:00 Hydromorphone HCl (Dilaudid) 1 mg Q3H PRN IV PAIN LEVEL 8-10 Last administered on 08/10/17 22:17; Admin Dose 1 MG; Start 08/10/17 at 22:00 Hydromorphone HCl (Dilaudid) 0.5 mg Q4H PRN IV PAIN Last administered on 11:54; Admin Dose 0.5 MG; Start 08/11/17 at 10:30 Ondansetron HCl (Zofran Inj) 4 mg Q6H PRN IV NAUSEA AND/OR VOMITING; Start at 23:00 Insulin Glargine (Lantus) 18 unit DAILY@20 SC Last administered on 08/14/17 20:53; Admin Dose 18 UNIT; Start 08/12/17 at 20:00 Enoxaparin Sodium 40 mg 40 mg DAILY SC Last administered on 08/15/17 10:15; Admin Dose 40 MG; Start 08/13/17 at 09:00 Sodium Chloride (NS) 1,000 ml @ 75 mls/hr [id number] IV Last administered on 03:45; Admin Dose 75 MLS/HR; Start 08/13/17 at 13:00 Escitalopram Oxalate (Lexapro) 10 mg DAILY PO Last administered on 08/15/17 09:59; Admin Dose 10 MG; Start 08/14/17 at 09:00 Alprazolam (Xanax) 0.5 mg Q8 PO Last administered on 08/15/17 14:55; Admin Dose 0.5 MG; Start 08/14/17 at 14:00 Lorazepam (Ativan) 0.5 mg Q6H PRN PO ANXIETY; Start 08/14/17 at 12:07 Oxycodone/ Acetaminophen (Endocet (10/ 325)) 1 tab Q4 PRN PO PAIN Last administered on 08/15/17 08:08; Admin Dose 1 TAB; Start 08/15/17 at 09:00 TAMMI MORENO Aug 15, 2017 16:47
[2017-08-15] MEDS: INSULIN GLARGINE [LANtus] 3 ML PEN SC SCH (20:40)
[2017-08-15] MEDS: ATORVASTATIN 40 MG TAB PO SCH (20:41)
[2017-08-16] VITALS (18 sets, daily range): BP systolic 83–128; BP diastolic 52–69; PULSE 12–114; RESP 12–19
[2017-08-16] MEDS: INSULIN ASPART [NOVOLOG] 3 ML PEN SC SCH ×3 (01:00→08:49)
[2017-08-16] MEDS: ACCU-CHEK XX SCH (02:00)
[2017-08-16] MEDS: OXYCODONE/ACETAMINOPHEN (10/325) TAB PO PRN (02:40)
[2017-08-16] MEDS: ALPRAZOLAM 0.5 MG TAB PO SCH (05:55)
[2017-08-16] MEDS: PANTOPRAZOLE (EC) 40 MG TAB PO SCH (05:55)
[2017-08-16] MEDS: SOD CHLORIDE 0.9% 1,000 ML IV SCH (07:40)
[2017-08-16] MEDS: HYDROmorphONE 0.5 MG/0.5 ML SYG IV PRN (08:24)
--- NOTE | 2017-08-16 08:36 | PN ---
DATE: 08/16/2017 DISPOSITION: The patient remains in serious condition, continues to be encephalopathic and deliriou s. Overnight, the patient remained agitated. Blood pressures are marginally low. No significant c hange in respiratory status. Please note I had a long discussion with the patient's and daught er at bedside discussing possible end of life. The patient's family wanted to make sure that he is comfortable. They are still determined to do everything they can for him. No other events noted. OBJECTIVE: VITAL SIGNS: Blood pressure is 120/69, pulse 75, respirations 12, temperature 98.0. HEENT: Head is normocephalic. NECK: Supple. HEART: Regular rate. LUNGS: Show diminished breath sounds at the base. ABDOMEN: Soft, nontender to palpation. No rebound or guarding. EXTREMITIES: Negative for clubbing, cyanosis, no edema. DERMATOLOGIC: No rashes. MUSCULOSKELETAL: No joint effusions. NEUROLOGIC: The patient remains confused. MEDICATIONS: The patient's medications have been reviewed. LABORATORY DATA: Currently pending. ASSESSMENT AND PLAN: 1. Acute hypoxic respiratory failure secondary to pneumonia, metastatic disease. The patient remai ns on BiPAP, unable to be weaned off. The patient has not shown any significant improvement. We wi ll discuss with Dr. Thibodeaux, beauty director, for any other possible treatment options. Continue BiPA P, steroids, antibiotics. 2. Acute encephalopathy, delirium. Etiology is multifactorial secondary to sepsis, steroids, opiat es. We will continue to monitor. Unable to get a CT scan of the brain. 3. C-6 compression fracture. The patient has been seen by neurosurgery, planning MRI if patient is clinically stable. 4. Acute diastolic heart failure. The patient is currently compensated. Continue to monitor. 5. Hypotension, etiology is likely multifactorial secondary to sepsis, volume depletion. Continue IV fluids. 6. Hyperkalemia. Etiology is multifactorial secondary to hyperkalemia and potassium supplementatio n. Will discontinue potassium chloride. Follow up renal panel. 7. Anemia. Monitor hemoglobin and hematocrit levels. 8. Coronary artery disease, status post coronary artery bypass graft. Continue medical management. 9. Diabetes. Continue current insulin regimen. 10. History of renal cell carcinoma stage IV with metastasis to the bones, mediastinum. The patien t is status post immunotherapy, continue to monitor. 11. Chronic pain syndrome. Continue current pain regimen. 12. Gastrointestinal and deep venous thrombosis prophylaxis. Continue proton pump inhibitor and Lo venox. Dictated By: GIOVANNI WINTER/GUERO Conf#: [id number] DID#: [id number]
[2017-08-16] MEDS: CEFEPIME 1GM/50 ML (PMX) 50 ML IVPB SCH (08:37)
[2017-08-16] MEDS: METHYLPREDNISOLONE 40 MG INJ IV SCH (08:37)
[2017-08-16] MEDS: ASPIRIN (EC) 325 MG TAB PO SCH (08:38)
[2017-08-16] MEDS: ESCITALOPRAM 10 MG TAB PO SCH (08:38)
[2017-08-16] MEDS: NEOMYC/POLYMYX/BACIT 30 GM OINT TOP SCH (08:49)
[2017-08-16] MEDS: ENOXAPARIN 40 MG/0.4 ML SYG SC SCH (08:52)
[2017-08-16 09:14] LABS: ABNORMAL IP MESSAGE 1; BASOPHILS % 0.2 % (0.0-2.0); HEMATOCRIT 37.7 % (42.0-52.0); HEMOGLOBIN 10.1 g/dl (14.0-18.0); LYMPHOCYTES # 0.7 10^3/ul (0.8-2.9); LYMPHOCYTES % 4.2 % (15.0-51.0); MEAN CORPUSCULAR HEMOGLOBIN 23.9 pg (29.0-33.0); MEAN CORPUSCULAR HGB CONC 26.8 g/dl (32.0-37.0); MEAN CORPUSCULAR VOLUME 89.3 fl (82.0-101.0); MONOCYTE # 1.8 10^3/ul (0.3-0.9); MONOCYTES % 11.1 % (0.0-11.0); NEUTROPHIL # 13.3 10^3/ul (1.6-7.5); NEUTROPHILS % 82.1 % (39.0-77.0); PLATELET COUNT 220 10^3/UL (140-415); POSITIVE DIFF @See below; RED BLOOD COUNT 4.22 10^6/ul (4.70-6.10); RED CELL DISTRIBUTION WIDTH 17.5 % (11.5-14.5); WHITE BLOOD COUNT 16.2 10^3/ul (4.8-10.8)
[2017-08-16 09:32] LABS: CALCIUM 8.2 mg/dl (8.4-10.2); CREATININE 0.64 mg/dl (0.61-1.24); MAGNESIUM 2.6 mg/dl (1.7-2.5); PHOSPHORUS 2.6 mg/dl (2.5-4.9); POTASSIUM 4.9 mmol/L (3.5-5.1)
--- NOTE | 2017-08-16 09:36 | CONS ---
Date/Time of Note Date/Time of Note DATE: 08/16/17 TIME: 09:34 Consult Date/Type/Reason Admit Date/Time Aug 08, 2017 at 17:31 Initial Consult Date 08/09/17 Type of Consultation: Pulmonary Ordering Provider: GIOVANNI KRUGER DO Subjective Patient given pain meds today. Appears comfortable. Continues BiPAP. Objective Vital Signs Date Time Temp Pulse Resp B/P Pulse Ox O2 Delivery O2 Flow Rate FiO2 08/16/17 08:00 110 08/16/17 07:50 98.0 12 128/69 94 08/16/17 07:05 45 08/16/17 05:15 BIPAP Intake and Output 08/15/17 08/15/17 08/16/17 15:00 23:00 07:00 Intake Total 1800 ml 770 ml Output Total 600 ml 450 ml Balance 1200 ml 320 ml Exam GENERAL: Well-nourished well-developed gentleman mild agitation on BiPAP. FiO2 40% VITAL SIGNS: per chart NECK: Supple. No JVD or lymphadenopathy. CARDIAC EXAM: S1, S2. No added sounds or murmurs. CHEST: Diminished air entry bilaterally with rales right base. ABDOMEN: Soft, nontender. No guarding or rebound. EXTREMITIES: No cyanosis, clubbing or edema. NEUROLOGIC: Generalized weak Results/Medications Result Diagram: 08/16/17 0849 08/15/17 0657 Results 24 hrs Laboratory Tests Test 08/15/17 10:02 08/15/17 14:06 08/15/17 17:51 08/15/17 20:19 Bedside Glucose 105 118 130 116 Test 08/16/17 01:37 08/16/17 05:40 08/16/17 08:43 08/16/17 08:49 Bedside Glucose 103 113 119 White Blood Count 16.2 #H Red Blood Count 4.22 L Hemoglobin 10.1 L Hematocrit 37.7 L Mean Corpuscular Volume 89.3 Mean Corpuscular Hemoglobin 23.9 L Mean Corpuscular Hemoglobin Concent 26.8 L Red Cell Distribution Width 17.5 H Platelet Count 220 # Mean Platelet Volume 10.0 Neutrophils % 82.1 H Lymphocytes % 4.2 L Monocytes % 11.1 H Eosinophils % 0.0 Basophils % 0.2 Nucleated Red Blood Cells % 0.0 Neutrophils # 13.3 H Lymphocytes # 0.7 L Monocytes # 1.8 H Eosinophils # 0.0 Basophils # 0.0 Nucleated Red Blood Cells # 0.0 Medications Current Medications Aspirin (Ecotrin) 325 mg DAILY PO Last administered on 08/16/17 08:38; Admin Dose 325 MG; Start 08/09/17 at 09:00 Atorvastatin Calcium (Lipitor) 40 mg QHS PO Last administered on 08/15/17 20: 41; Admin Dose 40 MG; Start 08/08/17 at 21:00 Carvedilol (Coreg) 3.125 mg BID PO Last administered on 08/16/17 08:38; Admin Dose 3.125 MG; Start 08/08/17 at 21:00 Albuterol/ Ipratropium (Duoneb) 3 ml Q6 PRN NEB SHORTNESS OF BREATH Last administered on 08/15/17 15:52; Admin Dose 3 ML; Start 08/08/17 at 17:00 Lisinopril (Zestril) 2.5 mg DAILY PO ; Start 08/09/17 at 09:00; Status Future Hold Pantoprazole (Protonix Tab) 40 mg DAILY@06 PO Last administered on 08/16/17 05:55; Admin Dose 40 MG; Start 08/09/17 at 06:00 Albuterol (Ventolin Hfa) 2 puff QID INH Last administered on 08/15/17 20:42; Admin Dose 2 PUFF; Start 08/08/17 at 17:00 Diagnostic Test (Pha) 1 ea 1 ea 02 XX ; Start 08/09/17 at 02:00 Cefepime HCl (Maxipime 1gm/50 ml (Pmx)) 50 ml @ 100 mls/hr Q12 IVPB Last administered on 08/16/17 08:37; Admin Dose 100 MLS/HR; Start 08/08/17 at 21: 00 Miscellaneous Information 1 ea NOTE XX ; Start 08/08/17 at 20:30 Glucose (Glutose) 15 gm Q15M PRN PO DECREASED GLUCOSE; Start 08/08/17 at 20:30 Glucose (Glutose) 22.5 gm Q15M PRN PO DECREASED GLUCOSE; Start 08/08/17 at 20: 30 Dextrose (D50w Syringe) 25 ml Q15M PRN IV DECREASED GLUCOSE; Start 08/08/17 at 20:30 Dextrose (D50w Syringe) 50 ml Q15M PRN IV DECREASED GLUCOSE; Start 08/08/17 at 20:30 Glucagon (Glucagen) 1 mg Q15M PRN IM DECREASED GLUCOSE; Start 08/08/17 at 20: 30 Glucose (Glutose) 15 gm Q15M PRN BUCCAL DECREASED GLUCOSE; Start 08/08/17 at 20:30 Miscellaneous Information (Pending [facility] Order For Wound Care) This patient hoffmann... PRN PRN XX WOUND CARE; Start 08/09/17 at 07:30 Insulin Aspart (Novolog Insulin Pen) NOVOLOG *MILD* ALGORITHM Q4 SC Last administered on 08/14/17 18:09; Admin Dose 1 UNIT; Start 08/09/17 at 09:00 Methylprednisolone Sodium Succinate (Solu-Medrol) 40 mg Q12 IV Last administered on 08/16/17 08:37; Admin Dose 40 MG; Start 08/09/17 at 21:00 Neomycin/ Polymyxin/ Bacitracin (Neosporin Topical Oint) 1 applic BID TOP Last administered on 08/16/17 08:49; Admin Dose 1 APPLIC; Start 08/10/17 at 21:00 Hydromorphone HCl (Dilaudid) 1 mg Q3H PRN IV PAIN LEVEL 8-10 Last administered on 08/10/17 22:17; Admin Dose 1 MG; Start 08/10/17 at 22:00 Hydromorphone HCl (Dilaudid) 0.5 mg Q4H PRN IV PAIN Last administered on 08:24; Admin Dose 0.5 MG; Start 08/11/17 at 10:30 Ondansetron HCl (Zofran Inj) 4 mg Q6H PRN IV NAUSEA AND/OR VOMITING; Start at 23:00 Insulin Glargine (Lantus) 18 unit DAILY@20 SC Last administered on 08/15/17 20:40; Admin Dose 18 UNIT; Start 08/12/17 at 20:00 Enoxaparin Sodium 40 mg 40 mg DAILY SC Last administered on 08/16/17 08:52; Admin Dose 40 MG; Start 08/13/17 at 09:00 Sodium Chloride (NS) 1,000 ml @ 75 mls/hr [id number] IV Last administered on 23:46; Admin Dose 75 MLS/HR; Start 08/13/17 at 13:00 Escitalopram Oxalate (Lexapro) 10 mg DAILY PO Last administered on 08/16/17 08:38; Admin Dose 10 MG; Start 08/14/17 at 09:00 Alprazolam (Xanax) 0.5 mg Q8 PO Last administered on 08/16/17 05:55; Admin Dose 0.5 MG; Start 08/14/17 at 14:00 Lorazepam (Ativan) 0.5 mg Q6H PRN PO ANXIETY; Start 08/14/17 at 12:07 Oxycodone/ Acetaminophen (Endocet (10/ 325)) 1 tab Q4 PRN PO PAIN Last administered on 08/16/17 02:40; Admin Dose 1 TAB; Start 08/15/17 at 09:00 Assessment/Plan Chief Complaint/Hosp Course Assessment 1. Hypoxemic respiratory failure likely secondary to pneumonia and tumor burden from metastatic renal cell CA, possible component of lymphangitic spread. Only on 40% FiO2. 2. Obstructive etiology right upper lobe. Right lower lobe atelectasis. Pulmonary metastasis noted. Possible pneumonia given leukocytosis. 3. Metastatic renal cell carcinoma concern for possible C-spine metastasis. C- spine fracture noted 4. History of diabetes mellitus Plan 1. Continue supplemental O2 and BiPAP, trial of high flow O2 if tolerated 2. Decrease steroids. 3. Encourage out of bed 4. ID recommendations 5. Palliative care recommendations. Patient's CODE STATUS to be changed to DNI to be consistent with his advanced directive. Extremely poor prognosis.Consider palliative care. Problems: SONJA GIRALDO MD, [facility] Aug 16, 2017 09:36
[2017-08-16] MEDS ORDERED: DIMETHICONE STICK TOP PRN (12:30)
[2017-08-16] MEDS ORDERED: LORAZEPAM 2 MG INJ IV PRN (12:30)
[2017-08-16] MEDS ORDERED: ARTIFICIAL TEARS 15 ML OPH BOTH EYES PRN (12:30)
[2017-08-16] MEDS: morphine (DRIP) 100 MG/100 ML 100 ML IV SCH ×6 (13:18→19:12)
--- NOTE | 2017-08-16 16:58 | CONS ---
Date/Time of Note Date/Time of Note DATE: 08/16/17 TIME: 16:54 Assessment/Plan Assessment/Plan Chief Complaint/Hosp Course End of life care: pt is on a morphine drip and appears comfortable. Support offered to family and friends -comfort oriented care Problems: Consultation Date/Type/Reason Admit Date/Time Aug 08, 2017 at 17:31 Initial Consult Date 08/09/17 Type of Consultation: Cardiology Referring Provider: GIOVANNI KRUGER DO 24 HR Interval Summary Free Text/Dictation Pt's condition continued to deteriorate and the family decided for comfort care in conjunction with palliative care. He has family/friends at bedside and appears comfortable. Exam/Review of Systems Vital Signs Vitals Vital Signs Date Time Temp Pulse Resp B/P Pulse Ox O2 Delivery O2 Flow Rate FiO2 08/16/17 16:00 111 08/16/17 12:45 96 100 08/16/17 07:50 98.0 12 128/69 08/16/17 05:15 BIPAP Intake and Output 08/15/17 08/15/17 08/16/17 14:59 22:59 06:59 Intake Total 1800 ml 770 ml Output Total 600 ml 450 ml Balance 1200 ml 320 ml Results Result Diagram: 08/16/17 0849 08/16/17 0849 Results 24 hrs Laboratory Tests Test 08/15/17 17:51 08/15/17 20:19 08/16/17 01:37 08/16/17 05:40 Bedside Glucose 130 116 103 113 Test 08/16/17 08:43 08/16/17 08:49 Bedside Glucose 119 White Blood Count 16.2 #H Red Blood Count 4.22 L Hemoglobin 10.1 L Hematocrit 37.7 L Mean Corpuscular Volume 89.3 Mean Corpuscular Hemoglobin 23.9 L Mean Corpuscular Hemoglobin Concent 26.8 L Red Cell Distribution Width 17.5 H Platelet Count 220 # Mean Platelet Volume 10.0 Neutrophils % 82.1 H Lymphocytes % 4.2 L Monocytes % 11.1 H Eosinophils % 0.0 Basophils % 0.2 Nucleated Red Blood Cells % 0.0 Neutrophils # 13.3 H Lymphocytes # 0.7 L Monocytes # 1.8 H Eosinophils # 0.0 Basophils # 0.0 Nucleated Red Blood Cells # 0.0 Sodium Level 144 Potassium Level 4.9 Chloride Level 101 Carbon Dioxide Level 38 H Anion Gap 10 Blood Urea Nitrogen 26 H Creatinine 0.64 Glucose Level 127 Calcium Level 8.2 L Phosphorus Level 2.6 Magnesium Level 2.6 H Medications Medications Current Medications Morphine Sulfate/ Sodium Chloride (morphine) 100 ml @ 1 mls/hr TITRATE IV Last administered on 08/16/17t 16:14; Admin Dose 3 MLS/HR; Start 08/16/17 at 13:00 Lorazepam (Ativan) 1 mg Q2H PRN IV Restlessness; Start 08/16/17 at 12:30 TAMMI MORENO Aug 16, 2017 16:58
--- NOTE | 2017-08-17 08:52 | CONS ---
Date/Time of Note Date/Time of Note DATE: 08/17/17 TIME: 08:36 Assessment/Plan Assessment/Plan Additional Assessment/Plan Family conference done with patient's children other family members are in route. Decision makers patient's background history social history was reviewed. Most notably family members state that patient clearly stated he would not want to live in this moribund condition and asked family members to make sure he did not suffer at the end of his life. Family members are clear understanding of his underlying renal cell carcinoma with metastasis and respiratory failure. This is an unacceptable quality of life is the perceived this interferes that he would struggling. They have some strong spiritual believes that he will need his creator soon. There were no cultural communication issues family members are very satisfied with the level of care and quality of care. Physical examination please refer to the above. Impressions this is a 66-year-old gentleman who is dying of explained to family members that he is living hour to hour right now and they should ask any family members or friends to visit him now. They requested that patient have the last right they will call if there are previous he has noticed chance of survival with family members in room and everyone agreeing that comfort measures should be initiated. Discussed with Dr. 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 Patient was admitted to [facility] extremis increasing shortness of breath. During hospital course patient has not improved and in fact has deteriorated to the point he is requiring BiPAP at the time of seeing him is approaching end-of-life. Patient has a diagnosis of presumed metastases to his lungs as well as pneumonia he was on 100% FiO2 when I visited him with family members in the room. I reviewed extensive notes by Dr. Boyd. I was asked to speak to family members concerning ongoing level of care and possible comfort care. HISTORY OF PRESENT ILLNESS: This is a 66-year-old male with a past medical history of coronary artery disease status post CABG, history of CHF with ejection fraction of 45%, history of recently diagnosed renal cell carcinoma stage IV with metastasis to the bones, to the mediastinum, chest, who presents to [facility] with worsening shortness of breath, lower extremity edema. The patient was recently admitted to [facility] approximately 1 month ago with similar complaints. The patient had a 1 -week stay, was diuresed and discharged home. Since his discharge home, patient was seen by his oncologist, Dr. Andres at [facility]. The patient was initiated on chemotherapy. His initial chemotherapy was last . Following the chemotherapy, patient has had progressive shortness of breath, lower extremity edema and desaturations. The patient also was noted to be extremely weak. Of note, patient was also noted to have extreme cervical flexion with inability to lift his head, which has been progressively worsening. Given the decompensation , the patient came in to the emergency room for evaluation. Upon arrival, the patient had laboratory data drawn, which showed a white count 12.2, hemoglobin 10.1, hematocrit of 35.4, platelet count of 324. Sodium 127, potassium 3.8, chloride 77, a BUN 21, a creatinine 0.70. Chest x-ray showed right lower, upper lobe atelectasis, consolidation, patchy left infiltrates and mild cardiomegaly. In the emergency room, the patient was given nebulizer therapy and IV Solu-Medrol. PAST MEDICAL HISTORY: As stated above, history of CHF, diabetes, coronary artery disease, renal cell carcinoma stage IV, lower extremity edema. PAST SURGICAL HISTORY: Status post CABG. FAMILY HISTORY: Noncontributory. SOCIAL HISTORY: History of tobacco use. MEDICATIONS: Have been reviewed and reconciled. REVIEW OF SYSTEMS: A 14-point review of systems conducted. Pertinent positives stated in HPI, otherwise negative. PHYSICAL EXAMINATION: VITAL SIGNS: Blood pressure is 130/76, temperature 97.8, pulse 110, respirations 18. HEENT: Head is normocephalic. Pupils are reactive to light. NECK: The patient's neck forward flexion with tenderness to palpation along the cervical spine, extremely limited in rotation left and right. HEART: Tachycardic. LUNGS: Show diminished breath sounds at the bases. Positive rhonchi. ABDOMEN: Soft, nontender to palpation. EXTREMITIES: Positive for +4 edema. DERMATOLOGIC: No rashes. MUSCULOSKELETAL: No joint effusions. NEUROLOGIC: No focal deficits. LABORATORY DATA: Shows a white count 12.2, hemoglobin 10.1, hematocrit of 35.4 , platelet count 324, sodium 127, chloride 77, bicarbonate 38, BUN 21, creatinine 0.70, calcium 8.3, alkaline phosphatase 291 and BNP is 2000. ASSESSMENT AND PLAN: This is a 66-year-old male who presents with: 1. Acute hypoxemic respiratory failure. Etiology is likely multifactorial secondary to metastatic renal cell carcinoma, pulmonary mass, acute congestive heart failure exacerbation, diastolic, chronic obstructive pulmonary disease exacerbation, possible pneumonia. The patient's chest x-ray shows evidence of possible infiltrate. Plan at this point is to get a CT scan of the chest if patient is able to lie down flat. We will start the patient on nebulizers. We will also start empiric antibiotics of meropenem for possible healthcare- associated pneumonia. We will start diuretic therapy of Bumex IV, consider a drip. Otherwise, we will continue supportive care. We will also place a pulmonary and cardiology consult for evaluation. 2. Acute diastolic heart failure. The patient is compensated with positive lower extremity edema. Continue diuretic therapy with Bumex 1 mg IV q.12 hours. We will add metolazone. Continue Bumex drip. We will monitor renal function closely. 3. Hyponatremia, etiology is likely secondary to congestive heart failure, metolazone effect. Plan is to limit free water intake. We will continue diuretic therapy and monitor. 4. Alkalosis. Etiology is unclear, possibly primary versus compensatory. Plan is to check an ABG. Would consider Diamox if this is a metabolic alkalemia. We will otherwise monitor closely. 5. Anemia. Monitor hemoglobin and hematocrit levels. 6. Coronary artery disease status post CABG. Continue medical management. 7. Renal cell carcinoma stage IV. The patient is status post chemotherapy 1 week ago. We will follow with patient's primary oncologist. 8. Diabetes. Continue Lantus. Continue current insulin regimen. 9. Gastrointestinal and DVT prophylaxis. Continue PPI and sequential leg squeezers. 10. Chronic pain syndrome secondary to metastatic disease. Continue current pain regimen. Please note I spent up to 25 minutes [id number] time with the patient and the patient's . The patient is full code. Past Surgical History Past Surgical Hx: no surgical history Social History Smoking Status: Never smoker Exam/Review of Systems Vital Signs Vitals Vital Signs Date Time Temp Pulse Resp B/P Pulse Ox O2 Delivery O2 Flow Rate FiO2 08/16/17 20:10 50 08/16/17 17:35 Nasal Cannula 6.0 08/16/17 12:45 96 100 08/16/17 07:50 98.0 12 128/69 Exam Constitutional: distress Respiratory: congested cough, crackles/rales, diminished breath sounds ( Diminished breath sounds right greater than left, intercostal retractions labored breathing rales both lung mix) Cardiovascular: other (S1-S2 distant breath sounds rapid rate ) Results Result Diagram: 08/16/17 0849 08/16/17 0849 Results 24 hrs Laboratory Tests Test 08/16/17 08:43 08/16/17 08:49 Bedside Glucose 119 White Blood Count 16.2 #H Red Blood Count 4.22 L Hemoglobin 10.1 L Hematocrit 37.7 L Mean Corpuscular Volume 89.3 Mean Corpuscular Hemoglobin 23.9 L Mean Corpuscular Hemoglobin Concent 26.8 L Red Cell Distribution Width 17.5 H Platelet Count 220 # Mean Platelet Volume 10.0 Neutrophils % 82.1 H Lymphocytes % 4.2 L Monocytes % 11.1 H Eosinophils % 0.0 Basophils % 0.2 Nucleated Red Blood Cells % 0.0 Neutrophils # 13.3 H Lymphocytes # 0.7 L Monocytes # 1.8 H Eosinophils # 0.0 Basophils # 0.0 Nucleated Red Blood Cells # 0.0 Sodium Level 144 Potassium Level 4.9 Chloride Level 101 Carbon Dioxide Level 38 H Anion Gap 10 Blood Urea Nitrogen 26 H Creatinine 0.64 Glucose Level 127 Calcium Level 8.2 L Phosphorus Level 2.6 Magnesium Level 2.6 H STACY RON Aug 17, 2017 08:46
--- NOTE | 2017-08-17 08:54 | CONS ---
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 Patient was admitted to [facility] extremis increasing shortness of breath. During hospital course patient has not improved and in fact has deteriorated to the point he is requiring BiPAP at the time of seeing him is approaching end-of-life. Patient has a diagnosis of presumed metastases to his lungs as well as pneumonia he was on 100% FiO2 when I visited him with family members in the room. I reviewed extensive notes by Dr. Boyd. I was asked to speak to family members concerning ongoing level of care and possible comfort care. HISTORY OF PRESENT ILLNESS: This is a 66-year-old male with a past medical history of coronary artery disease status post CABG, history of CHF with ejection fraction of 45%, history of recently diagnosed renal cell carcinoma stage IV with metastasis to the bones, to the mediastinum, chest, who presents to [facility] with worsening shortness of breath, lower extremity edema. The patient was recently admitted to [facility] approximately 1 month ago with similar complaints. The patient had a 1 -week stay, was diuresed and discharged home. Since his discharge home, patient was seen by his oncologist, Dr. Andres at [facility]. The patient was initiated on chemotherapy. His initial chemotherapy was last . Following the chemotherapy, patient has had progressive shortness of breath, lower extremity edema and desaturations. The patient also was noted to be extremely weak. Of note, patient was also noted to have extreme cervical flexion with inability to lift his head, which has been progressively worsening. Given the decompensation , the patient came in to the emergency room for evaluation. Upon arrival, the patient had laboratory data drawn, which showed a white count 12.2, hemoglobin 10.1, hematocrit of 35.4, platelet count of 324. Sodium 127, potassium 3.8, chloride 77, a BUN 21, a creatinine 0.70. Chest x-ray showed right lower, upper lobe atelectasis, consolidation, patchy left infiltrates and mild cardiomegaly. In the emergency room, the patient was given nebulizer therapy and IV Solu-Medrol. PAST MEDICAL HISTORY: As stated above, history of CHF, diabetes, coronary artery disease, renal cell carcinoma stage IV, lower extremity edema. PAST SURGICAL HISTORY: Status post CABG. FAMILY HISTORY: Noncontributory. SOCIAL HISTORY: History of tobacco use. MEDICATIONS: Have been reviewed and reconciled. REVIEW OF SYSTEMS: A 14-point review of systems conducted. Pertinent positives stated in HPI, otherwise negative. PHYSICAL EXAMINATION: VITAL SIGNS: Blood pressure is 130/76, temperature 97.8, pulse 110, respirations 18. HEENT: Head is normocephalic. Pupils are reactive to light. NECK: The patient's neck forward flexion with tenderness to palpation along the cervical spine, extremely limited in rotation left and right. HEART: Tachycardic. LUNGS: Show diminished breath sounds at the bases. Positive rhonchi. ABDOMEN: Soft, nontender to palpation. EXTREMITIES: Positive for +4 edema. DERMATOLOGIC: No rashes. MUSCULOSKELETAL: No joint effusions. NEUROLOGIC: No focal deficits. LABORATORY DATA: Shows a white count 12.2, hemoglobin 10.1, hematocrit of 35.4 , platelet count 324, sodium 127, chloride 77, bicarbonate 38, BUN 21, creatinine 0.70, calcium 8.3, alkaline phosphatase 291 and BNP is 2000. ASSESSMENT AND PLAN: This is a 66-year-old male who presents with: 1. Acute hypoxemic respiratory failure. Etiology is likely multifactorial secondary to metastatic renal cell carcinoma, pulmonary mass, acute congestive heart failure exacerbation, diastolic, chronic obstructive pulmonary disease exacerbation, possible pneumonia. The patient's chest x-ray shows evidence of possible infiltrate. Plan at this point is to get a CT scan of the chest if patient is able to lie down flat. We will start the patient on nebulizers. We will also start empiric antibiotics of meropenem for possible healthcare- associated pneumonia. We will start diuretic therapy of Bumex IV, consider a drip. Otherwise, we will continue supportive care. We will also place a pulmonary and cardiology consult for evaluation. 2. Acute diastolic heart failure. The patient is compensated with positive lower extremity edema. Continue diuretic therapy with Bumex 1 mg IV q.12 hours. We will add metolazone. Continue Bumex drip. We will monitor renal function closely. 3. Hyponatremia, etiology is likely secondary to congestive heart failure, metolazone effect. Plan is to limit free water intake. We will continue diuretic therapy and monitor. 4. Alkalosis. Etiology is unclear, possibly primary versus compensatory. Plan is to check an ABG. Would consider Diamox if this is a metabolic alkalemia. We will otherwise monitor closely. 5. Anemia. Monitor hemoglobin and hematocrit levels. 6. Coronary artery disease status post CABG. Continue medical management. 7. Renal cell carcinoma stage IV. The patient is status post chemotherapy 1 week ago. We will follow with patient's primary oncologist. 8. Diabetes. Continue Lantus. Continue current insulin regimen. 9. Gastrointestinal and DVT prophylaxis. Continue PPI and sequential leg squeezers. 10. Chronic pain syndrome secondary to metastatic disease. Continue current pain regimen. Please note I spent up to 25 minutes [id number] time with the patient and the patient's . The patient is full code. Problems: Additional Assessment/Plan Return to my prior note the second history and physical is incorrect and is from Dr. Boyd. Incorrect and the fact that I was not able to eliminate his H &P from my consultation note. This is an error with the EMR. Consultation Date/Type/Reason Admit Date/Time Aug 08, 2017 at 17:31 Initial Consult Date 08/09/17 Type of Consultation: Palliative care Referring Provider: GIOVANNI BOYD DO Exam/Review of Systems Vital Signs Vitals Vital Signs Date Time Temp Pulse Resp B/P Pulse Ox O2 Delivery O2 Flow Rate FiO2 08/16/17 20:10 50 08/16/17 17:35 Nasal Cannula 6.0 08/16/17 12:45 96 100 08/16/17 07:50 98.0 12 128/69 Results Result Diagram: 08/16/17 0849 08/16/17 0849 STACY RON Aug 17, 2017 08:54
--- NOTE | 2017-08-18 12:28 | DS ---
DATE OF ADMISSION: 08/08/2017 DATE OF DISCHARGE: 08/16/2017 HOSPITAL COURSE SUMMARY: This is an unfortunate 66-year-old male with a past medical history of cor onary artery disease status post CABG, history of CHF with ejection fraction of 45%, a recent diagno sis of renal cell carcinoma stage IV with metastasis to the bone, mediastinal chest who presented to [facility] with worsening shortness of breath, lower extremity edema. The елена cardenas was recently admitted to [facility] approximately 1 month ago with similar compl aints. The patient had a 1 week stay at that time, was diuresed and discharged home. Since his dis charge home, the patient was seen by oncologist, Dr. Adnres, at [facility], was initiated on immunotherapy for his renal cell carcinoma. The patient, upon arrival to the hospital, was noted to be in hypoxemic respiratory failure, was also noted to have extreme cervical flexion, inability to lift his head. T he patient was placed on BiPAP and initially admitted to intensive care unit. He was diagnosed with sepsis due to underlying pneumonia. The patient was placed on antibiotic therapy. He was seen by Dr. Ledezma, traffic enumerator, Dr. Hawthorne, infectious disease and Dr. Thibodeaux, hoop riveter. The james valles was eventually initially stabilized and transferred to telemetry. While on telemetry, the tc babcock was also receiving diuretic therapy. After several days, the patient was euvolemic and diureti c therapy was discontinued. The patient, however, remained hypoxemic during the hospital course elayne pite multiple attempts of getting off BiPAP and despite attempted high flow oxygenation. The елена cardenas was unable to tolerate high flow and remained on BiPAP. The patient, during the hospital course, continued to have episodes of delirium encephalopathy felt to be secondary to his underlying sepsis as well as his hypoxemia. The patient unfortunately continued to have progressive decline, shortnes s of breath. A consult was placed by Dr. Ferguson for palliative care. The patient, with family ag reeing, was placed on a morphine drip. Patient peacefully. FINAL DIAGNOSES: 1. Acute hypoxemic respiratory failure secondary to pneumonia, metastatic disease. 2. Acute encephalopathy. 3. Compression fracture. 4. Acute diastolic heart failure. 5. Hypertension 6. Alkalosis. 7. Hypokalemia. 8. Anemia. 9. Coronary artery disease. 10. Diabetes. 11. Metastatic renal cell carcinoma. 12. Chronic pain syndrome. Dictated By: GIOVANNI WINTER/GUERO Conf#: [id number] DID#: [id number]
== END 2017-08-16 20:42 | disposition expired | DRG 871 ==
LOC: E/R 14:59 → ICU 17:31 → TEL 08-09 19:46
PROVIDERS: ADMIT Internal Medicine; ATTEND Internal Medicine
DX: A41.9 Sepsis, unspecified organism (principal); J96.01 Acute respiratory failure with hypoxia; I50.43 Acute on chronic combined systolic (congestive) and diastolic (congestive) heart failure; L89.153 Pressure ulcer of sacral region, stage 3; G92 Toxic encephalopathy; J18.9 Pneumonia, unspecified organism; I13.0 Hypertensive heart and chronic kidney disease with heart failure and stage 1 through stage 4 chronic kidney disease, or unspecified chronic kidney disease; C78.00 Secondary malignant neoplasm of unspecified lung; C79.51 Secondary malignant neoplasm of bone; I25.810 Atherosclerosis of coronary artery bypass graft(s) without angina pectoris; J44.1 Chronic obstructive pulmonary disease with (acute) exacerbation; E87.1 Hypo-osmolality and hyponatremia; C64.9 Malignant neoplasm of unspecified kidney, except renal pelvis; J98.11 Atelectasis; N18.9 Chronic kidney disease, unspecified; Z66 Do not resuscitate; G89.4 Chronic pain syndrome; Z95.1 Presence of aortocoronary bypass graft
CPT/HCPCS: 36415; 36600; 70490; 71010; 71260; 74177; 76536; 80048; 80053; 81001; 81003; 82043; 82803; 82962; 83690; 83735; 83880; 84100; 84155; 84300; 84484; 85025; 85610; 87040; 87400; 92610; 93005; 93970; 94640; 94644; 94660; 94664; 96365; 96366; 96367; 96372; 96375; J1120; J0692; J1170; J1650; J1815; J1940; J2060; J2270; J2920; J2930; J3475; J3480; J7030; J7040; J7042; J7050; Q9967